=== PATIENT | female | born 1950 | race Caucasian/White ===

== ENCOUNTER 2023-09-17 12:21 | Outpatient (OUT) | payer MEDICARE, SELFPAY ==
[2023-09-17 12:55] LABS: Basophils Percent Auto 0.6 % (0.2-2.0); Eosinophils Absolute Auto 0.3 10^3/uL (0.0-0.7); Eosinophils Percent Auto 4.7 % (0.9-7.0); Hematocrit 44.8 % (36.0-48.0); Hemoglobin 15.1 g/dL (12.0-16.0); Immature Granulocytes Abs Auto 0.02 10^3/uL (0.00-0.03); Immature Granulocytes Pct Auto 0.3 % (0.0-0.5); Lymphocytes Absolute Auto 1.7 10^3/uL (1.2-3.8); Lymphocytes Percent Auto 25.9 % (20.5-60.0); Mean Corpuscular HGB Conc 33.7 g/dL (29.9-35.2); Mean Corpuscular Hemoglobin 31.1 pg (26.7-34.0); Mean Corpuscular Volume 92.2 fL (81.0-99.0); Mean Platelet Volume 9.6 fL (9.5-13.5); Monocytes Absolute Auto 0.6 10^3/uL (0.3-0.8); Monocytes Percent Auto 8.6 % (1.7-12.0); Neutrophils Percent Auto 59.9 % (43.0-75.0); Platelet Count 317 10^3/uL (150-450); Red Blood Count 4.86 10^6/uL (4.20-5.40); Red Cell Distribution Width 13.2 % (11.0-15.0); White Blood Count 6.6 10^3/uL (4.0-11.0)
[2023-09-17 13:42] LABS: Creatinine Urine Random 93.37 mg/dL (20.00-300.00); Microalbum Creatinine Ratio Ur 13.9 mg/g (0.0-29.9); Microalbumin Urine Random <1.3 mg/dL (<=30.0)
[2023-09-17 13:49] LABS: Estimated Average Glucose 111 mg/dL; Glycohemoglobin A1C 5.5 % (4.5-6.2)
== END 2023-09-17 12:22 | disposition home or self-care (01) ==
LOC: LAB 12:25
PROVIDERS: PCP Internal Medicine; Visit Provider Internal Medicine
DX: E11.9 Type 2 diabetes mellitus without complications (principal); E78.5 Hyperlipidemia, unspecified
CPT/HCPCS: 36415; 82043; 82570; 83036; 85025

== ENCOUNTER 2023-09-17 12:28 | Outpatient (OUT) | payer MEDICARE, SELFPAY ==
[2023-09-17 13:41] LABS: Alanine Aminotransferase 31 U/L (14-59); Albumin Globulin Ratio 0.9; Albumin Level 3.8 g/dL (3.4-5.0); Alkaline Phosphatase 65 U/L (46-116); Anion Gap 16.3; Aspartate Amino Transferase 22 U/L (15-37); BUN Creatinine Ratio 22.4; Bilirubin Total 0.5 mg/dL (0.2-1.0); Calcium 9.6 mg/dL (8.5-10.1); Carbon Dioxide 24.9 mmol/L (21.0-32.0); Chloride 103 mmol/L (98-107); Chol HDL Ratio 2.9; Cholesterol 164 mg/dL (<=200); Estimated GFR (African America >60 (>=60); Estimated GFR (Non-African Ame >60 (>=60); Glucose 111 mg/dL (74-106); HDL Cholesterol 56 mg/dL (40-60); LDL Cholesterol Calculated 87.2 mg/dL; Magnesium 2.1 mg/dL (1.8-2.4); Potassium 4.2 mmol/L (3.5-5.1); Sodium 140 mmol/L (136-145); Total Protein 7.8 g/dL (6.4-8.2); Triglycerides 104 mg/dL (<=150); VLDL CHOLESTEROL 20.8 mg/dL
== END 2023-09-17 12:29 | disposition home or self-care (01) ==
PROVIDERS: PCP Internal Medicine
DX: E78.5 Hyperlipidemia, unspecified (principal); E11.9 Type 2 diabetes mellitus without complications; I10 Essential (primary) hypertension; I49.3 Ventricular premature depolarization
CPT/HCPCS: 36415; 80053; 80061; 82043; 82570; 83036; 83735; 85025

== ENCOUNTER 2024-09-26 10:25 | Outpatient (OUT) | payer MEDICARE, SELFPAY ==
--- OUTSIDE RECORDS SUMMARY | 2024-09-26 10:40 | XMS_ITS | CCD ---
Author Organization [facility] Care Team Providers Care Balance Recesser Name Role Phone Yuri Washington Unavailable MISC, DR RODRIGUEZ Primary Care Unavailable MODESTO, DR JOSEF Nelson Consulting Unavailable FAWWAD, CARLIN H Admitting Unavailable FAWWAD, CARLIN H Attending Unavailable FAWWAD, CARLIN H Consulting Unavailable FAWWAD, CARLIN H Admitting Unavailable FAWWAD, CARLIN H Attending Unavailable EAST BERNARD, DR ARCADIO Garcia Consulting Unavailable FAWWAD, CARLIN H Primary Care Unavailable FAWWAD, CARLIN H Consulting Unavailable FAWWAD, CARLIN H Admitting Unavailable FAWWAD, CARLIN H Attending Unavailable FAWWAD, CARLIN H Consulting Unavailable FAWWAD, CARLIN H Primary Care Unavailable MISC, DR RODRIGUEZ Admitting Unavailable MISC, DR RODRIGUEZ Attending Unavailable MISC, DR RODRIGUEZ Consulting Unavailable FAWWAD, CARLIN H Primary Care Unavailable FAWWAD, CARLIN H Admitting Unavailable FAWWAD, CARLIN H Attending Unavailable FAWWAD, CARLIN H Consulting Unavailable FAWWAD, CARLIN H Primary Care Unavailable CHERRY SHEIKH Attending Unavailable MAICO STONEN R Referring Unavailable MAICO STONEN R Primary Care Unavailable Chase LAST SORTER-MANAGER ENVIRONMENTAL, Eris R Primary Care Provider [phone] Kimmie BARNETT, Unavailable Ronn BARNETT, Jerome Primary Care Provider [phone] Karen Conner NP Unavailable Shaikh Burks MD Primary Care Provider Karen Conner Primary Care Unavaila ble Ly, Negrita L Attending Unavailable Negrita Van Admitting Unavailable SHAIKH BURKS Attending Unavailable CONNER, KAREN Attending Unavailabl e LENKA, KAREN Attending Unavailzuleyka e LENKA, KAREN Attending Unavailzuleyka e Arcadio Marte Attending Unavailable Arcadio Marte Referring Unavailable Arcadio Marte Attending Unavailable Arcadio Marte Attending Unavailable Arcadio Marte Attending Unavailable Arcadio Marte Referring Unavailable Arcadio Marte Attending Unavailable Arcadio Marte Referring Unavailable Allergies Allergy Classification Reported Allergen(s) Allergy Type Date of Onset Reaction(s) Facility (4 sources) celecoxib; Translations: [CELECOXIB] Drug Allergy 7 Anaphylaxis [facility] Rep[facility] (4 sources) Morphine; Translations: [MORPHINE] Drug Allergy 7 Stops her digestion, shuts down bowel, Stops her digestion [facility] (2 sources) Sulfacetamide Drug Allergy 4 Anaphylaxis [facility] (1 source) celecoxib Drug Allergy 4 [facility] Repository (1 source) Codeine Drug Allergy 4 [facility] Repository (1 source) Morphine Drug Allergy 4 [facility] Rep[facility] (1 source) Sulfonamides (Antibiotic) Drug allergy (disorder) 4 [facility] Repository (19 sources) Lisinopril; Translations: [LISINOPRIL] Drug Allergy 7 Cough [facility] Repository (4 sources) Sulfonamides (Antibiotic); Translations: [SULFA (SULFONAMIDE ANTIBIOTICS)] Propensity to adverse reactions to drug (disorder) 7 Anaphylaxis [facility] Repository (17 sources) celecoxib Drug Allergy 3 Anaphylaxis [facility] (17 sources) Sulfonamides (Antibiotic) Propensity to adverse reactions 3 Anaphylaxis [facility] (1 source) celecoxib Drug Allergy 4 [facility] Repository Medications Current Medications Medication Drug Class(es) Dates Sig (Normalized) Sig (Original) acetaminophen 325 mg oral tablet (1 source) take 1 tablet by mouth every four hours Tylenol 325 MG 1 tablet as needed Orally every 4 hrs Active amoxicillin 875 mg / clavulanate 125 mg oral tablet (2 sources) Penicillin-class Antibacterial Start: 08-14-2024 End: 08-24-2024 take 1 tablet by mouth in the morning amoxicillin-clavula luigi (Augmentin) 875-125 MG tablet Indications: Upper respiratory tract infection, unspecified type , Non-recurrent acute serous otitis media of both ears Take 1 tablet (875 mg) by mouth in the morning and 1 tablet (875 mg) before bedtime. Do all this for 10 days. 20 tablet 08/14/2024 08/24/2024 Active aspirin 81 mg delayed release oral tablet (1 source) Platelet Aggregation Inhibitor, Nonsteroidal Anti-inflammatory Drug take 1 tablet by mouth every twenty-four hours Aspirin 81 MG 1 tablet Orally Once a day Active chlorthalidone 25 mg oral tablet (20 sources) Thiazide-like Diuretic Start: 06-16-2024 take 0.5 tablet by mouth once daily chlorthalidone (HYGROTON) 25 mg tablet Indications: Essential hypertension , Ventricular premature beats , Palpitations Take 0.5 tablets (12.5 mg total) by mouth daily. 45 tablet 06/16/2024 Active Start: 09-09-2023 End: 06-15-2024 take 0.5 tablet by mouth once daily chlorthalidone (HYGROTON) 25 mg tablet Indications: Essential hypertension , Ventricular premature beats , Palpitations Take 0.5 tablets (12.5 mg total) by mouth daily. 45 tablet 2 09/09/2023 06/15/2024 Discontinued (Reorder) chlorthalidone ( Hygroton) 25 MG tablet Take 12.5 mg by mouth in the morning. Active take 1 tablet by red th every twenty-four hours Chlorthalidone 25 MG 1 tablet in the morning with food Orally Once a day Active docusate sodium 100 mg oral capsule (1 source) take 1 capsule by mouth every twenty-four hours Stool Softener 100 MG 1 capsule as needed Orally Once a day for 30 day(s) Active fluticasone propionate 0.05 mg/actuat metered dose nasal spray (4 sources) Corticosteroid Start: 08-14-19 End: 08-14-19 26 take 1-2 spray(s) nasal route once daily fluticasone (Flonase) 50 MCG/ACT nasal spray Indications: Upper respiratory tract infection, unspecified type Administer 1-2 sprays into each nostril Daily Shake gently. Before first use, prime pump. After use, clean tip and replace cap. 16 g 2 08/14/2024 08/14/2025 Active gabapentin 300 mg oral capsule (20 sources) Anti-epileptic Agent Start: 01-11-20 24 End: 11-13-19 25 take 1 capsule by mouth in the morning, then take 1 capsule by mouth in the evening, then take 1 capsule by mouth at bedtime gabapentin (Neurontin) 300 MG capsule Indications: Chronic left-sided low back pain with left-sided sciatica Take 1 capsule (300 mg) by mouth in the morning and 1 capsule (300 mg) in the evening and 1 capsule (300 mg) before bedtime. 270 capsule 08/14/2024 11/12/2024 Active Start: 12-22-2016 End: 12-21-2018 take 1 capsule by mouth three times daily Gabapentin 300 mg Capsule Discontinued 300 MG PO Three times daily November 01, 2018 11:00pm December 21, 2018 10:00pm glimepiride 4 mg oral tablet (1 source) Sulfonylurea take 1 tablet by mouth every twenty-four hours Glimepiride 4 MG 1 tablet with breakfast or the first main meal of the day Orally Once a day Active 12 hr guaiFENesin 600 mg extended release oral tablet (2 sources) Start: 5 End: 5 take 2 tablets by mouth in the morning, then take 2 tablets by mouth every twelve hours at bedtime guaiFENesin (Mucinex) 600 MG 12 hr tablet Indications: Upper respiratory tract infection, unspecified type Take 2 tablets (1,200 mg) by mouth in the morning and 2 tablets (1,200 mg) before bedtime. Do all this for 14 days. Do not crush, chew, or split.. 56 tablet 08/14/2024 08/28/2024 Active Magnesium (1 source) magnesium 200 mg tablet Take by mouth. Active metFORMIN hydrochloride 500 mg oral tablet (20 sources) Biguanide Start: 5 End: 5 take 1 tablet by mouth in the morning metFORMIN (Glucophage) 500 MG tablet Indications: Type 2 diabetes mellitus with diabetic polyneuropathy, without long-term current use of insulin (CMS/HCC) Take 1 tablet (500 mg) by mouth in the morning and 1 tablet (500 mg) in the evening. Take with meals. 180 tablet 1 08/14/2024 02/10/2025 Active Start: 12-30-2021 End: 08-07-2024 take 1 tablet by mouth in the morning metFORMIN (Glucophage) 500 MG tablet Indications: Type 2 diabetes mellitus with diabetic polyneuropathy, without long-term current use of insulin (CMS/HCC) Take 1 tablet (500 mg) by mouth in the morning and 1 tablet (500 mg) in the evening. Take with meals. 180 tablet 1 01/11/2024 08/07/2024 Discontinued (Reorder) take 1 tablet by red th every twenty-four hours metFORMIN HCl 500 MG 1 tablet with a meal Orally Once a day Active multivitamin capsule (1 source) take 1 capsule by mouth every other day in the morning multivitamin capsule Take 1 capsule by mouth in the morning. EVERY OTHER DAY . Active naproxen 250 mg oral tablet (2 sources) Nonsteroidal Anti-inflammatory Drug take 1 tablet by mouth in the morning, then take 1 tablet by mouth at mealtime naproxen (NAPROSYN) 250 mg tablet Take 1 tablet (250 mg total) by mouth in the morning and 1 tablet (250 mg total) in the evening. Take with meals. Active take 1 tablet by red th every twelve hours at mealtime as needed Naproxen 375 MG 1 tablet with food or milk as needed Orally every 12 hrs Active omeprazole 40 mg delayed release oral capsule (20 sources) Proton Pump Inhibitor Start: 09-11-2024 take 1 capsule by mouth before breakfast omeprazole (PriLOSEC) [address] capsule Indications: Gastroesophageal reflux disease without esophagitis TAKE 1 CAPSULE BY MOUTH IN THE MORNING BEFORE BREAKFAST 30 capsule 2 09/11/2024 Active Start: 06-21-2024 End: 09-11-2024 take 1 capsule by mouth once daily before breakfast omeprazole (PriLOSEC) [address] capsule Indications: Gastroesophageal reflux disease without esophagitis TAKE 1 CAPSULE BY MOUTH ONCE DAILY IN THE MORNING before BREAKFAST 30 capsule 2 06/21/2024 09/11/2024 Discontinued Start: 04-19-2024 take 1 capsule by mo uth before mealtime omeprazole (PriLOSEC) [address] capsule Indications: Gastroesophageal reflux disease without esophagitis Take 1 capsule (40 mg) by mouth in the morning. Take before meals. 30 capsule 2 04/19/2024 Active Start: 11-02-2018 End: 06-21-2024 take 1 capsule by mouth once daily before breakfast omeprazole (PriLOSEC) [address] capsule Indications: Gastroesophageal reflux disease without esophagitis TAKE 1 CAPSULE BY MOUTH ONCE DAILY IN THE MORNING before BREAKFAST 30 capsule 2 06/21/2024 Active polyethylene glycol 3350 397405 mg / potassium chloride 2970 mg / sodium bicarbonate 6740 mg / sodium chloride 5860 mg / sodium sulfate 07018 mg powder for oral solution (1 source) Osmotic Laxative Start: 06-26-2024 Peg 3350-Electrolytes (Golytely) 236-22.74-6.74 -5.86 gram recon soln Active 480 ML PO Q10M 8000 2 June 26, 2024 12:00am follow instructions given at office please give two kits for a 2 day bowel clean out Psyllium (1 source) Metamucil 48.57 % as directed Orally Active SENNOSIDES (SENNA LAX ORAL) (1 source) SENNOSIDES (JUAN M A LAX ORAL) as needed. Active simvastatin 40 mg oral tablet (20 sources) HMG-CoA Reductase Inhibitor Start: 06-26-2024 take 2 tablets by mouth once daily at bedtime Simvastatin 10 mg tablet Active 20 MG PO Daily at bedtime June 26, 2024 2:03pm Start: 02-17-2024 End: 03-20-2025 take 1 tablet by mouth at bedtime simvastatin (Zocor) 40 MG tablet Indications: Mixed hyperlipidemia (CMS/HCC) Take 1 tablet (40 mg) by mouth at bedtime 90 tablet 09/21/2024 03/20/2025 Active Start: 11-02-2018 End: 06-26-2024 take 1 tablet by mouth once daily at bedtime Simvastatin 10 mg Tablet Discontinued 10 MG PO Daily at bedtime November 01, 2018 11:00pm June 26, 2024 2:05pm tiZANidine 4 mg oral tablet (19 sources) Central alpha-2 Adrenergic Agonist Start: 06-26-2024 take 1 tablet by mouth twice daily as needed Tizanidine 4 mg tablet Active 1 MG PO Twice daily June 26, 2024 12:00am FreeTextSi tablet as needed Orally Twice a day; Note: Source Status: Taking; Provider: Felix Welch ( ) Start: 11-22-2023 End: 05-20-2024 take 1 tablet by mouth every eight hours for muscle spasms tiZANidine (Zanaflex) 4 MG tablet Indications: Chronic low back pain with left-sided sciatica, unspecified back pain laterality Take 1 tablet (4 mg) by mouth every 8 (eight) hours if needed for muscle spasms 270 tablet 1 11/22/2023 Active Start: 11-02-2018 End: 11-18-2018 take 1 tablet by mouth three times daily as needed Tizanidine 4 mg Tablet Discontinued 4 MG PO Three times daily as needed for Muscle Spasticity November 01, 2018 11:00pm November 18, 2018 6:49am take 1 capsule by mo uth three times daily tiZANidine (ZANAFLEX) 4 mg capsule Take 1 capsule (4 mg total) by mouth 3 (three) times a day. Active take 1 tablet by red th every twelve hours tiZANidine HCl 4 MG 1 tablet as needed Orally Twice a day Active 24 hr verapamil hydrochloride 360 mg extended release oral capsule (20 sources) Calcium Channel [place] Start: 11-30-2023 End: 01-07-2025 take 1 capsule by mouth once daily verapamil ER (Verelan) 360 MG 24 hr capsule Indications: Essential hypertension (CMS/HCC) Take 1 capsule (360 mg) by mouth Daily 90 capsule 1 07/11/2024 01/07/2025 Active Start: 11-02-2018 take 1 tablet by red th once daily at bedtime Verapamil 240 mg Tablet Extended Release Active 240 MG PO Daily at bedtime November 01, 2018 11:00pm Vitamin D 1000 UNIT (1 source) take 1 tablet by red th once daily Vitamin D 1000 UNIT 1 tablet Orally Once a day for 30 day(s) *please review for potential _update for e-prescription and drug interaction check* Active Completed/Discontinued Medications Medication Drug Class(es) Dates Sig (Normalized) Sig (Original) Albuterol Sulfate 90 mcg/actuation Hfa Aerosol Inhaler (1 source) Start: 9 End: 4 take 1 puff(s) by inhalation every four to six hours as needed for wheezing Albuterol Sulfate 90 mcg/actuation Hfa Aerosol Inhaler Discontinued 2 PUFF INHALATION EVERY 4-6 HOURS as needed for Shortness Of Breath Or Wheezing November 01, 2018 11:00pm June 26, 2024 2:01pm cephalexin 500 mg oral capsule (1 source) Cephalosporin Antibacterial Start: 9 End: 9 take 1 capsule by mouth every eight hours Cephalexin (Keflex) 500 mg capsule Discontinued 500 MG PO Q8H November 17, 2018 11:00pm December 09, 2018 8:35am cyclobenzaprine hydrochloride 10 mg oral tablet (2 sources) Muscle Relaxant Start: 9 End: 4 take 1 tablet by mouth three times daily as needed for muscle spasms Cyclobenzaprine 10 mg tablet Discontinued 10 MG PO Three times daily as needed for back spasms 50 December 26, 2018 11:00pm June 26, 2024 2:02pm Fluticasone Propion-Salmeterol (1 source) Corticosteroid, beta2-Adrenergic Agonist Start: 9 End: 4 Fluticasone Propion-Salmeterol (Advair Diskus) 250-50 mcg/dose Blister With Device Discontinued 1 INH INHALATION Twice daily as needed for Shortness Of Breath Or Wheezing November 01, 2018 11:00pm June 26, 2024 2:02pm methylPREDNISolone (1 source) Corticosteroid Start: 8 Depo-Medrol 40 mg Apr, 1 mL oxyCODONE hydrochloride 5 mg oral capsule (2 sources) Opioid Agonist Start: 9 End: 4 take 5-10 mg by mouth every six hours as needed for pain Oxycodone 5 mg capsule Discontinued 5 - 10 MG PO Q6H as needed for pain 60 8 December 27, 2018 June 26, 2024 2:02pm polyethylene glycol 3350 22391 mg powder for oral solution (2 sources) Osmotic Laxative Start: 9 End: 4 Polyethylene Glycol 3350 (Miralax) 17 gram Powder In Packet Discontinued 17 GM PO Daily November 01, 2018 11:00pm June 26, 2024 2:02pm MiraLax - as dir ected Orally *please review for potential _update for e-prescription and drug interaction check* Active predniSONE 10 mg oral tablet (1 source) Start: 11-18-2018 End: 12-09-2018 Prednisone 10 mg tablets,dos e pack Discontinued 1 dose pk PO per package directions November 17, 2018 11:00pm December 09, 2018 8:36am take 4 tabs for 3 days then take 3 tabs for 3 days then take 2 tabs for 3 days then take 1 tab for 3 days Problems Active Problems Problem Classification Problem Date Documented Da te Episodic/Chronic Abdominal pain (1 source) Unspecified abdominal pain; Translations: [Unspecified abdominal pain] Onset: 4 Episodic Cardiac dysrhythmias (3 sources) Ventricular premature depolarization; Translations: [Multiple premature ventricular complexes] Onset: 6 06-15-2024 Chronic Cardiac dysrhythmias (3 sources) Palpitations; Translations: [Palpitations] Onset: 6 06-15-2024 Episodic Cataract (1 source) Presence of intraocular lens; Translations: [Pseudophakia] Onset: 4 Chronic Complications of surgical procedures or medical care (1 source) Postoperative wound infection; Translations: [Infection following a procedure, other surgical site, initial encounter] 12-22-2018 Episodic Congestive heart failure; nonhypertensive (20 sources) Chronic diastolic (congestive) heart failure; Translations: [Chronic diastolic heart failure] Onset: 1 03-11-2021 Chronic Diabetes mellitus with complications (20 sources) Polyneuropathy due to type 2 diabetes mellitus; Translations: [Type 2 diabetes mellitus with diabetic polyneuropathy] Onset: 3 07-28-2023 Chronic Diabetes mellitus without complication (5 sources) Type 2 diabetes mellitus without complications; Translations: [TYPE 2 DM WITHOUT COMPLICATIONS] Onset: 2 Chronic Disorders of lipid metabolism (20 sources) Hyperlipidemia, unspecified; Translations: [Mixed hyperlipidemia] Onset: 1 03-11-2021 Chronic Diverticulosis and diverticulitis (20 sources) Diverticulitis of gastrointestinal tract; Translations: [Diverticulitis] Onset: 4 06-26-2024 Chronic Esophageal disorders (3 sources) Gastroesophageal reflux disease without esophagitis; Translations: [Gastro-esophageal reflux disease without esophagitis] 06-20-2024 Chronic Essential hypertension (20 sources) Essential hypertension; Translations: [Essential (primary) hypertension] Onset: 7 06-15-2024 Chronic Fever of unknown origin (1 source) Fever; Translations: [Fever, unspecified] 12-09-2018 Episodic Genitourinary symptoms and ill-defined conditions (4 sources) Unspecified symptoms and signs involving the genitourinary system; Translations: [UNS SYMPTOMS SIGNS INVLV SYSTEM] Onset: 3 Episodic Hypertension with complications and secondary hypertension (4 sources) Hypertensive heart disease with heart failure; Translations: [HTN HEART DISEASE W/HEART FAIL] Onset: 2 Chronic Immunizations and screening for infectious disease (2 sources) Needs influenza immunization; Translations: [Encounter for immunization] 06-28-2024 Episodic Other acquired deformities (2 sources) Lumbar spondylolisthesis; Translations: [Spondylolisthesis, lumbar region] 11-17-2018 Episodic Other aftercare (1 source) Surgical follow-up; Translations: [Encounter for follow-up examination after completed treatment for conditions other than malignant neoplasm] 12-09-2018 Episodic Other connective tissue disease (1 source) Muscle pain; Translations: [Myalgia, unspecified site] 12-09-2018 Episodic Other eye disorders (1 source) 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), bilateral; Translations: [Bilateral macula scars of post poles] Onset: 4 Chronic Other gastrointestinal disorders (1 source) Altered bowel function; Translations: [Other specified symptoms and signs involving the digestive system and abdomen] 06-26-2024 Episodic Other gastrointestinal disorders (1 source) Other specified symptoms and signs involving the digestive system and abdomen; Translations: [Other symptoms involving digestive system] 06-26-2024 Episodic Other nervous system disorders (1 source) Chronic pain; Translations: [Other chronic pain] Chronic Other nutritional; endocrine; and metabolic disorders (1 source) Obese class I; Translations: [Obesity (BMI 30.0-34.9)] Onset: 2 03-11-2022 Chronic Other screening for suspected conditions (not mental disorders or infectious disease) (1 source) Encounter for screening mammogram for malignant neoplasm of breast; Translations: [ENC SCR MAMMO MALIG NEOPLASM BREAST] Onset: 3 Episodic Other upper respiratory infections (6 sources) Upper respiratory infection; Translations: [Acute upper respiratory infection, unspecified] Onset: 5 08-14-2024 Episodic Otitis media and related conditions (6 sources) Acute non-suppurative otitis media - serous; Translations: [Acute serous otitis media, bilateral] Onset: 5 08-14-2024 Episodic Residual codes; unclassified (1 source) Family history of malignant neoplasm of digestive organs; Translations: [FAM HX MALIG NEOPLASM DIGESTIV ORGN] Onset: 3 Episodic Residual codes; unclassified (1 source) Family history of malignant neoplasm of trachea, bronchus and lung; Translations: [FAM HX MALIG NEOPLSM TRACH BRON LNG] Onset: 3 Episodic Retinal detachments; defects; vascular occlusion; and retinopathy (3 sources) Puckering of macula, left eye; Translations: [Exudative age-related macular degeneration, right eye, with active choroidal neovascularization] Onset: 4 Chronic Spondylosis; intervertebral disc disorders; other back problems (18 sources) Lumbar spondylosis; Translations: [Other intervertebral disc degeneration, lumbar region] Onset: 4 11-30-2023 Chronic Unclassified (3 sources) LOW BACK PAIN, UNSPECIFIED; Translations: [LOW BACK PAIN, UNSPECIFIED] Onset: 2 Past or Other Problems Problem Classification Problem Date Documented Date Episodic/Chronic Complication of device; implant or graft (1 source) Breakdown (mechanical) of internal fixation device of vertebrae, initial encounter Onset: 10-28-2021 Resolved: 10-28-2021 Episodic Mood disorders (17 sources) Mood disorders Onset: 07-28-2023 07-28-2023 Other connective tissue disease (1 source) Trochanteric bursitis; Translations: [Trochanteric bursitis, right hip] Episodic Other non-traumatic joint disorders (1 source) Pain in right hip joint; Translations: [Pain in right hip] Episodic Other non-traumatic joint disorders (1 source) Pain in right hip Onset: 10-28-2021 Resolved: 10-28-2021 Episodic Residual codes; unclassified (18 sources) H/O Spinal surgery; Translations: [Other specified postprocedural states] Onset: 11-30-2023 12-21-2018 Episodic Spondylosis; intervertebral disc disorders; other back problems (20 sources) Lumbago with sciatica; Translations: [Lumbago with sciatica, left side] Onset: 01-08-2017 01-08-2017 Episodic Unclassified (1 source) LOW BACK PAIN, UNSPECIFIED; Translations: [LOW BACK PAIN, UNSPECIFIED] Onset: 10-24-2021 Results Test Name Value Interpretation Reference Range Facility Glucose Poct Glucometerson 1 09-26-2023 Glucose [Mass/Vol] 102 mg/dL Normal [facility] Comment on above: Result Comment: [facility] Glucose Reference Range is dependent on time and content of last meal. Glucose of more than 200 mg/dL in a nonstressed, ambulatory subject supports the diagnosis of Diabetes Mellitus. PERFORMED BY: [place] [address] PATHOLOGIST THEOLOGY TEACHER LATRICE WAKEFIELD M.D. Performed By: #### G LULS #### Point of Care testing , Pathology Request for Lab Co rpon 07-26-2024 Pathology Request for Lab Heather Normal [facility] Comment on above: Order Comment: PATHO LOGY GI SPECIMEN Result Comment: See report. Scanned copy available in EMR. PERFORMED BY: [place] [address] PATHOLOGIST THEOLOGY TEACHER LATRICE WAKEFIELD M.D. Performed By: #### P ATH TO [facility] #### [address] CULTURE URINEon 08-26-2022 CULTURE URINE Culture Observations: NO GROWTH. Normal [facility] Comment on above: Performed By: #### U RCX #### [facility] [address] [place] [address] Dr. Anna Roberts GLYCOHEMOGLOBIN A1Con 2022 ADA RECOMMENDATION SEE BELOW Normal [facility] Comment on above: Result Comment: ADA RECOMMENDED LIMIT 4.0 - 6.0 ADA THERAPEUTIC TARGET < 7.0 ACTION SUGGESTED > 7.0 Performed By: #### U AMIC #### [facility] [address] [address] [address] Anna Roberts Glucose [Mass/Vol] 126 mg/dL Normal [facility] Comment on above: Performed By: #### U AMIC #### [facility] [address] [address] [address] Anna Roberts HbA1c (Bld) [Mass fraction] 6.0 % Normal 4.5-6.2 [facility] Comment on above: Performed By: #### U AMIC #### [facility] [address] [address] [address] Anna Roberts LIPID PROFILEon 08-26-2022 CHOL-HDL RATIO NORM SEE BELOW Normal [facility] Comment on above: Result Comment: 3.3 - 4.4 LOW RISK 4.4 - 7.1 AVERAGE RISK 7.1 - 11.0 MODERATE RISK >11.0 HIGH RISK Performed By: #### L IPID #### [facility] [address] [address] [address] Anna Roberts Cholesterol [Mass/Vol] 116 mg/dL Normal <=200 [facility] Comment on above: Performed By: #### L IPID #### [facility] [address] [address] [address] Anna Roberts Cholesterol in HDL [Mass/Vol] 44 mg/dL Normal 40-60 [facility] Comment on above: Performed By: #### L IPID #### [facility] [address] [address] [address] Anna Roberts Cholesterol in LDL [Mass/Vol] 53.0 mg/dL Normal [facility] Comment on above: Performed By: #### L IPID #### [facility] [address] [address] [address] Anna Roberts Cholesterol.total/Cho lesterol in HDL [Mass ratio] 2.6 {ratio} Normal [facility] Comment on above: Performed By: #### L IPID #### [facility] [address] [address] [address] Anna Roberts HDL NORMAL > or = 60 mg/dl - LOW CARDIOVASCULAR RISK <40 mg/dl - HIGH CARDIOVASCULAR RISK Normal [facility] Comment on above: Performed By: #### L IPID #### [facility] [address] [place], [place] [address] Dr. Anna Roberts LDL CALC NORMAL SEE BELOW Normal [facility] Comment on above: Result Comment: <100 mg/dl OPTIMAL 100 - 129 mg/dl NEAR OR ABOVE OPTIMAL 130 - 159 mg/dl BORDERLINE HIGH 160 - 189 mg/dl HIGH >190 mg/dl VERY HIGH Performed By: #### L IPID #### [facility] [address] [address] [address] Anna Roberts Triglyceride [Mass/Vol] 96 mg/dL Normal <=150 [facility] Comment on above: Performed By: #### L IPID #### [facility] [address] [address] [address] Anna Roberts VLDL CALC 19.2 mg/dL Normal [facility] Comment on above: Performed By: #### L IPID #### [facility] [address] [address] [address] Anna Roberts MG MAMM SCREEN 3D SAMI CADon 08-26-2022 MG MAMM SCREEN 3D SAMI CAD Patient: SASKIA NEFF Exam Date: 08/26/2022 : 1950 Gender:F Ordering : SHAIKH Alma BURKS . Admission #: [id number] Family : Order #: [id number] CLICK HERE TO VIEW EXAM RADIOLOGY REPORT PROCEDURE: MAMMOGRAM SCREENING 3D BILATERAL CAD COMPARISON: MG MAMM SCREEN SAMI W CAD, 06/05/2019. MG MAMM SCREEN 3D SAMI CAD, 07/31/2021. INDICATIONS: Screening mammography Calculator Name NCI Breast Cancer Risk Assessment Tool 5 Year Breast Cancer Risk 2.40% Lifetime Breast Cancer Risk 6.90% Personal Breast Cancer No Personal Ovarian Cancer No Treatments None Family Cancers Mother with lung cancer at age 61; Father with colon cancer at age 70. LOCATION: [facility] BREAST COMPOSITION: Scattered areas fibroglandular density. FINDINGS: DIAGNOSTIC CATEGORY 2--BENIGN FINDING. NO CHANGE FROM COMPARISON. Scattered benign-appearing nodules are present. Scattered benign-appearing calcifications are present. Scattered benign-appearing lymph nodes are present. RIGHT BREAST: No significant suspicious finding. LEFT BREAST: No significant suspicious finding. RECOMMENDATIONS: ROUTINE MAMMOGRAM AND CLINICAL EVALUATION IN 12 MONTHS. PLEASE NOTE: A NORMAL MAMMOGRAM DOES NOT EXCLUDE THE POSSIBILITY OF BREAST CANCER. A CLINICALLY SUSPICIOUS PALPABLE LUMP SHOULD BE BIOPSIED. Dictated by: Arcadio Walsh MD on 08/26/2022 at 10:27 Approved by: Arcadio Walsh MD on 08/26/2022 at 10:29 Normal [facility] UA RANDOM W/MICROSCOPICon BACTERIA TRACE Abnormal NONE SEEN [facility] Comment on above: Performed By: #### U AMIC #### [facility] [address] [place] [address] Dr. Anna Roberts Bilirubin Ql (U) Negative Normal NEGATIVE [facility] Comment on above: Performed By: #### U AMIC #### [facility] [address] [place] [address] Dr. Anna Roberts CAST NONE SEEN Normal NONE SEEN [facility] Comment on above: Performed By: #### U AMIC #### [facility] [address] [place] [address] Dr. Anna Roberts Clarity (U) CLEAR Normal CLEAR [facility] Comment on above: Performed By: #### U AMIC #### [facility] [address] [place] [address] Dr. Anna Roberts Color (U) LT. YELLOW Normal YELLOW [facility] Comment on above: Performed By: #### U AMIC #### [facility] [address] [place] [address] Dr. Anna Roberts Crystals LM Nom (Urine sed) NONE SEEN Normal NONE SEEN [facility] Comment on above: Performed By: #### U AMIC #### [facility] [address] [place] [address] Dr. Anna Roberts Epithelial cells LM Ql (Urine sed) FEW Abnormal NONE SEEN /RARE [facility] Comment on above: Performed By: #### U AMIC #### [facility] [address] [place] [address] Dr. Anna Roberts Glucose Ql (U) Negative Normal NEGATIVE [facility] Comment on above: Performed By: #### U AMIC #### [facility] [address] [address] [address] Anna Roberts Hemoglobin Ql (U) Negative Normal NEGATIVE [facility] Comment on above: Performed By: #### U AMIC #### [facility] [address] [address] [address] Anna Roberts Ketones Ql (U) Negative Normal NEGATIVE [facility] Comment on above: Performed By: #### U AMIC #### [facility] [address] [address] [address] Anna Roberts LEUKOCYTES Negative Normal NEGATIVE [facility] Comment on above: Performed By: #### U AMIC #### [facility] [address] [address] [address] Anna Roberts MUCOUS NONE SEEN Normal NONE SEEN [facility] Comment on above: Performed By: #### U AMIC #### [facility] [address] [place] [address] Dr. Anna Roberts Nitrite Ql (U) Negative Normal NEGATIVE [facility] Comment on above: Performed By: #### U AMIC #### [facility] [address] [place] [address] Dr. Anna Roberts pH (U) 6.0 [pH] Normal 5-9 [facility] Comment on above: Performed By: #### U AMIC #### [facility] [address] [place] [address] Dr. Anna Roberts RBC NONE SEEN Abnormal 0-2 [facility] Comment on above: Performed By: #### U AMIC #### [facility] [address] [place] [address] Dr. Anna Roberts SPEC GRAVITY >=1.030 Abnormal 1.005-<=1.025 [facility] Comment on above: Performed By: #### U AMIC #### [facility] [address] [place] [address] Dr. Anna Roberts UA PROTEIN Negative Normal NEGATIVE/ TRACE [facility] Comment on above: Performed By: #### U AMIC #### [facility] [address] [place] [address] Dr. Anna Roberts Urobilinogen Qn (U) 0.2 {Mulu'U}/dL Normal 0.2 - 1. 0 [facility] Comment on above: Performed By: #### U AMIC #### [facility] [address] [place] [address] Dr. Anna Roberts WBC NONE SEEN Normal NONE SEEN [facility] Comment on above: Performed By: #### U AMIC #### [facility] [address] [place] [address] Dr. Anna Roberts CBC AUTO DIFFon 03-09-2022 BASO # 0.0 103/ul Normal 0.0-0.1 [facility] Comment on above: Performed By: #### C BC #### [facility] [address] [place] [address] Dr. Anna Roberts Basophils/100 WBC (Bld) 0.6 % Normal 0.2-2.0 [facility] Comment on above: Performed By: #### C BC #### [facility] [address] [place] [address] Dr. Anna Roberts EO # 0.3 103/ul Normal 0.0-0.7 [facility] Comment on above: Performed By: #### C BC #### [facility] [address] [place] [address] Dr. Anna Roberts Eosinophils/100 WBC (Bld) 4.1 % Normal 0.9-7.0 [facility] Comment on above: Performed By: #### C BC #### [facility] [address] [place] [address] Dr. Anna Roberts Erythrocyte distribution width (RBC) [Ratio] 13.1 % Normal 11.0-15.0 [facility] Comment on above: Performed By: #### C BC #### [facility] [address] [place] [address] Dr. Anna Roberts Hematocrit (Bld) [Volume fraction] 44.2 % Normal 36.0-48.0 [facility] Comment on above: Performed By: #### C BC #### [facility] [address] [place] [address] Dr. Anna Roberts Hemoglobin (Bld) [Mass/Vol] 15.6 g/dL Normal 12.0-16.0 [facility] Comment on above: Performed By: #### C BC #### [facility] [address] [place] [address] Dr. Anna Roberts IG # 0.02 10e3/ul Normal 0.00-0.03 [facility] Comment on above: Performed By: #### C BC #### [facility] [address] [place] [address] Dr. Anna Roberts IG % 0.3 % Normal 0.0-0.5 [facility] Comment on above: Performed By: #### C BC #### [facility] [address] [place] [address] Dr. Anna Roberts LYMPH # 1.6 103/ul Normal 1.2-3.8 [facility] Comment on above: Performed By: #### C BC #### [facility] [address] [place] [address] Dr. Anna Roberts Lymphocytes/100 WBC (Bld) 24.1 % Normal 20.5-60.0 [facility] Comment on above: Performed By: #### C BC #### [facility] [address] [place] [address] Dr. Anna Roberts MANUAL DIFF REQ NO Normal [facility] Comment on above: Performed By: #### C BC #### [facility] [address] [place] [address] Dr. Anna Roberts MCH (RBC) [Entitic mass] 31.6 pg Normal 26.7-34.0 [facility] Comment on above: Performed By: #### C BC #### [facility] [address] [place] [address] Dr. Anna Roberts MCHC (RBC) [Mass/Vol] 35.3 g/dL Critically high 29.9-35.2 [facility] Comment on above: Performed By: #### C BC #### [facility] [address] [place] [address] Dr. Anna Roberts MCV (RBC) [Entitic vol] 89.7 fL Normal 81.0-99.0 [facility] Comment on above: Performed By: #### C BC #### [facility] [address] [place] [address] Dr. Anna Roberts MONO # 0.8 103/ul Normal 0.3-0.8 [facility] Comment on above: Performed By: #### C BC #### [facility] [address] [place] [address] Dr. Anna Roberts Monocytes/100 WBC (Bld) 11.4 % Normal 1.7-12.0 [facility] Comment on above: Performed By: #### C BC #### [facility] [address] [place] [address] Dr. Anna Roberts NEUT # 3.9 103/ul Normal 1.4-6.5 [facility] Comment on above: Performed By: #### C BC #### [facility] [address] [place] [address] Dr. Anna Roberts Neutrophils/100 WBC (Bld) 59.5 % Normal 43.0-75.0 [facility] Comment on above: Performed By: #### C BC #### [facility] [address] [place] [address] Dr. Anna Roberts Platelet mean volume (Bld) [Entitic vol] 9.3 fL Critically low 9.5-13.5 [facility] Comment on above: Performed By: #### C BC #### [facility] [address] [place] [address] Dr. Anna Roberts PLT 301 103/ul Normal 150-450 [facility] Comment on above: Performed By: #### C BC #### [facility] [address] [place] [address] Dr. Anna Roberts RBC 4.93 106/ul Normal 4.20-5.40 [facility] Comment on above: Performed By: #### C BC #### [facility] [address] [place] [address] Dr. Anna Roberts WBC 6.6 103/ul Normal 4.0-11.0 [facility] Comment on above: Performed By: #### C BC #### [facility] [address] [address] [address] Anna Roberts LIPID PROFILEon 03-09-2022 CHOL-HDL RATIO NORM SEE BELOW Normal [facility] Comment on above: Result Comment: 3.3 - 4.4 LOW RISK 4.4 - 7.1 AVERAGE RISK 7.1 - 11.0 MODERATE RISK >11.0 HIGH RISK Performed By: #### C MP, LIPID #### [facility] [address] [address] [address] Anna Roberts Cholesterol [Mass/Vol] 185 mg/dL Normal <=200 [facility] Comment on above: Performed By: #### C MP, LIPID #### [facility] [address] [address] [address] Anna Roberts Cholesterol in HDL [Mass/Vol] 43 mg/dL Normal 40-60 [facility] Comment on above: Performed By: #### C MP, LIPID #### [facility] [address] [address] [address] Anna Roberts Cholesterol in LDL [Mass/Vol] 125.0 mg/dL Normal [facility] Comment on above: Performed By: #### C MP, LIPID #### [facility] [address] [address] [address] Anna Roberts Cholesterol.total/Cho lesterol in HDL [Mass ratio] 4.3 {ratio} Normal [facility] Comment on above: Performed By: #### C MP, LIPID #### [facility] [address] [address] [address] Anna Roberts HDL NORMAL > or = 60 mg/dl - LOW CARDIOVASCULAR RISK <40 mg/dl - HIGH CARDIOVASCULAR RISK Normal [facility] Comment on above: Performed By: #### C MP, LIPID #### [facility] [address] [address] [address] Anna Roberts LDL CALC NORMAL SEE BELOW Normal [facility] Comment on above: Result Comment: <100 mg/dl OPTIMAL 100 - 129 mg/dl NEAR OR ABOVE OPTIMAL 130 - 159 mg/dl BORDERLINE HIGH 160 - 189 mg/dl HIGH >190 mg/dl VERY HIGH Performed By: #### C MP, LIPID #### [facility] [address] [place] [address] Dr. Anna Roberts Triglyceride [Mass/Vol] 85 mg/dL Normal <=150 [facility] Comment on above: Performed By: #### C MP, LIPID #### [facility] [address] [place] [address] Dr. Anna Roberts VLDL CALC 17.0 mg/dL Normal [facility] Comment on above: Performed By: #### C MP, LIPID #### [facility] [address] [address] [address] Anna Roberts MAGNESIUMon 03-09-2022 Magnesium [Mass/Vol] 1.7 mg/dL Critically low 1.8-2.4 [facility] Comment on above: Performed By: #### M G #### [facility] [address] [place] [address] Dr. Anna Roberts PROF 14(COMP METB)on 022 Albumin [Mass/Vol] 3.9 g/dL Normal 3.4-5.0 [facility] Comment on above: Performed By: #### C MP, LIPID #### [facility] [address] [place] [address] Dr. Anna Roberts Albumin/Globulin [Mass ratio] 1.1 {ratio} Normal [facility] Comment on above: Performed By: #### C MP, LIPID #### [facility] [address] [place] [address] Dr. Anna Roberts ALP [Catalytic activity/Vol] 58 U/L Normal 46-116 [facility] Comment on above: Performed By: #### C MP, LIPID #### [facility] [address] [place] [address] Dr. Anna Roberts ALT [Catalytic activity/Vol] 27 U/L Normal 14-59 [facility] Comment on above: Performed By: #### C MP, LIPID #### [facility] [address] [place] [address] Dr. Anna Roberts Anion gap [Moles/Vol] 14.0 mmol/L Normal [facility] Comment on above: Performed By: #### C MP, LIPID #### [facility] [address] [address] [address] Anna Roberts AST [Catalytic activity/Vol] 18 U/L Normal 15-37 [facility] Comment on above: Performed By: #### C MP, LIPID #### [facility] [address] [address] [address] Anna Roberts Bilirubin [Mass/Vol] 0.6 mg/dL Normal 0.2-1.0 [facility] Comment on above: Performed By: #### C MP, LIPID #### [facility] [address] [address] [address] Anna Roberts Calcium [Mass/Vol] 10.0 mg/dL Normal 8.5-10.1 [facility] Comment on above: Performed By: #### C MP, LIPID #### [facility] [address] [place] [address] Dr. Anna Roberts Chloride [Moles/Vol] 101 mmol/L Normal 98-107 [facility] Comment on above: Performed By: #### C MP, LIPID #### [facility] [address] [address] [address] Anna Roberts CO2 [Moles/Vol] 29.6 mmol/L Normal 21.0-32.0 [facility] Comment on above: Performed By: #### C MP, LIPID #### [facility] [address] [address] [address] Anna Roberts Creatinine [Mass/Vol] 0.79 mg/dL Normal 0.55-1.02 [facility] Comment on above: Performed By: #### C MP, LIPID #### [facility] [address] [place] [address] Dr. Anna Roberts EGFR-AF CITIZEN OF [place] >60 Normal >=60 [facility] Comment on above: Performed By: #### C MP, LIPID #### [facility] [address] [place] [address] Dr. Anna Roberts EGFR-NON AF CITIZEN OF [place] >60 Normal >=60 [facility] Comment on above: Performed By: #### C MP, LIPID #### [facility] [address] [address] [address] Anna Roberts Globulin (S) [Mass/Vol] 3.7 g/dL Normal [facility] Comment on above: Performed By: #### C MP, LIPID #### [facility] [address] [address] [address] Anna Roberts Glucose [Mass/Vol] 118 mg/dL Critically high 74-106 [facility] Comment on above: Performed By: #### C MP, LIPID #### [facility] [address] [address] [address] Anna Roberts Potassium [Moles/Vol] 3.6 mmol/L Normal 3.5-5.1 [facility] Comment on above: Performed By: #### C MP, LIPID #### [facility] [address] [address] [address] Anna Roberts Protein [Mass/Vol] 7.6 g/dL Normal 6.4-8.2 [facility] Comment on above: Performed By: #### C MP, LIPID #### [facility] [address] [address] [address] Anna Roberts Sodium [Moles/Vol] 141 mmol/L Normal 136-145 [facility] Comment on above: Performed By: #### C MP, LIPID #### [facility] [address] [address] [address] Anna Roberts Urea nitrogen [Mass/Vol] 20.0 mg/dL Critically high 7.0-18.0 [facility] Comment on above: Performed By: #### C MP, LIPID #### [facility] [address] [address] [address] Anna Roberts Urea nitrogen/Creatinine [Mass ratio] 25.3 mg/mg Normal [facility] Comment on above: Performed By: #### C MP, LIPID #### [facility] [address] [address] [address] Anna Roberts GLYCOHEMOGLOBIN A1Con 2021 ADA RECOMMENDATION SEE BELOW Normal [facility] Comment on above: Result Comment: ADA RECOMMENDED LIMIT 4.0 - 6.0 ADA THERAPEUTIC TARGET < 7.0 ACTION SUGGESTED > 7.0 Performed By: #### U AMIC #### [facility] [address] [address] [address] Anna Roberts Glucose [Mass/Vol] 117 mg/dL Normal [facility] Comment on above: Performed By: #### U AMIC #### [facility] [address] [address] [address] Anna Roberts HbA1c (Bld) [Mass fraction] 5.7 % Normal 4.5-6.2 [facility] Comment on above: Performed By: #### U AMIC #### [facility] [address] [place] [address] Dr. Anna Roberts XR LSPINE MIN 4 VIEWSon 10-07 XR LSPINE MIN 4 VIEWS EXAMINATION: XR LSPINE MIN 4 VIEWS HISTORY: Low back pain and right hip pain since falling one month ago COMPARISON: XR lumbar spine 06/24/2018 FINDINGS: BONES: Posterior mechanical stabilization of L3-S1 via bilateral pedicle screws and rods. Fracture of the right L3 pedicle screw. Posterior decompression of L4. Moderate degenerative facet arthropathy L2-3 through L5-S1. No significant anterior or posterior listhesis. DISC SPACES: Mild-moderate narrowing with intervertebral spacers at L3-4, L4-5, L5-S1. PARASPINOUS: Negative. No paraspinous abnormality is seen. OTHER: Negative. IMPRESSION: 1. Prior posterior mechanical fusion of L3-S1; no postprocedural radiographs for comparison. 2. Fracture of the right L3 pedicle screw. 4. Multilevel moderate degenerative changes, along with postsurgical changes. No appreciable additional acute or suspicious findings. Electronically authenticated by: JOSEF GUARDADO Date: 2021-10-24 09:22 Normal [facility] Vital Signs Date Time Vital Sign Value Performing Clinician Facility 08-14-2024 08:31-0500 Body height 165.1 cm Karen Conner NP Work Phone: [facility] 08-14-2024 08:31-0500 Body mass index (BMI) [Ratio] 29.82 kg/m2 Karen Conner PLUMBER Work Phone: [facility] 08-14-2024 08:31-0500 Body temperature 97.2 [degF] Karen Conner PLUMBER Work Phone: [facility] 08-14-2024 08:31-0500 Body weight 81.28 kg Karen Conner PLUMBER Work Phone: [facility] 08-14-2024 08:31-0500 Diastolic blood pressure 72 mm[Hg] Karen Conner PLUMBER [facility] [facility] 08-14-2024 08:31-0500 Heart rate 84 /min Karen Conner PLUMBER Work Phone: [facility] 08-14-2024 08:31-0500 Respiratory rate 16 /min Karen Conner PLUMBER Work Phone: [facility] 08-14-2024 08:31-0500 SaO2% (BldA) [Mass fraction] 98 % Karen Conner PLUMBER Work Phone: [facility] 08-14-2024 08:31-0500 Systolic blood pressure 117 mm[Hg] Karen Conner PLUMBER Work Phone: [facility] 06-28-2024 08:54-0500 Body height 165.1 cm Karen Conner PLUMBER Work Phone: [facility] 06-28-2024 08:54-0500 Body mass index (BMI) [Ratio] 29.49 kg/m2 Karen Conner PLUMBER Work Phone: [facility] 06-28-2024 08:54-0500 Body temperature 97.7 [degF] Karen Conner PLUMBER Work Phone: [facility] 06-28-2024 08:54-0500 Body weight 80.38 kg Karen Conner PLUMBER Work Phone: [facility] 06-28-2024 08:54-0500 Diastolic blood pressure 68 mm[Hg] Karen Conner PLUMBER Work Phone: [facility] 06-28-2024 08:54-0500 Heart rate 71 /min Karen Conner PLUMBER Work Phone: [facility] 06-28-2024 08:54-0500 Respiratory rate 16 /min Karen Conner PLUMBER Work Phone: [facility] 06-28-2024 08:54-0500 SaO2% (BldA) [Mass fraction] 97 % Karen Conner PLUMBER Work Phone: [facility] 06-28-2024 08:54-0500 Systolic blood pressure 110 mm[Hg] Karen Conner PLUMBER Work Phone: [facility] 06-26-2024 14:01-0500 Body height 162.56 cm [facility] 06-26-2024 14:01-0500 Body mass index (BMI) [Ratio] 30.9 kg/m2 [facility] 06-26-2024 14:01-0500 Body weight 81.64 kg [facility] 03-28-2024 09:32-0400 Body height 165.1 cm Karen Conner PLUMBER Work Phone: [facility] 03-28-2024 09:32-0400 Body mass index (BMI) [Ratio] 28.79 kg/m2 Karen Conner PLUMBER Work Phone: [facility] 03-28-2024 09:32-0400 Body temperature 97.3 [degF] Karen Conner PLUMBER Work Phone: [facility] 03-28-2024 09:32-0400 Body weight 78.47 kg Karen Conner PLUMBER Work Phone: [facility] 03-28-2024 09:32-0400 Diastolic blood pressure 70 mm[Hg] Karen Conner PLUMBER Work Phone: [facility] 03-28-2024 09:32-0400 Heart rate 80 /min Karen Castanedapatrick PLUMBER Work Phone: [facility] Comment on above: 97% O2 03-28-2024 09:32-0400 Systolic blood pressure 120 mm[Hg] Karen Castanedapatrick PLUMBER Work Phone: [facility] 10-28-2021 10:40-0400 Body height Yuri Felix Other [employer] Other 10-28-2021 10:40-0400 Body mass index (BMI) [Ratio] 32.61 kg/m2 Yuri Washington Other [employer] Other 10-28-2021 10:40-0400 Body weight 88.91 kg Yuri Washington Other [employer] Other Encounters Encounter Date Encounter Type Care Provider Facility Start: 09-22-2024 ambulatory Arcadio Marte [facility] Start: 09-21-2024 End: 09-21-2024 Refill Karen Chantrick PLUMBER Work Phone: [facility] Comment on above: Mixed hyperlipidemia (CMS/HCC) Start: 09-09-2024 End: 09-11-2024 Refill Karen Nelsonzpatrick PLUMBER Work Phone: [facility] Comment on above: Gastroesophageal ref lux disease without esophagitis Start: 08-18-2024 ambulatory Arcadio Marte [facility] Start: 08-15-2024 ambulatory Arcadio Marte [facility] Start: 08-14-2024 End: 08-14-2024 Bamboo flowsheet Karen Nelsonzpatrick PLUMBER Work Phone: [facility] Start: 08-14-2024 End: 08-14-2024 Bamboo flowsheet Karen Chantrick PLUMBER Work Phone: [facility] Start: 08-14-2024 End: 08-14-2024 Office outpatient visit 10 minutes Karen Nelsonzpatrick PLUMBER Work Phone: [facility] Comment on above: Upper respiratory tr act infection, unspecified type (Primary Dx); Type 2 diabetes mellitus with diabetic polyneuropathy, without long-term current use of insulin ([facility]); Chronic left-sided low back pain with left-sided sciatica; Non-recurrent acute serous otitis media of both ears Start: 08-14-2024 End: 08-14-2024 ambulatory KAREN CONNER Not Available Start: 08-10-2024 End: 08-14-2024 Refill Chandrika Cruz MA [facility] Comment on above: Type 2 diabetes reymundo itus with diabetic polyneuropathy, without long-term current use of insulin ([facility]) Start: 08-07-2024 End: 08-09-2024 Refill Chandrika Cruz MA [facility] Comment on above: Type 2 diabetes reymundo itus with diabetic polyneuropathy, without long-term current use of insulin ([facility]) Start: 07-26-2024 End: 07-26-2024 ambulatory Karen Radha CastanedaConner Facility:[facility] Start: 07-14-2024 Office outpatient ne w 45 minutes Arcadio Marte [facility] Start: 07-14-2024 ambulatory Arcadio Marte [facility] Start: 07-11-2024 End: 07-11-2024 Refill Chandrika Cruz MA [facility] Comment on above: Essential hypertensi on ([facility]) Start: 06-28-2024 End: 06-28-2024 Bamboo flowsheet Karen Conner PLUMBER Work Phone: [facility] Start: 06-28-2024 End: 06-28-2024 Bamboo flowsheet Karen Conner PLUMBER Work Phone: [facility] Start: 06-28-2024 End: 06-28-2024 Office outpatient visit 15 minutes Karen Conner PLUMBER Work Phone: [facility] Comment on above: Type 2 diabetes reymundo itus with diabetic polyneuropathy, without long-term current use of insulin (CMS/HCC) (Primary Dx); Essential hypertension (CMS/HCC); Chronic diastolic heart failure (CMS/HCC); Mixed hyperlipidemia (CMS/HCC); Need for immunization against influenza Start: 06-28-2024 End: 06-28-2024 ambulatory KAREN NELSONZPATRICK Not Available Start: 06-26-2024 End: 06-26-2024 ambulatory [facility] Work Phone: Start: 06-26-2024 End: 06-26-2024 Patient encounter procedure [facility] Work Phone: Start: 06-20-2024 End: 06-21-2024 Refill Karen Sungk PLUMBER Work Phone: [facility] Comment on above: Gastroesophageal ref lux disease without esophagitis Start: 06-15-2024 End: 06-16-2024 Refill Dipak Jones RN [facility] Comment on above: Med Refill Start: 04-18-2024 End: 04-19-2024 Refill Pritesh Blanton MA [facility] Comment on above: 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 Gastroesophageal ref lux disease without esophagitis (Primary Dx) Start: 03-28-2024 End: 03-28-2024 Bamboo flowsheet Karen Castanedapatrick PLUMBER Work Phone: [facility] Start: 03-28-2024 End: 03-28-2024 Bamboo flowsheet Karen Conner PLUMBER Work Phone: [facility] Start: 03-28-2024 End: 03-28-2024 Office outpatient visit 25 minutes Karen Sungk PLUMBER Work Phone: [facility] Comment on above: Type 2 diabetes reymundo itus with diabetic polyneuropathy, without long-term current use of insulin (CMS/HCC) (Primary Dx); Mixed hyperlipidemia (CMS/HCC); Essential hypertension (CMS/HCC); Chronic left-sided low back pain with left-sided sciatica; Diverticulitis Start: 03-28-2024 End: 03-28-2024 ambulatory KAREN CONNER Not Available Start: 11-30-2023 End: 11-30-2023 ambulatory CARLIN FAPAULY Not Available Start: 09-24-2023 End: 09-24-2023 ambulatory [facility] Start: 07-28-2023 Patient encounter procedure Karen Conner PLUMBER Work Phone: [facility] Start: 08-26-2022 End: 08-27-2022 ambulatory CARLIN H FAWWAD Facility:[facility] Start: 03-09-2022 End: 03-10-2022 ambulatory CARLIN H FAWWAD Facility:[facility] Start: 12-01-2021 End: 12-02-2021 ambulatory CARLIN H FAWWAD Facility:[facility] Start: 10-28-2021 End: 10-28-2021 ambulatory Yuri Washington Other [facility] [place] Other Start: 10-28-2021 Office outpatient vi sit 15 minutes Yuri Washington [facility] Start: 10-24-2021 End: 10-25-[address] RODRIGUEZ [facility] Facility:[facility] Procedures Date Procedure Procedure Detail Performing Clinician Start: 09-22-2024 Bevacizumab injection D honorio Marte Start: 09-22-2024 Computerized ophthal talita imaging retina Arcadio Marte Start: 09-22-2024 Intravitreal njx pharmacologic agt spx Arcadio Marte Start: 08-18-2024 Bevacizumab injection D avid Estuardo Start: 08-18-2024 Computerized ophthal talita imaging retina Arcadio Marte Start: 08-18-2024 Intravitreal njx pharmacologic agt spx Arcadio Marte Start: 07-26-2024 Colonoscopy Chandrika vargas MA Start: 07-14-2024 Bevacizumab injection D avid Estuardo Start: 07-14-2024 Fluorescein angrph w/multiframe i&r uni/bi Arcadio Marte Start: 07-14-2024 Intravitreal njx pharmacologic agt spx Arcadio Marte Start: 09-24-2023 Follow-up visit Follow-up CHERRY Holcomb AGUILAR Start: 08-09-2022 Mammography Karen bobby NP Work Phone: Start: 08-09-2015 Colonoscopy Karen bobby PLUMBER Work Phone: Plan of Treatment Date Care Activity Detail Author Start: 07-26-2034 Screening for malign ant neoplasm of colon [facility] Start: 07-03-2026 Glaucoma screening Diabetes: R etinopathy Screening [facility] Start: 06-19-2026 Glaucoma screening Diabetes: R etinopathy Screening [facility] Start: 08-09-2025 Screening for malign ant neoplasm of colon [facility] Start: 09-28-2024 End: 09-28-2024 Patient encounter procedure 09/28/2024 10:30 AM EST Office Visit [facility] [address] [place] [address] Karen Conner, FAVIOLA [address] [place] [address] [facility] Start: 09-24-2024 Adult BMI Screening Adult BMI Screen ing [facility] Start: 09-24-2024 Tobacco Screening Tobacco Screening [facility] Start: 09-17-2024 Urine screening for protein Diabetes: Urine Protein Screening [facility] Start: 08-14-2024 End: 08-14-2024 Patient encounter procedure [facility] Comment on above: Arrived Start: 07-28-2024 Medicare Annual Well ness (AWV) Medicare Annual Wellness (AWV) [facility] Start: 06-28-2024 End: 06-28-2025 CBC W Auto Differential panel - Blood CBC and differential Lab Routine Type 2 diabetes mellitus with diabetic polyneuropathy, without long-term current use of insulin ([facility]) Essential hypertension (CMS/HCC) Expected: 06/28/2024 (Approximate), Expires: 06/28/2025 [facility] Comment on above: Expected: 06/28/2024 (Approximate), Expires: 06/28/2025 Start: 06-28-2024 End: 06-28-2025 Comprehensive metabolic 2000 panel - Serum or Plasma Comprehensive metabolic panel Lab Routine Type 2 diabetes mellitus with diabetic polyneuropathy, without long-term current use of insulin (CMS/HCC) Essential hypertension (CMS/HCC) Expected: 06/28/2024 (Approximate), Expires: 06/28/2025 [facility] Comment on above: Expected: 06/28/2024 (Approximate), Expires: 06/28/2025 Start: 06-28-2024 End: 06-28-2025 Hemoglobin A1c/Hemoglobin.total in Blood Hemoglobin A1c Lab Routine Type 2 diabetes mellitus with diabetic polyneuropathy, without long-term current use of insulin (CMS/HCC) Expected: 06/28/2024 (Approximate), Expires: 06/28/2025 [facility] Comment on above: Expected: 06/28/2024 (Approximate), Expires: 06/28/2025 Start: 06-28-2024 End: 06-28-2025 Magnesium [Mass/volume] in Serum or Plasma Magnesium Lab Routine Chronic diastolic heart failure (CMS/HCC) Expected: 06/28/2024 (Approximate), Expires: 06/28/2025 [facility] Comment on above: Expected: 06/28/2024 (Approximate), Expires: 06/28/2025 Start: 06-28-2024 End: 06-28-2024 Patient encounter procedure [facility] Comment on above: Arrived Start: 04-09-2024 COVID-19 Vaccine ( season) COVID-19 Vaccine () [facility] Start: 04-09-2024 [facility] Start: 03-28-2024 End: 03-28-2024 Patient encounter procedure 03/28/2024 9:30 AM EDT Office Visit [facility] [address] [place] [address] Karen Conner, FAVIOLA [address] [place] [address] Arrived [facility] Comment on above: Arrived Start: 03-16-2024 Hemoglobin A1c measurement Diabetes: Hemoglobin A1C [facility] Start: 08-09-2023 Screening for malign ant neoplasm of breast Mammogram [facility] Start: 11-14-2020 Administration of varicella zoster vaccine Zoster (Shingles) Vaccine (2 of 2) [facility] Start: 12-22-2016 Fall Risk Screening Fall Risk Screen ing [facility] Start: 12-22-1970 DTaP,Tdap and Td Vaccines (1 - Tdap) DTaP,Tdap and Td Vaccines (1 - Tdap) [facility] Start: 12-22-1969 Adult BMI Follow Up Plan Adult BMI Follow Up Plan [facility] Start: 1963 Depression Screening Depression Scre ening [facility] Start: 12-22-1961 Glaucoma screening Diabetes: R etinopathy Screening [facility] Start: 1950 Screening for malign ant neoplasm of colon [facility] Microalbumin/Creatin ine panel in random Urine Microalbumin / creatinine urine ratio Lab Routine Type 2 diabetes mellitus with diabetic polyneuropathy, without long-term current use of insulin (CMS/HCC) Essential hypertension (CMS/HCC) Ordered: 06/28/2024 [facility] Work Phone: Comment on above: Ordered: 06/28/2024 Immunizations Immunization Date Immunization Notes Care Provider Fa cility 06-28-2024 influenza, seasonal, injectable, preservative free Karen Conner PLUMBER Work Phone: [facility] 10-16-2021 Influenza, Seasonal, Quadrivalent, Adjuvanted Karen Conner PLUMBER Work Phone: [facility] 10-16-2021 influenza virus vaccine, unspecified formulation Karen Conner PLUMBER Work Phone: [facility] 09-19-2020 influenza, injectabl e, quadrivalent, contains preservative Karen Conner PLUMBER Work Phone: [facility] 09-19-2020 zoster vaccine recombinant Karen Conner PLUMBER Work Phone: [facility] 09-19-2020 zoster vaccine, unspecified formulation Dipak Jones RN [facility] 06-07-2019 influenza, injectabl e, quadrivalent, preservative free Karen Conner PLUMBER Work Phone: [facility] 06-07-2019 pneumococcal polysaccharide vaccine, 23 valent Yuri Washington Other [facility] 04-21-2019 pneumococcal polysaccharide vaccine, 23 valent Karen Conner PLUMBER Work Phone: [facility] 04-21-2019 Seasonal trivalent influenza vaccine, adjuvanted, preservative free Karen Conner PLUMBER Work Phone: [facility] 06-24-2018 Influenza, injectabl e, Madin Marce Canine Kidney, preservative free, quadrivalent Karen Conner PLUMBER Work Phone: [facility] 06-24-2018 pneumococcal conjuga te vaccine, 13 valent Karen Conner PLUMBER Work Phone: [facility] 07-06-2016 influenza, seasonal, injectable, preservative free Karen Conner PLUMBER Work Phone: [facility] 05-11-2013 influenza virus vaccine, whole virus Karen Conner PLUMBER Work Phone: [facility] Payers Date Payer Category Payer Self-pay 2024 Medicare [id number] 2024 Medicare [id number] 2022 Medicaid [employer] MEDICARE A DVANTAGE [id number] 2022 Medicare AETNA MEDICARE A DVANTAGE AETNA MEDICARE REPLACEMENT [id number] 2022-Present [address] [place] [address] [id number] 2021 Medicare HMO [employer] MEDICARE [id number] 1959 Medicare [id number] 1951 Unknown [id number] 1951 Unknown [id number] [id number] 1951 Unknown [id number] [id number] 1951 Unknown [id number] [id number] 1951 Unknown [id number] [id number] 1951 Unknown [id number] [id number] 1951 Unknown [id number] [id number] 1951 Unknown [id number] [id number] 1951 Unknown [id number] [id number] 1951 Unknown [id number] [id number] 1951 Unknown [id number] [id number] 1950 Unknown [id number] [id number] 1951 Unknown [id number] [id number] 1950 Unknown [id number] [id number] 1950 Unknown [id number] [id number] Medicare Medicare [id number] Unknown [id number] Social History Date Type Detail Facility Start: 09-24-2023 End: 03-28-2024 Sex Assigned At [employer] Other Start: 09-24-2023 End: 11-30-2023 Tobacco smoking status NHIS Never smoked tobacco [facility] Start: 09-24-2023 End: 11-30-2023 Tobacco use and exposure Smokeless tobacco non-user [facility] Start: 09-24-2023 End: 01-06-2025 Alcoholic beverage intake Current drinker of alcohol (finding) [facility] Start: 09-24-2023 End: 03-28-2024 History of Social function [facility] Unknown [facility] Start: 05-19-2018 Alcohol Comment socially [facility] Start: 1950 Sex assigned at Not on file [facility] Start: 03-14-2015 End: 06-26-2024 Sex Female (finding) [facility] Start: 1950 Sex Assigned At Female [facility] Start: 07-28-2023 Alcohol Comment OCCASSIONALLY [facility] NEGATED: Highlighted rowStart: NINF History of tobacco use Passive smoker [facility] Medical Equipment Procedure Code Equipment Code Equipment Origin al Text Equipment Identifier Dates ALLOGRAFT 11MM T LIF LORDOTIC FDA Start: 11-16-2018 SCREW 5.5 X 50MM CAPLOX II FDA Start: 11-16-2018 SCREW 6.5 X 50MM CAPLOX II FDA Start: 11-16-2018 SCREW 6.5 X 50MM CAPLOX II FDA Start: 11-16-2018 SCREW 6.5 X 50MM CAPLOX II FDA Start: 11-16-2018 SCREW 6.5 X 50MM CAPLOX II FDA Start: 11-16-2018 SCREW 6.5 X 50MM CAPLOX II FDA Start: 11-16-2018 SCREW 6.5 X 55MM CAPLOX II FDA Start: 11-16-2018 SCREW SET CAPLOX II FDA Start : 11-16-2018 SCREW SET CAPLOX II FDA Start : 11-16-2018 SCREW SET CAPLOX II FDA Start : 11-16-2018 ALLOGRAFT 12MM T LIF LORDOTIC FDA Start: 11-16-2018 SCREW SET CAPLOX II FDA Start : 11-16-2018 SCREW SET CAPLOX II FDA Start : 11-16-2018 SCREW SET CAPLOX II FDA Start : 11-16-2018 SCREW SET CAPLOX II FDA Start : 11-16-2018 SCREW SET CAPLOX II FDA Start : 11-16-2018 ALLOGRAFT 8MM TL IF LORDOTIC FDA Start: 11-16-2018 CROSSLINK CAPLOX II MED/LG FDA Start: 11-16-2018 DURAGEN 1X1 [id number] FDA Start: 11-16-2018 OSTEOAMP GRANULE S 10CC FDA Start: 11-16-2018 LISA 100MM CVD CA PLOX II FDA Start: 11-16-2018 LISA 100MM CVD CA PLOX II FDA Start: 11-16-2018 SCREW 5.5 X 50MM CAPLOX II FDA Start: 11-16-2018 1 each by Other route in the morning. Whatever brand is covered under her insurance.. [id number] Start: 07-28-2023 End: 07-27-2024 Clinical Notes 10-24-2021 to 08-14-2024 Karen Conner NP - 08/14/2024 8:53 AM RINABrangelica Conner NP - 08/14/2024 8:30 AM ESTPatient InstructionsTelephone Encounter - Chandrika Cruz MA - 08/10/2024 10:31 AM EST Note Date & Type Note Facility 08-14-2024 History of Presen t illness Narrative Associated Problem(s): Upper respiratory tract infection Pt presents with Bilateral earache X7 days/Productive cough/Chest tenderness when coughing/headache. Bilateral otitis media observed on assessment. Will treat for URI and otitis media. Images from the original note were not included. Subjective Patient ID: Saskia Neff is a 73 y.o. female who presents for Earache. Earache Associated symptoms include coughing, headaches and rhinorrhea. Pertinent negatives include no diarrhea or sore throat. Bilateral earache X7 days Productive cough Chest pain when coughing Headache Denies: Shortness of breath Sore throat N/V/D Review of Systems Constitutional: Negative for fatigue. HENT: Positive for ear pain and rhinorrhea. Negative for sinus pressure, sinus pain, sore throat, trouble swallowing and voice change. Eyes: Negative for discharge, redness, itching and visual disturbance. Respiratory: Positive for cough. Negative for chest tightness, shortness of breath and wheezing. Gastrointestinal: Negative for constipation and diarrhea. Neurological: Positive for headaches. Negative for dizziness and light-headedness. Objective Physical Exam Vitals reviewed. Constitutional: Appearance: Normal appearance. HENT: Right Ear: A middle ear effusion is present. Tympanic membrane is erythematous. Left Ear: A middle ear effusion is present. Tympanic membrane is erythematous. Nose: Rhinorrhea present. Mouth/Throat: Mouth: Mucous membranes are moist. Pharynx: Oropharynx is clear. Eyes: Pupils: Pupils are equal, round, and reactive to light. Cardiovascular: Rate and Rhythm: Normal rate and regular rhythm. Pulses: Normal pulses. Heart sounds: Normal heart sounds. Pulmonary: Effort: Pulmonary effort is normal. Breath sounds: Normal breath sounds. Abdominal: General: Abdomen is flat. Bowel sounds are normal. Palpations: Abdomen is soft. Skin: Capillary Refill: Capillary refill takes less than 2 seconds. Neurological: Mental Status: She is alert and oriented to person, place, and time. Assessment/Plan Problem List Items Addressed This Visit Chronic back pain Relevant Medications gabapentin (Neurontin) 300 MG capsule Type 2 diabetes mellitus with diabetic polyneuropathy, without long-term current use of insulin ([facility]) Relevant Medications metFORMIN (Glucophage) 500 MG tablet Upper respiratory tract infection - Primary Pt presents with Bilateral earache X7 days/Productive cough/Chest tenderness when coughing/headache. Bilateral otitis media observed on assessment. Will treat for URI and otitis media. Relevant Medications amoxicillin-clavulanate (Augmentin) 875-125 MG tablet fluticasone (Flonase) 50 MCG/ACT nasal spray guaiFENesin (Mucinex) 600 MG 12 hr tablet Non-recurrent acute serous otitis media of both ears Relevant Medications amoxicillin-clavulanate (Augmentin) 875-125 MG tablet documented in this encounter [facility] 08-14-2024 Instructions Karen Conner NP - 08/14/2024 8:30 AM EST Continue to rest, drink plenty of fluids, and eat a well-balance diet. Resume normal activity. AVOID anything strenuous until you are feeling better. Treatment: Augmentin twice daily X10 days Flonase nasal spray 1-2 squirts in each nostril at night. Tylenol for fever and body aches. Mucinex for cough/congestion 600-1,200mg twice daily. Vitamins: Vitamin C 1,000mg per day. Vitamin D3 2,000 international unit(s) per day.Zinc 25mg per day. WORSENING SYMPTOMS, CHEST PAIN, OR SHORTNESS OF BREATH, GO TO THE NEAREST EMERGENCY DEPARTMENT. documented in this encounter [facility] 08-10-2024 Telephone encounter Note Pt is out of medication completely. [place]:06/28/2024 NOV:09/28/2024 [facility] 08-10-2024 Miscellaneous Notes Pt is out of medication completely. [place]:06/28/2024 NOV:09/28/2024 documented in this encounter [facility] 08-07-2024 Telephone encounter Note [place]:06/28/2024 NOV:09/28/2024 [facility] 08-07-2024 Miscellaneous Notes [place]:06/28/2024 NOV:09/28/2024 documented in this encounter [facility] 07-11-2024 Telephone encounter Note [place]:06/28/2024 NOV:09/28/2023 [facility] 07-11-2024 Miscellaneous Notes [place]:06/28/2024 NOV:09/28/2023 documented in this encounter [facility] 06-28-2024 History of Presen t illness Narrative Associated Problem(s): Type 2 diabetes mellitus with diabetic polyneuropathy, without long-term current use of insulin (CMS/HCC) Most recent labs: hemoglobin A1C 5.5% Needs done. Check today. Average FSBS range from BGs range between 120 and 130 Checks BG levels using: Standard fingerstick glucometer. No episode of hypoglycemia No medication adverse effects reported by the patient. Patient educated on lifestyle modifications, dietary restrictions, signs and symptoms of hypoglycemia/hyperglycemia and importance of eating regular consistent meals. Stressed upon importance of checking blood glucose at home and bring blood glucose log to appointments. All questions, concerns answered and addressed. Encouraged to call office if persistent hypoglycemia/hyperglycemia on home glucose monitoring noted. DM Eye Exam- 06/19/2024 [facility] in [place] Is seeing Retina specialist in [place]. Associated Problem(s): Mixed hyperlipidemia (CMS/HCC) Currently taking Simvastatin 40mg Daily Denies any myalgias. Continue current regimen. Recheck Lipid Panel today. Associated Problem(s): Essential hypertension (CMS/HCC) Currently taking Chlorthalidone 25mg Daily; Verapamil 360mg ER Checks BP at home; Averages are 130's/70. Had 1 episode of 90/60. Reports she was not feeling well that day. Denies orthostatic changes, dizziness, cough, shortness of breath, swelling in extremities. Continue current regimen. Given BP log, advised pt to record BP and bring log back with them to next visit. Images from the original note were not included. Subjective Patient ID: Saskia Neff is a 73 y.o. female who presents for Follow-up. HPI Specialists: Cardiology- GI- Followed up with GI, is having EGD done 07/26/2024. HTN: Currently taking Chlorthalidone 25mg Daily; Verapamil 360mg ER Checks BP at home; Averages are 130's/70. Had 1 episode of 90/60. Reports she was not feeling well that day. Denies orthostatic changes, dizziness, cough, shortness of breath, swelling in extremities. Continue current regimen. Given BP log, advised pt to record BP and bring log back with them to next visit. HLD: Currently taking Simvastatin 40mg Daily Denies any myalgias. Continue current regimen. Check Lipid panel today. Component Ref Range & Units 9 mo ago (09/17/23) 9 mo ago (09/17/23) 9 mo ago (09/17/23) 9 mo ago (09/17/23) 9 mo ago (09/17/23) TRIGLYCERIDES <=150 mg/dL 104 2.1 R 140 R 25.9 R 93.37 R CHOLESTEROL <=200 mg/dL 164 4.2 R 0.3 R HDL CHOLESTEROL 40 - 60 mg/dL 56 16.3 R 4.0 R Comment: > or =60 mg/dl - LOW CARDIOVASCULAR RISK <40 mg/dl - HIGH CARDIOVASCULAR RISK LDL CHOLESTEROL CALCULATED mg/dL 87.2 111 High R 1.7 R Comment: <100 mg/dl OPTIMAL 100-129 mg/dl NEAR OR ABOVE OPTIMAL 130-159 mg/dl BORDERLINE HIGH 160-189 mg/dl HIGH >190 mg/dl VERY HIGH VLDL CHOLESTEROL mg/dL 20.8 0.5 R 0.6 R CHOL HDL RATIO 2.9 22 R 0.02 R Comment: 3.3 - 4.4 LOW RISK 4.4 - 7.1 AVERAGE RISK 7.1 - 11.0 MODERATE RISK >11.0 HIGH RISK ALANINE AMINOTRANSFERASE 31 R ALKALINE PHOSPHATASE 65 R TOTAL PROTEIN 7.8 R ALBUMIN LEVEL 3.8 R ALBUMIN GLOBULIN RATIO 0.9 Resulting Agency [facility] DMII: Most recent labs: hemoglobin A1C 5.5% Needs done. Check today. Average FSBS range from BGs range between 120 and 130 Checks BG levels using: Standard fingerstick glucometer. No episode of hypoglycemia No medication adverse effects reported by the patient. Patient educated on lifestyle modifications, dietary restrictions, signs and symptoms of hypoglycemia/hyperglycemia and importance of eating regular consistent meals. Stressed upon importance of checking blood glucose at home and bring blood glucose log to appointments. All questions, concerns answered and addressed. Encouraged to call office if persistent hypoglycemia/hyperglycemia on home glucose monitoring noted. DM Eye Exam- 06/19/2024 [facility] in [place] Is seeing Retina specialist in [place]. Education: Check blood sugars daily, notify if <70 or >200. Take medications (pills or insulin) as directed. Monitor for s/s of hypoglycemia (sweaty, dizziness, nausea, vomiting, or shakiness). Watch for increase in thirst, urination, or appetite. Inspect feet frequently monitoring for open wounds , and also recommend yearly eye exam. Pt should attempt to remain as physically active as chronic conditions allow, as well as trying to follow a diet low in carbohydrates, and simple sugars. Review of Systems Constitutional: Negative for activity change, appetite change, chills, diaphoresis, fatigue, fever and unexpected weight change. HENT: Negative for congestion, ear pain, rhinorrhea, sinus pressure, sinus pain, sneezing, sore throat, trouble swallowing and voice change. Eyes: Negative for visual disturbance. Respiratory: Negative for cough, chest tightness, shortness of breath and wheezing. Cardiovascular: Negative for chest pain, palpitations and leg swelling. Gastrointestinal: Negative for abdominal distention, abdominal pain, blood in stool, constipation, diarrhea and vomiting. Genitourinary: Negative for decreased urine volume, dysuria, flank pain, frequency, hematuria and urgency. Musculoskeletal: Negative for arthralgias, gait problem, joint swelling and myalgias. Skin: Negative for rash. Neurological: Negative for dizziness, tremors, syncope, weakness, light-headedness and headaches. Psychiatric/Behavioral: Negative for decreased concentration and suicidal ideas. The patient is not nervous/anxious. Hematological: Does not bruise/bleed easily. Endocrine: Negative for cold intolerance, heat intolerance, polydipsia, polyphagia and polyuria. Objective Physical Exam Vitals reviewed. Constitutional: Appearance: Normal appearance. HENT: Head: Normocephalic and atraumatic. Right Ear: Tympanic membrane normal. Left Ear: Tympanic membrane normal. Nose: Nose normal. Mouth/Throat: Mouth: Mucous membranes are moist. Pharynx: Oropharynx is clear. Eyes: Pupils: Pupils are equal, round, and reactive to light. Cardiovascular: Rate and Rhythm: Normal rate and regular rhythm. Pulses: Normal pulses. Heart sounds: Normal heart sounds. Pulmonary: Effort: Pulmonary effort is normal. Breath sounds: Normal breath sounds. Abdominal: General: Abdomen is flat. Bowel sounds are normal. Palpations: Abdomen is soft. Musculoskeletal: General: Normal range of motion. Cervical back: Normal range of motion. Skin: General: Skin is warm and dry. Capillary Refill: Capillary refill takes less than 2 seconds. Neurological: General: No focal deficit present. Mental Status: She is alert and oriented to person, place, and time. Psychiatric: Mood and Affect: Mood normal. Behavior: Behavior normal. Assessment/Plan Problem List Items Addressed This Visit Chronic diastolic heart failure (CMS/HCC) Relevant Orders Magnesium Essential hypertension (CMS/HCC) Currently taking Chlorthalidone 25mg Daily; Verapamil 360mg ER Checks BP at home; Averages are 130's/70. Had 1 episode of 90/60. Reports she was not feeling well that day. Denies orthostatic changes, dizziness, cough, shortness of breath, swelling in extremities. Continue current regimen. Given BP log, advised pt to record BP and bring log back with them to next visit. Relevant Orders Microalbumin / creatinine urine ratio Comprehensive metabolic panel CBC and differential Mixed hyperlipidemia (CMS/HCC) Currently taking Simvastatin 40mg Daily Denies any myalgias. Continue current regimen. Recheck Lipid Panel today. Type 2 diabetes mellitus with diabetic polyneuropathy, without long-term current use of insulin (CMS/HCC) - Primary Most recent labs: hemoglobin A1C 5.5% Needs done. Check today. Average FSBS range from BGs range between 120 and 130 Checks BG levels using: Standard fingerstick glucometer. No episode of hypoglycemia No medication adverse effects reported by the patient. Patient educated on lifestyle modifications, dietary restrictions, signs and symptoms of hypoglycemia/hyperglycemia and importance of eating regular consistent meals. Stressed upon importance of checking blood glucose at home and bring blood glucose log to appointments. All questions, concerns answered and addressed. Encouraged to call office if persistent hypoglycemia/hyperglycemia on home glucose monitoring noted. DM Eye Exam- 06/19/2024 [facility] in [place] Is seeing Retina specialist in [place]. Relevant Orders Microalbumin / creatinine urine ratio Hemoglobin A1c Comprehensive metabolic panel CBC and differential Other Visit Diagnoses Need for immunization against influenza Relevant Orders Flu vaccine greater than or equal to 3 years old, preservative free IM (Completed) documented in this encounter [facility] 06-28-2024 Instructions Karen Conner NP - 06/28/2024 9:00 AM EST FASTING labs ordered. Nothing to eat or drink for 12 hours prior to blood draw. Water and black coffee ok. documented in this encounter [facility] 06-15-2024 Miscellaneous Notes OV 09/24/23 2 CMP 03/09/22 Mag Pt is aware of updated mag needed and that the orders are in the epic [facility] [employer] [facility] system. documented in this encounter [facility] 06-15-2024 Telephone encounter Note OV 09/24/23 09/17/23 CMP 03/09/22 Mag Pt is aware of updated mag needed and that the orders are in the epic [facility] system. [facility] 03-28-2024 History of Presen t illness Narrative Associated Problem(s): Diverticulitis Had flare up this past week, was not seen in ER or in PCP office. Took 3 bottles of Pepto Bismuth for tx. Was advised against doing so in the future. Feels as though she is on tail end of symptoms currently. Denies severe abdominal pain, N/V, diarrhea; Does report mild abdominal tenderness still present. Has been eating bland/ low residual foods and tolerating without difficulty. Advised if symptoms worsen or increase again to call and ATB regimen will be called in. Associated Problem(s): Type 2 diabetes mellitus with diabetic polyneuropathy, without long-term current use of insulin ([facility]/HCC) aking Metformin 500mg Daily; Last A1C ion September, 5.5% Denies Hypoglycemia; Last Eye Exam- 2 years ago- needs DM eye exam; Will send Referral today DM EDUICATION PROVIDED: Check blood sugars daily, notify if <70 or >200. Take medications (pills or insulin) as directed. Monitor for s/s of hypoglycemia (sweaty, dizziness, nausea, vomiting, or shakiness). Watch for increase in thirst, urination, or appetite. Inspect feet frequently monitoring for open wounds , and also recommend yearly eye exam. Pt should attempt to remain as physically active as chronic conditions allow, as well as trying to follow a diet low in carbohydrates, and simple sugars. Associated Problem(s): Essential hypertension ([facility]) Taking Chlorthalidone 25mg Daily; Verapamil 360mg ER BP is well managed; Checks BP at home- States ranges are: 120/70- 140/86 Highest- states this is unusual. BP log given; Bring back to next OV. Denies: Chest pain Shortness of breath Edema in extremities Continue as Directed Associated Problem(s): Mixed hyperlipidemia ([facility]) Taking Simvastatin 40mg Daily Denies Myalgias. Last Lipid Panel WNL. Continue Simvastatin as directed. Associated Problem(s): Chronic back pain Takes Gabapentin and Zanaflex Daily PRN; States pain is tolerable. Continue as directed. Images from the original note were not included. Subjective Patient ID: Saskia Neff is a 73 y.o. female who presents for Follow-up (DIVERTICULITIS FLARE UP ON WEDNESDAY LAST WEEK/PT DIDN'T HAVE ANY ATB'S ON HAND SO SHE HAS USED THREE BOTTLES OF PEPTO BISMOLSO FAR, BETTER NOW BUT STILL PRETTY PAINFUL). HPI Diverticulitis: Had Diverticulitis flare up last week; did not have medications to take for it, did not go to ER; States she took 3 bottles of Pepto Bismol; Abdomen is poultry tender but feels she is on the tail end of flare up currently; Denies fever Severe Abdominal pain Reports has not eaten much in several days Mashed potatoes and low residue foods. Does not see GI; Will send referral today DMII: Taking Metformin 500mg Daily; Last A1C ion September, 5.5% Last Eye Exam- 2 years ago- needs DM eye exam; Will send Referral today Most recent labs: hemoglobin A1C No episode of hypoglycemia No medication adverse effects reported by the patient. Patient educated on lifestyle modifications, dietary restrictions, signs and symptoms of hypoglycemia/hyperglycemia and importance of eating regular consistent meals. Stressed upon importance of checking blood glucose at home and bring blood glucose log to appointments. All questions, concerns answered and addressed. Encouraged to call office if persistent hypoglycemia/hyperglycemia on home glucose monitoring noted. HTN: Taking Chlorthalidone 25mg Daily; Verapamil 360mg ER BP is well managed; Checks BP at home- States ranges are: Denies: Chest pain Shortness of breath Edema in extremities Hyperlipidemia: Taking Simvastatin 40mg Daily Denies Myalgias. Last Lipid Panel WNL. Continue Simvastatin as directed. Component Ref Range & Units 6 mo ago (09/17/23) 6 mo ago (09/17/23) 6 mo ago (09/17/23) 6 mo ago (09/17/23) 6 mo ago (09/17/23) TRIGLYCERIDES <=150 mg/dL 104 2.1 R 140 R 25.9 R 93.37 R CHOLESTEROL <=200 mg/dL 164 4.2 R 0.3 R HDL CHOLESTEROL 40 - 60 mg/dL 56 16.3 R 4.0 R Comment: > or =60 mg/dl - LOW CARDIOVASCULAR RISK <40 mg/dl - HIGH CARDIOVASCULAR RISK LDL CHOLESTEROL CALCULATED mg/dL 87.2 111 High R 1.7 R Comment: <100 mg/dl OPTIMAL 100-129 mg/dl NEAR OR ABOVE OPTIMAL 130-159 mg/dl BORDERLINE HIGH 160-189 mg/dl HIGH >190 mg/dl VERY HIGH VLDL CHOLESTEROL mg/dL 20.8 0.5 R 0.6 R CHOL HDL RATIO 2.9 22 R 0.02 R Comment: 3.3 - 4.4 LOW RISK 4.4 - 7.1 AVERAGE RISK 7.1 - 11.0 MODERATE RISK >11.0 HIGH RISK ALANINE AMINOTRANSFERASE 31 R ALKALINE PHOSPHATASE 65 R TOTAL PROTEIN 7.8 R ALBUMIN LEVEL 3.8 R ALBUMIN GLOBULIN RATIO 0.9 CHF: Follows Cardiology- [facility] Sees them again next year; Review of Systems Constitutional: Negative for activity change, appetite change, chills, diaphoresis, fatigue, fever and unexpected weight change. HENT: Negative for congestion, ear pain, rhinorrhea, sinus pressure, sinus pain, sneezing, sore throat, trouble swallowing and voice change. Eyes: Negative for visual disturbance. Respiratory: Negative for cough, chest tightness, shortness of breath and wheezing. Cardiovascular: Negative for chest pain, palpitations and leg swelling. Gastrointestinal: Positive for abdominal pain. Negative for abdominal distention, blood in stool, constipation, diarrhea and vomiting. Genitourinary: Negative for decreased urine volume, dysuria, flank pain, frequency, hematuria and urgency. Musculoskeletal: Negative for arthralgias, gait problem, joint swelling and myalgias. Skin: Negative for rash. Neurological: Negative for dizziness, tremors, syncope, weakness, light-headedness and headaches. Psychiatric/Behavioral: Negative for decreased concentration and suicidal ideas. The patient is not nervous/anxious. Hematological: Does not bruise/bleed easily. Endocrine: Negative for cold intolerance, heat intolerance, polydipsia, polyphagia and polyuria. Objective Physical Exam Assessment/Plan Problem List Items Addressed This Visit Essential hypertension (CMS/HCC) Taking Chlorthalidone 25mg Daily; Verapamil 360mg ER BP is well managed; Checks BP at home- States ranges are: 120/70- 140/86 Highest- states this is unusual. BP log given; Bring back to next OV. Denies: Chest pain Shortness of breath Edema in extremities Continue as Directed Mixed hyperlipidemia (CMS/HCC) Taking Simvastatin 40mg Daily Denies Myalgias. Last Lipid Panel WNL. Continue Simvastatin as directed. Chronic back pain Takes Gabapentin and Zanaflex Daily PRN; States pain is tolerable. Continue as directed. Type 2 diabetes mellitus with diabetic polyneuropathy, without long-term current use of insulin ([facility]) - Primary aking Metformin 500mg Daily; Last A1C ion September, 5.5% Denies Hypoglycemia; Last Eye Exam- 2 years ago- needs DM eye exam; Will send Referral today DM EDUICATION PROVIDED: Check blood sugars daily, notify if <70 or >200. Take medications (pills or insulin) as directed. Monitor for s/s of hypoglycemia (sweaty, dizziness, nausea, vomiting, or shakiness). Watch for increase in thirst, urination, or appetite. Inspect feet frequently monitoring for open wounds , and also recommend yearly eye exam. Pt should attempt to remain as physically active as chronic conditions allow, as well as trying to follow a diet low in carbohydrates, and simple sugars. Diverticulitis Had flare up this past week, was not seen in ER or in PCP office. Took 3 bottles of Pepto Bismuth for tx. Was advised against doing so in the future. Feels as though she is on tail end of symptoms currently. Denies severe abdominal pain, N/V, diarrhea; Does report mild abdominal tenderness still present. Has been eating bland/ low residual foods and tolerating without difficulty. Advised if symptoms worsen or increase again to call and ATB regimen will be called in. Relevant Orders Ambulatory referral to Gastroenterology documented in this encounter [facility] 03-28-2024 Instructions Karen Conner NP - 03/28/2024 9:30 AM EDT Continue low residue diet until symptoms subside Referral sent to GI; Follow up with them as soon as possible. If symptoms worsen, fever, severe abdominal pain, GO TO ER!!! Diet: Eat three meals per day. Breakfast, lunch, and dinner. Avoid snacking. Avoid eating after 5/6 pm. Daily protein GOAL 35% of your intake; 30g per meal. Daily calorie GOAL 1,800-2,000 per day. Consider tracking your food intake on [employer]Pal or [employer]It Water: Increase water intake; GOAL 64-80oz of water per day. Exercise: Increase activity. GOAL 30 minutes, 5 days per week. START SLOW. Start with 5 minutes, 5 days per week. Then increase to 10 days, 5 days per week. Continue to increase until you reach the goal. Increase steps; GOAL 10,000 steps per day. Be sure to get adequate sleep; GOAL 6-8 hours of sleep per night. Education: Check blood sugars daily, notify if <70 or >200. Take medications (pills or insulin) as directed. Monitor for s/s of hypoglycemia (sweaty, dizziness, nausea, vomiting, or shakiness). Watch for increase in thirst, urination, or appetite. Inspect feet frequently monitoring for open wounds , and also recommend yearly eye exam. Pt should attempt to remain as physically active as chronic conditions allow, as well as trying to follow a diet low in carbohydrates, and simple sugars. 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 Both screws were broken in the past and the patient remembers me discussing that with her. She has seemed to go on to a normal fusion. She has no instability at the level above the fusion and prior to her fall has had no claudicatory or neurogenic symptoms. I would like to let the patient simply recover from her symptoms I will see her in 6 weeks and make sure she is not having another problem. I would like to have a dynamic x-ray of her back with 6 views before her next visit. The patient understands and agrees [employer] Other 03-18-2022 NotePROCEDURE: XR HIPS SAMI 5V W PELVIS HISTORY: Low back pain COMPARISON: None. FINDINGS: BONES:Minimal narrowing of the hip joint spaces, left greater than right. Small periarticular degenerative osteophytes. No fracture, dislocation, bone lesion. SOFT TISSUES:No visible soft tissue swelling. EFFUSION:None visible. OTHER: Prior mechanical fusion of the lumbar spine with fracture of the L3 right pedicle screw. IMPRESSION: 1. Minimal degenerative change of the hip joints. No acute abnormality. 2. Fusion of the lumbar spine with fracture of the L3 right pedicle screw; best seen on today's lumbar spine radiographs. Electronically authenticated by: JOSEF GUARDADO Date: 2021-10-24 09:26[facility] Essential hypertension Unspecified essential hypertension Ventricular premature beats Other premature beats Palpitations [facility] Diagnosis Onset Date Resolution Status Admit Date Change in bowel function acute June 26, 2024 1:55pm Diverticulitis acute June 092023 1:55pm [facility] Work Phone: Evaluation note* Diagnosis Type 2 diabetes mellitus with diabetic polyneuropathy, without long-term current use of insulin (CMS/HCC)- Primary Chronic diastolic heart failure (CMS/HCC) Chronic diastolic heart failure Essential hypertension (CMS/HCC) Unspecified essential hypertension Chronic left-sided low back pain with left-sided sciatica Mixed hyperlipidemia (CMS/HCC) Mixed hyperlipidemia Screening mammogram, encounter for Encounter for Medicare annual wellness exam Type 2 diabetes mellitus with diabetic polyneuropathy, without long-term current use of insulin (CMS/HCC)- Primary Chronic diastolic (congestive) heart failure (I50.32) Essential hypertension (CMS/HCC) Unspecified essential hypertension Chronic diastolic heart failure (CMS/HCC) Chronic diastolic heart failure Type 2 diabetes mellitus with diabetic polyneuropathy, without long-term current use of insulin (CMS/HCC)- Primary Mixed hyperlipidemia (CMS/HCC) Mixed hyperlipidemia Essential hypertension (CMS/HCC) Unspecified essential hypertension Chronic left-sided low back pain with left-sided sciatica Diverticulitis Diverticulitis of colon (without mention of hemorrhage) Type 2 diabetes mellitus with diabetic polyneuropathy, without long-term current use of insulin (CMS/HCC)- Primary Essential hypertension (CMS/HCC) Unspecified essential hypertension Chronic diastolic heart failure (CMS/HCC) Chronic diastolic heart failure Mixed hyperlipidemia (CMS/HCC) Mixed hyperlipidemia Need for immunization against influenza Need for prophylactic vaccination and inoculation against influenza documented in this encounter [facility]* Diagnosis Type 2 diabetes mellitus with diabetic polyneuropathy, without long-term current use of insulin (CMS/HCC)- Primary Chronic diastolic heart failure (CMS/HCC) Chronic diastolic heart failure Essential hypertension (CMS/HCC) Unspecified essential hypertension Chronic left-sided low back pain with left-sided sciatica Mixed hyperlipidemia (CMS/HCC) Mixed hyperlipidemia Screening mammogram, encounter for Encounter for Medicare annual wellness exam Type 2 diabetes mellitus with diabetic polyneuropathy, without long-term current use of insulin (CMS/HCC)- Primary Chronic diastolic (congestive) heart failure (I50.32) Essential hypertension (CMS/HCC) Unspecified essential hypertension Chronic diastolic heart failure (CMS/HCC) Chronic diastolic heart failure Type 2 diabetes mellitus with diabetic polyneuropathy, without long-term current use of insulin (CMS/HCC)- Primary Mixed hyperlipidemia (CMS/HCC) Mixed hyperlipidemia Essential hypertension (CMS/HCC) Unspecified essential hypertension Chronic left-sided low back pain with left-sided sciatica Diverticulitis Diverticulitis of colon (without mention of hemorrhage) Gastroesophageal reflux disease without esophagitis Esophageal reflux Type 2 diabetes mellitus with diabetic polyneuropathy, without long-term current use of insulin (CMS/HCC)- Primary Essential hypertension (CMS/HCC) Unspecified essential hypertension Chronic diastolic heart failure (CMS/HCC) Chronic diastolic heart failure Mixed hyperlipidemia (CMS/HCC) Mixed hyperlipidemia Need for immunization against influenza Need for prophylactic vaccination and inoculation against influenza documented in this encounter [facility] HealthcareEvaluation note* Diagnosis Type 2 diabetes mellitus with diabetic polyneuropathy, without long-term current use of insulin (CMS/HCC)- Primary Chronic diastolic heart failure (CMS/HCC) Chronic diastolic heart failure Essential hypertension (CMS/HCC) Unspecified essential hypertension Chronic left-sided low back pain with left-sided sciatica Mixed hyperlipidemia (CMS/HCC) Mixed hyperlipidemia Screening mammogram, encounter for Encounter for Medicare annual wellness exam Type 2 diabetes mellitus with diabetic polyneuropathy, without long-term current use of insulin (CMS/HCC)- Primary Chronic diastolic (congestive) heart failure (I50.32) Essential hypertension (CMS/HCC) Unspecified essential hypertension Chronic diastolic heart failure (CMS/HCC) Chronic diastolic heart failure Type 2 diabetes mellitus with diabetic polyneuropathy, without long-term current use of insulin (CMS/HCC)- Primary Mixed hyperlipidemia (CMS/HCC) Mixed hyperlipidemia Essential hypertension (CMS/HCC) Unspecified essential hypertension Chronic left-sided low back pain with left-sided sciatica Diverticulitis Diverticulitis of colon (without mention of hemorrhage) Type 2 diabetes mellitus with diabetic polyneuropathy, without long-term current use of insulin (CMS/HCC)- Primary Essential hypertension (CMS/HCC) Unspecified essential hypertension Chronic diastolic heart failure (CMS/HCC) Chronic diastolic heart failure Mixed hyperlipidemia (CMS/HCC) Mixed hyperlipidemia Need for immunization against influenza Need for prophylactic vaccination and inoculation against influenza Essential hypertension (CMS/HCC) Unspecified essential hypertension documented [facility]* Diagnosis Type 2 diabetes mellitus with diabetic polyneuropathy, without long-term current use of insulin (CMS/HCC)- Primary Mixed hyperlipidemia (CMS/HCC) Mixed hyperlipidemia Essential hypertension (CMS/HCC) Unspecified essential hypertension Chronic left-sided low back pain with left-sided sciatica Diverticulitis Diverticulitis of colon (without mention of hemorrhage) documented in [facility]* Diagnosis Chronic left-sided low back pain with left-sided sciatica documented in this encounter [facility]* Diagnosis Gastroesophageal reflux disease without esophagitis- Primary Esophageal reflux documented in this encounter [facility]* Diagnosis Type 2 diabetes mellitus with diabetic polyneuropathy, without long-term current use of insulin (CMS/HCC)- Primary Chronic diastolic heart failure (CMS/HCC) Chronic diastolic heart failure Essential hypertension (CMS/HCC) Unspecified essential hypertension Chronic left-sided low back pain with left-sided sciatica Mixed hyperlipidemia (CMS/HCC) Mixed hyperlipidemia Screening mammogram, encounter for Encounter for Medicare annual wellness exam Type 2 diabetes mellitus with diabetic polyneuropathy, without long-term current use of insulin (CMS/HCC)- Primary Chronic diastolic (congestive) heart failure (I50.32) Essential hypertension (CMS/HCC) Unspecified essential hypertension Chronic diastolic heart failure (CMS/HCC) Chronic diastolic heart failure Type 2 diabetes mellitus with diabetic polyneuropathy, without long-term current use of insulin (CMS/HCC)- Primary Mixed hyperlipidemia (CMS/HCC) Mixed hyperlipidemia Essential hypertension (CMS/HCC) Unspecified essential hypertension Chronic left-sided low back pain with left-sided sciatica Diverticulitis Diverticulitis of colon (without mention of hemorrhage) Type 2 diabetes mellitus with diabetic polyneuropathy, without long-term current use of insulin (CMS/HCC)- Primary Essential hypertension (CMS/HCC) Unspecified essential hypertension Chronic diastolic heart failure (CMS/HCC) Chronic diastolic heart failure Mixed hyperlipidemia (CMS/HCC) Mixed hyperlipidemia Need for immunization against influenza Need for prophylactic vaccination and inoculation against influenza Type 2 diabetes mellitus with diabetic polyneuropathy, without long-term current use of insulin (CMS/HCC) documented in this encounter [facility]* Diagnosis Type 2 diabetes mellitus with diabetic polyneuropathy, without long-term current use of insulin (CMS/HCC)- Primary Chronic diastolic heart failure (CMS/HCC) Chronic diastolic heart failure Essential hypertension (CMS/HCC) Unspecified essential hypertension Chronic left-sided low back pain with left-sided sciatica Mixed hyperlipidemia (CMS/HCC) Mixed hyperlipidemia Screening mammogram, encounter for Encounter for Medicare annual wellness exam Type 2 diabetes mellitus with diabetic polyneuropathy, without long-term current use of insulin (CMS/HCC)- Primary Chronic diastolic (congestive) heart failure (I50.32) Essential hypertension (CMS/HCC) Unspecified essential hypertension Chronic diastolic heart failure (CMS/HCC) Chronic diastolic heart failure Type 2 diabetes mellitus with diabetic polyneuropathy, without long-term current use of insulin (CMS/HCC)- Primary Mixed hyperlipidemia (CMS/HCC) Mixed hyperlipidemia Essential hypertension (CMS/HCC) Unspecified essential hypertension Chronic left-sided low back pain with left-sided sciatica Diverticulitis Diverticulitis of colon (without mention of hemorrhage) Type 2 diabetes mellitus with diabetic polyneuropathy, without long-term current use of insulin (CMS/HCC)- Primary Essential hypertension (CMS/HCC) Unspecified essential hypertension Chronic diastolic heart failure (CMS/HCC) Chronic diastolic heart failure Mixed hyperlipidemia (CMS/HCC) Mixed hyperlipidemia Need for immunization against influenza Need for prophylactic vaccination and inoculation against influenza Type 2 diabetes mellitus with diabetic polyneuropathy, without long-term current use of insulin (CMS/HCC) documented in this encounter [facility] HealthcareEvaluation note* Diagnosis Type 2 diabetes mellitus with diabetic polyneuropathy, without long-term current use of insulin (CMS/HCC)- Primary Chronic diastolic heart failure (CMS/HCC) Chronic diastolic heart failure Essential hypertension (CMS/HCC) Unspecified essential hypertension Chronic left-sided low back pain with left-sided sciatica Mixed hyperlipidemia (CMS/HCC) Mixed hyperlipidemia Screening mammogram, encounter for Encounter for Medicare annual wellness exam Type 2 diabetes mellitus with diabetic polyneuropathy, without long-term current use of insulin (CMS/HCC)- Primary Chronic diastolic (congestive) heart failure (I50.32) Essential hypertension (CMS/HCC) Unspecified essential hypertension Chronic diastolic heart failure (CMS/HCC) Chronic diastolic heart failure Type 2 diabetes mellitus with diabetic polyneuropathy, without long-term current use of insulin (CMS/HCC)- Primary Mixed hyperlipidemia (CMS/HCC) Mixed hyperlipidemia Essential hypertension (CMS/HCC) Unspecified essential hypertension Chronic left-sided low back pain with left-sided sciatica Diverticulitis Diverticulitis of colon (without mention of hemorrhage) Type 2 diabetes mellitus with diabetic polyneuropathy, without long-term current use of insulin (CMS/HCC)- Primary Essential hypertension (CMS/HCC) Unspecified essential hypertension Chronic diastolic heart failure (CMS/HCC) Chronic diastolic heart failure Mixed hyperlipidemia (CMS/HCC) Mixed hyperlipidemia Need for immunization against influenza Need for prophylactic vaccination and inoculation against influenza Upper respiratory tract infection, unspecified type- Primary Type 2 diabetes mellitus with diabetic polyneuropathy, without long-term current use of insulin (CMS/HCC) Chronic left-sided low back pain with left-sided sciatica Non-recurrent acute serous otitis media of both ears documented in this encounter [facility] HealthcareEvaluation note* Diagnosis Type 2 diabetes mellitus with diabetic polyneuropathy, without long-term current use of insulin (CMS/HCC)- Primary Chronic diastolic heart failure (CMS/HCC) Chronic diastolic heart failure Essential hypertension (CMS/HCC) Unspecified essential hypertension Chronic left-sided low back pain with left-sided sciatica Mixed hyperlipidemia (CMS/HCC) Mixed hyperlipidemia Screening mammogram, encounter for Encounter for Medicare annual wellness exam Type 2 diabetes mellitus with diabetic polyneuropathy, without long-term current use of insulin (CMS/HCC)- Primary Chronic diastolic (congestive) heart failure (I50.32) Essential hypertension (CMS/HCC) Unspecified essential hypertension Chronic diastolic heart failure (CMS/HCC) Chronic diastolic heart failure Type 2 diabetes mellitus with diabetic polyneuropathy, without long-term current use of insulin (CMS/HCC)- Primary Mixed hyperlipidemia (CMS/HCC) Mixed hyperlipidemia Essential hypertension (CMS/HCC) Unspecified essential hypertension Chronic left-sided low back pain with left-sided sciatica Diverticulitis Diverticulitis of colon (without mention of hemorrhage) Type 2 diabetes mellitus with diabetic polyneuropathy, without long-term current use of insulin (CMS/HCC)- Primary Essential hypertension (CMS/HCC) Unspecified essential hypertension Chronic diastolic heart failure (CMS/HCC) Chronic diastolic heart failure Mixed hyperlipidemia (CMS/HCC) Mixed hyperlipidemia Need for immunization against influenza Need for prophylactic vaccination and inoculation against influenza Upper respiratory tract infection, unspecified type- Primary Type 2 diabetes mellitus with diabetic polyneuropathy, without long-term current use of insulin (CMS/HCC) Chronic left-sided low back pain with left-sided sciatica Non-recurrent acute serous otitis media of both ears Gastroesophageal reflux disease without esophagitis Esophageal reflux documented in this encounter [facility] HealthcareEvaluation note* Diagnosis Type 2 diabetes mellitus with diabetic polyneuropathy, without long-term current use of insulin (CMS/HCC)- Primary Chronic diastolic heart failure (CMS/HCC) Chronic diastolic heart failure Essential hypertension (CMS/HCC) Unspecified essential hypertension Chronic left-sided low back pain with left-sided sciatica Mixed hyperlipidemia (CMS/HCC) Mixed hyperlipidemia Screening mammogram, encounter for Encounter for Medicare annual wellness exam Type 2 diabetes mellitus with diabetic polyneuropathy, without long-term current use of insulin (CMS/HCC)- Primary Chronic diastolic (congestive) heart failure (I50.32) Essential hypertension (CMS/HCC) Unspecified essential hypertension Chronic diastolic heart failure (CMS/HCC) Chronic diastolic heart failure Type 2 diabetes mellitus with diabetic polyneuropathy, without long-term current use of insulin (CMS/HCC)- Primary Mixed hyperlipidemia (CMS/HCC) Mixed hyperlipidemia Essential hypertension (CMS/HCC) Unspecified essential hypertension Chronic left-sided low back pain with left-sided sciatica Diverticulitis Diverticulitis of colon (without mention of hemorrhage) Type 2 diabetes mellitus with diabetic polyneuropathy, without long-term current use of insulin (CMS/HCC)- Primary Essential hypertension (CMS/HCC) Unspecified essential hypertension Chronic diastolic heart failure (CMS/HCC) Chronic diastolic heart failure Mixed hyperlipidemia (CMS/HCC) Mixed hyperlipidemia Need for immunization against influenza Need for prophylactic vaccination and inoculation against influenza Upper respiratory tract infection, unspecified type- Primary Type 2 diabetes mellitus with diabetic polyneuropathy, without long-term current use of insulin (CMS/HCC) Chronic left-sided low back pain with left-sided sciatica Non-recurrent acute serous otitis media of both ears Mixed hyperlipidemia (CMS/HCC) Mixed hyperlipidemia documented in this encounter [facility] HealthcareHistory general Narrative - Reported* Type Description Date Medical History HYPERTENSION Medical History IRREGULAR HEARTBEAT Medical History DIVERTICULITIS Medical History SARCOIDOSIS Medical History ARTHRITIS Medical History High cholesterol Medical History Kidney stones Surgical History (L) CTR x2 ; (R) CTR - DR STUART FOSTER Surgical History TONSILLECTOMY Surgical History (L) THYROID REMOVED Surgical History CHOLECYSECTOMY Surgical History BOWEL RESECTION 2011 ? Surgical History HERNIA REPAIR x2 Surgical History HYSTERECTOMY Surgical History APPENDECTOMY Surgical History (L) KNEE ACL RECON ; TUMOR EXCI CAITIE - DR UNDERWOOD Surgical History Surgical History B/L CATARACTS Surgical History LUNG BIOPSY Surgical History PLIF- Dr. [place] 11/2018 Hospitalization History See Sx Hx [employer] Other InstructionsNot on filedocumented in this encounter [facility] (n[facility]ative[facility] Consultation (Routine) - Authorized Specialty Diagnoses / Procedures Referred By Contac t Referred To Contact Gastroenterology Diagnoses Diverticulitis Procedures [place] OFFICE/OUTPATIENT [facility] 60 MINUTES Karen Conner NP [address] [place] [address] Michael Pierce MD [address] [place] [id number] Referral ID Status Reason Start Date Expiration Date Visits Requested Visits Authorized [id number] Authorized Specialty Services Required 03/28/2024 09/24/2024 1 1 Scheduling Instructions Please include OV note [facility] Summary Purpose Family History No Family History Records Found Relationship Condition Age at Onset Recorded Date/T ronald father Irregular heart rhythm Unknown father Unknown mother Unknown Advance Directives No Advanced Directives Records Found Advance Directive Response Recorded Date/ Time Advance Directives No September 14, 2018 1:23pm Chief Complaint and Reason for Visit Chief Complaint Admit Date Refer: diverticulitis June 26 1:55pm Reason for Visit Admit Date Change in bowel function June 26, 2024 1:55pm Diverticulitis June 26, 2024 1:55pm Additional Source Comments REASON FOR VISIT (unrecogniz ed section and content) Reason Onset Date Comments Med Refill 06/15/2024 Reason Comments Follow-up Reason Comments Med Refill Reason Onset Date Comments Med Refill 07/11/2024 Reason Comments Follow-up DIVERTICULITIS FLARE UP ON WEDNESDAY LAST WEEKPT DIDN'T HAVE ANY ATB'S ON HAND SO SHE HAS USED THREE BOTTLES OF PEPTO BISMOLSO FAR, BETTER NOW BUT STILL PRETTY PAINFUL Reason Onset Date Comments Med Refill 04/18/2024 Reason Onset Date Comments Med Refill 08/10/2024 Reason Comments Earache Reason Onset Date Comments Med Refill 09/21/2024 INFORMATION SOURCE (unrecogn ized section and content) DATE CREATED AUTHOR 09/02/2022 [facility] DATE CREATED AUTHOR AUTHOR'S ORGANIZ ATION 09/26/2023 [facility] DATE CREATED AUTHOR AUTHOR'S ORGANIZ ATION 08/11/2024 [facility] DATE CREATED AUTHOR AUTHOR'S ORGANIZ ATION 08/20/2024 [facility] EPIC DATE CREATED AUTHOR AUTHOR'S ORGANIZ ATION 09/24/2024 [facility] Care Teams (unrecognized sec tion and content) Balance Recesser Relationship Specialty Start Date End Date Eris Stone APRN-MANAGER ENVIRONMENTAL PCP - General Nurse Practitioner 12/09/20 Team Status: Active Member Role Status Dates Eris Stone APRN PLUMBER-C Primary Care Provider Active Team Status: Inactive Member Role Status Dates Eris Stone APRN PLUMBER-C Primary Care Provider Active Start: June 26, 2024 End: June 26, 2024 Negrita Van DO Attending Provider Active St art: June 26, 2024 End: June 26, 2024 Balance Recesser Relationship Specialty Start Date End Date Shaikh Burks MD [address] [place] [address] PCP - [employer] 10/08/23 Jerome Brody MD [address] [place] [address] PCP - General Family Medicine 03/28/24 Karen Conner NP [address] [place] [address] Nurse Practitioner Family Medicine 03/28/24 Balance Recesser Relationship Specialty Start Date End Date Shaikh Burks MD [address] [place] [phone] PCP - [employer] 10/08/23 Jerome Brody MD [address] [place] [address] PCP - General Family Medicine 03/28/24 Karen Conner NP [address] [place] [address] Nurse Practitioner Family Medicine 03/28/24 Balance Recesser Relationship Specialty Start Date End Date Shaikh Burks MD [address] [place] [phone] PCP - [employer] 10/08/23 Jerome Brody MD [address] [place] [phone] PCP - General Family Medicine 03/28/24 Karen Conner NP [address] [place] [address] Nurse Practitioner Family Medicine 03/28/24 Balance Recesser Relationship Specialty Start Date End Date Shaikh Burks MD [address] [place] [phone] PCP - [employer] 10/08/23 Jerome Brody MD [address] [place] [address] PCP - General Family Medicine 03/28/24 Karen Conner NP [address] [place] [address] Nurse Practitioner Family Medicine 03/28/24 Balance Recesser Relationship Specialty Start Date End Date Shaikh Burks MD [address] [place] [phone] PCP - General Internal Medicine 11/30/23 Shaikh Burks MD [address] [place] [phone] PCP - [employer] 10/08/23 Balance Recesser Relationship Specialty Start Date End Date Shaikh Burks MD [address] [place] [address] PCP - [employer] 10/08/23 Jerome Brody MD [address] [place] [address] PCP - General Family Medicine 03/28/24 Karen Conner NP [address] [place] [address] Nurse Practitioner Family Medicine 03/28/24 Balance Recesser Relationship Specialty Start Date End Date Shaikh Burks MD [address] [place] [phone] PCP - [employer] 10/08/23 Jerome Brody MD [address] [place] [phone] PCP - General Family Medicine 03/28/24 Karen Conner PLUMBER [address] [place] [address] Nurse Practitioner Family Medicine 03/28/24 Balance Recesser Relationship Specialty Start Date End Date Shaikh Burks MD [address] [place] [phone] PCP - [employer] 10/08/23 Jerome Brody MD [address] [place] [phone] PCP - General Family Medicine 03/28/24 Karen Conner, PLUMBER [address] [place] [address] Nurse Practitioner Family Medicine 03/28/24 Balance Recesser Relationship Specialty Start Date End Date Shaikh Burks MD [address] [place] [phone] PCP - [employer] 10/08/23 Jerome Brody MD [address] [place] [address] PCP - General Family Medicine 03/28/24 Karen Conner NP [address] [place] [address] Nurse Practitioner Family Medicine 03/28/24 Balance Recesser Relationship Specialty Start Date End Date Shaikh Burks MD [address] [place] [address] PCP - [employer] 10/08/23 Jerome Brody MD [address] [place] [address] PCP - General Family Medicine 03/28/24 Karen Conner NP [address] [place] [address] Nurse Practitioner Family Medicine 03/28/24 Balance Recesser Relationship Specialty Start Date End Date Shaikh Burks MD [address] [place] [phone] PCP - [employer] 10/08/23 Jerome Brody MD [address] [place] [address] PCP - General Family Medicine 03/28/24 Karen Conner NP [address] [place] [address] Nurse Practitioner Family Medicine 03/28/24 Balance Recesser Relationship Specialty Start Date End Date Fawwad, Carlin, MD [address] [place] [address] PCP - Aet 10/08/23 Jerome Brody MD [address] [place] [address] PCP - General Family Medicine 03/28/24 Karen Conner NP [address] [place] [address] Nurse Practitioner Family Medicine 03/28/24 Goals (unrecognized section and content) Goals may be documented in a n alternate section FOR RECORDS PERTAINING TO PATIENTS WHO ARE OR HAVE BEEN ENROLLED IN A CHEMICAL DEPENDENCY/SUBSTANCEABUSE PROGRAM, SOME INFORMATION MAY BE OMITTED. This clinical summary was aggregated from multiple sources. Caution should be exercised in using it in the provision of clinical care. This summary normalizes information from multiple sources, and as a consequence, information in this document may materially change the coding, format and clinical context of patient data. In addition, data may be omitted in some cases. CLINICAL DECISIONS SHOULD BE BASED ON THE PRIMARY CLINICAL RECORDS. [facility]. provides no warranty or guarantee of the accuracy or completeness of information in this document.
[2024-09-26 11:27] LABS: Basophils Percent Auto 0.5 % (0.2-2.0); Eosinophils Absolute Auto 0.3 10^3/uL (0.0-0.7); Eosinophils Percent Auto 5.7 % (0.9-7.0); Hematocrit 41.1 % (36.0-48.0); Hemoglobin 14.5 g/dL (12.0-16.0); Immature Granulocytes Abs Auto 0.01 10^3/uL (0.00-0.03); Immature Granulocytes Pct Auto 0.2 % (0.0-0.5); Lymphocytes Absolute Auto 1.3 10^3/uL (1.2-3.8); Lymphocytes Percent Auto 22.3 % (20.5-60.0); Mean Corpuscular HGB Conc 35.3 g/dL (29.9-35.2); Mean Corpuscular Hemoglobin 31.6 pg (26.7-34.0); Mean Corpuscular Volume 89.5 fL (81.0-99.0); Mean Platelet Volume 9.8 fL (9.5-13.5); Monocytes Absolute Auto 0.7 10^3/uL (0.3-0.8); Monocytes Percent Auto 12.2 % (1.7-12.0); Neutrophils Absolute Auto 3.3 10^3/uL (1.4-6.5); Neutrophils Percent Auto 59.1 % (43.0-75.0); Platelet Count 271 10^3/uL (150-450); Red Blood Count 4.59 10^6/uL (4.20-5.40); Red Cell Distribution Width 13.1 % (11.0-15.0); White Blood Count 5.7 10^3/uL (4.0-11.0)
[2024-09-26 11:52] LABS: Alanine Aminotransferase 34 U/L (14-59); Albumin Level 3.6 g/dL (3.4-5.0); Alkaline Phosphatase 75 U/L (46-116); Anion Gap 11.3; Aspartate Amino Transferase 22 U/L (15-37); BUN Creatinine Ratio 30.3; Bilirubin Total 0.4 mg/dL (0.2-1.0); Calcium 9.4 mg/dL (8.5-10.1); Carbon Dioxide 25.8 mmol/L (21.0-32.0); Chloride 106 mmol/L (98-107); Estimated GFR (African America >60 (>=60 mL/min/1.73m^2); Estimated GFR (Non-African Ame >60 (>=60 mL/min/1.73m^2); Globulin 3.5 g/dL; Glucose 114 mg/dL (74-106); Magnesium 1.9 mg/dL (1.8-2.4); Potassium 4.1 mmol/L (3.5-5.1); Sodium 139 mmol/L (136-145); Total Protein 7.1 g/dL (6.4-8.2)
[2024-09-26 12:28] LABS: Estimated Average Glucose 120 mg/dL; Glycohemoglobin A1C 5.8 % (4.5-6.2)
[2024-09-26 13:55] LABS: Creatinine Urine Random 82.35 mg/dL (20.00-300.00); Microalbum Creatinine Ratio Ur 15.7 mg/g (0.0-29.9); Microalbumin Urine Random <1.3 mg/dL (<=30.0)
== END 2024-09-26 10:26 | disposition home or self-care (01) ==
LOC: LAB 10:27
DX: E11.42 Type 2 diabetes mellitus with diabetic polyneuropathy (principal); I50.32 Chronic diastolic (congestive) heart failure; I11.0 Hypertensive heart disease with heart failure
CPT/HCPCS: 36415; 80053; 82043; 82570; 83036; 83735; 85025

== ENCOUNTER 2024-11-15 08:48 | Outpatient (OUT) | payer MEDICARE, SELFPAY ==
--- NOTE | 2024-11-15 09:00 | MM_ITS ---
Patient Name: KYARA NEFF MR#: [id number] : 1950 Exam Date: 11/15/2024 Ordering Doctor: RICHIE Mccartney CNP RADIOLOGY REPORT PROCEDURE: MM SCREENING MAMMO BI COMPARISON: MG MAMM SCREEN 3D SAMI CAD, 08/26/2022. MG MAMM SCREEN 3D SAMI CAD, 07/31/2021. MG MAMM SCREEN SAMI W CAD, 06/05/2019. MG MAMM SCREEN SAMI W CAD, 09/10/2011. INDICATIONS: Screening for malignant neoplasm Calculator Name NCI Breast Cancer Risk Assessment Tool 5 Year Breast Cancer Risk 2.40% Lifetime Breast Cancer Risk 6.30% Personal Breast Cancer No Personal Ovarian Cancer No Treatments None Family Cancers Mother with lung cancer at age 61; Father with colon cancer at age ~70. LOCATION: [facility] BREAST COMPOSITION: There are scattered areas of fibroglandular density. FINDINGS: DIAGNOSTIC CATEGORY 1--NEGATIVE. RIGHT BREAST: No significant suspicious finding. LEFT BREAST: No significant suspicious finding. RECOMMENDATIONS: ROUTINE MAMMOGRAM AND CLINICAL EVALUATION IN 12 MONTHS. PLEASE NOTE: A NORMAL MAMMOGRAM DOES NOT EXCLUDE THE POSSIBILITY OF BREAST CANCER. A CLINICALLY SUSPICIOUS PALPABLE LUMP SHOULD BE BIOPSIED. Dictated by: Seferino Gibbons DO on 11/15/2024 at 12:59 Approved by: Seferino Gibbons DO on 11/15/2024 at 13:21
== END 2024-11-15 08:49 | disposition home or self-care (01) ==
LOC: RAD 08:48
PROVIDERS: PCP Nurse Practitioner; Visit Provider Nurse Practitioner
DX: Z12.31 Encounter for screening mammogram for malignant neoplasm of breast (principal); I10 Essential (primary) hypertension; E78.2 Mixed hyperlipidemia; E11.69 Type 2 diabetes mellitus with other specified complication; R09.89 Other specified symptoms and signs involving the circulatory and respiratory systems; Z78.0 Asymptomatic menopausal state; Z80.0 Family history of malignant neoplasm of digestive organs; Z80.1 Family history of malignant neoplasm of trachea, bronchus and lung
CPT/HCPCS: 77067; 77080; 93880

== ENCOUNTER 2024-11-28 09:44 | Outpatient (OUT) | payer MEDICARE, SELFPAY ==
--- NOTE | 2024-11-28 09:46 | US_ITS ---
The [address] [address] Patient Name: KYARA NEFF MRN: [id number] date: 1950 Sex: F Assigned Patient Location: [place] Current Patient Location: US Accession/Order Number: [id number] Exam Date: 11/28/2024 13:20 Report Date: 11/28/2024 13:27 At the request of: MARY LOU LIU NP Procedure: US thyroid Thyroid Ultrasound HISTORY: History of thyroid nodules. Left thyroidectomy COMPARISON: None The RIGHT lobe measures 5.1 x 2.3 x 1.9 cmcm. No residual thyroid parenchyma is 1.4 x 0.9 x 1.9 cm Isthmus has an AP dimension of 0.6cm. Heterogeneous thyroid parenchyma. Multiple right thyroid nodules identified. Largest measures up to 1.4 cm. No dominant thyroid nodule identified. Right superior cystic nodule measures up to 11 mm. Right mid solid nodule measures up to 14 mm. Additional right mid solid nodule measures up to 11 mm. Right inferior solid nodule measures up to 13 mm. Nodule in the region of the isthmus is solid measuring up to 14 mm. No microcalcifications identified. Symmetric blood flow of the thyroid gland identified. US/US thyroid IMPRESSION: Multiple right thyroid nodules measuring up to 14 mm. Impression dictated by: Seun Kitchen M.D.11/28/2024 1:27 PM Dictation Location: [place] [address] Electronically authenticated by: [id number] Y Date: 11/28/2024 13:27
== END 2024-11-28 09:45 | disposition home or self-care (01) ==
LOC: US 09:44
PROVIDERS: PCP Nurse Practitioner; Visit Provider Nurse Practitioner
DX: E04.2 Nontoxic multinodular goiter (principal)
CPT/HCPCS: 76536

== ENCOUNTER 2025-03-22 18:19 | Emergency (ER) | payer OTHER, MEDICARE, SELFPAY ==
[2025-03-22] VITALS (8 sets, daily range): BP systolic 140–149; BP diastolic 72–75; PULSE 87–99; TEMP 36.8; O2SAT 98–99
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
--- OUTSIDE RECORDS SUMMARY | 2025-03-22 18:37 | XMS_ITS | CCD ---
Author Organization [facility] Care Team Providers Care Research Technologist Name Role Phone Yuri Washington Unavailable MISC, DR RODRIGUEZ Primary Care Unavailable MODESTO, DR JOSEF Nelson Consulting Unavailable FAWWAD, HANNAH H Admitting Unavailable FAWWAD, HANNAH H Attending Unavailable FAWWAD, HANNAH H Consulting Unavailable FAWWAD, HANNAH H Admitting Unavailable FAWWAD, HANNAH H Attending Unavailable ROARING GAP, DR ARCADIO Garcia Consulting Unavailable FAWWAD, HANNAH H Primary Care Unavailable FAWWAD, HANNAH H Consulting Unavailable FAWWAD, HANNAH H Admitting Unavailable FAWWAD, HANNAH H Attending Unavailable FAWWAD, HANNAH H Consulting Unavailable FAWWAD, HANNAH H Primary Care Unavailable MISC, DR RODRIGUEZ Admitting Unavailable MISC, DR RODRIGUEZ Attending Unavailable MISC, DR RODRIGUEZ Consulting Unavailable FAWWAD, HANNAH H Primary Care Unavailable FAWWAD, HANNAH H Admitting Unavailable FAWWAD, HANNAH H Attending Unavailable FAWWAD, HANNAH H Consulting Unavailable FAWWAD, HANNAH H Primary Care Unavailable CHERRY DUQUE Attending Unavailable CHELO ORO R Referring Unavailable CHELO ORO Primary Care Unavailable Shaikh Burks MD Unavailable Jerome Coles MD Primary Care Provider Jayshree Conner NP Unavailable [phone] Shaikh Burks MD Primary Care Provider Jayshree Conner Primary Care Unavaila ble Negrita Van Attending Unavailable Negrita Van L Admitting Unavailable Chase VOCATIONAL SCHOOL TEACHER-ACCOUNTS RECEIVABLE CLERK, Chelo R Primary Care Provider Chase VOCATIONAL SCHOOL TEACHER-ACCOUNTS RECEIVABLE CLERK, Chelo R Primary Care Provider Estuardo BARNETT, Arcadio Unavailable Unavailable Ubaldo STUDENT FINANCIAL AID MANAGER, Jayshree Unavailable [phone] Estuardo BARNETT, Arcadio Unavailable Unavailable Yuliyahholcarmen STUDENT FINANCIAL AID MANAGER, Destiny Unavailable Mignon DO, Maurisio S Unavailable JEROME COLES Primary Care Physician Mignon, Maurisio S Attending Unavailable Biedenyovanny, Maurisio S Admitting Unavailable CONNER, JAYSHREE Attending Unavailabl e AICHHOLZ, DESTINY Attending Unavailable BIEDENBACH, MAURISIO S Attending Unavailable AICHHOLZ, DESTINY Referring Unavailable BIEDENBACH, MAURISIO S Attending Unavailable AICHHOLZ, DESTINY Referring Unavailable BIEDENBACH, MAURISIO S Attending Unavailable AICHHOLZ, DESTINY Attending Unavailable CONNER, JAYSHREE Attending Unavailabl e CONNER, JAYSHREE Attending Unavailabl e CONNER, JAYSHREE Attending UnavailArcadio Santizo MD Unavailable Unavailable Arcadio Marte Attending Unavailable Jing Juarez Referring Unavailable Arcadio Marte Attending Unavailable Arcadio Marte Attending Unavailable Arcadio Marte Referring Unavailable Arcadio Marte Attending Unavailable No Referring Doc, No Ref Doc Referring Libra vailable Arcadio Marte Attending Unavailable Arcadio Marte Attending Unavailable Arcadio Marte Attending Unavailable No Referring Doc, No Ref Doc Referring Libra vailable Arcadio Marte Attending Unavailable No Referring Doc, No Ref Doc Referring Libra vailable Arcadio Marte Attending Unavailable No Referring Doc, No Ref Doc Referring Libra vailable Allergies Allergy Classification Reported Allergen(s) Allergy Type Date of Onset Reaction(s) Facility (9 sources) celecoxib; Translations: [CELECOXIB] Drug Allergy 7 Anaphylaxis [facility] (9 sources) Morphine; Translations: [MORPHINE] Drug Allergy Stops her digestion, shuts down bowel, Stops her digestion [facility] (2 sources) Sulfacetamide Drug Allergy 4 Anaphylaxis [facility] (1 source) celecoxib Drug Allergy 4 [facility] (1 source) Codeine Drug Allergy 4 [facility] (1 source) Morphine Drug Allergy 4 [facility] (1 source) Sulfonamides (Antibiotic) Drug allergy (disorder) 4 [facility] (20 sources) Lisinopril; Translations: [LISINOPRIL] Drug Allergy 7 Cough [facility] (9 sources) Sulfonamides (Antibiotic); Translations: [SULFA (SULFONAMIDE ANTIBIOTICS)] Propensity to adverse reactions to drug (disorder) 7 Anaphylaxis [facility] (20 sources) celecoxib Drug Allergy 3 Anaphylaxis [facility] (20 sources) Sulfonamides (Antibiotic) Propensity to adverse reactions 3 Anaphylaxis [facility] (1 source) celecoxib Drug Allergy 4 [facility] Repository Medications Current Medications Medication Drug Class(es) [...] aspirin 81 mg delayed release oral tablet (20 sources) Platelet Aggregation Inhibitor, Nonsteroidal Anti-inflammatory Drug take 1 tablet by mouth once daily aspirin 81 MG EC tablet Take 81 mg by mouth Daily Active 4 ml bevacizumab 25 mg/ml injection (1 source) Vascular Endothelial Growth Factor Inhibitor Start: 02-22-2025 Avastin 25 mg/mL intravenous solution Direct patient administration only - Active OU Comment on above: OU chlorthalidone 25 mg oral tablet (20 sources) Thiazide-like Diuretic Start: 02-07-2025 End: 05-08-2025 take 0.5 tablet by mouth once daily chlorthalidone (Hygroton) 25 MG tablet Indications: Essential hypertension Take 0.5 tablets (12.5 mg) by mouth Daily 45 tablet 1 02/07/2025 05/08/2025 Active Start: 10-02-2024 take 0.5 tablet by m outh once daily chlorthalidone (HYGROTON) 25 mg tablet Indications: Essential hypertension , Ventricular premature beats , Palpitations TAKE 1/2 (ONE-HALF) OF A TABLET BY MOUTH DAILY 45 tablet 10/02/2024 Active Start: 12-28-2022 End: 02-07-2025 take 0.5 tablet by mouth once daily chlorthalidone (Hygroton) 25 MG tablet Indications: Essential hypertension Take 0.5 tablets (12.5 mg) by mouth Daily 15 tablet 09/28/2024 02/07/2025 Discontinued (Reorder) take 1 tablet by red th once daily chlorthalidone 25 mg tablet take 1 tablet by oral route every day 25 MG - Active End: 09-28-2024 chlorthalidone (Hygroton) 25 MG tablet Take 12.5 mg by mouth in the morning. 09/28/2024 Discontinued (Reorder) docusate sodium 100 mg oral capsule (1 source) take 1 capsule by mouth every twenty-four hours Stool Softener 100 MG 1 capsule as needed Orally Once a day for 30 day(s) Active doxycycline hyclate 100 mg oral tablet (2 sources) Tetracycline-c lass Drug Start: 02-07-2025 doxycycline (Vibra-Tabs) 100 MG tablet Indications: Tick bite of left ear, initial encounter 200mg one time dose. Take with a full glass of water and do not lie down for at least 30 minutes after. 2 tablet 02/07/2025 Active Start: 02-07-2025 doxycycline (V ibra-Tabs) 100 MG tablet Indications: Tick bite of left ear, initial encounter 200mg one time dose. Take with a full glass of water and do not lie down for at least 30 minutes after. 2 tablet 02/07/2025 Active fluticasone propionate 0.05 mg/actuat metered dose nasal spray (20 sources) Corticosteroid Start: 08-14-2024 End: 08-14-2025 take 1-2 spray(s) nasal route once daily fluticasone (Flonase) 50 MCG/ACT nasal spray Indications: Upper respiratory tract infection, unspecified type Administer 1-2 sprays into each nostril Daily Shake gently. Before first use, prime pump. After use, clean tip and replace cap. 16 g 2 08/14/2024 08/14/2025 Active gabapentin 300 mg oral capsule (20 sources) Anti-epileptic Agent Start: 12-22-2016 End: 02-07-2025 take 1 capsule by mouth in the [...] capsule (300 mg) before bedtime. 270 capsule 1 11/09/2024 Active take 1 capsule by mo ut every twelve hours gabapentin 300 mg capsule take 1 capsule by oral route 2 times every day 300 MG - Active glimepiride 4 mg oral tablet (1 source) Sulfonylurea take 1 tablet by mouth every twenty-four hours Glimepiride 4 MG 1 tablet with breakfast or the first main meal of the day Orally Once a day Active 12 hr guaiFENesin 600 mg extended release oral tablet (2 sources) Start: 08-14-2024 End: 08-28-2024 take 2 tablets by mouth in the [...] split.. 56 tablet 08/14/2024 08/28/2024 Active Magnesium (4 sources) magnesium 200 mg tablet Take by mouth. Active magnesium 200 mg tablet Take by mouth. 0 Active metFORMIN hydrochloride 500 mg oral tablet (20 sources) Biguanide Start: 12-30-2021 End: 02-10-2025 take 1 tablet by mouth in the morning metFORMIN (Glucophage) 500 MG tablet Indications: Type 2 diabetes mellitus with diabetic polyneuropathy, without long-term current use of insulin (HCC) Take 1 tablet (500 mg) by mouth in the morning and 1 tablet (500 mg) in the evening. Take with meals. 180 tablet 1 08/14/2024 02/10/2025 Active Start: 12-30-2021 take 1 tablet by red th every twelve hours metFORMIN (GLUCOPHAGE) 500 mg tablet Take 500 mg by mouth every 12 (twelve) hours. 0 12/30/2021 Active take 1 tablet by red th every twelve hours metformin 500 mg tablet take 1 tablet by oral route 2 times every day with morning and evening meals 500 MG - Active take 1 tablet by red th every twenty-four hours metFORMIN HCl 500 MG 1 tablet with a meal Orally Once a day Active multivitamin capsule (6 sources) take 1 capsule by mo [facility] every other day in the morning multivitamin capsule Take 1 capsule by mouth in the morning. EVERY OTHER DAY . Active take 1 capsule by mo [facility] every other day in the morning multivitamin capsule Take 1 capsule by [facility] in the morning. EVERY OTHER DAY . 0 Active take 1 capsule by mouth every ot her day multivitamin capsule Take 1 capsule by mouth. EVERY OTHER DAY 0 Active naproxen 250 mg oral tablet (7 sources) Nonsteroidal Anti-inflammatory Drug take 1 tablet by mouth in the morning, then take 1 tablet by mouth at mealtime naproxen (NAPROSYN) 250 mg tablet Take 1 tablet (250 mg total) by mouth in the morning and 1 tablet (250 mg total) in the evening. Take with meals. Active take 1 tablet by red every twelve hours at mealtime as needed Naproxen 375 MG 1 tablet with food or milk as needed Orally every 12 hrs Active omeprazole 40 mg delayed release oral capsule (20 sources) Proton Pump Inhibitor Start: 06-21-2024 End: 03-14-2025 take 1 capsule by mouth before mealtime omeprazole (PriLOSEC) [address] capsule Indications: Gastroesophageal reflux disease without esophagitis Take 1 capsule (40 mg) by mouth in the morning. Take before meals. 90 capsule 1 12/14/2024 03/14/2025 Active Start: 04-19-2024 take 1 capsule by mo [facility] before mealtime omeprazole (PriLOSEC) [address] [...] capsule 2 06/21/2024 Active polyethylene glycol 3350 360314 mg / potassium chloride 2970 mg / sodium bicarbonate 6740 mg / sodium chloride 5860 mg / sodium sulfate 52296 mg powder for oral solution (1 source) Osmotic Laxative Start: 06-26-2024 Peg 3350-Electrolytes (Golytely) 236-22.74-6.74 -5.86 gram recon soln Active 480 ML PO Q10M 8000 2 June 26, 2024 12:00am follow instructions given at office please give two kits for a 2 day bowel clean out Psyllium (1 source) Metamucil 48.57 % as directed Orally Active rosuvastatin calcium 10 mg oral tablet (20 sources) HMG-CoA Reductase Inhibitor Start: 11-09-2024 End: 05-08-2025 take 1 tablet by mouth at bedtime rosuvastatin (Crestor) 10 MG tablet Indications: Mixed hyperlipidemia Take 1 tablet (10 mg) by mouth at bedtime 90 tablet 1 02/07/2025 05/08/2025 Active SENNOSIDES (SENNA LAX ORAL) (6 sources) SENNOSIDES (JUAN M A LAX ORAL) as needed. Active SENNOSIDES (JUAN M A LAX ORAL) as needed. 0 Active simvastatin 40 mg oral tablet (20 sources) HMG-CoA Reductase Inhibitor Start: 06-26-2024 take 2 tablets by mouth once daily at bedtime Simvastatin 10 mg tablet Active 20 MG PO Daily at bedtime June 26, 2024 2:03pm Start: 02-17-2024 End: 03-27-2025 take 1 tablet by mouth at bedtime simvastatin (Zocor) 40 MG tablet Indications: Mixed hyperlipidemia (CMS/HCC) Take 1 tablet (40 mg) by mouth at bedtime 90 tablet 09/28/2024 11/09/2024 Discontinued (Therapy completed) Start: 11-02-2018 End: 06-26-2024 take 1 tablet by mouth once daily simvastatin (ZOCOR) 10 mg tablet Indications: Essential hypertension , Palpitations , Ventricular premature beats Take 1 tablet (10 mg total) by mouth nightly. 90 tablet 3 05/19/2019 09/24/2023 Discontinued (Dose adjustment) tiZANidine 4 mg oral tablet (20 sources) Central alpha-2 Adrenergic Agonist Start: 06-26-2024 take 1 tablet by mouth twice daily as needed Tizanidine 4 mg tablet Active 1 MG PO Twice daily June 26, 2024 12:00am FreeTextSi tablet as needed Orally Twice a day; Note: Source Status: Taking; Provider: Felix Welch ( ) Start: 11-22-2023 End: 03-27-2025 take 1 tablet by mouth every eight hours for muscle spasms tiZANidine (Zanaflex) 4 MG tablet Indications: Chronic low back pain with left-sided sciatica, unspecified back pain laterality Take 1 tablet (4 mg) by mouth every 8 (eight) hours if needed for muscle spasms 270 tablet 1 09/28/2024 03/27/2025 Active Start: 11-02-2018 End: 11-18-2018 take 1 tablet by mouth three times daily as needed Tizanidine 4 mg Tablet Discontinued 4 MG PO Three times daily as needed for Muscle Spasticity November 01, 2018 11:00pm November 18, 2018 6:49am take 1 capsule by mo [facility] three times daily tiZANidine (ZANAFLEX) 4 mg capsule Take 1 capsule (4 mg total) by mouth 3 (three) times a day. Active take 1 capsule by mo ut once as needed tiZANidine (ZANAFLEX) 4 mg capsule Take 4 mg by mouth once as needed. 0 Active take 1 tablet by red every twelve hours tiZANidine HCl 4 MG 1 tablet as needed Orally Twice a day Active triamcinolone acetonide 1 mg/ml topical cream (2 sources) Corticosteroid Start: 02-07-2025 End: 02-22-2025 triamcinolone (Kenalog) 0.1 % cream Indications: Bug bite, initial encounter Apply topically in the morning and in the evening and before bedtime. Do all this for 15 days. 30 g 02/07/2025 02/22/2025 Active 24 hr verapamil hydrochloride 360 mg extended release oral capsule (20 sources) Calcium Channel Mimi Start: 11-30-2023 End: 03-14-2025 take 1 capsule by mouth once daily verapamil ER (Verelan) 360 MG 24 hr capsule Indications: Essential hypertension Take 1 capsule (360 mg) by mouth Daily 90 capsule 1 12/14/2024 03/14/2025 Active Start: 07-09-2023 End: 09-24-2023 take 1 capsule by mouth once daily verapamiL (VERELAN) 300 mg capsule, [address] 24 hr capsule Take 1 capsule (300 mg total) by mouth nightly. 30 capsule 0 07/09/2023 09/24/2023 Discontinued (Dose adjustment) Start: 11-02-2018 take 1 tablet by red [...] 17, 2018 11:00pm December 09, 2018 8:35am cholecalciferol 0.025 mg oral capsule (3 sources) Vitamin D End: 4 cholecalciferol, vitamin D3, 1,000 unit capsule Take 1 capsule (1,000 Units total) by mouth as needed. 0 09/24/2023 Discontinued (Therapy completed) ciprofloxacin 500 mg oral tablet (3 sources) Quinolone Antimicrobial Start: 7 End: 4 ciprofloxacin HCl (CIPRO) 500 mg tablet Take 1 tablet (500 mg total) by mouth as needed. 0 11/21/2016 09/24/2023 Discontinued (Therapy completed) cyclobenzaprine hydrochloride 10 mg oral tablet (2 [...] 8 Depo-Medrol 40 mg Apr, 1 mL 12 hr orphenadrine citrate 100 mg extended release oral tablet (3 sources) Muscle Relaxant End: 4 take 1 tablet by mouth in the morning, then take 1 tablet by mouth every twelve hours at bedtime orphenadrine (NORFLEX) 100 mg 12 hr tablet Take 1 tablet (100 mg total) by mouth in the morning and 1 tablet (100 mg total) before bedtime. 0 09/24/2023 Discontinued (Therapy completed) oxyCODONE hydrochloride 5 mg oral capsule (2 sources) Opioid Agonist Start: 9 End: 4 take 5-10 mg by mouth every six hours as needed for pain Oxycodone 5 mg capsule Discontinued 5 - 10 MG PO Q6H as needed for pain 60 8 December 27, 2018 June 26, 2024 2:02pm polyethylene glycol 3350 15097 mg powder for oral solution (2 sources) [...] abdominal pain] Onset: 4 Episodic Cardiac dysrhythmias (11 sources) Ventricular premature depolarization; Translations: [Multiple premature ventricular complexes] Onset: 6 11-05-2017 Chronic Cardiac dysrhythmias (11 sources) Palpitations; Translations: [Palpitations] Onset: 6 11-05-2017 Episodic Cataract (6 sources) Presence of intraocular lens; Translations: [Pseudophakia] Onset: 5 Chronic Complications of surgical procedures or medical care (1 source) Postoperative wound infection; Translations: [Infection following a procedure, other surgical site, initial encounter] 12-22-2018 Episodic Congestive heart failure; nonhypertensive (20 sources) Chronic diastolic (congestive) heart failure; Translations: [Chronic diastolic heart failure] Onset: 1 07-28-2023 Chronic Diabetes mellitus with complications (20 sources) Polyneuropathy due to type 2 diabetes mellitus; Translations: [Type 2 diabetes mellitus with diabetic polyneuropathy] Onset: 3 Resolved: 5 07-28-2023 Chronic Diabetes mellitus without complication (20 sources) Type 2 diabetes mellitus without complications; Translations: [Type 2 diabetes mellitus] Onset: 2 Chronic Disorders of lipid metabolism (20 sources) Hyperlipidemia, unspecified; Translations: [Mixed hyperlipidemia] Onset: 1 03-28-2024 Chronic Diverticulosis and diverticulitis (20 sources) Diverticulitis of gastrointestinal tract; Translations: [Diverticulitis] Onset: 4 06-26-2024 Chronic E Codes: Natural/environment (4 sources) Insect bite - wound; Translations: [Bitten or stung by nonvenomous insect and other nonvenomous arthropods, initial encounter] Onset: 5 02-07-2025 Episodic Esophageal disorders (4 sources) Gastroesophageal reflux disease without esophagitis; Translations: [Gastro-esophageal reflux disease without esophagitis] 06-20-2024 Chronic Essential hypertension (20 sources) Essential hypertension; Translations: [Essential (primary) hypertension] Onset: 7 07-28-2023 Chronic Fever of unknown origin (1 source) [...] immunization; Translations: [Encounter for immunization] 06-28-2024 Episodic Malaise and fatigue (2 sources) Fatigue; Translations: [Other fatigue] 01-04-2025 Episodic Other acquired deformities (2 sources) Lumbar spondylolisthesis; Translations: [Spondylolisthesis, lumbar region] 11-17-2018 Episodic Other aftercare (1 source) Surgical follow-up; Translations: [Encounter for follow-up examination after completed treatment for conditions other than malignant neoplasm] 12-09-2018 Episodic Other bone disease and musculoskeletal deformities (16 sources) Osteopenia; Translations: [Other specified disorders of bone density and structure, unspecified site] Onset: 5 12-01-2024 Episodic Other circulatory disease (20 sources) Carotid bruit; Translations: [Other specified symptoms and signs involving the circulatory and respiratory systems] Onset: 5 11-09-2024 Episodic Other connective tissue disease (1 source) Muscle pain; Translations: [Myalgia, unspecified site] 12-09-2018 Episodic Other eye disorders (6 sources) 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), bilateral; Translations: [Bilateral macula scars of post poles] Onset: 5 Chronic Other gastrointestinal disorders (1 source) Altered bowel function; Translations: [Other specified symptoms and signs involving the digestive system and abdomen] 06-26-2024 Episodic Other gastrointestinal disorders (1 source) Other specified symptoms and signs involving the digestive system and abdomen; Translations: [Other symptoms involving digestive system] 06-26-2024 Episodic Other nervous system disorders (1 source) Chronic pain; Translations: [Other chronic pain] Chronic Other nervous system disorders (2 sources) Polyneuropathy associated with another disorder; Translations: [Polyneuropathy in diseases classified elsewhere] 11-09-2024 Chronic Other nervous system disorders (20 sources) Peripheral nerve disease ; Translations: [Polyneuropathy, unspecified] Onset: 5 11-09-2024 Chronic Other nutritional; endocrine; and metabolic disorders (6 sources) Obese class I; Translations: [Obesity (BMI 30.0-34.9)] Onset: 2 03-11-2022 Chronic Other nutritional; endocrine; and metabolic disorders (6 sources) H/O: thyroid disorder; Translations: [Personal history of other endocrine, nutritional and metabolic disease] 01-04-2025 Episodic Other screening for suspected conditions (not mental disorders or infectious disease) (20 sources) Encounter for screening mammogram for malignant neoplasm of breast; Translations: [Patient encounter status] Onset: 3 11-09-2024 Episodic Residual codes; unclassified (1 source) Family history of malignant neoplasm of digestive organs; Translations: [FAM HX MALIG NEOPLASM DIGESTIV ORGN] Onset: 3 Episodic Residual codes; unclassified (1 source) Family history of malignant neoplasm of trachea, bronchus and lung; Translations: [FAM HX MALIG NEOPLSM TRACH BRON LNG] Onset: 3 Episodic Residual codes; unclassified (20 sources) Menopause present; Translations: [Asymptomatic menopausal state] Onset: 5 11-09-2024 Episodic Retinal detachments; defects; vascular occlusion; and retinopathy (20 sources) Age related macular degeneration; Translations: [Unspecified macular degeneration] Onset: 5 Resolved: 5 09-28-2024 Chronic Spondylosis; intervertebral disc disorders; other back problems (20 sources) Lumbar spondylosis; Translations: [Other intervertebral disc degeneration, lumbar region] Onset: 4 11-30-2023 Chronic Superficial injury; contusion (4 sources) Tick bite; Translations: [Insect bite (nonvenomous) of left ear, initial encounter] Onset: 5 02-07-2025 Episodic Thyroid disorders (20 sources) Multinodular goiter; Translations: [Nontoxic multinodular goiter] Onset: 5 11-15-2024 Chronic Unclassified (3 sources) LOW BACK PAIN, UNSPECIFIED; Translations: [LOW BACK PAIN, UNSPECIFIED] Onset: 2 Past or Other Problems Problem Classification Problem Date Documented Date Episodic/Chronic Complication of device; implant or graft (1 source) Breakdown (mechanical) of internal fixation device of vertebrae, initial encounter Onset: 10-28-2021 Resolved: 10-28-2021 Episodic Mood disorders (20 sources) Mood disorders Onset: 07-28-2023 Resolved: 09-28-2024 07-28-2023 Other connective tissue disease (1 source) Trochanteric bursitis; Translations: [Trochanteric bursitis, right hip] Episodic Other non-traumatic joint disorders (1 source) Pain in right hip joint; Translations: [Pain in right hip] Episodic Other non-traumatic joint disorders (1 source) Pain in right hip Onset: 10-28-2021 Resolved: 10-28-2021 Episodic Other upper respiratory infections (20 sources) Upper respiratory infection; Translations: [Acute upper respiratory infection, unspecified] Onset: 08-14-2024 Resolved: 11-09-2024 08-14-2024 Episodic Otitis media and related conditions (20 sources) Acute non-suppurative otitis media - serous; Translations: [Acute serous otitis media, bilateral] Onset: 08-14-2024 Resolved: 11-09-2024 08-14-2024 Episodic Residual codes; unclassified (20 sources) H/O Spinal surgery; Translations: [Other specified postprocedural states] Onset: 11-30-2023 12-21-2018 Episodic Spondylosis; intervertebral disc disorders; other back problems (20 sources) Lumbago with sciatica; Translations: [Lumbago with sciatica, left side] Onset: 01-08-2017 12-21-2018 Episodic Unclassified (1 source) LOW BACK PAIN, UNSPECIFIED; Translations: [LOW BACK PAIN, UNSPECIFIED] Onset: 10-24-2021 Unclassified (3 sources) injection (chief complaint) Onset: 08-18-2024 Unclassified (3 sources) macular lesions (chief complaint) Onset: 07-14-2024 Results Test Name Value Interpretation Reference Range Facility HbA1c (Bld) [Mass fraction]o n 02-07-2025 Interpretation and review of laboratory results Abnormal [facility] - Hematology and Cell countson 02-07-2025 HbA1c (Bld) [Mass fraction] 5.9 % [facility] Non-Warehouse Coordinator Cytology Reporton Non-Warehouse Coordinator Cytology Report [address] [id number] Non-Warehouse Coordinator Cytology Report Collected Date/Time: 01/18/2025 13:15 EDT Pathologist: Armando BARNETT PhD, Anan Yang Received Date/Time: 01/18/2025 18:00 EDT Maurisio Padilla DO, DO, Paul S 07 Non-Warehouse Coordinator Cytology Report - 01/25/2025 11:27 EDT - Auth (Verified) Final Diagnosis THYROID NODULE, LEFT MIDPOLE, FNA AND CELL BLOCK: - BENIGN (SEE COMMENT). (Electronic Signature) Anna Roberts MD PhD 01/25/2025 11:27 Diagnosis Comment A few bland looking follicular cells and colloid materials are present. Clinical Information 1.5 cm mid right thyroid lobe nodule Procedure: Fine needle Aspiration Specimen Received Right Thyroid Nodule Gross Description Received 10 slides from medical office scheduler. 5 unstained slides sent for Papanicolaou stain, 5 slides Diff-Quik stained in-house. Also received needle wash in 30 mL of ThinPrep CytoLyt solution. Sent for processing and cell block preparation. MMF:MMF Microscopic Description Microscopic examination performed. This report was transcribed using voice recognition technology and might contain unintended computerized cobbler apprentice errors. Normal [facility] Comment on above: Performed By: #### [id number] #### [facility] [address] [place] [address] No Panel Informationon 01-16 FASTING:YES FASTING: YES [facility] Performing Organizat ion Information Site ID: QPT Name: [facility] Address: [address] [place] [address] Director: Salo Rachel MD [facility] [employer] [facility] PTH, INTACT AND CALCIUMon Calcium [Mass/Vol] 9.9 mg/dL Normal 8.6-10.4 [facility] Comment on above: Order Comment: FASTI NG:YES FASTING: YES Performed By: #### 8 738, 984, 867 #### [facility] [place] [address] Stave Machine Tender: Salo Rachel MD PARATHYROID HORMONE, INTACT 30 pg/mL Normal 16-77 [facility] Comment on above: Order Comment: FASTI NG:YES FASTING: YES Result Comment: Interpretive Guide Intact PTH Calcium ------- Normal Parathyroid Normal Normal Hypoparathyroidism Low or Low Normal Low Hyperparathyroidism Primary Normal or High High Secondary High Normal or Low Tertiary High High Non-Parathyroid Hypercalcemia Low or Low Normal High Performed By: #### 8 081, 602, 867 #### [facility] [place] [address] Stave Machine Tender: Salo Rachel MD Parathyrin.intact and Calciu m panelon 01-16-2025 Calcium [Mass/Vol] 9.9 mg/dL 8.6 - 10. 4 mg/dL [facility] [employer] Parathyrin.intact [Mass/Vol] 30 pg/mL 16 - 77 pg/mL [facility] [employer] Comment on above: Interpretive Guide Intact PTH Calcium ------- Normal Parathyroid Normal Normal Hypoparathyroidism Low or Low Normal Low Hyperparathyroidism Primary Normal or High High Secondary High Normal or Low Tertiary High High Non-Parathyroid Hypercalcemia Low or Low Normal High T3on 01-16-2025 T3 [Mass/Vol] 103 ng/dL 76 - 181 ng/dL [facility] T3, TOTALon 01-16-2025 T3, TOTAL 103 ng/dL Normal 76-181 [facility] Comment on above: Performed By: #### 8 837, 859, 867 #### [facility] [address], [address] [place] [address] Stave Machine Tender: Salo Rachel MD T4 (THYROXINE), TOTALon 01-07 T4 [Mass/Vol] 8.4 ug/dL Normal 5.1-11.9 [facility] Comment on above: Performed By: #### 8 837, 859, 867 #### [facility] [address], [address] [place] [address] Stave Machine Tender: Salo Rachel MD TSHon 01-16-2025 TSH Qn 0.73 m[IU]/L Normal 0.40-4.50 [facility] Comment on above: Performed By: #### 8 837, 859, 867 #### [facility] [place] [address] Stave Machine Tender: Salo Rachel MD TSH Qn 0.73 m[IU]/L [facility] TSH Qnon 01-16-2025 T4 [Mass/Vol] 8.4 ug/dL [facility] US Thyroid glandon [address] [address] Ultrasound Report Signed Patient: SASKIA NEFF MR#: [id number] : 1950 Acct:[id number] Age/Sex: 73 / F ADM Date: 11/28/24 Loc: US Attending Dr: Destiny Mccartney NP Ordering Physician: Destiny Mccartney NP Date of Service: 11/28/24 Procedure(s): US thyroid Accession Number(s): [id number] cc: Destiny Mccartney NP [address] [address] Patient Name: SASKIA NEFF MRN: [facility]:[id number] date: 1950 Sex: F Assigned Patient Location: US Current Patient Location: US Accession/Order Number: [id number] Exam Date: 11/28/2024 13:20 Report Date: 11/28/2024 13:27 At the request of: DESTINY MCCARTNEY NP Procedure: US thyroid Thyroid Ultrasound HISTORY: History of thyroid nodules. Left thyroidectomy COMPARISON: None The RIGHT lobe measures 5.1 x 2.3 x 1.9 cmcm. No residual thyroid parenchyma is 1.4 x 0.9 x 1.9 cm Isthmus has an AP dimension of 0.6cm. Heterogeneous thyroid parenchyma. Multiple right thyroid nodules identified. Largest measures up to 1.4 cm. No dominant thyroid nodule identified. Right superior cystic nodule measures up to 11 mm. Right mid solid nodule measures up to 14 mm. Additional right mid solid nodule measures up to 11 mm. Right inferior solid nodule measures up to 13 mm. Nodule in the region of the isthmus is solid measuring up to 14 mm. No microcalcifications identified. Symmetric blood flow of the thyroid gland identified. US/US thyroid IMPRESSION: Multiple right thyroid nodules measuring up to 14 mm. Impression dictated by: Seun Kitchen M.D.11/28/2024 1:27 PM Dictation Location: [place] [address] Electronically authenticated by: [id number] Y Date: 11/28/2024 13:27 Dictated By: Seun Kitchen D.O. Signed By: 11/28/24 1333 DD/ 1327 TD/TT: New Car Sales Manager: [facility] Radiology, Radiologbuddy duvall MD - 11/28/2024 [place] [address] Ultrasound Report Signed Patient: SASKIA NEFF MR#: [id number] : 1950 Acct:[id number] Age/Sex: 73 / F ADM Date: 11/28/24 Loc: US Attending Dr: Destiny Mccartney NP Ordering Physician: Destiny Mccartney NP Date of Service: 11/28/24 Procedure(s): US thyroid Accession Number(s): [id number] cc: Destiny Mccartney NP [place] [id number] Patient Name: SAKSIA NEFF MRN: [facility]:[id number] date: 1950 Sex: F Assigned Patient Location: US Current Patient Location: US Accession/Order Number: [id number] Exam Date: 11/28/2024 13:20 Report Date: 11/28/2024 13:27 At the request of: DESTINY MCCARTNEY NP Procedure: US thyroid Thyroid Ultrasound HISTORY: History of thyroid nodules. Left thyroidectomy COMPARISON: None The RIGHT lobe measures 5.1 x 2.3 x 1.9 cmcm. No residual thyroid parenchyma is 1.4 x 0.9 x 1.9 cm Isthmus has an AP dimension of 0.6cm. Heterogeneous thyroid parenchyma. Multiple right thyroid nodules identified. Largest measures up to 1.4 cm. No dominant thyroid nodule identified. Right superior cystic nodule measures up to 11 mm. Right mid solid nodule measures up to 14 mm. Additional right mid solid nodule measures up to 11 mm. Right inferior solid nodule measures up to 13 mm. Nodule in the region of the isthmus is solid measuring up to 14 mm. No microcalcifications identified. Symmetric blood flow of the thyroid gland identified. US/US thyroid IMPRESSION: Multiple right thyroid nodules measuring up to 14 mm. Impression dictated by: Seun Kitchen M.D.11/28/2024 1:27 PM Dictation Location: [place] [address] Electronically authenticated by: [id number] Y Date: 11/28/2024 13:27 Dictated By: Seun Kitchen D.O. Signed By: 11/28/24 1330 DD/ 1327 TD/TT: New Car Sales Manager: [facility] Radiology Study observation (narrative) [facility] US Thyroid glandOrdered By: Radiologist Radiology on 11-28-2024 [facility] Work Phone: MG Breast - bilateral Screen ingon 11-15-2024 [place] [address] Mammography Report Signed Patient: SASKIA NEFF MR#: [id number] : 1950 Acct:[id number] Age/Sex: 73 / F ADM Date: 11/15/24 Loc: RAD Attending Dr: Destiny Mccartney NP Ordering Physician: Destiny Mccartney NP Results: Date of Service: 11/15/24 Follow Up: Procedure(s): MM screening mammo BI Accession Number(s): [id number] cc: Destiny Mccartney NP Patient Name: SASKIA NEFF MR#: [id number] : 1950 Exam Date: 11/15/2024 Ordering Doctor: RICHIE Mccartney CNP RADIOLOGY REPORT PROCEDURE: MM SCREENING MAMMO BI COMPARISON: MG MAMM SCREEN 3D SAMI CAD, 08/26/2022. MG MAMM SCREEN 3D SAMI CAD, 07/31/2021. MG MAMM SCREEN SAMI W CAD, 06/05/2019. MG MAMM SCREEN SAMI W CAD, 09/10/2011. INDICATIONS: Screening for malignant neoplasm Calculator Name NCI Breast Cancer Risk Assessment Tool 5 Year Breast Cancer Risk 2.40% Lifetime Breast Cancer Risk 6.30% Personal Breast Cancer No Personal Ovarian Cancer No Treatments None Family Cancers Mother with lung cancer at age 61; Father with colon cancer at age 70. LOCATION: [facility] BREAST COMPOSITION: There are scattered areas of fibroglandular density. FINDINGS: DIAGNOSTIC CATEGORY 1--NEGATIVE. RIGHT BREAST: No significant suspicious finding. LEFT BREAST: No significant suspicious finding. RECOMMENDATIONS: ROUTINE MAMMOGRAM AND CLINICAL EVALUATION IN 12 MONTHS. PLEASE NOTE: A NORMAL MAMMOGRAM DOES NOT EXCLUDE THE POSSIBILITY OF BREAST CANCER. A CLINICALLY SUSPICIOUS PALPABLE LUMP SHOULD BE BIOPSIED. Dictated by: Seferino Gibbons DO on 11/15/2024 at 12:59 Approved by: Seferino Gibbons DO on 11/15/2024 at 13:21 Dictated By: Seferino Gibbons M.D. Signed By: 11/15/24 1323 DD/ 1322 TD/TT: New Car Sales Manager: [facility] Radiology, Radiologi MD jadiel - 11/15/2024 [place] [address] Mammography Report Signed Patient: SASKIA NEFF MR#: [id number] : 1950 Acct:[id number] Age/Sex: 73 / F ADM Date: 11/15/24 Loc: RAD Attending Dr: Destiny Mccartney NP Ordering Physician: Destiny Mccartney NP Results: Date of Service: 11/15/24 Follow Up: Procedure(s): MM screening mammo BI Accession Number(s): [id number] cc: Destiny Mccartney NP Patient Name: SASKIA NEFF MR#: [id number] : 1950 Exam Date: 11/15/2024 Ordering Doctor: RICHIE Mccartney CNP RADIOLOGY REPORT PROCEDURE: MM SCREENING MAMMO BI COMPARISON: MG MAMM SCREEN 3D SAMI CAD, 08/26/2022. MG MAMM SCREEN 3D SAMI CAD, 07/31/2021. MG MAMM SCREEN SAMI W CAD, 06/05/2019. MG MAMM SCREEN SAMI W CAD, 09/10/2011. INDICATIONS: Screening for malignant neoplasm Calculator Name NCI Breast Cancer Risk Assessment Tool 5 Year Breast Cancer Risk 2.40% Lifetime Breast Cancer Risk 6.30% Personal Breast Cancer No Personal Ovarian Cancer No Treatments None Family Cancers Mother with lung cancer at age 61; Father with colon cancer at age 70. LOCATION: [facility] BREAST COMPOSITION: There are scattered areas of fibroglandular density. FINDINGS: DIAGNOSTIC CATEGORY 1--NEGATIVE. RIGHT BREAST: No significant suspicious finding. LEFT BREAST: No significant suspicious finding. RECOMMENDATIONS: ROUTINE MAMMOGRAM AND CLINICAL EVALUATION IN 12 MONTHS. PLEASE NOTE: A NORMAL MAMMOGRAM DOES NOT EXCLUDE THE POSSIBILITY OF BREAST CANCER. A CLINICALLY SUSPICIOUS PALPABLE LUMP SHOULD BE BIOPSIED. Dictated by: Seferino Gibbons DO on 11/15/2024 at 12:59 Approved by: Seferino Gibbons DO on 11/15/2024 at 13:21 Dictated By: Seferino Gibbons M.D. Signed By: 11/15/24 1323 DD/ 1322 TD/TT: New Car Sales Manager: [facility] Radiology Study observation (narrative) [facility] MG Breast - bilateral Screen ingOrdered By: Radiologist Radiology on 11-15-2024 [facility] Work Phone: ALL CBC WITH AUTO DIFFon BASOPHILS ABSOLUTE AUTO 0 [facility] Basophils/100 WBC (Bld) 0.5 % 0.2 - 2.0 % [facility] Eosinophils/100 WBC (Bld) 5.7 % 0.9 - 7.0 % [facility] Erythrocyte distribution width (RBC) [Ratio] 13.1 % 11.0 - 15.0 % [facility] Hematocrit (Bld) [Volume fraction] 41.1 % 36.0 - 48.0 % [facility] Hemoglobin (Bld) [Mass/Vol] 14.5 g/dL 12.0 - 16.0 g/dL [facility] IMMATURE GRANULOCYTES ABS AUTO 0.01 [facility] Immature granulocytes/100 WBC (Bld) 0.2 % 0.0 - 0.5 % [facility] Interpretation and review of laboratory results Abnormal [facility] LYMPHOCYTES ABSOLUTE AUTO 1.3 [facility] Lymphocytes/100 WBC (Bld) 22.3 % 20.5 - 60.0 % [facility] MCH (RBC) [Entitic mass] 31.6 pg 26.7 - 34.0 pg [facility] MCHC (RBC) [Mass/Vol] 35.3 g/dL High 29.9 - 35.2 g/dL [facility] MCV (RBC) [Entitic vol] 89.5 fL 81.0 - 99.0 fL [facility] MONOCYTES ABSOLUTE AUTO 0.7 [facility] Monocytes/100 WBC (Bld) 12.2 % High 1.7 - 12.0 % [facility] NEUTROPHILS ABSOLUTE AUTO 3.3 [facility] Neutrophils/100 WBC (Bld) 59.1 % 43.0 - 75.0 % [facility] Platelet mean volume (Bld) [Entitic vol] 9.8 fL 9.5 - 13.5 fL [facility] EO # 0.3 [facility] PLT 271 [facility] TB RBC 4.59 [facility]H WBC 5.7 [facility] Glucose Poct Glucometerson 09-26-2023 Glucose [Mass/Vol] 102 mg/dL Normal [facility] Comment on above: Result Comment: [facility] Glucose Reference Range is dependent on time and content of last meal. Glucose of more than 200 mg/dL in a nonstressed, ambulatory subject supports the diagnosis of Diabetes Mellitus. PERFORMED BY: [place] [address] PATHOLOGIST [employer] DESIGNER LATRICE WAKEFIELD M.D. Performed By: #### G LULS #### Point of Care testing , Pathology Request for Lab Co rpon 07-26-2024 Pathology Request for Lab Heather Normal The Count Includes [facility] Comment on above: Order Comment: PATHO LOGY GI SPECIMEN Result Comment: See report. Scanned copy available in EMR. PERFORMED BY: [place] [address] PATHOLOGIST [employer] DESIGNER LATRICE WAKEFIELD M.D. Performed By: #### P ATH TO [facility] #### [address] POCT EKGon 09-24-2023 [facility] CULTURE URINEon 08-26-2022 CULTURE URINE Culture Observations : NO GROWTH. Normal [facility] Comment on above: Performed By: #### U RCX #### [facility] [address] [place] [address] [address] Anna Roberts GLYCOHEMOGLOBIN A1Con 2022 ADA RECOMMENDATION SEE BELOW Normal [facility] Comment on above: Result Comment: ADA RECOMMENDED LIMIT 4.0 - 6.0 ADA THERAPEUTIC TARGET < 7.0 ACTION SUGGESTED > 7.0 Performed By: #### U AMIC #### [facility] [address] [place] [address] [address] Anna Roberts Glucose [Mass/Vol] 126 mg/dL Normal [facility] Comment on above: Performed By: #### U AMIC #### [facility] [address] [place] [address] [address] Anna Roberts HbA1c (Bld) [Mass fraction] 6.0 % Normal 4.5-6.2 [facility] Comment on above: Performed By: #### U AMIC #### [facility] [address] [place] [address] [address] Anna Roberts LIPID PROFILEon 08-26-2022 CHOL-HDL RATIO NORM SEE BELOW Normal [facility] Comment on above: Result Comment: 3.3 - 4.4 LOW RISK 4.4 - 7.1 AVERAGE RISK 7.1 - 11.0 MODERATE RISK >11.0 HIGH RISK Performed By: #### L IPID #### [facility] [address] [place] [address] [address] Anna Roberts Cholesterol [Mass/Vol] 116 mg/dL Normal <=200 [facility] Comment on above: Performed By: #### L IPID #### [facility] [address] [place] [address] [address] Anna Roberts Cholesterol in HDL [Mass/Vol] 44 mg/dL Normal 40-60 [facility] Comment on above: Performed By: #### L IPID #### [facility] [address] [place] [address] [address] Anna Roberts Cholesterol in LDL [Mass/Vol] 53.0 mg/dL Normal [facility] Comment on above: Performed By: #### L IPID #### [facility] [address] [place] [address] [address] Anna Roberts Cholesterol.total/Ch olesterol in HDL [Mass ratio] 2.6 {ratio} Normal [facility] Comment on above: Performed By: #### L IPID #### [facility] [address] [place] [address] [address] Anna Roberts HDL NORMAL > or = 60 mg/dl - LO W CARDIOVASCULAR RISK <40 mg/dl - HIGH CARDIOVASCULAR RISK Normal [facility] Comment on above: Performed By: #### L IPID #### [facility] [address] [place] [address] [address] Anna Roberts LDL CALC NORMAL SEE BELOW Normal [facility] Comment on above: Result Comment: <100 mg/dl OPTIMAL 100 - 129 mg/dl NEAR OR ABOVE OPTIMAL 130 - 159 mg/dl BORDERLINE HIGH 160 - 189 mg/dl HIGH >190 mg/dl VERY HIGH Performed By: #### L IPID #### [facility] [address] [place] [address] [address] Anna Roberts Triglyceride [Mass/Vol] 96 mg/dL Normal <=150 [facility] Comment on above: Performed By: #### L IPID #### [facility] [address] [place] [address] [address] Anna Roberts VLDL CALC 19.2 mg/dL Normal [facility] Comment on above: Performed By: #### L IPID #### [facility] [address] [place] [address] [address] Anna Roberts MG MAMM SCREEN 3D SAMI CADon 08-26-2022 MG MAMM SCREEN 3D SAMI CAD Patient: SASKIA NEFF Exam Date: 08/26/2022 : 1950 Gender:F Ordering : SHAIKH Alma BURKS . Admission #: [id number] Family : Order #: [id number] CLICK HERE TO VIEW EXAM RADIOLOGY REPORT [...] colon cancer at age 71. LOCATION: [facility] BREAST COMPOSITION: Scattered areas fibroglandular density. FINDINGS: [...] LUMP SHOULD BE BIOPSIED. Dictated by: Arcadio Wlash MD on 08/26/2022 at 10:27 Approved by: Arcadio Walsh MD on 08/26/2022 at 10:29 Normal [facility] UA RANDOM W/MICROSCOPICon BACTERIA TRACE Abnormal NONE SEEN [facility] Comment on above: Performed By: #### U AMIC #### [facility] [address] [place] [address] [address] Anna Roberts Bilirubin Ql (U) Negative Normal NEGATIVE [facility] Comment on above: Performed By: #### U AMIC #### [facility] [address] [place] [address] [address] Anna Roberts CAST NONE SEEN Normal NONE SEEN [facility] Comment on above: Performed By: #### U AMIC #### [facility] [address] [place] [address] [address] Anna Roberts Clarity (U) CLEAR Normal CLEAR [facility] Comment on above: Performed By: #### U AMIC #### [facility] [address] [place] [address] [address] Anna Roberts Color (U) LT. YELLOW Normal YELLOW [facility] Comment on above: Performed By: #### U AMIC #### [facility] [address] [place] [address] [address] Anna Roberts Crystals LM Nom (Urine sed) NONE SEEN Normal NONE SEEN [facility] Comment on above: Performed By: #### U AMIC #### [facility] [address] [place] [address] [address] Anna Roberts Epithelial cells LM Ql (Urine sed) FEW Abnormal NONE SEEN /RARE [facility] Comment on above: Performed By: #### U AMIC #### [facility] [address] [place] [address] Dr. Anna Roberts Glucose Ql (U) Negative Normal NEGATIVE [facility] Comment on above: Performed By: #### U AMIC #### [facility] [address] [place] [address] [address] Anna Roberts Hemoglobin Ql (U) Negative Normal NEGATIVE [facility] Comment on above: Performed By: #### U AMIC #### [facility] [address] [place] [address] [address] Anna Roberts Ketones Ql (U) Negative Normal NEGATIVE [facility] Comment on above: Performed By: #### U AMIC #### [facility] [address] [place] [address] Dr. Anna Roberts LEUKOCYTES Negative Normal NEGATIVE [facility] Comment on above: Performed By: #### U AMIC #### [facility] [address] [place] [address] [address] Anna Roberts MUCOUS NONE SEEN Normal NONE SEEN [facility] Comment on above: Performed By: #### U AMIC #### [facility] [address] [place] [address] Dr. Anna Roberts Nitrite Ql (U) Negative Normal NEGATIVE [facility] Comment on above: Performed By: #### U AMIC #### [facility] [address] [place] [address] Dr. Anna Roberts pH (U) 6.0 [pH] Normal 5-9 [facility] Comment on above: Performed By: #### U AMIC #### [facility] [address] [place] [address] Dr. Anna Roberts RBC NONE SEEN Abnormal 0-2 [facility] Comment on above: Performed By: #### U AMIC #### [facility] [address] [place] [address] Dr. Anna Roberts SPEC GRAVITY >=1.030 Abnormal 1.005-<=1.02 5 [facility] Comment on above: Performed By: #### U AMIC #### [facility] [address] [place] [address] Dr. Anna Roberts UA PROTEIN Negative Normal NEGATIVE/ TRACE [facility] Comment on above: Performed By: #### U AMIC #### [facility] [address] [place] [address] [address] Anna Roberts Urobilinogen Qn (U) 0.2 {Mulu'U}/dL Normal 0.2 - 1. 0 [facility] Comment on above: Performed By: #### U AMIC #### [facility] [address] [place] [address] Dr. Anna Roberts WBC NONE SEEN Normal NONE SEEN [facility] Comment on above: Performed By: #### U AMIC #### [facility] [address] [place] [address] Dr. Anna Roberts CBC AUTO DIFFon 03-09-2022 BASO # 0.0 103/ul Normal 0.0-0.1 [facility] Comment on above: Performed By: #### C BC #### [facility] [address] [place] [address] Dr. Anna Roberts Basophils/100 WBC (Bld) 0.6 % Normal 0.2-2.0 [facility] Comment on above: Performed By: #### C BC #### [facility] [address] [place] [address] Dr. Anna Roberts EO # 0.3 103/ul Normal 0.0-0.7 [facility] Comment on above: Performed By: #### C BC #### [facility] [address] [place] [address] Dr. Anna Roberts Eosinophils/100 WBC (Bld) 4.1 % Normal 0.9-7.0 [facility] Comment on above: Performed By: #### C BC #### [facility] [address] [place] [address] Dr. Anna Roberts Erythrocyte distribution width (RBC) [Ratio] 13.1 % Normal 11.0-15.0 [facility] Comment on above: Performed By: #### C BC #### [facility] [address] [place] [address] Dr. Anna Roberts Hematocrit (Bld) [Volume fraction] 44.2 % Normal 36.0-48.0 [facility] Comment on above: Performed By: #### C BC #### [facility] [address] [place] [address] Dr. Anna Roberts Hemoglobin (Bld) [Mass/Vol] 15.6 g/dL Normal 12.0-16.0 [facility] Comment on above: Performed By: #### C BC #### [facility] [address] [place] [address] Dr. Anna Roberts IG # 0.02 10e3/ul Normal 0.00-0.03 [facility] Comment on above: Performed By: #### C BC #### [facility] [address] [place] [address] Dr. Anna Roberts IG % 0.3 % Normal 0.0-0.5 [facility] Comment on above: Performed By: #### C BC #### [facility] [address] [place] [address] Dr. Anna Roberts LYMPH # 1.6 103/ul Normal 1.2-3.8 [facility] Comment on above: Performed By: #### C BC #### [facility] [address] [place] [address] Dr. Anna Roberts Lymphocytes/100 WBC (Bld) 24.1 % Normal 20.5-60.0 [facility] Comment on above: Performed By: #### C BC #### [facility] [address] [place] [address] Dr. Anna Roberts MANUAL DIFF REQ NO Normal [facility] Comment on above: Performed By: #### C BC #### [facility] [address] [place] [address] Dr. Anna Roberts MCH (RBC) [Entitic mass] 31.6 pg Normal 26.7-34.0 [facility] Comment on above: Performed By: #### C BC #### [facility] [address] [place] [address] Dr. Anna Roberts MCHC (RBC) [Mass/Vol] 35.3 g/dL Critically high 29.9-35.2 [facility] Comment on above: Performed By: #### C BC #### [facility] [address] [place] [address] Dr. Anna Roberts MCV (RBC) [Entitic vol] 89.7 fL Normal 81.0-99.0 [facility] Comment on above: Performed By: #### C BC #### [facility] [address] [place] [address] Dr. Anna Roberts MONO # 0.8 103/ul Normal 0.3-0.8 [facility] Comment on above: Performed By: #### C BC #### [facility] [address] [place] [address] Dr. Anna Roberts Monocytes/100 WBC (Bld) 11.4 % Normal 1.7-12.0 [facility] Comment on above: Performed By: #### C BC #### [facility] [address] [place] [address] Dr. Anna Roberts NEUT # 3.9 103/ul Normal 1.4-6.5 [facility] Comment on above: Performed By: #### C BC #### [facility] [address] [place] [address] Dr. Anna Roberts Neutrophils/100 WBC (Bld) 59.5 % Normal 43.0-75.0 [facility] Comment on above: Performed By: #### C BC #### [facility] [facility] [address] [place] [address] Dr. Anna Roberts Platelet mean volume (Bld) [Entitic vol] 9.3 fL Critically low 9.5-13.5 [facility] Comment on above: Performed By: #### C BC #### [facility] [address] [place] [address] Dr. Anna Roberts PLT 301 103/ul Normal 150-450 [facility] Comment on above: Performed By: #### C BC #### [facility] [address] [place] [address] Dr. Anna Roberts RBC 4.93 106/ul Normal 4.20-5.40 [facility] Comment on above: Performed By: #### C BC #### [facility] [address] [place] [address] Dr. Anna Roberts WBC 6.6 103/ul Normal 4.0-11.0 [facility] Comment on above: Performed By: #### C BC #### [facility] [address] [place] [address] Dr. Anna Roberts LIPID PROFILEon 03-09-2022 CHOL-HDL RATIO NORM SEE BELOW Normal [facility] Comment on above: Result Comment: 3.3 - 4.4 LOW RISK 4.4 - 7.1 AVERAGE RISK 7.1 - 11.0 MODERATE RISK >11.0 HIGH RISK Performed By: #### C MP, LIPID #### [facility] [address] [place] [address] Dr. Anna Roberts Cholesterol [Mass/Vol] 185 mg/dL Normal <=200 [facility] Comment on above: Performed By: #### C MP, LIPID #### [facility] [address] [address] [address] Anna Roberts Cholesterol in HDL [Mass/Vol] 43 mg/dL Normal 40-60 [facility] Comment on above: Performed By: #### C MP, LIPID #### [facility] [address] [address] [address] Anna Roberts Cholesterol in LDL [Mass/Vol] 125.0 mg/dL Normal [facility] Comment on above: Performed By: #### C MP, LIPID #### [facility] [address] [address] [address] Anna Roberts Cholesterol.total/Ch olesterol in HDL [Mass ratio] 4.3 {ratio} Normal [facility] Comment on above: Performed By: #### C MP, LIPID #### [facility] [address] [place] [address] Dr. Anna Roberts HDL NORMAL > or = 60 mg/dl - LO W CARDIOVASCULAR RISK <40 mg/dl - HIGH CARDIOVASCULAR RISK Normal [facility] Comment on above: Performed By: #### C MP, LIPID #### [facility] [address] [place] [address] Dr. Anna Roberts LDL CALC NORMAL SEE BELOW Normal [facility] Comment on above: Result Comment: <100 mg/dl OPTIMAL 100 - 129 mg/dl NEAR OR ABOVE OPTIMAL 130 - 159 mg/dl BORDERLINE HIGH 160 - 189 mg/dl HIGH >190 mg/dl VERY HIGH Performed By: #### C MP, LIPID #### [facility] [address] [address] [address] Anna Roberts Triglyceride [Mass/Vol] 85 mg/dL Normal <=150 [facility] Comment on above: Performed By: #### C MP, LIPID #### [facility] [address] [address] [address] Anna Roberts VLDL CALC 17.0 mg/dL Normal [facility] Comment on above: Performed By: #### C MP, LIPID #### [facility] [address] [place] [address] Dr. Anna Roberts MAGNESIUMon 03-09-2022 Magnesium [Mass/Vol] 1.7 mg/dL Critically low 1.8-2.4 [facility] Comment on above: Performed By: #### M G #### [facility] [address] [place] [address] Dr. Anna Roberts PROF 14(COMP METB)on 022 Albumin [Mass/Vol] 3.9 g/dL Normal 3.4-5.0 [facility] Comment on above: Performed By: #### C MP, LIPID #### [facility] [address] [place] [address] Dr. Anna Roberts Albumin/Globulin [Mass ratio] 1.1 {ratio} Normal [facility] Comment on above: Performed By: #### C MP, LIPID #### [facility] [address] [place] [address] Dr. Anna Roberts ALP [Catalytic activity/Vol] 58 U/L Normal 46-116 [facility] Comment on above: Performed By: #### C MP, LIPID #### [facility] [address] [place] [address] Dr. Anna Roberts ALT [Catalytic activity/Vol] 27 U/L Normal 14-59 [facility] Comment on above: Performed By: #### C MP, LIPID #### [facility] [address] [place] [address] Dr. Anna Roberts Anion gap [Moles/Vol] 14.0 mmol/L Normal [facility] Comment on above: Performed By: #### C MP, LIPID #### [facility] [address] [place] [address] Dr. Anna Roberts AST [Catalytic activity/Vol] 18 U/L Normal 15-37 [facility] Comment on above: Performed By: #### C MP, LIPID #### [facility] [address] [place] [address] Dr. Anna Roberts Bilirubin [Mass/Vol] 0.6 mg/dL Normal 0.2-1.0 [facility] Comment on above: Performed By: #### C MP, LIPID #### [facility] [address] [address] [address] Anna Roberts Calcium [Mass/Vol] 10.0 mg/dL Normal 8.5-10.1 [facility] Comment on above: Performed By: #### C MP, LIPID #### [facility] [address] [address] [address] Anna Roberts Chloride [Moles/Vol] 101 mmol/L Normal 98-107 [facility] Comment on above: Performed By: #### C MP, LIPID #### [facility] [address] [place] [address] Dr. Anna Roberts CO2 [Moles/Vol] 29.6 mmol/L Normal 21.0-32.0 [facility] Comment on above: Performed By: #### C MP, LIPID #### [facility] [address] [place] [address] Dr. Anna Roberts Creatinine [Mass/Vol] 0.79 mg/dL Normal 0.55-1.02 [facility] Comment on above: Performed By: #### C MP, LIPID #### [facility] [address] [place] [address] Dr. Anna Roberts EGFR-AF AUSTRALIAN >60 Normal >=60 [facility] Comment on above: Performed By: #### C MP, LIPID #### [facility] [address] [place] [address] Dr. Anna Roberts EGFR-NON AF AUSTRALIAN >60 Normal >=60 [facility] Comment on above: Performed By: #### C MP, LIPID #### [facility] [address] [place] [address] Dr. Anna Roberts Globulin (S) [Mass/Vol] 3.7 g/dL Normal [facility] Comment on above: Performed By: #### C MP, LIPID #### [facility] [address] [place] [address] Dr. Anna Roberts Glucose [Mass/Vol] 118 mg/dL Critically high 74-106 [facility] Comment on above: Performed By: #### C MP, LIPID #### [facility] [address] [address] [address] Anna Roberts Potassium [Moles/Vol] 3.6 mmol/L Normal 3.5-5.1 [facility] Comment on above: Performed By: #### C MP, LIPID #### [facility] [address] [place] [address] Dr. Anna Roberts Protein [Mass/Vol] 7.6 g/dL Normal 6.4-8.2 [facility] Comment on above: Performed By: #### C MP, LIPID #### [facility] [address] [address] [address] Anna Roberts Sodium [Moles/Vol] 141 mmol/L Normal 136-145 [facility] Comment on above: Performed By: #### C MP, LIPID #### [facility] [address] [place] [address] Dr. Anna Roberts Urea nitrogen [Mass/Vol] 20.0 mg/dL Critically high 7.0-18.0 [facility] Comment on above: Performed By: #### C MP, LIPID #### [facility] [address] [place] [address] Dr. Anna Roberts Urea nitrogen/Creatinine [Mass ratio] 25.3 mg/mg Normal [facility] Comment on above: Performed By: #### C MP, LIPID #### [facility] [address] [place] [address] Dr. Anna Roberts GLYCOHEMOGLOBIN A1Con 2021 ADA RECOMMENDATION SEE BELOW Normal [facility] Comment on above: Result Comment: ADA RECOMMENDED LIMIT 4.0 - 6.0 ADA THERAPEUTIC TARGET < 7.0 ACTION SUGGESTED > 7.0 Performed By: #### U AMIC #### [facility] [address] [place] [address] Dr. Anna Roberts Glucose [Mass/Vol] 117 mg/dL Normal [facility] Comment on above: Performed By: #### U AMIC #### [facility] [address] [place] [address] Dr. Anna Roberts HbA1c (Bld) [Mass fraction] 5.7 % Normal 4.5-6.2 [facility] Comment on above: Performed By: #### U [facility] #### [facility] [address] [place] [address] Dr. Anna Roberts XR LSPINE MIN 4 [...] by: JOSEF GUARDADO Date: 2021-10-24 09:22 Normal [facility] Vital Signs Date Time Vital Sign Value Performing Clinician Facility 02-07-2025 11:09-0400 Body mass index (BMI) [Ratio] 29.75 kg/m2 Destiny Mccartney STUDENT FINANCIAL AID MANAGER Work Phone: [facility] 02-07-2025 11:09-0400 Body temperature 97.81 [degF] Destiny Mccartney STUDENT FINANCIAL AID MANAGER Work Phone: [facility] 02-07-2025 [id number] Body weight 81.1 kg Destiny Mccratney STUDENT FINANCIAL AID MANAGER Work Phone: [facility] 02-07-2025 11:09-0400 Diastolic blood pressure 70 mm[Hg] Destiny Mccartney STUDENT FINANCIAL AID MANAGER Work Phone: [facility] 02-07-2025 11:09-0400 Heart rate 61 /min Destiny Mccartney STUDENT FINANCIAL AID MANAGER Work Phone: [facility] 02-07-2025 11:09-0400 Respiratory rate 20 /min Destiny Mccartney STUDENT FINANCIAL AID MANAGER Work Phone: [facility] 02-07-2025 11:09-0400 SaO2% (BldA) [Mass fraction] 94 % Destiny Mccartney STUDENT FINANCIAL AID MANAGER Work Phone: [facility] 02-07-2025 11:09-0400 Systolic blood pressure 100 mm[Hg] Destiny Mccartney STUDENT FINANCIAL AID MANAGER Work Phone: [facility] 02-01-2025 14:11-0400 Body height 165.1 cm Maurisio Biedenbach DO Work Phone: [facility] 02-01-2025 14:11-0400 Body mass index (BMI) [Ratio] 29.95 kg/m2 Maurisio Biedenbach DO Work Phone: [facility] 02-01-2025 14:11-0400 Body weight 81.65 kg Maurisio Biedenbach DO Work Phone: [facility] 01-18-2025 12:51-0400 Body height 165.1 cm Maurisio Biedenbach DO Work Phone: [facility] 01-18-2025 12:51-0400 Body mass index (BMI) [Ratio] 29.95 kg/m2 Maurisio Biedenbach DO Work Phone: [facility] 01-18-2025 12:51-0400 Body weight 81.65 kg Maurisio Biedenbach DO Work Phone: [facility] 01-04-2025 15:29-0400 Body height 165.1 cm Maurisio Biedenbach DO Work Phone: [facility] 01-04-2025 15:29-0400 Body mass index (BMI) [Ratio] 29.95 kg/m2 Maurisio Biedenbach DO Work Phone: [facility] 01-04-2025 15:29-0400 Body weight 81.65 kg Maurisio Biedenbach DO Work Phone: [facility] 11-09-2024 09:25-0400 Body mass index (BMI) [Ratio] 30.19 kg/m2 Destiny Dwyeralexy STUDENT FINANCIAL AID MANAGER Work Phone: [facility] 11-09-2024 09:25-0400 Body temperature 98.49 [degF] Destiny Sherrill STUDENT FINANCIAL AID MANAGER Work Phone: [facility] 11-09-2024 09:25-0400 Body weight 82.28 kg Destiny Scotthelena STUDENT FINANCIAL AID MANAGER Work Phone: [facility] 11-09-2024 09:25-0400 Diastolic blood pressure 76 mm[Hg] Destiny Sherrill STUDENT FINANCIAL AID MANAGER Work Phone: [facility] 11-09-2024 09:25-0400 Heart rate 68 /min Destiny Sherrill STUDENT FINANCIAL AID MANAGER Work Phone: [facility] 11-09-2024 09:25-0400 Respiratory rate 18 /min Destinymara Scottflakitoz STUDENT FINANCIAL AID MANAGER Work Phone: [facility] 11-09-2024 09:25-0400 SaO2% (BldA) [Mass fraction] 96 % Destiny Scotthelena STUDENT FINANCIAL AID MANAGER Work Phone: [facility] 11-09-2024 09:25-0400 Systolic blood pressure 132 mm[Hg] Destiny Sherrill STUDENT FINANCIAL AID MANAGER Work Phone: [facility] 11-01-2024 12:32-0400 Diastolic blood pressure 62 mm[Hg] Arcadio Marte MD [facility] 11-01-2024 12:32-0400 Systolic blood pressure 115 mm[Hg] Arcadio Marte MD [facility] 09-28-2024 10:34-0500 Body height 165.1 cm Jayshree Conner STUDENT FINANCIAL AID MANAGER Work Phone: [facility] 09-28-2024 10:34-0500 Body mass index (BMI) [Ratio] 30.45 kg/m2 Jayshree Conner STUDENT FINANCIAL AID MANAGER Work Phone: [facility] 09-28-2024 10:34-0500 Body temperature 96.8 [degF] Jayshree Conner STUDENT FINANCIAL AID MANAGER Work Phone: [facility] 09-28-2024 10:34-0500 Body weight 83.01 kg Jayshree Conner STUDENT FINANCIAL AID MANAGER Work Phone: [facility] 09-28-2024 10:34-0500 Diastolic blood pressure 66 mm[Hg] Jayshree Conner STUDENT FINANCIAL AID MANAGER Work Phone: [facility] 09-28-2024 10:34-0500 Heart rate 73 /min Jayshree Conner STUDENT FINANCIAL AID MANAGER Work Phone: [facility] 09-28-2024 10:34-0500 Respiratory rate 16 /min Jayshree Conner STUDENT FINANCIAL AID MANAGER Work Phone: [facility] 09-28-2024 10:34-0500 SaO2% (BldA) [Mass fraction] 98 % Jayshree Conner STUDENT FINANCIAL AID MANAGER Work Phone: [facility] 09-28-2024 10:34-0500 Systolic blood pressure 110 mm[Hg] Jayshree Conner STUDENT FINANCIAL AID MANAGER Work Phone: [facility] 09-22-2024 13:27-0500 Diastolic blood pressure 74 mm[Hg] Arcadio Marte MD [facility] 09-22-2024 13:27-0500 Systolic blood pressure 147 mm[Hg] Arcadio Marte MD [facility] 08-14-2024 08:31-0500 Body height 165.1 cm Jayshree Conner STUDENT FINANCIAL AID MANAGER Work Phone: [facility] 08-14-2024 08:31-0500 Body mass index (BMI) [Ratio] 29.82 kg/m2 Jayshree Conner STUDENT FINANCIAL AID MANAGER Work Phone: [facility] 08-14-2024 08:31-0500 Body temperature 97.2 [degF] Jayshree Conner STUDENT FINANCIAL AID MANAGER Work Phone: [facility] 08-14-2024 08:31-0500 Body weight 81.28 kg Jayshree Conner STUDENT FINANCIAL AID MANAGER Work Phone: [facility] 08-14-2024 08:31-0500 Diastolic blood pressure 72 mm[Hg] Jayshree Conner STUDENT FINANCIAL AID MANAGER Work Phone: [facility] 08-14-2024 08:31-0500 Heart rate 84 /min Jayshree Conner STUDENT FINANCIAL AID MANAGER Work Phone: [facility] 08-14-2024 08:31-0500 Respiratory rate 16 /min Jayshree Conner STUDENT FINANCIAL AID MANAGER Work Phone: [facility] 08-14-2024 08:31-0500 SaO2% (BldA) [Mass fraction] 98 % Jayshree Conner STUDENT FINANCIAL AID MANAGER Work Phone: [facility] 08-14-2024 08:31-0500 Systolic blood pressure 117 mm[Hg] Jayshree Conner STUDENT FINANCIAL AID MANAGER Work Phone: [facility] 06-28-2024 08:54-0500 Body height 165.1 cm Jayshree Conner STUDENT FINANCIAL AID MANAGER Work Phone: [facility] 06-28-2024 08:54-0500 Body mass index (BMI) [Ratio] 29.49 kg/m2 Jayshree Conner STUDENT FINANCIAL AID MANAGER Work Phone: [facility] 06-28-2024 08:54-0500 Body temperature 97.7 [degF] Jayshree Conner STUDENT FINANCIAL AID MANAGER Work Phone: [facility] 06-28-2024 08:54-0500 Body weight 80.38 kg Jayshree Conner STUDENT FINANCIAL AID MANAGER Work Phone: [facility] 06-28-2024 08:54-0500 Diastolic blood pressure 68 mm[Hg] Jayshree Conner STUDENT FINANCIAL AID MANAGER Work Phone: [facility] 06-28-2024 08:54-0500 Heart rate 71 /min Jayshree Conner STUDENT FINANCIAL AID MANAGER Work Phone: [facility] 06-28-2024 08:54-0500 Respiratory rate 16 /min Jayshree Conner STUDENT FINANCIAL AID MANAGER Work Phone: [facility] 06-28-2024 08:54-0500 SaO2% (BldA) [Mass fraction] 97 % Jayshree Conner STUDENT FINANCIAL AID MANAGER Work Phone: [facility] 06-28-2024 08:54-0500 Systolic blood pressure 110 mm[Hg] Jayshree Conner STUDENT FINANCIAL AID MANAGER Work Phone: [facility] 06-26-2024 14:01-0500 Body height 162.56 cm [facility] 06-26-2024 14:01-0500 Body mass index (BMI) [Ratio] 30.9 kg/m2 [facility] 06-26-2024 14:01-0500 Body weight 81.64 kg [facility] 03-28-2024 09:32-0400 Body height 165.1 cm Jayshree Conner STUDENT FINANCIAL AID MANAGER Work Phone: [facility] 03-28-2024 09:32-0400 Body mass index (BMI) [Ratio] 28.79 kg/m2 Jayshree Conner STUDENT FINANCIAL AID MANAGER Work Phone: [facility] 03-28-2024 09:32-0400 Body temperature 97.3 [degF] Jayshree Conner STUDENT FINANCIAL AID MANAGER Work Phone: [facility] 03-28-2024 09:32-0400 Body weight 78.47 kg Jayshree Conner STUDENT FINANCIAL AID MANAGER Work Phone: [facility] 03-28-2024 09:32-0400 Diastolic blood pressure 70 mm[Hg] Jayshree Conner STUDENT FINANCIAL AID MANAGER Work Phone: [facility] 03-28-2024 09:32-0400 Heart rate 80 /min Jayshree Conner STUDENT FINANCIAL AID MANAGER Work Phone: [facility] Comment on above: 97% O2 03-28-2024 09:32-0400 Systolic blood pressure 120 mm[Hg] Jayshree Naranjozpatrick STUDENT FINANCIAL AID MANAGER Work Phone: [facility] 09-24-2023 11:36-0500 Body height 162.6 cm Cherry Duque MD Work Phone: [facility] 09-24-2023 11:36-0500 Body mass index (BMI) [Ratio] 29.87 kg/m2 Cherry Duque MD Work Phone: [facility] 09-24-2023 11:36-0500 Body weight 78.93 kg Cherry Duque MD Work Phone: [facility] 09-24-2023 11:36-0500 Diastolic blood pressure 80 mm[Hg] Cherry Duque MD Work Phone: [facility] 09-24-2023 11:36-0500 Heart rate 80 /min Cherry Duque MD Work Phone: [facility] 09-24-2023 11:36-0500 SaO2% (BldA) [Mass fraction] 96 % Cherry Duque MD Work Phone: [facility] 09-24-2023 11:36-0500 Systolic blood pressure 136 mm[Hg] Cherry Duque MD Work Phone: [facility] 10-28-2021 10:40-0400 Body height Yuri Washington Other [employer] Other 10-28-2021 10:40-0400 Body mass index (BMI) [Ratio] 32.61 kg/m2 Yuri Washington Other [employer] Other 10-28-2021 10:40-0400 Body weight 88.91 kg Yuri Washington Other [employer] Other Encounters Encounter Date Encounter Type Care Provider Facility Start: 03-09-2025 Office outpatient vi sit 25 minutes Arcadio Marte [facility] Start: 03-09-2025 ambulatory Arcadio Edilma Marte [facility] Start: 02-22-2025 End: 02-22-2025 Encounter identifier Arcadio France Estuardo Work Phone: [facility] Start: 02-22-2025 ambulatory Arcadio Marte [facility] Start: 02-07-2025 End: 02-07-2025 Bamboo flowsheet Destiny Aichholz STUDENT FINANCIAL AID MANAGER Work Phone: [facility] Start: 02-07-2025 End: 02-07-2025 Bamboo flowsheet Destiny Aichholz STUDENT FINANCIAL AID MANAGER Work Phone: [facility] Start: 02-07-2025 End: 02-07-2025 Office outpatient visit 25 minutes Destiny Aichholz STUDENT FINANCIAL AID MANAGER Work Phone: [facility] Comment on above: Type 2 diabetes reymundo itus with other specified complication, without long-term current use of insulin (HCC) (Primary Dx); Essential hypertension ; Mixed hyperlipidemia ; Tick bite of left ear, initial encounter; Bug bite, initial encounter Start: 02-07-2025 End: 02-07-2025 ambulatory DESTINY AICHHOLZ Not Available Start: 02-01-2025 End: 02-01-2025 ambulatory MAURISIO S BIVENTURAENBACH Not Available Start: 02-01-2025 End: 02-01-2025 Bamboo flowsheet Maurisio S Biedenyovanny DO Work Phone: [facility] Start: 02-01-2025 End: 02-01-2025 Bamboo flowsheet Maurisio S Binettiebach DO Work Phone: [facility] Start: 02-01-2025 End: 02-01-2025 Office outpatient visit 15 minutes Maurisio S Biedyajaira DO Work Phone: [facility] Comment on above: Thyroid nodule (Prim caop Dx); History of goiter Start: 01-18-2025 End: 01-18-2025 Lab Drop off Maurisio Padilla [facility] Start: 01-18-2025 End: 01-18-2025 Bamboo flowsheet Maurisio Padilla DO Work Phone: [facility] Start: 01-18-2025 End: 01-18-2025 Bamboo flowsheet Maurisio Av Mignon DO Work Phone: [facility] Start: 01-18-2025 End: 01-18-2025 Office outpatient visit 25 minutes Maurisio Padilla DO Work Phone: [facility] Comment on above: History of goiter (P rimary Dx); Thyroid nodule Start: 01-18-2025 End: 01-18-2025 ambulatory Maurisio Padilla Facility:[facility] Start: 01-15-2025 End: 01-16-2025 External Result Encounter Maurisio Padilla DO Work Phone: [facility] Unsolicited Start: 01-15-2025 End: 01-16-2025 External Result Encounter Maurisio Padilla DO Work Phone: [facility] Unsolic[facility] Start: 01-05-2025 End: 01-05-2025 Encounter identifier Arcadio Marte Work Phone: [facility] Start: 01-05-2025 ambulatory Arcadio Marte [facility] [place] Start: 01-04-2025 End: 01-04-2025 Office outpatient new 45 minutes Maurisio Padilla DO Work Phone: [facility] Comment on above: Fatigue, unspecified type (Primary Dx); Multiple thyroid nodules (CMS/HCC); History of goiter Start: 01-04-2025 End: 01-04-2025 ambulatory MAURISIO PADILLA Not Available Start: 01-04-2025 End: 01-04-2025 Bamboo flowsheet Maurisio Padilla DO Work Phone: [facility] Start: 01-04-2025 End: 01-04-2025 Bamboo flowsheet Maurisio Padilla DO Work Phone: [facility] Start: 12-26-2024 End: 12-26-2024 Orders Only Destiny Aichholz STUDENT FINANCIAL AID MANAGER Work Phone: [facility] Comment on above: Mixed hyperlipidemia (CMS/HCC) (Primary Dx) Start: 12-14-2024 End: 12-14-2024 Refill Jerome Coles MD Work Phone: [facility] Comment on above: Gastroesophageal ref lux disease without esophagitis; Essential hypertension (CMS/HCC) Start: 12-04-2024 End: 12-04-2024 Orders Only Destiny Erisz STUDENT FINANCIAL AID MANAGER Work Phone: [facility] Comment on above: Multiple thyroid nod ules (CMS/HCC) (Primary Dx) Start: 11-28-2024 End: 11-28-2024 Clinisync Result Encounter Destiny Aichholz STUDENT FINANCIAL AID MANAGER Work Phone: [facility] Unsolicited Start: 11-28-2024 End: 11-28-2024 Clinisync Result Encounter Destiny Aichholz STUDENT FINANCIAL AID MANAGER Work Phone: [facility] Unsolicited Start: 11-15-2024 End: 11-15-2024 Clinisync Result Encounter Destiny Aichholz STUDENT FINANCIAL AID MANAGER Work Phone: [facility] Unsolicited Start: 11-15-2024 End: 11-15-2024 Clinisync Result Encounter Destiny Aichholz STUDENT FINANCIAL AID MANAGER Work Phone: [facility] Unsolicited Start: 11-15-2024 End: 11-15-2024 Orders Only Destiny Aichholz STUDENT FINANCIAL AID MANAGER Work Phone: [facility] Comment on above: Multiple thyroid nod ules (CMS/HCC) (Primary Dx) Start: 11-09-2024 End: 11-09-2024 Office outpatient visit 25 minutes Destiny Mccartney STUDENT FINANCIAL AID MANAGER Work Phone: [facility] Comment on above: Type 2 diabetes reymundo itus with other specified complication, without long-term current use of insulin (Primary Dx); Chronic diastolic (congestive) heart failure; Essential hypertension (CMS/HCC); Mixed hyperlipidemia (CMS/HCC); Encounter for screening mammogram for malignant neoplasm of breast; Menopause; Polyneuropathy associated with underlying disease (CMS/HCC); Chronic left-sided low back pain with left-sided sciatica; Bruit of right carotid artery Start: 11-09-2024 End: 11-09-2024 ambulatory DESTINY MCCARTNEY Not Available Start: 11-02-2024 End: 11-02-2024 Refill Jerome Coles MD Work Phone: [facility] Comment on above: 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 Start: 11-01-2024 End: 11-01-2024 Office outpatient visit 25 minutes Arcadio Marte Work Phone: [facility] [place] Start: 11-01-2024 ambulatory Arcadio Marte [facility] [place] Start: 09-28-2024 End: 09-28-2024 Bamboo flowsheet Jayshree Conner STUDENT FINANCIAL AID MANAGER Work Phone: [facility] Start: 09-28-2024 End: 09-28-2024 Bamboo flowsheet Jayshree Conner STUDENT FINANCIAL AID MANAGER Work Phone: [facility] Start: 09-28-2024 End: 09-28-2024 ambulatory JAYSHREE CONNER Not Available Start: 09-28-2024 End: 09-28-2024 Patient encounter procedure Jayshree Conner STUDENT FINANCIAL AID MANAGER Work Phone: [facility] Comment on above: Encounter for Medica re annual wellness exam (Primary Dx); Chronic left-sided low back pain with left-sided sciatica; Type 2 diabetes mellitus with diabetic polyneuropathy, without long-term current use of insulin (CMS/HCC); Mixed hyperlipidemia (CMS/HCC); Chronic low back pain with left-sided sciatica, unspecified back pain laterality; Essential hypertension (CMS/HCC) Start: 09-26-2024 End: 09-26-2024 Clinisync Result Encounter Jayshree Naranjozpatrick STUDENT FINANCIAL AID MANAGER Work Phone: [facility] Unsolicited Start: 09-26-2024 End: 09-26-2024 Clinisync Result Encounter Jayshree Naranjozpatrick STUDENT FINANCIAL AID MANAGER Work Phone: [facility] External Department Unsolicited Start: 09-22-2024 End: 09-22-2024 Encounter identifier Arcadio Marte Work Phone: [facility] Start: 09-22-2024 End: 09-22-2024 Arcadio Marte Work Phone: [facility] Start: 09-22-2024 ambulatory Arcadio Marte [facility] Start: 09-21-2024 End: 09-21-2024 Refill Jayshree Naranjozpatrick STUDENT FINANCIAL AID MANAGER Work Phone: [facility] Comment on above: Mixed hyperlipidemia (CMS/HCC) Start: 09-18-2024 End: 10-02-2024 Refill Yunior Benavides PA-C Work Phone: [facility] Comment on above: Med Refill Start: 09-09-2024 End: 09-11-2024 Refill Jayshree Naranjozpatrick STUDENT FINANCIAL AID MANAGER Work Phone: [facility] Comment on above: Gastroesophageal ref lux disease without esophagitis Start: 08-24-2024 End: 08-24-2024 Telephone encounter Alba Skinner [facility] Start: 08-18-2024 End: 08-18-2024 Encounter identifier Arcadio Marte Work Phone: [facility] Start: 08-18-2024 End: 08-18-2024 Arcadio Marte Work Phone: [facility] Start: 08-18-2024 ambulatory Arcadio Marte [facility] [place] Start: 08-15-2024 ambulatory Arcadio Marte [facility] [place] Start: 08-14-2024 End: 08-14-2024 Bamboo flowsheet Jayshree Conner STUDENT FINANCIAL AID MANAGER Work Phone: [facility] Start: 08-14-2024 End: 08-14-2024 Bamboo flowsheet Jayshree Conner STUDENT FINANCIAL AID MANAGER Work Phone: [facility] Start: 08-14-2024 End: 08-14-2024 Office outpatient visit 10 minutes Jayshree Conner STUDENT FINANCIAL AID MANAGER Work Phone: [facility] Comment on above: Upper respiratory tr act infection, unspecified type (Primary Dx); Type 2 diabetes mellitus with diabetic polyneuropathy, without long-term current use of insulin ([facility]); Chronic left-sided low back pain with left-sided sciatica; Non-recurrent acute serous otitis media of both ears Start: 08-14-2024 End: 08-14-2024 ambulatory JAYSHREE CONNER Not Available Start: 08-10-2024 End: 08-14-2024 Refill Chandrika Cruz MA [facility] Comment on above: Type 2 diabetes reymundo itus with diabetic polyneuropathy, without long-term current use of insulin ([facility]) Start: 08-07-2024 End: 08-09-2024 Refill Chandrika rCuz MA [facility] Comment on above: Type 2 diabetes reymundo itus with diabetic polyneuropathy, without long-term current use of insulin ([facility]) Start: 07-26-2024 End: 07-26-2024 ambulatory Jayshree N Conner Facility:[facility] Start: 07-14-2024 End: 07-14-2024 Office outpatient new 45 minutes Arcadio Marte Work Phone: SHAUN Campos Start: 07-14-2024 ambulatory Arcadio Marte [facility] [place] Start: 07-11-2024 End: 07-11-2024 Refill Chandrika Cruz MA [facility] Comment on above: Essential hypertensi on (CMS/HCC) Start: 06-28-2024 End: 06-28-2024 Bamboo flowsheet Jayshree Conner STUDENT FINANCIAL AID MANAGER Work Phone: [facility] Start: 06-28-2024 End: 06-28-2024 Bamboo flowsheet Jayshree Conner STUDENT FINANCIAL AID MANAGER Work Phone: [facility] Start: 06-28-2024 End: 06-28-2024 Office outpatient visit 15 minutes Jayshree Sungk STUDENT FINANCIAL AID MANAGER Work Phone: [facility] Comment on above: Type 2 diabetes reymundo itus with diabetic polyneuropathy, without long-term current use of insulin (CMS/HCC) (Primary Dx); Essential hypertension (CMS/HCC); Chronic diastolic heart failure (CMS/HCC); Mixed hyperlipidemia (CMS/HCC); Need for immunization against influenza Start: 06-28-2024 End: 06-28-2024 ambulatory JAYSHREEKrystina SUNGK Not Available Start: 06-26-2024 End: 06-26-2024 ambulatory [facility] Work Phone: Start: 06-26-2024 End: 06-26-2024 Patient encounter procedure Count Includes [facility] Work Phone: Start: 06-20-2024 End: 06-21-2024 Refill Jayshree Sungk STUDENT FINANCIAL AID MANAGER Work Phone: [facility] Comment on [...] Dx) Start: 03-28-2024 End: 03-28-2024 Bamboo flowsheet Jayshree Ubaldo STUDENT FINANCIAL AID MANAGER Work Phone: [facility] Start: 03-28-2024 End: 03-28-2024 Bamboo flowsheet Jayshree Castanedapatrick STUDENT FINANCIAL AID MANAGER Work Phone: [facility] Start: 03-28-2024 End: 03-28-2024 Office outpatient visit 25 minutes Jayshree Ubaldo STUDENT FINANCIAL AID MANAGER Work Phone: [facility] Comment on above: Type 2 diabetes reymundo itus with diabetic polyneuropathy, without long-term current use of insulin (CMS/HCC) (Primary Dx); Mixed hyperlipidemia (CMS/HCC); Essential hypertension (CMS/HCC); Chronic left-sided low back pain with left-sided sciatica; Diverticulitis Start: 03-28-2024 End: 03-28-2024 ambulatory JAYSHREE CONNER Not Available Start: 09-24-2023 End: 09-24-[address] [facility] Start: 09-24-2023 End: 09-24-2023 Office outpatient visit 15 minutes Cherry Duque MD Work Phone: [facility] Comment on above: Palpitations (Primar y Dx); Ventricular premature beats Start: 09-23-2023 Telephone encounter [facility] Start: 09-09-2023 Refill Ramona Souza RN [facility] Comment on above: Med Refill Start: 07-28-2023 Patient encounter procedure Jayshree Ubaldo STUDENT FINANCIAL AID MANAGER Work Phone: [facility] Start: 08-26-2022 End: 08-27-2022 ambulatory HANNAH H FAWWAD Facility:[facility] Start: 03-09-2022 End: 03-10-2022 ambulatory HANNAH H FAWWAD Facility:[facility] Start: 12-01-2021 End: 12-02-2021 ambulatory HANNAH H FAWWAD Facility:[facility] Start: 10-28-2021 End: 10-28-2021 ambulatory Yuri Washington Other [facility] Other Start: 10-28-2021 Office outpatient vi sit 15 minutes Yuri Washington [facility] Start: 10-24-2021 End: 10-25-[address] DOCTOR CORTEZ Facility:[facility] Procedures Date Procedure Procedure Detail Performing Clinician Start: 03-09-2025 Bevacizumab injection Montse Marte Start: 03-09-2025 Computerized ophthal talita imaging retina Arcadio Marte Start: 03-09-2025 Intravitreal njx pharmacologic agt spx Arcadio Marte Start: 02-07-2025 Hemoglobin glycosyla mely a1c Destiny Mccartney STUDENT FINANCIAL AID MANAGER Work Phone: Start: 01-15-2025 Assay of thyroxine total Maurisio Ley Kylahyovanny DO Work Phone: Start: 01-05-2025 End: 01-05-2025 Bevacizumab injection Arcadio Marte MD Start: 01-05-2025 End: 01-05-2025 Computerized ophthalmic imaging retina Arcadio Marte MD Start: 01-05-2025 End: 01-05-2025 Intravitreal njx pharmacologic agt spx Arcadio Marte MD Start: 11-28-2024 Us soft tissue head & neck real time imge docm Destiny Mccartney STUDENT FINANCIAL AID MANAGER Work Phone: Start: 11-15-2024 End: 11-15-2024 Screening mammography bi 2-view breast inc cad Destiny Mccartney STUDENT FINANCIAL AID MANAGER Work Phone: Start: 11-01-2024 End: 11-01-2024 Bevacizumab injection Arcadio Marte MD Start: 11-01-2024 End: 11-01-2024 Computerized ophthalmic imaging retina Arcadio Marte MD Start: 11-01-2024 End: 11-01-2024 Intravitreal njx pharmacologic agt spx Arcadio Marte MD Start: 09-26-2024 ALL CBC WITH AUTO DIFF Jayshree Conner STUDENT FINANCIAL AID MANAGER Work Phone: Start: 09-22-2024 End: 09-22-2024 Bevacizumab injection Arcadio Marte MD Start: 09-22-2024 End: 09-22-2024 Computerized ophthalmic imaging retina Arcadio Marte MD Start: 09-22-2024 End: 09-22-2024 Intravitreal njx pharmacologic agt spx Arcadio Marte MD Start: 08-18-2024 End: 08-18-2024 Bevacizumab injection Arcadio Marte MD Start: 08-18-2024 End: 08-18-2024 Computerized ophthalmic imaging retina Arcadio Marte MD Start: 08-18-2024 End: 08-18-2024 Intravitreal njx pharmacologic agt spx Arcadio Marte MD Start: 07-26-2024 Colonoscopy Chandrika Taiwo vargas MA Start: 07-14-2024 End: 07-14-2024 Bevacizumab injection Arcadio Marte MD Start: 07-14-2024 End: 07-14-2024 Fluorescein angrph w/multiframe i&r uni/bi Arcadio Marte MD Start: 07-14-2024 End: 07-14-2024 Intravitreal njx pharmacologic agt spx Arcadio Marte MD Start: 09-24-2023 Ecg routine ecg w/le ast 12 lds w/i&r Cherry Duque MD Work Phone: Start: 09-24-2023 Follow-up visit Follow-up CHERRY DUQUE Start: 08-09-2022 Mammography Jayshree bobby STUDENT FINANCIAL AID MANAGER Work Phone: Start: 08-09-2015 Colonoscopy Jayshree bobby STUDENT FINANCIAL AID MANAGER Work Phone: Plan of Treatment Date Care Activity Detail Author Start: 07-26-2034 Screening for malign ant neoplasm of colon [facility] Start: 07-03-2026 Glaucoma screening Diabetes: R etinopathy Screening [facility] Start: 06-19-2026 Glaucoma screening Diabetes: R etinopathy Screening [facility] Start: 11-15-2025 Screening for malign ant neoplasm of breast Mammogram [facility] Start: 09-28-2025 Medicare Annual Well ness (AWV) Medicare Annual Wellness (AWV) [facility] Start: 09-26-2025 Urine screening for protein Diabetes: Urine Protein Screening [facility] Start: 08-10-2025 Hemoglobin A1c measurement Merna betes: Hemoglobin A1C [facility] Start: 08-09-2025 Screening for malign ant neoplasm of colon [facility] Start: 08-07-2025 End: 08-07-2025 Patient encounter procedure 08/07/2025 1:45 PM EST Office Visit [facility] [address] [place] [address] Maurisio Padilla, DO [address] [place] [address] [facility] Start: 07-03-2025 Glaucoma screening Diabetes: R etinopathy Screening [facility] Start: 05-10-2025 End: 05-10-2025 Patient encounter procedure 05/10/2025 8:40 AM EDT Office Visit [facility] [address] [place] [address] Destiny Mccartney, FAVIOLA [address] [place] [id number] [facility] Start: 04-09-2025 Influenza vaccination Influenza Vacc ine (#1) [facility] Start: 03-26-2025 Hemoglobin A1c measurement Merna betes: Hemoglobin A1C [facility] Start: 03-09-2025 Saskia Neff Jo - 9-10 Wks (9) May Avn OD [facility] Work Phone: Start: 02-08-2025 End: 02-08-2025 Patient encounter procedure 02/08/2025 8:40 AM EDT Office Visit [facility] [address] [place] [address] Destiny Mccartney, STUDENT FINANCIAL AID MANAGER [address] [place] [phone] [facility] Start: 02-07-2025 End: 02-07-2025 Patient encounter procedure [facility] Comment on above: Essential hypertensi on (Primary Dx); Type 2 diabetes mellitus with other specified complication, without long-term current use of insulin (HCC); Mixed hyperlipidemia Start: 02-01-2025 End: 02-01-2025 Patient encounter procedure 02/01/2025 2:00 PM EDT [facility] [address] [facility] [place] [address] Maurisio Padilla S, DO [address] [place] [address] [facility] Start: 01-18-2025 End: 01-18-2025 [facility] Comment on above: Arrived Start: 01-09-2025 End: 11-09-2025 Lipid 1996 panel - Serum or Plasma Lipid panel Lab Routine Mixed hyperlipidemia (CMS/HCC) Expected: 01/09/2025 (Approximate), Expires: 11/09/2025 [facility] Comment on above: Expected: 01/09/2025 (Approximate), Expires: 11/09/2025 Start: 01-05-2025 Saskia Neff 7-8 Weeks (8) OCT/ IO AVN OD [facility] Work Phone: Start: 01-04-2025 End: 01-04-2025 Patient encounter procedure [facility] Comment on above: Multiple thyroid nod ules (CMS/HCC) Start: 01-04-2025 End: 01-04-2026 Calcium [Mass/volume] in Serum or Plasma Calcium Lab Routine Multiple thyroid nodules (CMS/HCC) Expected: 01/04/2025 (Approximate), Expires: 01/04/2026 [facility] Comment on above: Expected: 01/04/2025 (Approximate), Expires: 01/04/2026 Start: 01-04-2025 End: 01-04-2026 Parathyrin.intact [Mass/volume] in Serum or Plasma PTH, intact Lab Routine Multiple thyroid nodules (CMS/HCC) Expected: 01/04/2025 (Approximate), Expires: 01/04/2026 [facility] Comment on above: Expected: 01/04/2025 (Approximate), Expires: 01/04/2026 Start: 01-04-2025 End: 01-04-2026 Thyrotropin [Units/volume] in Serum or Plasma [facility] Work Phone: Comment on above: Expected: 01/04/2025 (Approximate), Expires: 01/04/2026 Start: 01-04-2025 End: 01-04-2026 Triiodothyronine (T3) [Mass/volume] in Serum or Plasma T3 Lab Routine Multiple thyroid nodules (CMS/HCC) Expected: 01/04/2025 (Approximate), Expires: 01/04/2026 [facility] Comment on above: Expected: 01/04/2025 (Approximate), Expires: 01/04/2026 Start: 12-26-2024 End: 12-26-2025 Alanine aminotransferase [Enzymatic activity/volume] in Serum or Plasma ALT Lab Routine Mixed hyperlipidemia (CMS/HCC) Expected: 12/26/2024 (Approximate), Expires: 12/26/2025 [facility] Work Phone: Comment on above: Expected: 12/26/2024 (Approximate), Expires: 12/26/2025 Start: 12-26-2024 End: 12-26-2025 Aspartate aminotransferase [Enzymatic activity/volume] in Serum or Plasma AST Lab Routine Mixed hyperlipidemia (CMS/HCC) Expected: 12/26/2024 (Approximate), Expires: 12/26/2025 [facility] Comment on above: Expected: 12/26/2024 (Approximate), Expires: 12/26/2025 Start: 12-26-2024 End: 12-26-2025 Lipid 1996 panel - Serum or Plasma Lipid panel Lab Routine Mixed hyperlipidemia (CMS/HCC) Expected: 12/26/2024 (Approximate), Expires: 12/26/2025 [facility] Comment on above: Expected: 12/26/2024 (Approximate), Expires: 12/26/2025 Start: 11-15-2024 End: 11-15-2025 US Thyroid gland US thyroid Imaging Routine Multiple thyroid nodules (CMS/HCC) Expected: 11/15/2024 (Approximate), Expires: 11/15/2025 [facility] Work Phone: Comment on above: Expected: 11/15/2024 (Approximate), Expires: 11/15/2025 Start: 11-09-2024 End: 11-09-2025 Alanine aminotransferase [Enzymatic activity/volume] in Serum or Plasma ALT Lab Routine Mixed hyperlipidemia (CMS/HCC) Expected: 11/09/2024 (Approximate), Expires: 11/09/2025 [facility] Comment on above: Expected: 11/09/2024 (Approximate), Expires: 11/09/2025 Start: 11-09-2024 End: 11-09-2025 DXA Skeletal system Views for bone density DEXA bone density Imaging Routine Menopause Expected: 11/09/2024 (Approximate), Expires: 11/09/2025 [facility] Comment on above: Expected: 11/09/2024 (Approximate), Expires: 11/09/2025 Start: 11-09-2024 End: 01-09-2026 MG Breast - bilateral Screening Bilateral screening mammogram Imaging Routine Encounter for screening mammogram for malignant neoplasm of breast Expected: 11/09/2024 (Approximate), Expires: 01/09/2026 [facility] [employer] Work Phone: Comment on above: Expected: 11/09/2024 (Approximate), Expires: 01/09/2026 Start: 11-09-2024 End: 11-09-2025 US.doppler Carotid arteries - bilateral Vascular US carotid artery duplex bilateral Imaging Routine Essential hypertension (CMS/HCC) Mixed hyperlipidemia (CMS/HCC) Type 2 diabetes mellitus with other specified complication, without long-term current use of insulin Bruit of right carotid artery Expected: 11/09/2024, Expires: 11/09/2025 [facility] Comment on above: Expected: 11/09/2024 , Expires: 11/09/2025 Start: 11-09-2024 End: 11-09-2024 Patient encounter procedure 11/09/2024 9:20 AM EDT Office Visit [facility] [address] [place] [address] Destiny Mccartney NP [address] [place] [address] [facility] Start: 11-01-2024 Saskia Neff Jo/Carrollwinna Poss AVN OD FU OCT [facility] Work Phone: Start: 09-28-2024 End: 09-28-2024 Patient encounter procedure 09/28/2024 10:30 AM EST Office Visit [facility] [address] [place] [phone] Jayshree Conner, FAVIOLA [address] [place] [address] [facility] Start: 09-24-2024 Adult BMI Screening Adult BMI Screen ing [facility] Start: 09-24-2024 Tobacco Screening Tobacco Screening [facility] Start: 09-17-2024 Urine screening for protein Diabetes: Urine Protein Screening [facility] Start: 08-14-2024 End: 08-14-2024 Patient encounter procedure [facility] Comment on above: Arrived Start: 07-28-2024 Medicare Annual Well ness (AWV) Medicare Annual Wellness (AWV) [facility] Start: 06-28-2024 End: 06-28-2025 CBC W Auto Differential panel - Blood CBC and differential Lab Routine Type 2 diabetes mellitus with diabetic polyneuropathy, without long-term current use of insulin (CMS/HCC) Essential hypertension (CMS/HCC) Expected: 06/28/2024 (Approximate), Expires: 06/28/2025 [facility] Comment on above: Expected: 06/28/2024 (Approximate), Expires: 06/28/2025 Start: 06-28-2024 End: 06-28-2025 Comprehensive metabolic 2000 panel - Serum or Plasma Comprehensive metabolic panel Lab Routine Type 2 diabetes mellitus with diabetic polyneuropathy, without long-term current use of insulin (CMS/HCC) Essential hypertension (CMS/HCC) Expected: 06/28/2024 (Approximate), Expires: 06/28/2025 [facility] Comment on above: Expected: 06/28/2024 (Approximate), Expires: 06/28/2025 Start: 06-28-2024 End: 06-28-2025 Hemoglobin A1c/Hemoglobin.total in Blood Hemoglobin A1c Lab Routine Type 2 diabetes mellitus with diabetic polyneuropathy, without long-term current use of insulin ([facility]) Expected: 06/28/2024 (Approximate), Expires: 06/28/2025 [facility] Comment on above: Expected: 06/28/2024 (Approximate), Expires: 06/28/2025 Start: 06-28-2024 End: 06-28-2025 Magnesium [Mass/volume] in Serum or Plasma Magnesium Lab Routine Chronic diastolic heart failure ([facility]) Expected: 06/28/2024 (Approximate), Expires: 06/28/2025 [facility] Comment on above: Expected: 06/28/2024 (Approximate), Expires: 06/28/2025 Start: 06-28-2024 End: 06-28-2024 Patient encounter procedure [facility] Comment on above: Arrived Start: 04-09-2024 COVID-19 Vaccine ( season) COVID-19 Vaccine () [facility] Start: 04-09-2024 Influenza vaccination N [facility] Start: 03-28-2024 End: 03-28-2024 Patient encounter procedure 03/28/2024 9:30 AM EDT Office Visit [facility] [address] [place] [address] Jayshree Conner NP [address] [place] [address] Arrived [facility] Comment on above: Arrived Start: 03-16-2024 Hemoglobin A1c measurement Merna betes: Hemoglobin A1C [facility] Start: 09-24-2023 End: 09-24-2023 Patient encounter procedure 09/24/2023 12:00 PM EST Office Visit [facility] [address] [facility] [address] [place] [address] Cherry Duque MD [address] [facility] [place] [address] [facility] Start: 08-09-2023 Screening for malign ant neoplasm of breast Mammogram [facility] Start: 04-09-2023 COVID-19 Vaccine () COVID-19 Vaccine () [facility] Start: 04-09-2023 Influenza vaccination Influenza Vacc ine [facility] Start: 03-12-2023 Adult BMI Screening Adult BMI Screen ing [facility] [facility] Start: 03-12-2023 Tobacco Screening Tobacco Screening [facility] Start: 11-14-2020 Administration of varicella zoster vaccine Zoster (Shingles) Vaccine (2 of 2) [facility] Start: 12-22-2016 Fall Risk Screening Fall Risk Screen ing [facility] Start: 12-22-1970 DTaP,Tdap and Td Vac cines (1 - Tdap) DTaP,Tdap and Td Vaccines (1 - Tdap) [facility] [employer] [facility] Start: 12-22-1969 Adult BMI Follow Up Plan Adult BMI Follow Up Plan [facility] [employer] Start: 1963 Depression Screening Depression Scre ening [facility] Start: 12-22-1961 Glaucoma screening Diabetes: R etinopathy Screening [facility] Start: 1950 Medicare Annual Well ness Visit Medicare Annual Wellness Visit [facility] [employer] [facility] Start: 1950 Screening for malign ant neoplasm of colon [facility] End: 10-02-2025 Basic metabolic 2000 panel - Serum or Plasma Basic Metabolic Panel Lab Routine Essential hypertension 1 Occurrences starting 10/02/2024 until 10/02/2025 [facility] Work Phone: Comment on above: 1 Occurrences starti ng 10/02/2024 until 10/02/2025 End: 09-08-2024 Comprehensive metabolic 2000 panel - Serum or Plasma Comprehensive metabolic panel Lab Routine Essential hypertension Ventricular premature beats 1 Occurrences starting 09/09/2023 until 09/08/2024 [id number] Comment on above: 1 Occurrences starti ng 09/09/2023 until 09/08/2024 End: 09-08-2024 Lipid 1996 panel - Serum or Plasma Lipid profile Lab Routine Essential hypertension Ventricular premature beats 1 Occurrences starting 09/09/2023 until 09/08/2024 [facility] Comment on above: 1 Occurrences starti ng 09/09/2023 until 09/08/2024 End: 10-02-2025 Lipid panel Lipid panel Lab Routine Essential hypertension Mixed hyperlipidemia 1 Occurrences starting 10/02/2024 until 10/02/2025 [facility] Comment on above: 1 Occurrences starti ng 10/02/2024 until 10/02/2025 End: 09-08-2024 Magnesium [Mass/volume] in Serum or Plasma Magnesium Lab Routine Essential hypertension Ventricular premature beats 1 Occurrences starting 09/09/2023 until 09/08/2024 [facility] Work [facility]: Comment on above: 1 Occurrences starti ng 09/09/2023 until 09/08/2024 End: 10-02-2025 Magnesium [Mass/volume] in Serum or Plasma Magnesium Lab Routine Essential hypertension 1 Occurrences starting 10/02/2024 until 10/02/2025 [facility] Comment on above: 1 Occurrences starti ng 10/02/2024 until 10/02/2025 Microalbumin/Creatin ine panel in random Urine Microalbumin / creatinine urine ratio Lab Routine Type 2 diabetes mellitus with diabetic polyneuropathy, without long-term current use of insulin (CMS/HCC) Essential hypertension ([facility]) Ordered: 06/28/2024 [facility] Work Phone: Comment on above: Ordered: 06/28/2024 Immunizations Immunization Date Immunization Notes Care Provider Yann [facility] 06-28-2024 influenza, seasonal, injectable, preservative free Jayshree Conner STUDENT FINANCIAL AID MANAGER Work Phone: [facility] 06-28-2024 influenza virus vaccine, unspecified formulation Destiny Mccartney STUDENT FINANCIAL AID MANAGER Work Phone: [facility] 10-16-2021 Influenza, Seasonal, Quadrivalent, Adjuvanted Jayshree Conner STUDENT FINANCIAL AID MANAGER Work Phone: [facility] 10-16-2021 influenza virus vaccine, unspecified formulation Ramona Libby RN [facility] 09-19-2020 influenza, injectabl e, quadrivalent, contains preservative Jayshree Conner STUDENT FINANCIAL AID MANAGER Work Phone: [facility] 09-19-2020 zoster vaccine recombinant Jayshree Conner STUDENT FINANCIAL AID MANAGER Work Phone: [facility] 09-19-2020 zoster vaccine, unspecified formulation Ramona Souza RN [facility] 06-07-2019 influenza, injectabl e, quadrivalent, preservative free Jayshree Conner STUDENT FINANCIAL AID MANAGER Work Phone: [facility] 06-07-2019 pneumococcal polysaccharide vaccine, 23 valent Yuri Washington Other [facility] 04-21-2019 pneumococcal polysaccharide vaccine, 23 valent Jayshree Conner STUDENT FINANCIAL AID MANAGER Work Phone: [facility] 04-21-2019 Seasonal trivalent influenza vaccine, adjuvanted, preservative free Jayshree Conner STUDENT FINANCIAL AID MANAGER Work Phone: [facility] 06-24-2018 Influenza, injectabl e, Madin Marce Canine Kidney, preservative free, quadrivalent Jayshree Conner STUDENT FINANCIAL AID MANAGER Work Phone: [facility] 06-24-2018 pneumococcal conjuga te vaccine, 13 valent Jayshree Conner STUDENT FINANCIAL AID MANAGER Work Phone: [facility] 07-06-2016 influenza, seasonal, injectable, preservative free Jayshree Conner STUDENT FINANCIAL AID MANAGER Work Phone: [facility] 05-11-2013 influenza virus vaccine, whole virus Jayshree Conner STUDENT FINANCIAL AID MANAGER Work Phone: [facility] Payers Date Payer Category Payer Self-pay 2024 Medicare [id number] 2022 Medicaid [employer]ETNA MEDICARE A DVANTAGE [id number] 2021 Medicare [id number]. [id number] 2021 Medicare HMO AETNA MEDICARE [facility] [id number] 1959 Medicare [id number] 2.840.1.126521.19 1951 Unknown [id number] 2.840.1.781198.3.579.2.593 1950 Unknown [id number] 2.16840.1.332433.3.579.2.59 1951 Unknown [id number] 2.16840.1.505302.3.579.2.59 1951 Unknown [id number] 2.16840.1.923755.3.579.2.59 1951 Unknown [id number] 2.16840.1.978283.3.579.2.593 1951 Unknown [id number] 2.16.840.1.900973.3.579.2.1286 1951 Unknown [id number] 2.16.840.1.403998.3.579.2.727 1951 Unknown [id number] 2.16.840.1.654579.3.579.2.1258 1951 Unknown [id number] 2.16.840.1.923197.3.579.2.1258 1951 Unknown [id number] 2.16.840.1.837151.3.579.2.1258 1951 Unknown [id number] 2.16.840.1.787158.3.579.2.1258 1951 Unknown [id number] 2.16.840.1.592962.3.579.2.1258 1951 Unknown [id number] 2..840.1.398262.3.579.2.1258 1951 Unknown [id number] 2.16.840.1.529678.3.579.2.1258 1951 Unknown [id number] 2.16.840.1.820540.3.579.2.1258 1951 Unknown [id number] 2.16.840.1.072182.3.579.2.1258 1951 Unknown [id number] 2.16.840.1.368964.3.579.2.1346 1951 Unknown [id number] 2.16.840.1.851654.3.579.2.1346 1951 Unknown [id number] 2.16.840.1.892316.3.579.2.1346 1951 Unknown [id number] 2.16.840.1.932390.3.579.2.1346 1951 Unknown [id number] 2.16.840.1.119082.3.579.2.1346 1951 Unknown [id number] 2.840.1.380552.3.579.2.1346 1951 Unknown [id number] 2.0.1.554493.3.579.2.1346 1951 Unknown [id number] 2.840.1.251362.3.579.2.1346 1950 Unknown [id number] 2.0.1.236740.3.579.2.1346 Medicare Medicare [id number] Unknown [id number] 2.840.1.236335.3.579.2.531 Social History Date Type Detail Facility Start: 03-28-2024 End: 09-28-2024 Sex Assigned At [employer] Other Start: 12-22-2018 End: 11-30-2023 Tobacco smoking status NHIS Never smoked tobacco (finding) [facility] Start: 07-23-2011 End: 06-26-2024 Sex Female (finding) [facility] Start: 1950 Sex Assigned At Female [facility] Start: 09-24-2023 End: 11-30-2023 Tobacco use and exposure Smokeless tobacco non-user [facility] Start: 03-28-2024 End: 02-07-2025 Alcoholic beverage intake Current drinker of alcohol (finding) [facility] Start: 03-28-2024 End: 09-28-2024 History of Social function [facility] Start: 07-28-2023 Alcohol Comment [facility] Start: 1950 Sex assigned at Not on file [facility] Childcare Unknown [facility] Start: 05-19-2018 Alcohol Comment socially [facility] Start: 09-22-2024 Alcohol intake Alcohol Use Details [facility] [employer] Start: 09-22-2024 Tobacco use and exposure Non-Smoking Tobacco Use Details [facility] Tobacco smoking status [facility] Tobacco smoking status NHIS Unknown if ever smoked [facility] Work Phone: Sexual Orientation Straight or heterosexual [facility] Work Phone: NEGATED: Highlighted rowStart: NINF History of tobacco use Passive smoker [facility] NEGATED: Highlighted rowStart: 09-22-2024 End: 11-01-2024 Tobacco smoking status NHIS Unknown if ever smoked [facility] NEGATED: Highlighted rowStart: 09-22-2024 History of tobacco use Current non-smoker [facility] Medical Equipment Procedure Code Equipment Code Equipment [...] II MED/LG FDA Start: 11-16-2018 DURAGEN 1X1 [id number] FDA Start: 11-16-2018 OSTEOAMP GRANULE S 10CC FDA Start: 11-16-2018 LISA 100MM CVD CA PLOX II FDA Start: 11-16-2018 LISA 100MM CVD CA PLOX II FDA Start: 11-16-2018 SCREW 5.5 X 50MM CAPLOX II FDA Start: 11-16-2018 1 each by Other route in the morning. Whatever brand is covered under her insurance.. [id number] Start: 07-28-2023 End: 07-27-2024 Clinical Notes 10-24-2021 to 02-07-2025 ALYSSA AVENDANO - 02/07/2025 11:00 AM Nola Mccartney, FAVIOLA - 02/07/2025 11:00 AM Nola Mccartney, FAVIOLA - 02/07/2025 6:19 AM Nola Mccartney, FAVIOLA - 02/07/2025 6:18 AM EDTPatient Instructions Note Date & Type Note Facility 02-07-2025 History of Presen t illness Narrative Pt is having issues with bug bites- using Deoderant to help the itch Images from the original note were not included. Saskia Neff is a 74 y.o. female presents with chief complaint of Diabetes HPI: Bug bites: bilat legs and abd area, X1.5 weeks, noted after fishing, +itchy, OTC cortisone cream not helping, some help with anti histamine Also had a tic on left ear No pain, fever, chills or bulls eye rash noted Diabetes She presents for her follow-up diabetic visit. She has type 2 diabetes mellitus. Her disease course has been stable. There are no hypoglycemic associated symptoms. Pertinent negatives for hypoglycemia include no dizziness, headaches, nervousness/anxiousness, seizures or tremors. Pertinent negatives for diabetes include no chest pain, no foot paresthesias, no polydipsia, no polyphagia, no polyuria and no visual change. There are no hypoglycemic complications. Symptoms are stable. Risk factors for coronary artery disease include hypertension and diabetes mellitus. Current diabetic treatment includes oral agent (monotherapy). She is compliant with treatment most of the time. An BIRDIE inhibitor/angiotensin II receptor mimi is not being taken. She does not see a staff nurse icu resource team.Eye exam is not current. Hypertension This is a chronic problem. The current episode started more than 1 year ago. The problem is unchanged. The problem is controlled. Associated symptoms include neck pain and peripheral edema (occ). Pertinent negatives include no chest pain, headaches, palpitations or shortness of breath. There are no associated agents to hypertension. Risk factors for coronary artery disease include dyslipidemia and diabetes mellitus. Past treatments include diuretics. The current treatment provides significant improvement. There are no compliance problems. SUBJECTIVE: MEDICATIONS: Current Outpatient Medications Medication Instructions aspirin 81 mg, Daily chlorthalidone (HYGROTON) 12.5 mg, Oral, Daily doxycycline (Vibra-Tabs) 100 MG tablet 200mg one time dose. Take with a full glass of water and do not lie down for at least 30 minutes after. fluticasone (Flonase) 50 MCG/ACT nasal spray 1-2 sprays, Each Nostril, Daily, Shake gently. Before first use, prime pump. After use, clean tip and replace cap. gabapentin (NEURONTIN) 300 mg, Oral, 3 times daily metFORMIN (GLUCOPHAGE) 500 mg, Oral, 2 times daily with meals omeprazole (PRILOSEC) 40 mg, Oral, Daily before breakfast rosuvastatin (CRESTOR) 10 mg, Oral, Nightly tiZANidine (ZANAFLEX) 4 mg, Oral, Every 8 hours PRN triamcinolone (Kenalog) 0.1 % cream Topical, 3 times daily verapamil ER (VERELAN) 360 mg, Oral, Daily ALLERGIES: Allergies Allergen Reactions Celebrex [Celecoxib] Anaphylaxis Sulfa Antibiotics Anaphylaxis Lisinopril Cough REVIEW OF SYMPTOMS: Review of Systems Constitutional: Negative for appetite change, chills and fever. HENT: Negative for congestion, ear pain and sore throat. Eyes: Negative for pain, discharge, redness and visual disturbance. Respiratory: Negative for cough, shortness of breath and wheezing. Cardiovascular: Negative for chest pain, palpitations and leg swelling. Gastrointestinal: Negative for abdominal pain, blood in stool, constipation, diarrhea, nausea and vomiting. Genitourinary: Negative for difficulty urinating, dysuria and frequency. Musculoskeletal: Positive for arthralgias, back pain and neck pain. Negative for joint swelling and myalgias. Skin: Positive for rash. Negative for wound. Neurological: Negative for dizziness, tremors, seizures, syncope and headaches. Psychiatric/Behavioral: Negative for behavioral problems, self-injury and suicidal ideas. The patient is not nervous/anxious. Hematological: Does not bruise/bleed easily. Endocrine: Negative for polydipsia, polyphagia and polyuria. Allergic/Immunologic: Negative for environmental allergies and food allergies. PAST MEDICAL HISTORY Past Medical History: Diagnosis Date Arthritis Chronic back pain Contact dermatitis due to oil, unspecified contact dermatitis type Diverticulitis Fibromyalgia Flank pain with history of urolithiasis Hiatal hernia with GERD High cholesterol Hypertension Irregular heartbeat Kidney stones Low back pain Psoriasis Right hip pain Rosacea Sarcoidosis Type 2 diabetes mellitus (HCC) Past Surgical History: Procedure Laterality Date BACK SURGERY 11/2018 PLIF- Dr. Washington BOWEL RESECTION 2011? CARPAL TUNNEL RELEASE Bilateral (L) x2 ; (R) - Dr. Hou CATARACT EXTRACTION, BILATERAL SECTION, LOW TRANSVERSE CHOLECYSTECTOMY HERNIA REPAIR x2 HYSTERECTOMY KNEE ARTHROSCOPY W/ ACL RECONSTRUCTION Left DR UNDERWOOD LUNG BIOPSY THYROIDECTOMY Left TONSILLECTOMY TUMOR EXCISION DR UNDERWOOD family history includes Cancer in her father and mother; Colon cancer in her father; Lung cancer in her mother. OBJECTIVE: Visit Vitals BP 100/70 (BP Location: Left arm, Patient Position: Sitting, BP Cuff Size: Adult long) Pulse 61 Temp 97.8 F (Temporal) Resp 20 Wt 178 lb 12.8 oz LMP (LMP Unknown) SpO2 94% BMI 29.75 kg/m OB Status Hysterectomy Smoking Status Never BSA 1.93 m Physical Exam Vitals and nursing note reviewed. Constitutional: General: She is not in acute distress. Appearance: Normal appearance. HENT: Head: Normocephalic and atraumatic. Right Ear: External ear normal. Left Ear: External ear normal. Nose: Nose normal. Mouth/Throat: Mouth: Mucous membranes are moist. Eyes: Extraocular Movements: Extraocular movements intact. Conjunctiva/sclera: Conjunctivae normal. Neck: Vascular: No carotid bruit. Cardiovascular: Rate and Rhythm: Normal rate and regular rhythm. Pulses: Normal pulses. Heart sounds: Normal heart sounds. Pulmonary: Effort: Pulmonary effort is normal. Breath sounds: Normal breath sounds. No wheezing or rhonchi. Abdominal: General: Bowel sounds are normal. There is no distension. Palpations: Abdomen is soft. There is no mass. Tenderness: There is no abdominal tenderness. Musculoskeletal: Cervical back: Normal range of motion and neck supple. Right lower leg: No edema. Left lower leg: No edema. Comments: Decreased ROM neck, +tightness trapezius Left shoulder: sl decreased ROM from shoulder injury but has improved alot Lymphadenopathy: Cervical: No cervical adenopathy. Skin: General: Skin is warm and dry. Capillary Refill: Capillary refill takes 2 to 3 seconds. Findings: No rash (red papular skin lesions c/w bites, measures approx 7mm bilat thighs as well as abd area). Neurological: General: No focal deficit present. Mental Status: She is alert and oriented to person, place, and time. Psychiatric: Mood and Affect: Mood normal. Behavior: Behavior normal. Thought Content: Thought content normal. Judgment: Judgment normal. ASSESSMENT AND PLAN: No follow-ups on file. Problem List Items Addressed This Visit Essential hypertension - Primary Please check blood pressure daily and record DASH diet Limit caffeine Take medication as directed Contact office if chest pain, pressure, dizziness, shortness of breath, swelling legs Recommend slow position changes Current meds: verapamil,chlorthalidone Relevant Medications chlorthalidone (Hygroton) 25 MG tablet Mixed hyperlipidemia On statin therapy: rosuvastatin Check labs yearly and prn dose change Type 2 diabetes mellitus, without long-term current use of insulin (HCC) Check blood sugars daily, notify if <70 [...] diet low in carbohydrates, and simple sugars. Current meds: metformin, statin A1c: 5.9% 02/07/2025 , 5.8% 09/26/24 Relevant Orders POCT glycosylated hemoglobin (Hb A1C) docked device (Completed) Tick bite Relevant Medications doxycycline (Vibra-Tabs) 100 MG tablet Bug bites Relevant Medications triamcinolone (Kenalog) 0.1 % cream Associated Problem(s): Mixed hyperlipidemia On statin therapy: rosuvastatin Check labs yearly and prn dose change Associated Problem(s): Type 2 diabetes mellitus, without long-term current use of insulin (HCC) Check blood sugars daily, notify if <70 [...] diet low in carbohydrates, and simple sugars. Current meds: metformin, statin A1c: 5.9% 02/07/2025 , 5.8% 09/26/24 Associated Problem(s): Essential hypertension Please check blood pressure daily and record DASH diet Limit caffeine Take medication as directed Contact office if chest pain, pressure, dizziness, shortness of breath, swelling legs Recommend slow position changes Current meds: verapamil,chlorthalidone documented in this encounter [facility] 02-07-2025 Instructions Destiny Mccartney NP - 02/07/2025 11:00 AM EDT Tic bite: monitor for bullys eye rash, one time dose of doxycycline 200mg Bug bites: triamcinolone cream three times daily for 2 weeks documented in this encounter [facility] 02-01-2025 History of Presen t illness Narrative Subjective Patient ID: Saskia Neff is a 74 y.o. female who presents for Thyroid Nodule (FNA results) HPI This patient presents in follow-up of needle aspiration biopsy of thyroid nodule. States to be doing well. Review of Systems Patient denies any difficulties with neck pain or change of voice. Does have a previous history of thyroid surgery. The rest of her review of systems is unchanged. Objective ENT Physical Exam General Examination: General overview: Normal, age-appropriate, no evidence of distress Head: Normocephalic, atraumatic Eyes: Pupils are equally round and reactive to light and accommodation, extraocular muscles are intact Ears: External ear architecture within normal limits, ear canals are patent, tympanic membranes are intact. Nose: External nose unremarkable, nares patent, septum intact, no evidence of congestion. Oral cavity: Mucosa moist, no evidence of ulcer, mass, or lesion Throat: Clear Neck/thyroid: Neck supple, full range of motion, no cervical lymphadenopathy, no evidence of thyromegaly . Results of the needle aspiration are consistent with benign pathology. Lymph nodes: No cervical lymphadenopathy Skin: Warm and dry, no evidence of suspicious lesions, no rash Heart: No jugular venous distention, point of maximal impulse normal Lungs: Good air movement, no audible wheezing, no shortness of breath Chest: Normal shape and expansion Abdomen: Normal, soft, nontender, nondistended Musculoskeletal: Cervical spine normal, full range of motion Extremities: No clubbing, cyanosis, or edema Peripheral pulses: 2+ radial, 2+ carotid Neurologic: Alert and oriented, cranial nerves 2-12 are grossly intact Psych: Alert and oriented, normal affect, no evidence of distress Assessment/Plan Diagnoses and all orders for this visit: Thyroid nodule Comments: Biopsy results are consistent with benign pathology. Recommend repeat ultrasound in 6 months History of goiter documented in this encounter [facility] 01-18-2025 History of Presen t illness Narrative Subjective Patient ID: Saskia Neff is a 74 y.o. female who presents for Thyroid Nodule (FNA) HPI This patient presents for needle aspiration biopsy of right thyroid nodule. Review of Systems Of left thyroid lobectomy. Found to have dominant nodule on the right side which is greater than 1 cm in hypoechoic. The rest of her review of systems is negative Objective ENT Physical Exam General Examination: General overview: Normal, age-appropriate, no evidence of distress Head: Normocephalic, atraumatic Eyes: Pupils are equally round and reactive to light and accommodation, extraocular muscles are intact Ears: External ear architecture within normal limits, ear canals are patent, tympanic membranes are intact. Nose: External nose unremarkable, nares patent, septum intact, no evidence of congestion. Oral cavity: Mucosa moist, no evidence of ulcer, mass, or lesion Throat: Clear Neck/thyroid: Neck supple, full range of motion, no cervical lymphadenopathy, no evidence of thyromegaly Ultrasound-guided thyroid needle aspiration biopsy Indication: Nodular goiter Consent: Proper consent was obtained Prep: Overlying skin is treated with alcohol Guidance: Ultrasound utilize for proper guidance Aspiration: Thyroid gland/mass is palpated. Nodule(s) to be biopsied have been identified utilizing ultrasound. The patient is asked not to talk or swallow during the procedure. A fine-needle biopsy needle is inserted into the mass under ultrasound guidance. Aspiration of the nodule is performed and material is placed on slides and cell block. Multiple aspirations are completed without difficulty. Disposition: The biopsy material was sent for pathology. Genetic testing also submitted Pressure is applied to the area biopsy. The patient tolerated the procedure extremely well. Lymph nodes: No cervical lymphadenopathy Skin: Warm and dry, no evidence of suspicious lesions, no rash Heart: No jugular venous distention, point of maximal impulse normal Lungs: Good air movement, no audible wheezing, no shortness of breath Chest: Normal shape and expansion Abdomen: Normal, soft, nontender, nondistended Musculoskeletal: Cervical spine normal, full range of motion Extremities: No clubbing, cyanosis, or edema Peripheral pulses: 2+ radial, 2+ carotid Neurologic: Alert and oriented, cranial nerves 2-12 are grossly intact Psych: Alert and oriented, normal affect, no evidence of distress Assessment/Plan Diagnoses and all orders for this visit: History of goiter Comments: recommend continued surveillance of her goiter Thyroid nodule Comments: we will see her back in 2 weeks to review the results of her biopsy documented in this encounter [facility] 01-05-2025 History of Presen t illness Narrative Encounter Date macular degeneration macular degeneration The 73 year old patient presents for evaluation of macular degeneration in the right eye. age related macular degeneration The 73 year old patient presents for evaluation of age related macular degeneration in the right eye. injection The 73 year old patient presents for treatment of injection. Patient states stable vision OU since last visit. No new flashes/floaters OU. Denies pain/discomfort OU. macular lesions The 73 year old patient presents for evaluation of macular lesions in both eyes. Patient referred by Dr. Hutchins. Patient noticed spots in eyes after cataract surgery by Dr. Bello 10 years ago. but has been told nothing is wrong/ Dr. Hutchins at first eye exam noted the lesions . [facility] Work Phone: [phone] History of Present illness Narrative* Maurisio Ley Kylahyovanny, DO - 01/04/2025 3:30 PM EDT Subjective Patient ID: Saskia Neff is a 74 y.o. female who presents for Thyroid Nodule (New Patient : right thyroid nodule) HPI 74-year-old white female presents today for evaluation of multiple thyroid nodules on the right. Patient has previous history of left thyroid lobectomy for removal of a benign goiter. Has recently undergone neck ultrasound revealing multiple nodules of the right thyroid lobe 2 of which are greater than 1 cm. Presents today for further evaluation and treatment. Review of Systems Patient denies any fever. Does describe significant difficulties with fatigue. Some occasional hoarseness of her voice. Has not noticed any difficulty swallowing. She does describe a lump sensation in her throat on the right side. Does have a previous history of sarcoidosis. The rest of her review of systems is negative Allergies as of 01/04/2025 - Reviewed 01/04/2025 Allergen Reaction Noted Celebrex [celecoxib] Anaphylaxis 07/28/2023 Sulfa antibiotics Anaphylaxis 07/28/2023 Lisinopril Cough 01/28/2017 Past Medical History: Diagnosis Date Arthritis Chronic back pain Contact dermatitis due to oil, unspecified contact dermatitis type Diverticulitis Fibromyalgia Flank pain with history of urolithiasis Hiatal hernia with GERD High cholesterol (CMS/HCC) Hypertension (CMS/HCC) Irregular heartbeat Kidney stones Low back pain Psoriasis Right hip pain Rosacea Sarcoidosis Type 2 diabetes mellitus Current Outpatient Medications: aspirin 81 MG EC tablet, Take 81 mg by mouth Daily, Disp: , Rfl: fluticasone (Flonase) 50 MCG/ACT nasal spray, Administer 1-2 sprays into each nostril Daily Shake gently. Before first use, prime pump. After use, clean tip and replace cap., Disp: 16 g, Rfl: 2 gabapentin (Neurontin) 300 MG capsule, Take 1 capsule (300 mg) by mouth in the morning and 1 capsule (300 mg) in the evening and 1 capsule (300 mg) before bedtime., Disp: 270 capsule, Rfl: 1 metFORMIN (Glucophage) 500 MG tablet, Take 1 tablet (500 mg) by mouth in the morning and 1 tablet (500 mg) in the evening. Take with meals., Disp: 180 tablet, Rfl: 1 omeprazole (PriLOSEC) [address] capsule, Take 1 capsule (40 mg) by mouth in the morning. Take beforemeals., Disp: 90 capsule, Rfl: 1 rosuvastatin (Crestor) 10 MG tablet, Take 1 tablet (10 mg) by mouth at bedtime, Disp: 90 tablet, Rfl: 0 tiZANidine (Zanaflex) 4 MG tablet, Take 1 tablet (4 mg) by mouth every 8 (eight) hours if needed for muscle spasms, Disp: 270 tablet, Rfl: 1 verapamil ER (Verelan) 360 MG 24 hr capsule, Take 1 capsule (360 mg) by mouth Daily, Disp: 90 capsule, Rfl: 1 chlorthalidone (Hygroton) 25 MG tablet, Take 0.5 tablets (12.5 mg) by mouth Daily, Disp: 15 tablet,Rfl: 0 Past Surgical History: Procedure Laterality Date BACK SURGERY 11/2018 PLIF- Dr. Washington BOWEL RESECTION 2011? CARPAL TUNNEL RELEASE Bilateral (L) x2 ; (R) - Dr. Hou CATARACT EXTRACTION, BILATERAL SECTION, LOW TRANSVERSE CHOLECYSTECTOMY HERNIA REPAIR x2 HYSTERECTOMY KNEE ARTHROSCOPY W/ ACL RECONSTRUCTION Left DR UNDERWOOD LUNG BIOPSY THYROIDECTOMY Left TONSILLECTOMY TUMOR EXCISION DR UNDERWOOD Social History Socioeconomic History Marital status: Spouse name: Not on file Number of children: Not on file Years of education: Not on file Highest education level: Not on file Occupational History Not on file Tobacco Use Smoking status: Never Passive exposure: Never Smokeless tobacco: Never Vaping Use Vaping status: Never Used Substance and Sexual Activity Alcohol use: Yes Comment: OCCASSIONALLY Drug use: Never Sexual activity: Defer Other Topics Concern Not on file Social History Narrative Not on file Social Drivers of Health Financial Resource Strain: Not on file Food Insecurity: No Food Insecurity (09/24/2023) Received from [facility] Hunger Screening Within the past 12 months we worried whether our food would run out before we got money to buy more.: Never True Within the past 12 months the food we bought just didn't last and we didn't have money to get more.: Never True Transportation Needs: Not on file Physical Activity: Not on file Stress: Not on file Social Connections: Not on file Intimate Partner Violence: Not on file Housing Stability: Not on file Objective ENT Physical Exam General Examination: General overview: Normal, age-appropriate, no evidence of distress, overweight, mild hoarseness Head: Normocephalic, atraumatic Eyes: Pupils are equally round and reactive to light and accommodation, extraocular muscles are intact Ears: External ear architecture within normal limits, ear canals are patent, tympanic membranes areintact. Nose: External nose unremarkable, nares patent, septum intact, no evidence of congestion. Oral cavity: Mucosa moist, no evidence of ulcer, mass, or lesion Throat: Clear Neck/thyroid: Neck supple, full range of motion, no cervical lymphadenopathy, no evidence of thyromegaly Thyroid ultrasound: Indication: Thyroid goiter /thyroid nodule(s) Consent: Proper consent is obtained. The procedure risks are explained in detail. Questions were encouraged and answered Anesthesia: No anesthesia given Preparation: The patient was placed in proper position. Patient is prepped in standard fashion. Findings: Ultrasound is completed of the thyroid gland. Large portion of the left thyroid lobe has been removed. A small remnant is noted. On the right, hypoechoic dominant nodules are noted, greaterthan 1 cm at the superior aspect. 15 mm in greatest dimension at the mid aspect of the lobe. Minor small calcifications of the superior nodule. Disposition: The patient tolerated the procedure extremely well. Patient is fully instructed on postprocedure care and follow-up in this office. Lymph nodes: No cervical lymphadenopathy Skin: Warm and dry, no evidence of suspicious lesions, no rash Heart: No jugular venous distention, point of maximal impulse normal Lungs: Good air movement, no audible wheezing, no shortness of breath Chest: Normal shape and expansion Abdomen: Normal, soft, nontender, nondistended Musculoskeletal: Cervical spine normal, full range of motion Extremities: No clubbing, cyanosis, or edema Peripheral pulses: 2+ radial, 2+ carotid Neurologic: Alert and oriented, cranial nerves 2-12 are grossly intact Psych: Alert and oriented, normal affect, no evidence of distress Assessment/Plan Diagnoses and all orders for this visit: Fatigue, unspecified type Comments: we will check comprehensive thyroid functions along with PTH and calcium Multiple thyroid nodules (CMS/HCC) Comments: patient will return for needle aspiration biopsy of the dominant nodules of the right thyroid lobe Orders: - Ambulatory referral to ENT - T4; Future - T3; Future - TSH; Future - Calcium; Future - PTH, intact; Future History of goiter documented in this encounterFreeman Neosho [id number] History of Present illness Narrative* Destiny Mccartney NP - 11/09/2024 9:44 AM EDTAssociated Problem(s): Peripheral neuropathy Lumbar related Takes gabapentin OARRS reviewed * ALYSSA AVENDANO - 11/09/2024 9:20 AM EDT Pt refuses to do a mammogram she states she has been told she does not get it for 3-5 years do to not having a HX Pt states that she can not get into her mychart if shew as left a msg however she had gotten labs done 09/26/24 and still was not given her results. Pt would like to discuss her glucose, she is unsure if she needs to add another metformin. Pt states she typically range from 92-130 and her sugars have gone up since she hurt her right shoulder last week possibly pulled muscle from moving furniture. She states when her sugar is up she cantell by getting tenonitis Pt is needing a refill on her gabapentin she is taking those 3x daily for her right shoulder. She would like to talk about what she can take instead of taking advil she has been taking that for over 10 years possibly now 20 years and she is up to 4x daily and it upsets her stomach. Neuropathy in her legs And BP is not quite right she states if she takes the lower dose it is not enough and if she takes the regular then its too much Pt states that her handicap sticker needs redone jayshree did a 1 year and it is not honored by 1 year only 3 or 5 years. * Destiny Mccartney, FAVIOLA - 11/09/2024 9:20 AM EDT Images from the original note were not included. Saskia Neff is a 73 y.o. female presents with chief complaint of Diabetes HPI: Pt refuses to do a mammogram she states she has been told she does not get it for 3-5 years do to not having a HX Pt states that she can not get into her mychart if shew as left a msg however she had gotten labs done 09/26/24 and still was not given her results. Pt would like to discuss her glucose, she is unsure if she needs to add another metformin. Pt states she typically range from 92-130 and her sugars have gone up since she hurt her right shoulder last week possibly pulled muscle from moving furniture. She states when her sugar is up she cantell by getting tenonitis Pt is needing a refill on her gabapentin she is taking those 3x daily for her right shoulder. She would like to talk about what she can take instead of taking advil she has been taking that for over 10 years possibly now 20 years and she is up to 4x daily and it upsets her stomach. Neuropathy in her legs And BP is not quite right she states if she takes the lower dose it is not enou Diabetes She presents for her follow-up diabetic visit. She has type 2 diabetes mellitus. There are no hypoglycemic associated symptoms. Pertinent negatives for hypoglycemia include no dizziness, headaches, nervousness/anxiousness, seizures or tremors. Associated symptoms include foot paresthesias (r/t lumbar). Pertinent negatives for diabetes include no chest pain, no polydipsia, no polyphagia, no polyuria and no visual change. There are no hypoglycemic complications. Symptoms are stable. Pertinent negatives for diabetic complications include no PVD. Risk factors for coronary artery disease include diabetes mellitus, dyslipidemia, hypertension, post-menopausal and sedentary lifestyle. She is compliant with treatment all of the time. She rarely participates in exercise. Her overall blood glucose range is 140-180 mg/dl. An BIRDIE inhibitor/angiotensin II receptor mimi is not being taken. Eye examis current. Hypertension This is a chronic problem. The current episode started more than 1 year ago. The problem is unchanged. The problem is controlled. Pertinent negatives include no chest pain, headaches, palpitations, peripheral edema or shortness of breath. There are no associated agents to hypertension. Risk factorsfor coronary artery disease include diabetes mellitus, dyslipidemia and sedentary lifestyle. Past tr eatments include diuretics and calcium channel blockers. The current treatment provides significantimprovement. There are no compliance problems. Hypertensive end-organ damage includes heart failure. There is no history of CAD/OK or PVD. SUBJECTIVE: MEDICATIONS: Current Outpatient Medications Medication Instructions aspirin 81 mg, Daily chlorthalidone (HYGROTON) 12.5 mg, Oral, Daily fluticasone (Flonase) 50 MCG/ACT nasal spray 1-2 sprays, Each Nostril, Daily, Shake gently. Before first use, prime pump. After use, clean tip and replace cap. gabapentin (NEURONTIN) 300 mg, Oral, 3 times daily metFORMIN (GLUCOPHAGE) 500 mg, Oral, 2 times daily with meals omeprazole (PriLOSEC) [address] capsule TAKE 1 CAPSULE BY MOUTH IN THE MORNING BEFORE BREAKFAST rosuvastatin (CRESTOR) 10 mg, Oral, Nightly tiZANidine (ZANAFLEX) 4 mg, Oral, Every 8 hours PRN verapamil ER (VERELAN) 360 mg, Oral, Daily ALLERGIES: Allergies Allergen Reactions Celebrex [Celecoxib] Anaphylaxis Sulfa Antibiotics Anaphylaxis Lisinopril Cough REVIEW OF SYMPTOMS: Review of Systems Constitutional: Negative for appetite change, chills and fever. HENT: Negative for congestion, ear pain and sore throat. Eyes: Negative for pain, discharge, redness and visual disturbance. Respiratory: Negative for cough, shortness of breath and wheezing. Cardiovascular: Negative for chest pain, palpitations and leg swelling. Gastrointestinal: Negative for abdominal pain, blood in stool, constipation, diarrhea, nausea and vomiting. Genitourinary: Negative for difficulty urinating, dysuria and frequency. Musculoskeletal: Positive for arthralgias. Negative for back pain, joint swelling and myalgias. Skin: Negative for rash and wound. Neurological: Positive for numbness. Negative for dizziness, tremors, seizures, syncope and headaches. Psychiatric/Behavioral: Negative for behavioral problems, self-injury and suicidal ideas. The patient is not nervous/anxious. Hematological: Does not bruise/bleed easily. Endocrine: Negative for polydipsia, polyphagia and polyuria. Allergic/Immunologic: Negative for environmental allergies and food allergies. PAST MEDICAL HISTORY Past Medical History: Diagnosis Date Arthritis Chronic back pain Contact dermatitis due to oil, unspecified contact dermatitis type Diverticulitis Fibromyalgia Flank pain with history of urolithiasis Hiatal hernia with GERD High cholesterol (CMS/HCC) Hypertension (CMS/HCC) Irregular heartbeat Kidney stones Low back pain Psoriasis Right hip pain Rosacea Sarcoidosis Type 2 diabetes mellitus Past Surgical History: Procedure Laterality Date BACK SURGERY 11/2018 PLIF- Dr. Washington BOWEL RESECTION 2011? CARPAL TUNNEL RELEASE Bilateral (L) x2 ; (R) - Dr. Hou CATARACT EXTRACTION, BILATERAL SECTION, LOW TRANSVERSE CHOLECYSTECTOMY HERNIA REPAIR x2 HYSTERECTOMY KNEE ARTHROSCOPY W/ ACL RECONSTRUCTION Left DR UNDERWOOD LUNG BIOPSY THYROIDECTOMY Left TONSILLECTOMY TUMOR EXCISION DR UNDERWOOD family history includes Cancer in her father and mother; Colon cancer in her father; Lung cancer inher mother. OBJECTIVE: Visit Vitals BP 132/76 (BP Location: Left arm, Patient Position: Sitting, BP Cuff Size: Large adult) Pulse 68 Temp 98.5 F (Temporal) Resp 18 Wt 181 lb 6.4 oz LMP (LMP Unknown) SpO2 96% BMI 30.19 kg/m OB Status Hysterectomy Smoking Status Never BSA 1.94 m Physical Exam Vitals and nursing note reviewed. Constitutional: General: She is not in acute distress. Appearance: Normal appearance. She is obese. HENT: Head: Normocephalic and atraumatic. Right Ear: Tympanic membrane, ear canal and external ear normal. Left Ear: Ear canal and external ear normal. Nose: Nose normal. No congestion or rhinorrhea. Mouth/Throat: Mouth: Mucous membranes are moist. Pharynx: No oropharyngeal exudate or posterior oropharyngeal erythema. Eyes: Extraocular Movements: Extraocular movements intact. Conjunctiva/sclera: Conjunctivae normal. Neck: Vascular: Carotid bruit (right bruit) present. Cardiovascular: Rate and Rhythm: Normal rate and regular rhythm. Pulses: Normal pulses. Heart sounds: Normal heart sounds. No murmur heard. Pulmonary: Effort: Pulmonary effort is normal. Breath sounds: Normal breath sounds. No wheezing or rhonchi. Abdominal: General: Bowel sounds are normal. There is no distension. Palpations: Abdomen is soft. There is no mass. Tenderness: There is no abdominal tenderness. Musculoskeletal: General: Normal range of motion. Cervical back: Normal range of motion and neck supple. Right lower leg: No edema. Left lower leg: No edema. Lymphadenopathy: Cervical: No cervical adenopathy. Skin: General: Skin is warm and dry. Capillary Refill: Capillary refill takes 2 to 3 seconds. Findings: No rash. Neurological: General: No focal deficit present. Mental Status: She is alert and oriented to person, place, and time. Psychiatric: Mood and Affect: Mood normal. Behavior: Behavior normal. Thought Content: Thought content normal. Judgment: Judgment normal. ASSESSMENT AND PLAN: Follow up in about 3 months (around 02/08/2025) for Recheck. Problem List Items Addressed This Visit Chronic diastolic (congestive) heart failure Meds: chlorthalidone Essential hypertension (CMS/HCC) Please check blood pressure daily and record DASH diet Limit caffeine Take medication as directed Contact office if chest pain, pressure, dizziness, shortness of breath, swelling legs Recommend slow position changes Current meds: verapamil,chlorthalidone Relevant Orders Vascular US carotid artery duplex bilateral Mixed hyperlipidemia (CMS/HCC) On statin therapy: insurance concern about statin dose and interaction with verapamil, will consider change in med Check labs yearly and prn dose change Change to rosuvastatin Check labs in 8 weeks Relevant Medications rosuvastatin (Crestor) 10 MG tablet Other Relevant Orders Lipid panel ALT ALT Vascular US carotid artery duplex bilateral Chronic back pain Relevant Medications gabapentin (Neurontin) 300 MG capsule Type 2 diabetes mellitus, without long-term current use of insulin (CMS/HCC) - Primary Check blood sugars daily, notify if <70 or >200. Take medications (pills or insulin) as directed. Monitor for s/s of hypoglycemia (sweaty, dizziness, nausea, vomiting, or shakiness). Watch for increase in thirst, urination, or appetite. Inspect feet frequently monitoring for open wounds , andalso recommend yearly eye exam. Pt should attempt to remain as physically active as chronic conditions allow, as well as trying to follow a diet low in carbohydrates, and simple sugars. Current meds: metformin, statin A1c: 5.8% 09/26/24 Relevant Orders Vascular US carotid artery duplex bilateral Encounter for screening mammogram for malignant neoplasm of breast Relevant Orders Bilateral screening mammogram Menopause Recommend bone density scan Relevant Orders DEXA bone density Peripheral neuropathy Lumbar related Takes gabapentin OARRS reviewed Bruit of right carotid artery Relevant Orders Vascular US carotid artery duplex bilateral * Destiny Mccartney NP - 11/09/2024 6:25 AM EDTAssociated Problem(s): Menopause Recommend bone density scan * Destiny Mccartney NP - 11/09/2024 6:24 AM EDTAssociated Problem(s): Type 2 diabetes mellitus, without long-term current use of insulin ([facility]) Check blood sugars daily, notify if <70 or >200. Take medications (pills or insulin) as directed. Monitor for s/s of hypoglycemia (sweaty, dizziness, nausea, vomiting, or shakiness). Watch for increase in thirst, urination, or appetite. Inspect feet frequently monitoring for open wounds , andalso recommend yearly eye exam. Pt should attempt to remain as physically active as chronic conditions allow, as well as trying to follow a diet low in carbohydrates, and simple sugars. Current meds: metformin, statin A1c: 5.8% 09/26/24 * Destiny Mccartney NP - 11/09/2024 6:21 AM EDTAssociated Problem(s): Mixed hyperlipidemia ([facility]) On statin therapy: insurance concern about statin dose and interaction with verapamil, will consider change in med Check labs yearly and prn dose change Change to rosuvastatin Check labs in 8 weeks * Destiny Mccartney NP - 11/09/2024 6:20 AM EDTAssociated Problem(s): Essential hypertension ([facility]) Please check blood pressure daily and record DASH diet Limit caffeine Take medication as directed Contact office if chest pain, pressure, dizziness, shortness of breath, swelling legs Recommend slow position changes Current meds: verapamil,chlorthalidone * Destiny Mccartney NP - 11/09/2024 6:20 AM EDTAssociated Problem(s): Chronic diastolic (congestive) heart failure Meds: chlorthalidone * Destiny Mccartney NP - 11/09/2024 6:19 AM EDTAssociated Problem(s): Type 2 diabetes mellitus with diabetic polyneuropathy, without long-term current use of insulin (CMS/HCC) (Resolved 11/09/2024) Recommend glucose control Proper fitting shoes, freq foot inspections Meds: gabapentin OARRS reviewed documented in this [facility]04-03-2025 Instructions* Patient Instructions* Destiny Mccartney NP - 11/09/2024 9:20 AM EDT Start baby aspirin Stop simvastatin, start rosuvastatin, we will check labs in 8 weeks, sooner if severe muscle aches Order US of carotid arteries, mammogram and bone density at [facility] [phone] documented in this encounterNOPR [id number] Evaluation note* Type Assessment Date assessment Exdtve age-rel mclr degn, right eye, with actv chrdl neovas impression Exdtve age-rel mclr degn, right eye, with actv chrdl neovas: H35.3211. new, serious, symptoms x 10 yrs worse recently assessment Exudative age-rel mclr degn, lef t eye, with inactive scar impression Exudative age-rel mc lr degn, left eye, with inactive scar: H35.3223. new. serious assessment Puckering of macula, left eye Ma impression Puckering of macula, left eye: H35.372. 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 new, serious assessment Pseudophakia impression Pseudophakia: Z96.1. bilateral. established [facility] Work Phone: [phone] 860-938903-26-2025 History of Present illness Narrative* Encounter Date Complaint History Of Prese nt Illness macular degeneration The 73 year old patient presents for evaluation of macular degeneration in the right eye. age related macular degeneration The 73 year old patient presents for evaluation of age related macular degeneration in the right eye. injection The 73 year old patient presents for treatment of injection. Patient states stable vision OU since last visit. No new flashes/floaters OU. Denies pain/discomfort OU. macular lesions The 73 year old patient presents for evaluation of macular lesions in both eyes. Patient referred by Dr. Hutchins. Patient noticed spots in eyes after cataract surgery by Dr. Bello 10 years ago. but has been told nothing is wrong/ Dr. Hutchins at first eye exam noted the lesions . [facility] Work Phone: [phone]) 959-642203-26-2025 Instructions* Date Instruction Additional Infor mation Impression/Plan Related to Exdtv e age-rel mclr degn, right eye, with actv chrdl neovas Impression/Plan Related to Exuda tive age-rel mclr degn, left eye, with inactive scar Impression/Plan Related to Pucke ring of macula, left eye Impression/Plan Related to 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 Impression/Plan Related to 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, bi Impression/Plan Related to Pseud ophakia Impression/Plan Related to Pseud ophakia Impression/Plan Related to 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, bi Impression/Plan Related to Exdtv e age-rel mclr degn, right eye, with actv chrdl neovas Impression/Plan Related to Exuda tive age-rel mclr degn, left eye, with inactive scar Impression/Plan Related to Pucke ring of macula, left eye Impression/Plan Related to 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 Will write RX for one year. Takes Gabapentin and Zanaflex Daily PRN; States pain is tolerable. Continue as directed. * Jayshree Conner NP - 09/28/2024 10:30 AM EST Images from the original note were not included. Subjective : Chief Complaint: Saskia Neff is an 73 y.o. female here for an annual wellness visit. I have reviewed and reconciled the history and medication list with the patient today. Current Outpatient Medications Medication Sig Dispense Refill fluticasone (Flonase) 50 MCG/ACT nasal spray Administer 1-2 sprays into each nostril Daily Shake gently. Before first use, prime pump. After use, clean tip and replace cap. 16 g 2 gabapentin (Neurontin) 300 MG capsule Take 1 capsule (300 mg) by mouth in the morning and 1 capsule(300 mg) in the evening and 1 capsule (300 mg) before bedtime. 270 capsule 0 metFORMIN (Glucophage) 500 MG tablet Take 1 tablet (500 mg) by mouth in the morning and 1 tablet (500 mg) in the evening. Take with meals. 180 tablet 1 omeprazole (PriLOSEC) [address] capsule TAKE 1 CAPSULE BY MOUTH IN THE MORNING BEFORE BREAKFAST 30 capsule 2 verapamil ER (Verelan) 360 MG 24 hr capsule Take 1 capsule (360 mg) by mouth Daily 90 capsule 1 chlorthalidone (Hygroton) 25 MG tablet Take 0.5 tablets (12.5 mg) by mouth Daily 15 tablet 0 simvastatin (Zocor) 40 MG tablet Take 1 tablet (40 mg) by mouth at bedtime 90 tablet 0 tiZANidine (Zanaflex) 4 MG tablet Take 1 tablet (4 mg) by mouth every 8 (eight) hours if needed formuscle spasms 270 tablet 1 No current facility-administered medications for this visit. Review of Systems Constitutional: Negative for activity [...] Neurological: Negative for dizziness, tremors, syncope, weakness, light- headedness and headaches. Psychiatric/Behavioral: Negative for decreased concentration and suicidal ideas. The patient is notnervous/anxious. Hematological: Does not bruise/bleed easily. Endocrine: Negative for cold intolerance, heat intolerance, polydipsia, polyphagia and polyuria. List of current healthcare providers: Patient Care Team: Jerome Coles MD as PCP - General (Family Medicine) Shaikh Kimmie MD as PCP - Giuliana Conner NP as Nurse Practitioner (Family Medicine) Medicare Annual Visit Over the past 2 weeks, how often have you been bothered by any of the following problems? Little interest or pleasure in doing things: Not at all Feeling down, depressed, or hopeless: Not at all Patient Health Questionnaire-2 Score: 0 Over the past 2 weeks, how often have you been bothered by any of the following problems? Trouble falling or staying asleep, or sleeping too much: Not at all Feeling tired or having little energy: Not at all Poor appetite or overeating: Not at all Feeling bad about yourself - or that you are a failure or have let yourself or your family down: Not at all Trouble concentrating on things, such as reading the newspaper or watching television: Not at all Moving or speaking so slowly that other people could have noticed? Or the opposite - being so fidgety or restless that you have been moving around a lot more than usual.: Not at all Thoughts that you would be better off or hurting yourself in some way: Not at all Patient Health Questionnaire-9 Score: 0 Horton Fall Risk History of Falling, Immediate or Within 3 Months: No Health Risk Assessment Form Do you need help eating, bathing, using the toilet, dressing, or getting around your home?: No Can you prepare your own meals?: Yes Can you do your own housework without help?: Yes Can you shop for groceries or clothes without help?: Yes Do you exercise for about 20 minutes 3 or more days a week?: Yes How confident are you that you can control and manage most of your health problems?: Very confident Can you mange your money, credit cards and accounts, pay bills and taxes?: Yes Cognitive Screening Three Word Registration: Village, Kitchen, Baby Clock Drawing: Normal Clock - 2 Three Word Recall: 2/3 words correct - 2 Total Score (0-5 Points): 4 Advance Care Planning Do you have a living will?: Yes Do you have a medical power of corporate attorney?: Yes Who is your medical power of corporate attorney?: shadia neff Objective : BP 110/66 Pulse 73 Temp 96.8 F Resp 16 Ht 5' 5 Wt 183 lb LMP (LMP Unknown) SpO2 98% BMI 30.45 kg/m No results found. Physical Exam Vitals reviewed. Constitutional: Appearance: Normal appearance. HENT: Right Ear: Tympanic membrane normal. Left Ear: [...] soft. Musculoskeletal: General: Normal range of motion. Skin: General: Skin is warm and dry. Capillary Refill: Capillary refill takes less than 2 seconds. Neurological: Mental Status: She is alert and oriented to person, place, and time. Assessment/Plan : The following health maintenance schedule was reviewed with the patient and provided in printed form in the after visit summary: Health Maintenance Topic Date Due Mammogram 08/09/2023 Diabetes: Hemoglobin A1C 03/16/2024 Medicare Annual Wellness (AWV) 07/28/2024 Diabetes: Urine Protein Screening 09/26/2025 Diabetes: Retinopathy Screening 07/03/2026 Colorectal Cancer Screening 07/26/2034 Influenza Vaccine Completed Pneumococcal Vaccine: 65+ Years Completed Advance Care Planning Patient has DPOA and Living Will. Agrees to bring copies in to be scanned into chart. No orders of the defined types were placed in this encounter. Electronically signed by Jayshree Conner NP on September 28, 2024 documented in this encounterFreeman Neosho [id number] History of Present illness Narrative* Encounter Date Complaint History Of Prese nt Illness age related macular degeneration The 73 year old patient presents for evaluation of age related macular degeneration in the right eye. injection The 73 year old patient presents for treatment of injection. Patient states stable vision OU since last visit. No new flashes/floaters OU. Denies pain/discomfort OU. macular lesions The 73 year old patient presents for evaluation of macular lesions in both eyes. Patient referred by Dr. Hutchins. Patient noticed spots in eyes after cataract surgery by Dr. Bello 10 years ago. but has been told nothing is wrong/ Dr. Hutchins at first eye exam noted the lesions . [facility] Physicians Work Phone: [phone] Miscellaneous Notes* Telephone Encounter - Jayshree Davenport RN - 09/18/2024 10:26 AM EST Images from the original note were not included. OV 09/24/23 - needs OV CMP, Mag 09/20/23 - ordered labs Refill letter sent to pt in the mail. [facility] Telephone encounter Note* Telephone Encounter - Jayshree Davenport RN - 09/18/2024 10:26 AM EST Images from the original note were not included. OV 09/24/23 - needs OV CMP, Mag 09/20/23 - ordered labs Refill letter sent to pt in the mail. [facility] Miscellaneous Notes* Telephone Encounter - Alba Skinner CMA - 08/24/2024 9:58 AM EST PATIENT PHONED STATING THAT SHE RECEIVED A TEXT MESSAGE TO SCHEDULE A FOLLOW UP AND PER PT STATES SHE WAS TOLD BY TMP TO RETURN WHEN NEEDED. PATIENT ALSO STATED THAT PCP IS GOING TO TAKE OVER MANAGEMENT OF HER MEDICATION AND IF SHE FEEL SHE NEEDS ANYTHING SHE WILL CALL. documented in this encounterAC[facility]01-16-2025 Telephone encounter Note* Telephone Encounter - Alba Skinner CMA - 08/24/2024 9:58 AM EST PATIENT PHONED STATING THAT SHE RECEIVED A TEXT MESSAGE TO SCHEDULE A FOLLOW UP AND PER PT STATES SHE WAS TOLD BY TMP TO RETURN WHEN NEEDED. PATIENT ALSO STATED THAT PCP IS GOING TO TAKE OVER MANAGEMENT OF HER MEDICATION AND IF SHE FEEL SHE NEEDS ANYTHING SHE WILL CALL. [facility] History of Present illness Narrative* Jayshree Conner NP - 08/14/2024 8:53 AM ESTAssociated Problem(s): Upper respiratory tract infection Pt presents with Bilateral earache X7 days/Productive cough/Chest tenderness when coughing/headache. Bilateral otitis media observed on assessment. Will treat for URI and otitis media. * Jayshree Conner NP - 08/14/2024 8:30 AM EST Images from the original note were not [...] polyneuropathy, without long-term current use of insulin ([facility]) Relevant Medications metFORMIN (Glucophage) 500 MG tablet [...] (Augmentin) 875-125 MG tablet documented in this encounterFreeman Neosho [id number] Instructions* Patient Instructions* Jayshree Conner NP - 08/14/2024 8:30 AM EST [...] THE [facility]ARE[facility] EMERGENCY DEPARTMENT. documented in this [facility]01-02-2025 Telephone encounter Note* Telephone Encounter - Chandrika Cruz MA - 08/10/2024 10:31 AM EST Pt is out of medication completely. [place]:06/28/2024 NOV:09/28/2024 [facility] [id number] Miscellaneous Notes* Telephone Encounter - Chandrika Cruz MA - 08/10/2024 10:31 AM EST Pt is out of medication completely. [place]:06/28/2024 NOV:09/28/2024 documented in this [facility]12-30-2024 Telephone encounter Note* Telephone Encounter - Chandrika Cruz MA - 08/07/2024 8:36 AM EST [place]:06/28/2024 NOV:09/28/2024 [facility] [id number] Miscellaneous Notes* Telephone Encounter - Chandrika Cruz MA - 08/07/2024 8:36 AM EST [place]:06/28/2024 [place]:09/28/2024 documented in this encounterFreeman Neosho [id number] Instructions* Date Instruction Additional Infor mation Impression/Plan Related to Pseud ophakia Impression/Plan Related to 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, bi Impression/Plan Related to Exdtv e age-rel mclr degn, right eye, with actv chrdl neovas Impression/Plan Related to Exuda tive age-rel mclr degn, left eye, with inactive scar Impression/Plan Related to Pucke ring of macula, left eye Impression/Plan Related to 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 [facility] Work Phone: [phone] Telephone encounter Note* Telephone Encounter - Chandrika Cruz MA - 07/11/2024 2:57 PM EST [place]:06/28/2024 NOV:09/28/2023 [facility] [id number] Miscellaneous Notes* Telephone Encounter - Chandrika Cruz MA - 07/11/2024 2:57 PM EST [place]:06/28/2024 [place]OV:09/28/2023 documented in this encounterFreeman Neosho [id number] History of Present illness Narrative* Jayshree Conner NP - 06/28/2024 9:15 AM ESTAssociated Problem(s): Type 2 diabetes mellitus with diabetic polyneuropathy, without long-term current use of insulin ([facility]) Most recent labs: hemoglobin A1C 5.5% Needs [...] Eye Exam- 06/19/2024 [facility] [place] Is seeing Retina specialist in [place]. * Jayshree Conner NP - 06/28/2024 9:15 AM ESTAssociated Problem(s): Mixed hyperlipidemia (CMS/HCC) Currently taking Simvastatin 40mg Daily Denies any myalgias. Continue current regimen. Recheck Lipid Panel today. * Jayshree Conner NP - 06/28/2024 9:15 AM ESTAssociated Problem(s): Essential hypertension (CMS/HCC) Currently taking Chlorthalidone 25mg Daily; Verapamil 360mg ER Checks BP at home; Averages are 130's/70. Had 1 episode of 90/60. Reports she was not feeling well that day. Denies orthostatic changes, dizziness, cough, shortness of breath, swelling in extremities. Continue current regimen. Given BP log, advised pt to record BP and bring log back with them to next visit. * Jayshree Conner NP - 06/28/2024 9:00 AM EST Images from the original note were not [...] R ALBUMIN GLOBULIN RATIO 0.9 Resulting Agency [facility] DMII: Most recent labs: hemoglobin A1C 5.5% [...] Eye Exam- 06/19/2024 [facility] in [place] Is seeing Retina specialist in [place]. Education: Check blood sugars daily, notify if <70 or >200. Take medications (pills or insulin) as directed. Monitor for s/s of hypoglycemia (sweaty, dizziness, nausea, vomiting, or shakiness). Watch for increase in thirst, urination, or appetite. Inspect feet frequently monitoring for open wounds , andalso recommend yearly eye exam. Pt should attempt [...] Neurological: Negative for dizziness, tremors, syncope, weakness, light- headedness and headaches. Psychiatric/Behavioral: Negative for decreased concentration and suicidal ideas. The patient is notnervous/anxious. Hematological: Does not bruise/bleed easily. Endocrine: Negative [...] polyneuropathy, without long-term current use of insulin ([facility]) - Primary Most recent labs: hemoglobin A1C [...] Eye Exam- 06/19/2024 [facility] in [place] Is seeing Retina specialist in [place]. Relevant Orders Microalbumin / creatinine urine ratio Hemoglobin A1c Comprehensive metabolic panel CBC and differential Other Visit Diagnoses Need for immunization against influenza Relevant Orders Flu vaccine greater than or equal to 3 years old, preservative free IM (Completed) documented in this encounterFreeman Neosho [id number] Instructions* Patient Instructions* Jayshree Conner NP - 06/28/2024 9:00 AM EST FASTING labs ordered. Nothing to eat or drink for 12 hours prior to blood draw. Water and black coffee ok. documented in this encounterFreeman Neosho [id number] Miscellaneous Notes* Telephone Encounter - Dipak Jones RN - 06/15/2024 2:03 PM EST OV 09/24/23 09/17/23 CMP 03/09/22 Mag Pt is aware of updated mag needed and that the orders are in the [facility] system. documented in this encounterAC[facility]11-07-[facility]24 Telephone encounter Note* Telephone Encounter - Dipak Jones RN - 06/15/2024 2:03 PM EST OV 09/24/23 09/17/23 CMP 03/09/22 Mag Pt is aware of updated mag needed and that the orders are in the [facility] system. [facility] History of Present illness Narrative* Jayshree Conner NP - 03/28/2024 1:18 PM EDTAssociated Problem(s): Diverticulitis Had flare up this past [...] and ATB regimen will be called in. * Jayshree Conner NP - 03/28/2024 10:30 AM EDTAssociated Problem(s): Type 2 diabetes mellitus with diabetic polyneuropathy, without long-term current use of insulin (CMS/HCC) aking Metformin 500mg Daily; Last A1C ion [...] feet frequently monitoring for open wounds , andalso recommend yearly eye exam. Pt should attempt to remain as physically active as chronic conditions allow, as well as trying to follow a diet low in carbohydrates, and simple sugars. * Jayshree Conner NP - 03/28/2024 10:28 AM EDTAssociated Problem(s): Essential hypertension (CMS/HCC) Taking Chlorthalidone 25mg Daily; Verapamil 360mg ER BP is well managed; Checks BP at home- States ranges are: 120/70- 140/86 Highest- states this is unusual. BP log given; Bring back to next OV. Denies: Chest pain Shortness of breath Edema in extremities Continue as Directed * Jayshree Conner NP - 03/28/2024 10:27 AM EDTAssociated Problem(s): Mixed hyperlipidemia (CMS/HCC) Taking Simvastatin 40mg Daily Denies Myalgias. Last Lipid Panel WNL. Continue Simvastatin as directed. * Jayshree Conner NP - 03/28/2024 10:26 AM EDTAssociated Problem(s): Chronic back pain Takes Gabapentin and Zanaflex Daily PRN; States pain is tolerable. Continue as directed. * Jayshree Conner NP - 03/28/2024 9:30 AM EDT Images from the original note were not included. Subjective Patient ID: Saskia Neff is a 73 y.o. female who presents for Follow-up (DIVERTICULITIS FLARE UPON WEDNESDAY LAST WEEK/PT DIDN'T HAVE ANY ATB'S ON HAND SO SHE HAS USED THREE BOTTLES OF PEPTO BISMOLSO FAR, BETTER NOW BUT STILL PRETTY PAINFUL). 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 Psychiatric/Behavioral: Negative for decreased concentration and suicidal ideas. The patient is notnervous/anxious. Hematological: Does not bruise/bleed easily. Endocrine: Negative [...] current use of insulin (CMS/HCC) - Primary aking Metformin 500mg Daily; Last [...] feet frequently monitoring for open wounds , andalso recommend yearly eye exam. Pt should attempt [...] Ambulatory referral to Gastroenterology documented in this encounterFreeman Neosho [id number] Instructions* Patient Instructions* Jayshree Conner NP - 03/28/2024 9:30 AM EDT Continue low residue diet until symptoms subside Referral sent to GI; Follow up with them as soon as possible. If symptoms worsen, fever, severe abdominal pain, GO TO ER!!! Diet: Eat three meals per day. Breakfast, lunch, and dinner. Avoid snacking. Avoid eating after 5/6pm. Daily protein GOAL 35% of your intake; 30g per meal. Daily calorie GOAL 1,800-2,000 per day. Consider tracking your food intake on [employer] or [employer] Water: Increase water intake; GOAL [...] feet frequently monitoring for open wounds , andalso recommend yearly eye exam. Pt should attempt to remain as physically active as chronic conditions allow, as well as trying to follow a diet low in carbohydrates, and simple sugars. documented in this [facility]02-16-2024 History of Present illness Narrative* Cherry Duque MD - 09/24/2023 12:00 PM EST Saskia Neff Date of visit: 09/24/2023 Date of : 1950 Age: 72 y.o. Patient Active Problem List Diagnosis Essential hypertension Chronic back pain Ventricular premature beats Palpitations Chronic diastolic heart failure ([facility]) Mixed hyperlipidemia Obesity (BMI 30.0-34.9) Allergies Allergen Reactions Celebrex [Celecoxib] Anaphylaxis Lisinopril Cough Morphine Other reaction(s): Intolerance-unknown Sulfa (Sulfonamide Antibiotics) Other reaction(s): Intolerance-unknown Current Outpatient Medications Medication Sig Dispense Refill chlorthalidone (HYGROTON) 25 mg tablet Take 0.5 tablets (12.5 mg total) by mouth daily. 45 tablet 2 gabapentin (NEURONTIN) 300 mg capsule Take 1 capsule (300 mg total) by mouth 3 (three) times a day.0 magnesium 200 mg tablet Take by mouth. metFORMIN (GLUCOPHAGE) 500 mg tablet Take 1 tablet (500 mg total) by mouth every 12 (twelve) hours. multivitamin capsule Take 1 capsule by mouth in the morning. EVERY OTHER DAY . naproxen (NAPROSYN) 250 mg tablet Take 1 tablet (250 mg total) by mouth in the morning and 1 tablet(250 mg total) in the evening. Take with meals. omeprazole (PriLOSEC) 40 mg capsule Take 1 capsule (40 mg total) by mouth every morning before breakfast. SENNOSIDES (SENNA LAX ORAL) as needed. simvastatin (ZOCOR) 40 mg tablet Take 1 tablet (40 mg total) by mouth nightly. tiZANidine (ZANAFLEX) 4 mg capsule Take 1 capsule (4 mg total) by mouth 3 (three) times a day. verapamiL (VERELAN) 360 MG 24 hr capsule Take 1 capsule (360 mg total) by mouth nightly. cholecalciferol, vitamin D3, 1,000 unit capsule Take 1 capsule (1,000 Units total) by mouth as needed. ciprofloxacin HCl (CIPRO) 500 mg tablet Take 1 tablet (500 mg total) by mouth as needed. 0 orphenadrine (NORFLEX) 100 mg 12 hr tablet Take 1 tablet (100 mg total) by mouth in the morning and1 tablet (100 mg total) before bedtime. simvastatin (ZOCOR) 10 mg tablet Take 1 tablet (10 mg total) by mouth nightly. (Patient taking differently: Take 2 tablets (20 mg total) by mouth nightly.) 90 tablet 3 verapamiL (VERELAN) 300 mg capsule, [address] 24 hr capsule Take 1 capsule (300 mg total) by mouth nightly. 30 capsule 0 No current facility-administered medications for this visit. Chief Complaint Patient presents with Follow-up EST PT L/S MS 03/12/2022 NO TESTS SCHED W/PT History of Present Illness Generally doing well with no major issues she does feel her PVCs from time to time but it does not really bother she has had these for over 40 years she has had no lightheadedness no syncope near syncope she pretty much do what she puts her mind to without any decline in function Past Medical History: Diagnosis Date Arthritis Asthma COPD (chronic obstructive pulmonary disease) ([facility]) Deep vein thrombosis ([facility]) 2004 right leg Diverticulitis of colon High cholesterol Hypertension Palpitations PVC's (premature ventricular contractions) Sarcoidosis No data recorded No data recorded No data recorded Past Surgical History: Procedure Laterality Date ANTERIOR CRUCIATE LIGAMENT REPAIR APPENDECTOMY BACK SURGERY N/A 2018 had back surgery in November BOWEL RESECTION CARPAL TUNNEL RELEASE X3 CHOLECYSTECTOMY COLONOSCOPY COLONOSCOPY AND POLYPECTOMY 01/28/2017 Performed by Morgan Foster DO at [facility] ESOPHAGOGASTRODUODENOSCOPY HYSTERECTOMY RESECTION BONE TUMOR KNEE STAPEDECTOMY X2 THYROIDECTOMY Left TONSILLECTOMY Family History Problem Relation Age of Onset Cancer Mother Arthritis Mother Colon cancer Father Arthritis Father Social History Socioeconomic History Marital status: Spouse name: Not on file Number of children: Not on file Years of education: Not on file Highest education level: Not on file Occupational History Not on file Tobacco Use Smoking status: Never Smokeless tobacco: Never Vaping Use Vaping Use: Never used Substance and Sexual Activity Alcohol use: Yes Comment: socially Drug use: No Sexual activity: Not on file Other Topics Concern Caffeine Use Yes Comment: 1 -2 cups of coffee Social History Narrative Not on file Social Determinants of Health Financial Resource Strain: Not on file Food Insecurity: No Food Insecurity (09/24/2023) Hunger Screening Food Insecurity - Worry: Never True Food Insecurity - Inability: Never True Transportation Needs: Not on file Physical Activity: Not on file Stress: Not on file Social Connections: Not on file Interpersonal Safety: Not on file Housing Instability: Not on file Review of Systems Review of Systems Musculoskeletal: Positive for arthritis, back pain and joint pain. Neurological: Positive for numbness. CARDIOVASCULAR: Please review HPI. Physical Examination General appearance: Alert, oriented and cooperative. In no acute distress. Skin: Warm and dry to touch. Head: Normocephalic, without obvious abnormality, atraumatic. Ears, Nose, Mouth, Throat: Throat clear without erythema or exudate. Dentition intact. Eyes: Conjunctivae unremarkable, EOM intact. Neck: No JVD, No carotid bruit. Neck supple, trachea midline. Respiratory: Clear to auscultation bilaterally, no use of accessory muscles. Cardiovascular: RRR with normal S1 and S2 with no murmurs. Gastrointestinal: Soft, non-tender. Bowel sounds normal. Musculoskeletal: No peripheral edema. Neurologic: Oriented to time, person and place, affect appropriate. No focal/major motor defects noted. Psychiatric: Appropriate mood, memory and judgement. VITAL SIGNS: BP 136/80 (BP Site: Right Arm, BP Postition: Sitting) Pulse 80 Ht 162.6 cm (5' 4 ) Wt 78.9 kg(174 lb) SpO2 96% BMI 29.87 kg/m Orders Placed or Reconciled This Encounter Medications verapamiL (VERELAN) 360 MG 24 hr capsule Sig: Take 1 capsule (360 mg total) by mouth nightly. simvastatin (ZOCOR) 40 mg tablet Sig: Take 1 tablet (40 mg total) by mouth nightly. magnesium 200 mg tablet Sig: Take by mouth. There are no discontinued medications. IMPRESSIONS/PLAN 1. Ventricular premature beats - POCT EKG 2. Palpitations - POCT EKG 1. Hx of chrnic HFpEF - Normal EF TTE 2015 2. Essential hypertension 3. Hyperlipidemia - 07/2021: Total cholesterol 159, HDL 40, LDL 94, triglycerides 125 4. PVCs 5. Obesity Continue follow blood pressures continues do to monitor but I do not think I do anything about her PVCs at this time she does say she does have diabetic medicine is working on controlling her sugars TODAYS ORDERS Orders Placed This Encounter Procedures POCT EKG FOLLOW UP No follow-ups on file. PCP: RU Farmer Referring Physician: RU Farmer [address] [place] [address] documented in this [facility]02-15-2024 Miscellaneous Notes* Telephone Encounter - Alba Skinner CMA - 09/23/2023 3:06 PM EST Called patient to remind them to bring their most current copy of their medication list with them to their appt. Patient verbalizes understanding. documented in this [facility]02-15-2024 Telephone encounter Note* Telephone Encounter - Alba Skinner CMA - 09/23/2023 3:06 PM EST Called patient to remind them to bring their most current copy of their medication list with them to their appt. Patient verbalizes understanding. Healthcare03-22-2022 Evaluation note* Encounter Date Diagnosis Assessment Notes Treatment Notes Treatment Clinical Notes Oct, Right hip pain (ICD-10 - [...] next visit. The patient understands and agrees [employer] Other 03-18-2022 NotePROCEDURE: XR HIPS SAMI 5V [...] Electronically authenticated by: JOSEF GUARDADO Date: 2021-10-24 09:26[facility] note* Clinical Note Date No Information [facility] Physicians Work Phone: Discharge summary* Clinical Note Date No Information [facility] Work Phone: Evaluation + Plan note No data available for this section [facility] Evaluation note* Diagnosis Onset Date Resolution Status Admit Date Change in bowel function acute June 26, 2024 1:55pm Diverticulitis acute June 092023 1:55pm [facility] Work Phone: Evaluation note* Diagnosis Type [...] inoculation against influenza documented [facility] encounter [facility] [...] inoculation against influenza documented in this encounter [facility]* Diagnosis Type 2 diabetes mellitus [...] Unspecified essential hypertension documented in this encounter [facility] note* Diagnosis Type 2 diabetes mellitus [...] of insulin (CMS/HCC) documented in this encounter [facility] HealthcareEvaluation note* Diagnosis Type 2 diabetes mellitus [...] of both ears documented in this encounter [facility] HealthcareEvaluation note* Diagnosis Type 2 diabetes mellitus [...] esophagitis Esophageal reflux documented in this encounter [facility] note* Diagnosis Type 2 diabetes mellitus [...] (CMS/HCC) Mixed hyperlipidemia documented in this encounter [facility] note* Diagnosis Essential hypertension- Primary Unspecified essential hypertension Ventricular premature beats Other premature beats Palpitations [facility] Palpitations- Primary Ventricular premature beats Other premature beats [facility] Diagnosis Essential hypertension Unspecified essential hypertension Ventricular premature beats Other premature beats Palpitations [facility] Diagnosis Type 2 diabetes mellitus with [...] acute serous otitis media of both ears Encounter for Medicare annual wellness exam- Primary Chronic low back pain with left-sided sciatica, unspecified back pain laterality Type 2 diabetes mellitus with diabetic polyneuropathy, without long-term current use of insulin (CMS/HCC) Mixed hyperlipidemia (CMS/HCC) Mixed hyperlipidemia Essential hypertension (CMS/HCC) Unspecified essential hypertension documented in this encounter [facility] HealthcareEvaluation note* Diagnosis Mixed hyperlipidemia- Primary Essential hypertension Unspecified essential hypertension Ventricular premature beats Other premature beats Palpitations [facility]* Type Assessment Date No Information [facility] Work Phone: Evaluation note* Diagnosis Type 2 [...] acute serous otitis media of both ears Encounter for Medicare annual wellness exam- Primary Chronic low back pain with left-sided sciatica, unspecified back pain laterality Type 2 diabetes mellitus with diabetic polyneuropathy, without long-term current use of insulin (CMS/HCC) Mixed hyperlipidemia (CMS/HCC) Mixed hyperlipidemia Essential hypertension (CMS/HCC) Unspecified essential hypertension Chronic left-sided low back pain with left-sided sciatica documented in this encounter [facility] HealthcareEvaluation note* Diagnosis Type 2 diabetes mellitus [...] for prophylactic vaccination and inoculation against influenza Encounter for Medicare annual wellness exam- Primary Chronic low back pain with left-sided sciatica, unspecified back pain laterality Type 2 diabetes mellitus with diabetic polyneuropathy, without long-term current use of insulin (CMS/HCC) Mixed hyperlipidemia (CMS/HCC) Mixed hyperlipidemia Essential hypertension (CMS/HCC) Unspecified essential hypertension Type 2 diabetes mellitus with other specified complication, without long-term current use of insulin- Primary Chronic diastolic (congestive) heart failure Essential hypertension (CMS/HCC) Unspecified essential hypertension Mixed hyperlipidemia (CMS/HCC) Mixed hyperlipidemia Encounter for screening mammogram for malignant neoplasm of breast Menopause Symptomatic menopausal or female climacteric states Polyneuropathy associated with underlying disease (CMS/HCC) Chronic left-sided low back pain with left-sided sciatica Bruit of right carotid artery documented in this encounter [facility] Healthcare[facility]* Diagnosis Type 2 diabetes [...] for prophylactic vaccination and inoculation against influenza Encounter for Medicare annual wellness exam- Primary Chronic low back pain with left-sided sciatica, unspecified back pain laterality Type 2 diabetes mellitus with diabetic polyneuropathy, without long-term current use of insulin (CMS/HCC) Mixed hyperlipidemia (CMS/HCC) Mixed hyperlipidemia Essential hypertension (CMS/HCC) Unspecified essential hypertension Type 2 diabetes mellitus with other specified complication, without long-term current use of insulin- Primary Chronic diastolic (congestive) heart failure Essential hypertension (CMS/HCC) Unspecified essential hypertension Mixed hyperlipidemia (CMS/HCC) Mixed hyperlipidemia Encounter for screening mammogram for malignant neoplasm of breast Menopause Symptomatic menopausal or female climacteric states Polyneuropathy associated with underlying disease (CMS/HCC) Chronic left-sided low back pain with left-sided sciatica Bruit of right carotid artery Multiple thyroid nodules (CMS/HCC)- Primary Nontoxic multinodular goiter documented in this encounter [facility] HealthcareEvaluation note* Diagnosis Type 2 diabetes mellitus [...] for prophylactic vaccination and inoculation against influenza Encounter for Medicare annual wellness exam- Primary Chronic low back pain with left-sided sciatica, unspecified back pain laterality Type 2 diabetes mellitus with diabetic polyneuropathy, without long-term current use of insulin (CMS/HCC) Mixed hyperlipidemia (CMS/HCC) Mixed hyperlipidemia Essential hypertension (CMS/HCC) Unspecified essential hypertension Type 2 diabetes mellitus with other specified complication, without long-term current use of insulin- Primary Chronic diastolic (congestive) heart failure Essential hypertension (CMS/HCC) Unspecified essential hypertension Mixed hyperlipidemia (CMS/HCC) Mixed hyperlipidemia Encounter for screening mammogram for malignant neoplasm of breast Menopause Symptomatic menopausal or female climacteric states Polyneuropathy associated with underlying disease (CMS/HCC) Chronic left-sided low back pain with left-sided sciatica Bruit of right carotid artery Multiple thyroid nodules (CMS/HCC)- Primary Nontoxic multinodular goiter documented in this encounter [facility] HealthcareEvaluation note* Diagnosis Type 2 diabetes mellitus [...] for prophylactic vaccination and inoculation against influenza Encounter for Medicare annual wellness exam- Primary Chronic low back pain with left-sided sciatica, unspecified back pain laterality Type 2 diabetes mellitus with diabetic polyneuropathy, without long-term current use of insulin (CMS/HCC) Mixed hyperlipidemia (CMS/HCC) Mixed hyperlipidemia Essential hypertension (CMS/HCC) Unspecified essential hypertension Type 2 diabetes mellitus with other specified complication, without long-term current use of insulin- Primary Chronic diastolic (congestive) heart failure Essential hypertension (CMS/HCC) Unspecified essential hypertension Mixed hyperlipidemia (CMS/HCC) Mixed hyperlipidemia Encounter for screening mammogram for malignant neoplasm of breast Menopause Symptomatic menopausal or female climacteric states Polyneuropathy associated with underlying disease (CMS/HCC) Chronic left-sided low back pain with left-sided sciatica Bruit of right carotid artery Gastroesophageal reflux disease without esophagitis Esophageal reflux Essential hypertension (CMS/HCC) Unspecified essential hypertension documented in this encounter [facility] HealthcareEvaluation note* Diagnosis Type 2 diabetes mellitus [...] for prophylactic vaccination and inoculation against influenza Encounter for Medicare annual wellness exam- Primary Chronic low back pain with left-sided sciatica, unspecified back pain laterality Type 2 diabetes mellitus with diabetic polyneuropathy, without long-term current use of insulin (CMS/HCC) Mixed hyperlipidemia (CMS/HCC) Mixed hyperlipidemia Essential hypertension (CMS/HCC) Unspecified essential hypertension Type 2 diabetes mellitus with other specified complication, without long-term current use of insulin- Primary Chronic diastolic (congestive) heart failure Essential hypertension (CMS/HCC) Unspecified essential hypertension Mixed hyperlipidemia (CMS/HCC) Mixed hyperlipidemia Encounter for screening mammogram for malignant neoplasm of breast Menopause Symptomatic menopausal or female climacteric states Polyneuropathy associated with underlying disease (CMS/HCC) Chronic left-sided low back pain with left-sided sciatica Bruit of right carotid artery Mixed hyperlipidemia (CMS/HCC)- Primary Mixed hyperlipidemia documented in this encounter [facility]* [...] for prophylactic vaccination and inoculation against influenza Encounter for Medicare annual wellness exam- Primary Chronic low back pain with left-sided sciatica, unspecified back pain laterality Type 2 diabetes mellitus with diabetic polyneuropathy, without long-term current use of insulin (CMS/HCC) Mixed hyperlipidemia (CMS/HCC) Mixed hyperlipidemia Essential hypertension (CMS/HCC) Unspecified essential hypertension Type 2 diabetes mellitus with other specified complication, without long-term current use of insulin- Primary Chronic diastolic (congestive) heart failure Essential hypertension (CMS/HCC) Unspecified essential hypertension Mixed hyperlipidemia (CMS/HCC) Mixed hyperlipidemia Encounter for screening mammogram for malignant neoplasm of breast Menopause Symptomatic menopausal or female climacteric states Polyneuropathy associated with underlying disease (CMS/HCC) Chronic left-sided low back pain with left-sided sciatica Bruit of right carotid artery Fatigue, unspecified type- Primary Multiple thyroid nodules (CMS/HCC) Nontoxic multinodular goiter History of goiter documented in this encounter [facility] HealthcareEvaluation note* Diagnosis Type 2 diabetes mellitus with diabetic polyneuropathy, without long-term current use of insulin (HCC)- Primary Chronic diastolic heart failure (HCC) Chronic diastolic heart failure Essential hypertension Unspecified essential hypertension Chronic left-sided low back pain with left-sided sciatica Mixed hyperlipidemia Mixed hyperlipidemia Screening mammogram, encounter for Encounter for Medicare annual wellness exam Type 2 diabetes mellitus with diabetic polyneuropathy, without long-term current use of insulin (HCC)- Primary Chronic diastolic (congestive) heart failure (I50.32) Essential hypertension Unspecified essential hypertension Chronic diastolic heart failure (HCC) Chronic diastolic heart failure Type 2 diabetes mellitus with diabetic polyneuropathy, without long-term current use of insulin (HCC)- Primary Mixed hyperlipidemia Mixed hyperlipidemia Essential hypertension Unspecified essential hypertension Chronic left-sided low back pain with left-sided sciatica Diverticulitis Diverticulitis of colon (without mention of hemorrhage) Type 2 diabetes mellitus with diabetic polyneuropathy, without long-term current use of insulin (HCC)- Primary Essential hypertension Unspecified essential hypertension Chronic diastolic heart failure (HCC) Chronic diastolic heart failure Mixed hyperlipidemia Mixed hyperlipidemia Need for immunization against influenza Need for prophylactic vaccination and inoculation against influenza Encounter for Medicare annual wellness exam- Primary Chronic low back pain with left-sided sciatica, unspecified back pain laterality Type 2 diabetes mellitus with diabetic polyneuropathy, without long-term current use of insulin (HCC) Mixed hyperlipidemia Mixed hyperlipidemia Essential hypertension Unspecified essential hypertension Type 2 diabetes mellitus with other specified complication, without long-term current use of insulin (HCC)- Primary Chronic diastolic (congestive) heart failure (HCC) Essential hypertension Unspecified essential hypertension Mixed hyperlipidemia Mixed hyperlipidemia Encounter for screening mammogram for malignant neoplasm of breast Menopause Symptomatic menopausal or female climacteric states Polyneuropathy associated with underlying disease (HCC) Chronic left-sided low back pain with left-sided sciatica Bruit of right carotid artery History of goiter- Primary Thyroid nodule Nontoxic uninodular goiter documented in this encounter [facility] HealthcareEvaluation note* Diagnosis Type 2 diabetes mellitus with diabetic polyneuropathy, without long-term current use of insulin (HCC)- Primary Chronic diastolic heart failure (HCC) Chronic diastolic heart failure Essential hypertension Unspecified essential hypertension Chronic left-sided low back pain with left-sided sciatica Mixed hyperlipidemia Mixed hyperlipidemia Screening mammogram, encounter for Encounter for Medicare annual wellness exam Type 2 diabetes mellitus with diabetic polyneuropathy, without long-term current use of insulin (HCC)- Primary Chronic diastolic (congestive) heart failure (I50.32) Essential hypertension Unspecified essential hypertension Chronic diastolic heart failure (HCC) Chronic diastolic heart failure Type 2 diabetes mellitus with diabetic polyneuropathy, without long-term current use of insulin (HCC)- Primary Mixed hyperlipidemia Mixed hyperlipidemia Essential hypertension Unspecified essential hypertension Chronic left-sided low back pain with left-sided sciatica Diverticulitis Diverticulitis of colon (without mention of hemorrhage) Type 2 diabetes mellitus with diabetic polyneuropathy, without long-term current use of insulin (HCC)- Primary Essential hypertension Unspecified essential hypertension Chronic diastolic heart failure (HCC) Chronic diastolic heart failure Mixed hyperlipidemia Mixed hyperlipidemia Need for immunization against influenza Need for prophylactic vaccination and inoculation against influenza Encounter for Medicare annual wellness exam- Primary Chronic low back pain with left-sided sciatica, unspecified back pain laterality Type 2 diabetes mellitus with diabetic polyneuropathy, without long-term current use of insulin (HCC) Mixed hyperlipidemia Mixed hyperlipidemia Essential hypertension Unspecified essential hypertension Type 2 diabetes mellitus with other specified complication, without long-term current use of insulin (HCC)- Primary Chronic diastolic (congestive) heart failure (HCC) Essential hypertension Unspecified essential hypertension Mixed hyperlipidemia Mixed hyperlipidemia Encounter for screening mammogram for malignant neoplasm of breast Menopause Symptomatic menopausal or female climacteric states Polyneuropathy associated with underlying disease (HCC) Chronic left-sided low back pain with left-sided sciatica Bruit of right carotid artery Thyroid nodule- Primary Nontoxic uninodular goiter History of goiter documented in this encounter [facility]* Diagnosis Type 2 diabetes mellitus with diabetic polyneuropathy, without long-term current use of insulin (HCC)- Primary Chronic diastolic heart failure (HCC) Chronic diastolic heart failure Essential hypertension Unspecified essential hypertension Chronic left-sided low back pain with left-sided sciatica Mixed hyperlipidemia Mixed hyperlipidemia Screening mammogram, encounter for Encounter for Medicare annual wellness exam Type 2 diabetes mellitus with diabetic polyneuropathy, without long-term current use of insulin (HCC)- Primary Chronic diastolic (congestive) heart failure (I50.32) Essential hypertension Unspecified essential hypertension Chronic diastolic heart failure (HCC) Chronic diastolic heart failure Type 2 diabetes mellitus with diabetic polyneuropathy, without long-term current use of insulin (HCC)- Primary Mixed hyperlipidemia Mixed hyperlipidemia Essential hypertension Unspecified essential hypertension Chronic left-sided low back pain with left-sided sciatica Diverticulitis Diverticulitis of colon (without mention of hemorrhage) Type 2 diabetes mellitus with diabetic polyneuropathy, without long-term current use of insulin (HCC)- Primary Essential hypertension Unspecified essential hypertension Chronic diastolic heart failure (HCC) Chronic diastolic heart failure Mixed hyperlipidemia Mixed hyperlipidemia Need for immunization against influenza Need for prophylactic vaccination and inoculation against influenza Encounter for Medicare annual wellness exam- Primary Chronic low back pain with left-sided sciatica, unspecified back pain laterality Type 2 diabetes mellitus with diabetic polyneuropathy, without long-term current use of insulin (HCC) Mixed hyperlipidemia Mixed hyperlipidemia Essential hypertension Unspecified essential hypertension Type 2 diabetes mellitus with other specified complication, without long-term current use of insulin (HCC)- Primary Chronic diastolic (congestive) heart failure (HCC) Essential hypertension Unspecified essential hypertension Mixed hyperlipidemia Mixed hyperlipidemia Encounter for screening mammogram for malignant neoplasm of breast Menopause Symptomatic menopausal or female climacteric states Polyneuropathy associated with underlying disease (HCC) Chronic left-sided low back pain with left-sided sciatica Bruit of right carotid artery Type 2 diabetes mellitus with other specified complication, without long-term current use of insulin (HCC)- Primary Essential hypertension Unspecified essential hypertension Mixed hyperlipidemia Mixed hyperlipidemia Tick bite of left ear, initial encounter Bug bite, initial encounter documented in this encounter [facility] HealthcareHistory and physical note* Clinical Note Date No Information [facility] Work Phone: History general Narrative - Reported* Type Description Date [...] [place] 11/2018 Hospitalization History See Sx Hx [employer] Other Hospital Discharge instructions No data available for this section [facility] InstructionsNot on filedocumented [facility] this [facility] Clinical Note Date No Information [facility] Work Phone: Progress note No data available for this section [facility] Reason for referral (narrative)* Consultation (Routine) - Authorized Specialty Diagnoses / Procedures Referred By Don rodney Referred To Contact Gastroenterology Diagnoses Diverticulitis Procedures [place] OFFICE/OUTPATIENT [facility] 60 MINUTES Jayshree Conner NP [address] [place] [address] Michael Pierce MD [address] [address] Referral ID Status Reason Start Date Expiration Date Visits Requested Visits Authorized [id number] Authorized Specialty Services Required 03/28/2024 09/24/2024 1 1 Scheduling Instructions Please include OV note [facility] for [facility] (narrative)* Reason For Referral No Information [facility] Work Phone: Summary Purpose Family History No Family History Records Found Relationship Condition Age at Onset Recorded Date/T ronald father Irregular heart rhythm Unknown father Unknown mother Unknown Family Member Type Diagnosis Age At Onset Mother Problem Cancer, lung Sister Problem Diabetes mellitus Sister Problem AFIB Father Problem Cancer, colon Advance Directives No Advanced Directives Records Found Advance Directive Response Recorded Date/ Time Advance Directives No September 14, 2018 1:23pm Directive Yes / No Effective Date File Name No Information Chief Complaint and Reason for Visit Chief Complaint Admit Date Refer: diverticulitis June 26 1:55pm Reason for Visit Admit Date Change in bowel function June 26, 2024 1:55pm Diverticulitis June 26, 2024 1:55pm Additional Source Comments REASON FOR VISIT (unrecogniz ed section and content) Reason Comments Follow-up Reason Comments Med Refill [...] Reason Onset Date Comments Med Refill 09/21/2024 Reason Onset Date Comments Med Refill 09/09/2023 Reason Comments Follow-up EST PT L/S MS 03/12/20 22 NO TESTS SCHED W/PT Reason Onset Date Comments Med Refill 06/15/2024 Reason Comments Medicare Annual Wellness Visit Subsequen t Reason Onset Date Comments Med Refill 11/02/2024 Reason Comments Diabetes Reason Onset Date Comments Med Refill 12/14/2024 Reason Comments Thyroid Nodule New Patient : right thyroid nodule Specialty Diagnoses / Procedures Referred By Don rodney Referred To Contact Otolaryngology Diagnoses Multiple thyroid nodules (CMS/HCC) Procedures [place] OFFICE/OUTPATIENT NEW [facility] 60 MINUTES Destiny Mccartney NP [address] [place] [address] Phone: tel: fax: Maurisio Padilla DO [address] [place] [address] Phone: tel: fax: Referral ID Status Reason Start Date Expiration Date V isits Requested Visits Authorized [id number] Closed Specialty Services Required 12/04/2024 06/02/2025 1 1 Reason Comments Thyroid Nodule FNA Reason Comments Thyroid Nodule FNA results Reason Comments Diabetes INFORMATION SOURCE (unrecogn ized section and content) DATE CREATED AUTHOR 09/02/2022 [facility] DATE CREATED AUTHOR AUTHOR'S ORGANIZ ATION 09/26/2023 [facility] DATE CREATED AUTHOR AUTHOR'S ORGANIZ ATION 08/11/2024 [facility] DATE CREATED AUTHOR AUTHOR'S ORGANIZ ATION 01/18/2025 [facility] DATE CREATED AUTHOR AUTHOR'S ORGANIZ ATION 01/21/2025 [facility] DATE CREATED AUTHOR AUTHOR'S ORGANIZ ATION 01/28/2025 [facility] DATE CREATED AUTHOR AUTHOR'S ORGANIZ ATION 02/09/2025 [facility] DATE CREATED AUTHOR AUTHOR'S ORGANIZ ATION 03/16/2025 [facility] Care Teams (unrecognized sec tion and content) Team Status: Active Member Role Status Dates Chelo Oro APRN STUDENT FINANCIAL AID MANAGER-C Primary Care Provider Active Team Status: Inactive Member Role Status Dates Chelo Oro APRN STUDENT FINANCIAL AID MANAGER-C Primary Care Provider Active Start: June 26, 2024 End: June 26, 2024 Negrita Van DO Attending Provider Active St art: June 26, 2024 End: June 26, 2024 Research Technologist Relationship Specialty Start Date End Date Shaikh Burks MD [address] [place] [address] PCP - [employer] 10/08/23 Jerome Coles MD [address] [place] [address] PCP - General Family Medicine 03/28/24 Jayshree Conner NP [address] [place] [address] Nurse Practitioner Family Medicine 03/28/24 Research Technologist Relationship Specialty Start Date End Date Shaikh Burks MD [address] [place] [address] PCP - [employer] 10/08/23 Jerome Coles MD [address] [place] [address] PCP - General Family Medicine 03/28/24 Jayshree Conner NP [address] [place] [address] Nurse Practitioner Family Medicine 03/28/24 Research Technologist Relationship Specialty Start Date End Date Shaikh Burks MD [address] [place] [address] PCP - [employer] 10/08/23 Jerome Coles MD [address] [place] [address] PCP - General Family Medicine 03/28/24 Jayshree Conner NP [address] [place] [address] Nurse Practitioner Family Medicine 03/28/24 Research Technologist Relationship Specialty Start Date End Date Shaikh Burks MD [address] [place] [address] PCP - [employer] 10/08/23 Jerome Coles MD [address] [place] [address] PCP - General Family Medicine 03/28/24 Jayshree Conner NP [address] [place] [address] Nurse Practitioner Family Medicine 03/28/24 Research Technologist Relationship Specialty Start Date End Date Shaikh Burks MD [address] [place] [address] PCP - General Internal Medicine 11/30/23 Shaikh Burks MD [address] [place] [address] PCP - [employer] 10/08/23 Research Technologist Relationship Specialty Start Date End Date Shaikh Burks MD [address] [place] [address] PCP - [employer] 10/08/23 Jerome Coles MD [address] [place] [address] PCP - General Family Medicine 03/28/24 Jayshree Conner NP [address] [place] [address] Nurse Practitioner Family Medicine 03/28/24 Research Technologist Relationship Specialty Start Date End Date Shaikh Burks MD [address] [place] [address] PCP - [employer] 10/08/23 Jerome Coles MD [address] [place] [address] PCP - General Family Medicine 03/28/24 Jayshree Conner NP [address] [place] [address] Nurse Practitioner Family Medicine 03/28/24 Research Technologist Relationship Specialty Start Date End Date Shaikh Burks MD [address] [place] [address] PCP - [employer] 10/08/23 Jerome Coles MD [address] [place] [address] PCP - General Family Medicine 03/28/24 Jayshree Conner NP [address] [place] [address] Nurse Practitioner Family Medicine 03/28/24 Research Technologist Relationship Specialty Start Date End Date Shaikh Burks MD [address] [place] [address] PCP - [employer] 10/08/23 Jerome Coles MD [address] [place] [address] PCP - General Family Medicine 03/28/24 Jayshree Conner NP [address] [place] [address] Nurse Practitioner Family Medicine 03/28/24 Research Technologist Relationship Specialty Start Date End Date Shaikh Burks MD [address] [place] [address] PCP - [employer] 10/08/23 Jerome Coles MD [address] [place] [address] PCP - General Family Medicine 03/28/24 Jayshree Conner NP [address] [place] [address] Nurse Practitioner Family Medicine 03/28/24 Research Technologist Relationship Specialty Start Date End Date Shaikh Burks MD [address] [place] [address] PCP - [employer] 10/08/23 Jerome Coles MD [address] [place] [address] PCP - General Family Medicine 03/28/24 Jayshree Conner NP [address] [place] [address] Nurse Practitioner Family Medicine 03/28/24 Research Technologist Relationship Specialty Start Date End Date Chelo Oro VOCATIONAL SCHOOL TEACHER-ACCOUNTS RECEIVABLE CLERK PCP - General Nurse Practitioner 12/09/20 Research Technologist Relationship Specialty Start Date End Date Shaikh Burks MD [address] [place] [address] PCP - [employer] 10/08/23 Jerome Coles MD [address] [place] [address] PCP - General Family Medicine 03/28/24 Jayshree Conner, FAVIOLA [address] [place] [address] Nurse Practitioner Family Medicine 03/28/24 Research Technologist Relationship Specialty Start Date End Date Chelo Oro APRN-ACCOUNTS RECEIVABLE CLERK [address] [place] [address] PCP - General Nurse Practitioner 12/09/20 Research Technologist Relationship Specialty Start Date End Date Chelo Oro VOCATIONAL SCHOOL TEACHER-ACCOUNTS RECEIVABLE CLERK [address] [place] [address] PCP - General Nurse Practitioner 12/09/20 Research Technologist Relationship Specialty Start Date End Date Chelo Oro, VOCATIONAL SCHOOL TEACHER-ACCOUNTS RECEIVABLE CLERK [address] [place] [address] PCP - General Nurse Practitioner 12/09/20 Research Technologist Relationship Specialty Start Date End Date ChaseChelo, VOCATIONAL SCHOOL TEACHER-ACCOUNTS RECEIVABLE CLERK PCP - General Nurse Practitioner 12/09/20 Research Technologist Relationship Specialty Start Date End Date Shaikh Burks MD [address] [place] [address] PCP - [employer] 10/08/23 Jerome Coles MD [address] [place] [address] PCP - General Family Medicine 03/28/24 Jayshree Conner NP [address] [place] [address] Nurse Practitioner Family Medicine 03/28/24 Research Technologist Relationship Specialty Start Date End Date Shaikh Burks MD [address] [place] [address] PCP - [employer] 10/08/23 Jerome Coles MD [address] [place] [address] PCP - General Family Medicine 03/28/24 Jayshree Conner NP [address] [place] [address] Nurse Practitioner Family Medicine 03/28/24 Research Technologist Relationship Specialty Start Date End Date Shaikh Burks MD [address] [place] [address] PCP - [employer] 10/08/23 Jerome Coles MD [address] [place] [address] PCP - General Family Medicine 03/28/24 Jayshree Conner NP [address] [place] [address] Nurse Practitioner Family Medicine 03/28/24 Research Technologist Relationship Specialty Start Date End Date Chelo Oro, VOCATIONAL SCHOOL TEACHER-ACCOUNTS RECEIVABLE CLERK PCP - General Nurse Practitioner 12/09/20 Name Effective Dates (start - stop) Status Members No Information Research Technologist Relationship Specialty Start Date End Date Shaikh Burks MD [address] [place] [address] PCP - [employer] 10/08/23 Jerome Coles MD [address] [place] [address] PCP - General Family Medicine 03/28/24 Jayshree Conner STUDENT FINANCIAL AID MANAGER [address] [place] [address] Nurse Practitioner Family Medicine 03/28/24 Research Technologist Relationship Specialty Start Date End Date Shaikh Burks MD [address] [place] [address] PCP - [employer] 10/08/23 Jerome Coles MD [address] [place] [address] PCP - General Family Medicine 03/28/24 Jayshree Conner NP [address] [place] [address] Nurse Practitioner Family Medicine 03/28/24 Research Technologist Relationship Specialty Start Date End Date Shaikh Burks MD [address] [place] [address] PCP - [employer] 10/08/23 Jerome Coles MD [address] [place] [address] PCP - General Family Medicine 03/28/24 Jayshree Conner NP [address] [place] [address] Nurse Practitioner Family Medicine 03/28/24 Research Technologist Relationship Specialty Start Date End Date Shaikh Burks MD [address] [place] [address] PCP - [employer] 10/08/23 Jerome Coles MD [address] [place] [address] PCP - General Family Medicine 03/28/24 Jayshree Conner NP [address] [place] [address] Nurse Practitioner Family Medicine 03/28/24 Research Technologist Relationship Specialty Start Date End Date Fawwad, Hannah, MD [address] [place] [address] PCP - [employer] 10/08/23 Jerome Coles MD [address] [place] [address] PCP - General Family Medicine 03/28/24 Jayshree Conner NP [address] [place] [address] Nurse Practitioner Family Medicine 03/28/24 Research Technologist Relationship Specialty Start Date End Date Shaikh Burks MD [address] [place] [address] PCP - [employer] 10/08/23 Jerome Coles MD [address] [place] [address] PCP - General Family Medicine 03/28/24 Jayshree Conner NP [address] [place] [address] Nurse Practitioner Family Medicine 03/28/24 Research Technologist Relationship Specialty Start Date End Date Shaikh Burks MD [address] [place] [address] PCP - [employer] 10/08/23 Jerome Coles MD [address] [place] [address] PCP - General Family Medicine 03/28/24 Jayshree Conner NP [address] [place] [address] Nurse Practitioner Family Medicine 03/28/24 Research Technologist Relationship Specialty Start Date End Date Shaikh Burks MD [address] [place] [address] PCP - [employer] 10/08/23 Jerome Coles MD [address] [place] [address] PCP - General Family Medicine 03/28/24 Jayshree Conner NP [address] [place] [address] Nurse Practitioner Family Medicine 03/28/24 Research Technologist Relationship Specialty Start Date End Date Shaikh Burks MD [address] [place] [address] PCP - [employer] 10/08/23 Jerome Coles MD [address] [place] [address] PCP - General Family Medicine 03/28/24 Jayshree Conner NP [address] [place] [address] Nurse Practitioner Family Medicine 03/28/24 Research Technologist Relationship Specialty Start Date End Date Shaikh Burks MD [address] [place] [address] PCP - [employer] 10/08/23 Jerome Coles MD [address] [place] [address] PCP - General Family Medicine 03/28/24 Jayshree Conner NP [address] [place] [address] Nurse Practitioner Family Medicine 03/28/24 Research Technologist Relationship Specialty Start Date End Date Shaikh Burks MD [address] [place] [address] PCP - [employer] 10/08/23 Jerome Coles MD [address] [place] [address] PCP - General Family Medicine 03/28/24 Jayshree Conner NP [address] [place] [address] Nurse Practitioner Family Medicine 03/28/24 Research Technologist Relationship Specialty Start Date End Date Shaikh Burks MD [address] [place] [address] PCP - [employer] 10/08/23 Jerome Coles MD [address] [place] [address] PCP - General Family Medicine 03/28/24 Jayshree Conner NP [address] [place] [address] Nurse Practitioner Family Medicine 03/28/24 Destiny Mccartney NP [address] [place] [address] Nurse Practitioner Family Medicine 01/18/25 Maurisio Padilla DO [address] [place] [place] [address] Otolaryngology 01/18/25 Research Technologist Relationship Specialty Start Date End Date Shaikh Burks MD [address] [place] [address] PCP - [employer] 10/08/23 Jerome Coles MD [address] [place] [address] PCP - General Family Medicine 03/28/24 Jayshree Conner NP [address] [place] [address] Nurse Practitioner Family Medicine 03/28/24 Destiny Mccartney, FAVIOLA [address] [place] [address] Nurse Practitioner Family Medicine 01/18/25 Maurisio Padilla DO [address] [place] [address] Otolaryngology 01/18/25 Research Technologist Relationship Specialty Start Date End Date Shaikh Burks MD [address] [place] [address] PCP - [employer] 10/08/23 Jerome Coles MD [address] [place] [address] PCP - General Family Medicine 03/28/24 Jayshree Conner NP [address] [place] [address] Nurse Practitioner Family Medicine 03/28/24 Destiny Mccartney NP [address] [place] [address] Nurse Practitioner Family Medicine 01/18/25 Maurisio Padilla DO [address] [place] [address] Otolaryngology 01/18/25 Research Technologist Relationship Specialty Start Date End Date Shaikh Burks MD [address] [place] [address] PCP - [employer] 10/08/23 Jerome Coles MD [address] [place] [address] PCP - General Family Medicine 03/28/24 Jayshree Conner NP [address] [place] [address] Nurse Practitioner Family Medicine 03/28/24 Destiny Mccartney NP [address] [place] [address] Nurse Practitioner Family Medicine 01/18/25 Maurisio Padilla DO [address] [place] [address] Otolaryngology 01/18/25 Research Technologist Relationship Specialty Start Date End Date Shaikh Burks MD [address] [place] [address] PCP - [employer] 10/08/23 Jerome Coles MD [address] [place] [address] PCP - General Family Medicine 03/28/24 Jayshree Conner NP [address] [place] [address] Nurse Practitioner Family Medicine 03/28/24 Destiny Mccartney NP [address] [place] [address] Nurse Practitioner Family Medicine 01/18/25 Maurisio Padilla DO [address] [place] [address] Otolaryngology 01/18/25 Goals (unrecognized section and content) Goals may [...] BE BASED ON THE PRIMARY CLINICAL RECORDS. [facility] [employer] [facility]. provides no warranty or guarantee of the accuracy or completeness of information in this document.
[2025-03-22] MEDS: ONDANSETRON 4 MG RAPDIS TABLET SL (19:19)
[2025-03-22] MEDS: MORPHINE SULFATE 2 MG/ML SYRINGE IM (19:20)
--- NOTE | 2025-03-22 19:26 | PC.NURSE ---
assumed care of this pt, she is alert x 3, has c collar in place, pt family at bedside, she is medicated for pain
[2025-03-22] MEDS: OXYCODONE HCL/ACETAMINOPHEN 5MG/325MG 1 TAB PO (20:38)
[2025-03-22] MEDS: ORPHENADRINE 60 MG/2 ML VIAL IM (20:39)
--- NOTE | 2025-03-22 21:32 | ECG_ITS ---
[facility] Test Date: 2025-03-22 Pat Name: KYARA NEFF Department: Room: - Gender: Female Kettle Firer: : 1950 Requested By: [id number] Order Number: [id number] Reading MD: CHRISTIANO TELLO M.D. Measurements Intervals [place] Rate: 89 P: 53 [place]: 172 QRS: -27 QRSD: 100 T: 53 QT: 374 QTc: 421 Interpretive Statements 1100 Sinus rhythm 1570 with occasional ventricular premature complexes 7202 Moderate left axis deviation 9140 abnormal rhythm ECG No previous ECG available for comparison Electronically Signed On 03-23-2025 20:49:18 EDT by CHRISTIANO TELLO M.D.
== END 2025-03-22 21:36 | disposition home or self-care (01) ==
PROVIDERS: Emergency Provider Emergency Medicine; PCP Nurse Practitioner
DX: S20.219A Contusion of unspecified front wall of thorax, initial encounter (principal); M54.6 Pain in thoracic spine; V49.40XA Driver injured in collision with unspecified motor vehicles in traffic accident, initial encounter; V49.49XA Driver injured in collision with other motor vehicles in traffic accident, initial encounter; R07.89 Other chest pain; M54.2 Cervicalgia
CPT/HCPCS: 70450; 71250; 72125; 72128; 72131; 93005; 96372; 99285; J2270; J2360; Q0162

== ENCOUNTER 2025-03-30 21:12 | Emergency (ER) | payer OTHER, MEDICARE, SELFPAY ==
--- OUTSIDE RECORDS SUMMARY | 2025-03-30 21:17 | XMS_ITS | Encounter Summary ---
Author Organization [facility] Address [id number] [address] [place] [address] Care Team Providers Care Box Gluer Name Role Phone Chelo Stone CUTTING MACHINE FIXER-SHERIFF'S DETECTIVE Primary Care Provider [phone] Encounter Details Date Type Department Care Team (Late st Contact Info) Description 09/20/2023 Orders Only [facility] [address] [place] [address] Alba Skinner CMA Essential hypertension; Ventricular premature beats Social History Tobacco Use Types Packs/Day Years Used Date Smoking Tobacco: Never Smokeless Tobacco: Never Alcohol Use Standard Drinks/Week Comments Yes 0 (1 standard drink = 0.6 oz pur e alcohol) socially Childcare Answer Date Recorded Childcare Unknown 01/18/2019 Employment Answer Date Recorded Employment Unknown 01/18/2019 Hunger Screening Answer Date Recorded Within the past 12 months we worried whether our food would run out before we got money to buy more. Never True 09/24/2023 Within the past 12 months th e food we bought just didn't last and we didn't have money to get more. Never True 09/24/2023 Purpose - Life Answer Date Recorded Purpose and direction in life Unknown Comments No Sex and Gender Information Value Date Recorded Sex Assigned at Not on file Legal Sex Female 11:28 AM EDT Gender Identity Not on file Sexual Orientation Not on file documented as of this encounter Plan of Treatment Not on file documented as of this encounter Procedures Procedure Name Priority Date/Time Associated Diagnosis Comments LIPID PROFILE Routine 09/20/2023 8:45 AM EST MULTIPLE LABS Routine 09/20/2023 8:45 AM EST LIPID PROFILE Routine 09/17/2023 Essential hypertension Ventricular premature beats COMPREHENSIVE METABOLIC PANEL Routine 09/17/2023 Essential hypertension Ventricular premature beats documented in this encounter Results * Lipid profile (09/20/2023 8:45 AM EST) us Scanning Provider External LAB BLOOD ORDERABLES Final Result Performing Organization Address [facility] de Phone Number MANUALLY TRANSCRIBED RESULTS * Multiple labs (09/20/2023 8:45 AM EST) us Scanning Provider External NM IMAGING Final Result Performing Organization Address [facility] de Phone Number MANUALLY TRANSCRIBED RESULTS * Comprehensive metabolic panel (09/17/2023) 09/17/2023 us Doris Blair MD LAB BLOOD ORDERABLES Final Re sult Performing Organization Address [facility] Co de Phone Number SUNQUEST * Lipid profile (09/17/2023) External Cholesterol 164 [facility]QUEST External Cholesterol:Hdl 2.9 [facility] External Hdl Cholesterol 56 [facility] External Ldl (Calc) 87.2 [facility] External Triglycerides 104 [facility]QUEST External Very Low Lipoprotein 20.8 [facility]QUEST 09/17/2023 us Doris Blair MD LAB BLOOD ORDERABLES Final Re sult Performing Organization Address [facility] de Phone Number SUNQUEST documented in this encounter Visit Diagnoses Diagnosis Essential hypertension Unspecified essential hypertension Ventricular premature beats Other premature beats documented in this encounter Care Teams Box Gluer Relationship Specialty Start Date End Date Chelo Stone, CUTTING MACHINE FIXER-SHERIFF'S DETECTIVE PCP - General Nurse Practitioner 12/09/20 documented as of this encounter
--- OUTSIDE RECORDS SUMMARY | 2025-03-30 21:17 | XMS_ITS | Encounter Summary ---
Author Organization [facility] Address [address] [place] [address] Care Team Providers Care Electronics Technology Instructor Name Role Phone Shaikh ANIBAL Burks Unavailable [phone] Jerome Brody MD Primary Care Provider [phone] Karen Conner FLEXOGRAPHIC PRESS OPERATOR Unavailable [phone] Destiny Mccartney FLEXOGRAPHIC PRESS OPERATOR Unavailable [phone] Maurisio Crow DO Unavailable [phone] Encounter Details Date Type Department Care Team (Late Contact Info) Description 11/29/2024 Results Follow-Up [facility] [address] [place] [address] [place] thyroid Social History Tobacco Use Types Packs/Day Years Used Date Smoking Tobacco: Never Passive Smoke Exposure: Never Smokeless Tobacco: Never Alcohol Use Standard Drinks/Week Comments Yes 0 (1 standard drink = 0.6 oz pur e alcohol) OCCASSIONALLY PHQ-2 Answer Date Recorded Patient Health Questionnaire-2 Score 0 09/28/2024 Comments No Sex and Gender Information Value Date Recorded Sex Assigned at Not on file Legal Sex Female 8:13 PM EDT Gender Identity Not on file Sexual Orientation Not on file documented as of this encounter Plan of Treatment Upcoming Encounters Date Type Department Care Team ([facility] Contact Info) Description 04/10/2025 1:00 PM EDT Office Visit [facility] [address] [place] [address] Destiny Mccartney, FAVIOLA [address] [place] [address] 05/10/2025 8:40 AM EDT Office Visit [facility] [address] [place] [address] Destiny Mccartney, FAVIOLA [address] [place] [address] 08/07/2025 1:45 PM EST Office Visit [facility] [address] [place] [address] Maurisio Crow, DO [address] [place] [address] 10/01/2025 10:00 AM EST Office Visit [facility] [address] [place] [address] Destiny Mccartney, FAVIOLA [address] [place] [address] documented as of this encounter Visit Diagnoses Not on filedocumented in this encounter Additional Health Concerns Assessment Noted Time PHQ-9 Depression Total Score: 0 09/28/19 25 10:00 AM EST documented as of this encounter Care Teams Electronics Technology Instructor Relationship Specialty Start Date End Date Shaikh Burks MD [address] [place] [address] PCP - [employer] 10/08/23 Jerome Brody MD [address] [place] [address] PCP - General Family Medicine 03/28/24 Karen Conner NP [address] [place] [address] Nurse Practitioner Family Medicine 03/28/24 Destiny Mccartney NP [address] [place] [address] Nurse Practitioner Family Medicine 01/18/25 Maurisio Crow DO [address] [place] [address] Otolaryngology 01/18/25 documented as of this encounter
--- OUTSIDE RECORDS SUMMARY | 2025-03-30 21:17 | XMS_ITS | Encounter Summary ---
Author Organization [facility] Address [id number] [address] [place] [address] Care Team Providers Care Scarf And Anneal Operator Name Role Phone Chelo Stone SURG NURSE-MEDICAL LAB ASSISTANT Primary Care Provider [phone] Encounter Details Date Type Department Care Team (Late st Contact Info) Description 03/10/2022 Orders Only [facility] [address] [place] [address] External, Scanning Provider Social History Tobacco Use Types Packs/Day Years Used Date Smoking Tobacco: Never Smokeless Tobacco: Never Alcohol Use Standard Drinks/Week Comments Yes 0 (1 standard drink = 0.6 oz pur e alcohol) socially Childcare Answer Date Recorded Childcare Unknown 01/18/2019 Employment Answer Date Recorded Employment Unknown 01/18/2019 Purpose - Life Answer Date Recorded Purpose and direction in life Unknown Comments No Sex and Gender Information Value Date Recorded Sex Assigned at Not on file Legal Sex Female 11:28 AM EDT Gender Identity Not on file Sexual Orientation Not on file COVID-19 Exposure Response Date Recorded In the last month, have you been in contact with someone who was confirmed or suspected to have Coronavirus / COVID-19? No / Unsure 03/12/2022 7:55 AM EDT documented as of this encounter Plan of Treatment Not on file documented as of this encounter Procedures Procedure Name Priority Date/Time Associated Diagnosis Comments MAGNESIUM Routine 03/09/2022 documented in this encounter Results * Magnesium (03/09/2022) us Scanning Provider External LAB BLOOD ORDERABLES Final Result MANUALLY TRANSCRIBED RESULTS documented in this encounter Visit Diagnoses Not on filedocumented in this encounter Care Teams Scarf And Anneal Operator Relationship Specialty Start Date End Date Chelo Stone, JIM-MEDICAL LAB ASSISTANT PCP - General Nurse Practitioner 12/09/20 documented as of this encounter
--- OUTSIDE RECORDS SUMMARY | 2025-03-30 21:17 | XMS_ITS | Encounter Summary ---
Author Organization [facility] Address [address] [place] [address] Care Team Providers Care Video Arcade Manager Name Role Phone Shaikh ANIBAL Burks Unavailable [phone] Jerome Brody MD Primary Care Provider Karen Conner INVESTOR RELATIONS ANALYST Unavailable Destiny Mccartney INVESTOR RELATIONS ANALYST Unavailable [phone] Maurisio Crow DO Unavailable Reason for Visit * Reason Comments Med Refill Encounter Details Date Type Department Care Team (Late st Contact Info) Description 12/17/2024 Refill [facility] [address] [place] [address] Destiny Mccartney, INVESTOR RELATIONS ANALYST [address] [place] [address] Mixed hyperlipidemia Social History Tobacco Use Types Packs/Day Years [...] on file documented as of this encounter Miscellaneous Notes * Telephone Encounter - Destiny Mccartney NP - 12/17/2024 10:03 AM EDT Contact pt and remind her we need her to get her cholesterol levels checked [place] documented in this encounter Plan of Treatment Upcoming Encounters Date Type Department Care Team (Late st Contact Info) Description 04/10/2025 1:00 PM EDT Office Visit [facility] [address] [place] [address] Destiny Mccartney NP [address] [place] [address] 05/10/2025 8:40 AM EDT Office Visit [facility] [address] [place] [address] Destiny Mccartney NP [address] [place] [address] 08/07/2025 1:45 PM EST Office Visit [facility] [address] [place] [address] Maurisio Crow S, DO [address] [facility] [place] [address] 10/01/2025 10:00 AM EST Office Visit [facility] [address] [place] [address] Destiny Mccartney NP [address] [place] [address] documented as of this encounter Visit Diagnoses Diagnosis Mixed hyperlipidemia Mixed hyperlipidemia documented in this encounter Additional Health Concerns Assessment Noted Time PHQ-9 Depression Total Score: 0 09/28/19 25 10:00 AM EST documented as of this encounter Care Teams Video Arcade Manager Relationship Specialty Start Date End Date Shaikh Burks MD [address] [place] [address] PCP - [employer] 10/08/23 Jerome Brody MD [address] [place] [address] PCP - General Family Medicine 03/28/24 Karen Conner NP [address] [place] [address] Nurse Practitioner Family Medicine 03/28/24 Destiny Mccartney NP [address] [place] [address] Nurse Practitioner Family Medicine 01/18/25 Maurisio Crow DO [address] [place] [address] Otolaryngology 01/18/25 documented as of this encounter
--- OUTSIDE RECORDS SUMMARY | 2025-03-30 21:17 | XMS_ITS | Encounter Summary ---
Author Organization [facility] Address [address] [place] [address] Care Team Providers Care Nursing Agency Manager Name Role Phone Shaikh ANIBAL Burks Unavailable [phone] Jermoe Brody MD Primary Care Provider Karen Conner BUSINESS MACHINE MECHANIC Unavailable Destiny Mccartney BUSINESS MACHINE MECHANIC Unavailable [phone] Maurisio Crow DO Unavailable [phone] Encounter Details Date Type Department Care Team (Late st Contact Info) Description 07/03/2024 Orders Only [facility] [address] [place] [address] Jing Juarez, OD [address] [place] [address] Social History Tobacco Use Types Packs/Day Years Used Date Smoking Tobacco: Never Passive Smoke Exposure: Never Smokeless Tobacco: Never Alcohol Use Standard Drinks/Week Comments Yes 0 (1 standard drink = 0.6 oz pur e alcohol) OCCASSIONALLY PHQ-2 Answer Date Recorded Patient Health Questionnaire-2 Score 0 03/28/2024 Comments No Sex and Gender Information Value Date Recorded Sex Assigned at Not on file Legal Sex Female 8:13 PM EDT Gender Identity Not on file Sexual Orientation Not on file documented as of this encounter Plan of Treatment Upcoming Encounters Date Type Department Care Team (Late Contact Info) Description 04/10/2025 1:00 PM EDT Office Visit [facility] [address] [place] [address] Destiny Mccartney, FAVIOLA [address] [place] [address] 05/10/2025 8:40 AM EDT Office Visit [facility] [address] [place] [address] Destiny Mccartney, FAVIOLA [address] [place] [address] 08/07/2025 1:45 PM EST Office Visit [facility] [address] [place] [address] Maurisio Crow, DO [address] [place] [address] 10/01/2025 10:00 AM EST Office Visit [facility] [address] [place] [address] Destiny Mccartney, FAVIOLA [address] [place] [address] documented as of this encounter Procedures Procedure Name Priority Date/Time Associated Diagnosis Comments DIABETIC RETINOPATHY SCREENING - OU - BOTH EYES Routine 07/03/2024 2:19 PM EST DIABETIC RETINOPATHY SCREENING - OU - BOTH EYES Routine 06/08/2024 2:21 PM EDT documented in this encounter Results * Diabetic Retinopathy Screening - OU - Both Eyes (07/03/2024 2:19 PM EST) Anatomical Region Laterality Modality Head Other [facility] OPHTH PHOTOGRAPHY Final Result * Diabetic Retinopathy Screening - OU - Both Eyes (06/08/2024 2:21 PM EDT) Anatomical Region Laterality Modality Head Other [facility] OPHTH PHOTOGRAPHY Edited Result - Final documented in this encounter Visit Diagnoses Not on filedocumented in this encounter Additional Health Concerns Assessment Noted Time PHQ-9 Depression Total Score: 0 07/28/20 23 11:00 AM EST documented as of this encounter Care Teams Nursing Agency Manager Relationship Specialty Start Date End Date Shaikh Burks MD [address] [place] [address] PCP - [employer] 10/08/23 Jerome Brody MD [address] [place] [address] PCP - General Family Medicine 03/28/24 Karen Conner NP [address] [place] [address] Nurse Practitioner Family Medicine 03/28/24 Destiny Mccartney NP [address] [place] [address] Nurse Practitioner Family Medicine 01/18/25 Maurisio Crow DO [address] [place] [address] Otolaryngology 01/18/25 documented as of this encounter
--- OUTSIDE RECORDS SUMMARY | 2025-03-30 21:17 | XMS_ITS | Encounter Summary ---
Author Organization [facility] Address [address] [facility] [place] [address] Care Team Providers Care Register In Chancery Name Role Phone Shaikh ANIBAL Burks Unavailable [phone] Jerome Brody MD Primary Care Provider Karen Conner DATA TYPIST Unavailable [phone] Destiny Mccartney DATA TYPIST Unavailable [phone] Maurisio Crow DO Unavailable [phone] Encounter Details Date Type Department Care Team (Late st Contact Info) Description 11/15/2024 Orders Only [facility] [address] [place] [address] Destiny Mccartney, DATA TYPIST [address] [place] [address] Social History Tobacco Use Types Packs/Day Years [...] 04/10/2025 1:00 PM EDT Office Visit [facility] [address] [place] [address] Destiny Mccartney, FAVIOLA [address] [place] [address] 05/10/2025 8:40 AM EDT Office Visit [facility] [address] [place] [address] Destiny Mccartney, FAVIOLA [address] [place] [address] 08/07/2025 1:45 PM EST Office Visit [facility] [address] [place] [address] Maurisio Crow, DO [address] [facility] [place] [address] 10/01/2025 10:00 AM EST Office Visit [facility] [address] [place] [address] Destiny Mccartney, FAVIOLA [address] [place] [address] documented as of this encounter Procedures Procedure Name Priority Date/Time Associated Diagnosis Comments VASC US CAROTID ARTERY DUPLEX BILATERAL Routine 11/15/2024 1:43 PM EDT documented in this encounter Results * Vascular US carotid artery duplex bilateral (11/15/2024 1:43 PM EDT) Anatomical Region Laterality Modality Neck Ultrasound us Destiny Mccartney NP IMG US PROCEDURES Final Result documented in this encounter Visit Diagnoses Not on filedocumented in this encounter Additional Health Concerns Assessment Noted Time PHQ-9 Depression Total Score: 0 09/28/19 10:00 AM EST documented as of this encounter Care Teams Register In Chancery Relationship Specialty Start Date End Date Shaikh Burks MD [address] [place] [address] PCP - [employer] 10/08/23 Jerome Brody MD [address] [place] [address] PCP - General Family Medicine 03/28/24 Karen Conner NP [address] [place] [address] Nurse Practitioner Family Medicine 03/28/24 Destiny Mccartney NP [address] [place] [address] Nurse Practitioner Family Medicine 01/18/25 Maurisio Crow DO [address] [place] [address] Otolaryngology 01/18/25 documented as of this encounter
--- OUTSIDE RECORDS SUMMARY | 2025-03-30 21:17 | XMS_ITS | Encounter Summary ---
Author Organization [facility] Address [address] [place] [address] Care Team Providers Care Group Leader Wafer Polishing Name Role Phone Shaikh ANIBAL Burks Unavailable [phone] Jerome Brody MD Primary Care Provider [phone] Karen Conner NEW CAR MAKE READY MECHANIC Unavailable Destiny Mccartney NEW CAR MAKE READY MECHANIC Unavailable [phone] Maurisio Crow DO Unavailable Encounter Details Date Type Department Care Team (Late st Contact Info) Description 07/26/2024 Orders Only [facility] [address] [place] [address] Negrita Van DO [address] [place] [address] Social History Tobacco Use Types Packs/Day Years [...] Visit [facility] [address] [place] [address] Destiny Mccartney, FAVIOLA [address] [place] [address] 05/10/2025 8:40 AM EDT Office Visit [facility] [address] [place] [address] Destiny Mccartney, FAVIOLA [address] [place] [address] 08/07/2025 1:45 PM EST Office Visit [facility] [address] [place] [address] Maurisio Crow, DO [address] [place] [address] 10/01/2025 10:00 AM EST Office [facility] [address] [place] [address] Destiny Mccartney, FAVIOLA [address] [place] [address] documented as of this encounter Procedures Procedure Name Priority Date/Time Associated Diagnosis Comments COLONOSCOPY DIAGNOSTIC Routine 07/26/2024 2:22 PM EST documented in this encounter Results * COLONOSCOPY DIAGNOSTIC (07/26/2024 2:22 PM EST) Anatomical Region Laterality Modality Radiographic Liz ging us Negrita Van DO IMG XR PROCEDURES Final Result documented in this encounter Visit Diagnoses Not on filedocumented in this encounter Additional Health Concerns Assessment Noted Time PHQ-9 Depression Total Score: 0 07/28/20 11:00 AM EST documented as of this encounter Care Teams Group Leader Wafer Polishing Relationship Specialty Start Date End Date Shaikh Burks MD [address] [place] [address] PCP - [employer] 10/08/23 Jerome Brody MD [address] [place] [address] PCP - General Family Medicine 03/28/24 Karen Conner NP [address] [place] [address] Nurse Practitioner Family Medicine 03/28/24 Destiny Mccartney NP [address] [place] [address] Nurse Practitioner Family Medicine 01/18/25 Maurisio Crow DO [address] [place] [address] Otolaryngology 01/18/25 documented as of this encounter
--- OUTSIDE RECORDS SUMMARY | 2025-03-30 21:17 | XMS_ITS | Encounter Summary ---
Author Organization [facility] Address [address] [place] [address] Care Team Providers Care Steward/Stewardess Lounge Name Role Phone Shaikh ANIBAL Burks Unavailable [phone] Jerome Brody MD Primary Care Provider Karen Conner ROLLING CHAIR PUSHER Unavailable [phone] Destiny Mccartney ROLLING CHAIR PUSHER Unavailable [phone] Maurisio Crow DO Unavailable [phone] Encounter Details Date Type Department Care Team (Late st Contact Info) Description 03/28/2025 Refill [facility] [address] [place] [address] Destiny Mccartney ROLLING CHAIR PUSHER [address] [place] [address] Chronic left-sided low back pain with left-sided sciatica; Chronic low back pain with left-sided sciatica, unspecified back pain laterality Social History Tobacco Use Types Packs/Day Years [...] 04/10/2025 1:00 PM EDT Office Visit [facility] [address] [place] [address] Destiny Mccartney, FAVIOLA [address] [place] [address] 05/10/2025 8:40 AM EDT Office Visit [facility] [address] [place] [address] Destiny Mccartney NP [address] [place] [address] 08/07/2025 1:45 PM EST Office Visit [facility] [address] [place] [address] Maurisio Crow S, DO [address] [facility] [address] 10/01/2025 10:00 AM EST Office Visit [facility] [address] [place] [address] Destiny Mccartney, FAVIOLA [address] [place] [address] documented as of this encounter Visit Diagnoses Diagnosis Chronic low back pain with left-sided sciatica, unspecified back pain laterality documented in this encounter Additional Health Concerns Assessment Noted Time PHQ-9 Depression Total Score: 0 09/28/19 25 10:00 AM EST documented as of this encounter Care Teams Steward/Stewardess Lounge Relationship Specialty Start Date End Date Shaikh Burks MD [address] [place] [address] PCP - [employer] 10/08/23 Jerome Brody MD [address] [place] [address] PCP - General Family Medicine 03/28/24 Karen Conner NP [address] [place] [address] Nurse Practitioner Family Medicine 03/28/24 Destiny Mccartney NP [address] [place] [address] Nurse Practitioner Family Medicine 01/18/25 Maurisio Crow DO [address] [place] [address] Otolaryngology 01/18/25 documented as of this encounter
--- OUTSIDE RECORDS SUMMARY | 2025-03-30 21:17 | XMS_ITS | Encounter Summary ---
Author Organization [facility] Address [id number] [address] [place] [address] Care Team Providers Care Financial Services Auditor Name Role Phone Chelo Stone DECORATING INSPECTOR-VENTILATING EXPERT Primary Care Provider [phone] Reason for Visit * Reason Comments Med Refill Encounter Details Date Type Department Care Team (Late st Contact Info) Description 02/19/2022 Refill [facility] [address] [place] [address] Booker Lopez, PA-C [address] [place], [place] [id number] Med Refill Social History Tobacco Use Types Packs/Day Years [...] encounter Miscellaneous Notes * Telephone Encounter - Coby Montano RN - 02/19/2022 9:43 AM EDT Refilled to Donny Rowan 02/13/22. documented in this encounter Plan of Treatment Not on file documented as of this encounter Visit Diagnoses Diagnosis Essential hypertension Unspecified essential hypertension Ventricular premature beats Other premature beats Palpitations documented in this encounter Care Teams Financial Services Auditor Relationship Specialty Start Date End Date Chelo Stone, JIM-VENTILATING EXPERT PCP - General Nurse Practitioner 12/09/20 documented as of this encounter
--- OUTSIDE RECORDS SUMMARY | 2025-03-30 21:17 | XMS_ITS | Encounter Summary ---
Author Organization [facility] Address [id number] [address] [place] [address] Care Team Providers Care Lawn Service Manager Name Role Phone Chelo Stone IT SECURITY ANALYST-PSYCHOLOGY ASSOCIATE Primary Care Provider [phone] Reason for Visit * Reason Comments Med Refill Encounter Details Date Type Department Care Team (Late st Contact Info) Description 12/14/2024 Refill [facility] [address] [facility] [address] [place] [address] Carol Ortiz APRN-PSYCHOLOGY ASSOCIATE [address] [id number] Med Refill Social History Tobacco Use Types [...] encounter Miscellaneous Notes * Telephone Encounter - Taylor Brooks RN - 12/14/2024 9:54 AM EDT Needs offc appt and labs drawn for further refills. documented in this encounter Plan of Treatment Not on file documented as of this encounter Visit Diagnoses Diagnosis Essential hypertension Unspecified essential hypertension Ventricular premature beats Other premature beats Palpitations documented in this encounter Care Teams Lawn Service Manager Relationship Specialty Start Date End Date Chelo Stone, IT SECURITY ANALYST-PSYCHOLOGY ASSOCIATE PCP - General Nurse Practitioner 12/09/20 documented as of this encounter
--- OUTSIDE RECORDS SUMMARY | 2025-03-30 21:17 | XMS_ITS | Clinical Summary ---
Author Organization [facility] Address [id number] [address] [place] [address] Care Team Providers Care Director Mobile Name Role Phone Chelo Stone ASSISTANT GROCERY STORE MANAGER-SENIOR ADMINISTRATIVE SUPPORT Primary Care Provider Allergies Active Allergy Reactions Criticality Noted Date Comments Celecoxib Anaphylaxis High 01/08/2017 Lisinopril Cough 01/28/2017 Morphine 01/08/2017 Other reaction(s): Intolerance-unknown Sulfa (Sulfonamide Antibiotics) 01/08/2017 Other reaction(s): Intolerance-unknown Medications gabapentin (NEURONTIN) 300 mg capsule Take 1 capsule (300 mg total) by mouth 3 (three) times a day. 0 12/22/2016 Active naproxen (NAPROSYN) 250 mg tablet Take 1 tablet (250 mg total) by mouth in the morning and 1 tablet (250 mg total) in the evening. Take with meals. Active omeprazole (PriLOSEC) 40 mg capsule Take 1 capsule (40 mg total) by mouth every morning before breakfast. Active SENNOSIDES (SENNA LAX ORAL) as needed. Active tiZANidine (ZANAFLEX) 4 mg capsule Take 1 capsule (4 mg total) by mouth 3 (three) times a day. Active multivitamin capsule Take 1 capsule by mouth in the morning. EVERY OTHER DAY . Active metFORMIN (GLUCOPHAGE) 500 mg tablet Take 1 tablet (500 mg total) by mouth every 12 (twelve) hours. 12/30/2021 Active verapamiL (VERELAN) 360 MG 24 hr capsule Take 1 capsule (360 mg total) by mouth nightly. Active simvastatin (ZOCOR) 40 mg tablet Take 1 tablet (40 mg total) by mouth nightly. Active magnesium 200 mg tablet Take by mouth. Active chlorthalidone (HYGROTON) 25 mg tabletIndicatio ns:Essential hypertension,Ve ntricular premature beats,Palpitati ons TAKE 1/2 (ONE-HALF) OF A TABLET BY MOUTH DAILY 45 tablet 10/02/2024 Active Active Problems Problem Noted Date Diagnosed Date Obesity (BMI 30.0-34.9) 03/11/2022 Chronic diastolic heart failure 03/11/2021 Mixed hyperlipidemia 03/11/2021 Essential hypertension 01/08/2017 Chronic back pain 01/08/2017 Ventricular premature beats 04/10/2016 Palpitations 04/10/2016 Encounters Date Type Department Care Team Description 02/04/2025 Refill [facility] [address] [place] [address] Carol Ortiz APRN-RICHIE Med Refill from Last 3 Months Family History Medical History Relation Name Comments Arthritis Father Colon cancer Father Arthritis Mother Cancer Mother Relation Name Status Comments Father Mother Social History Tobacco Use Types Packs/Day Years Used Date Smoking Tobacco: Never Smokeless Tobacco: Never Tobacco Cessation:Counseling Given: Not Answered Alcohol Use Standard Drinks/Week Comments Yes 0 [...] on file Sexual Orientation Not on file Last Filed Vital Signs Vital Sign Reading Time Taken Comments Blood Pressure 136/80 09/24/2023 11:36 AM EST Pulse 80 09/24/2023 11:36 AM EST Temperature 36.7 C (98 F) 08/05/2018 8:51 AM EST Respiratory Rate 18 08/05/2018 10:40 AM EST Oxygen Saturation 96% 09/24/2023 11:36 AM EST Inhaled Oxygen Concentration - - Weight 78.9 kg (174 lb) 09/24/2023 11:36 AM EST Height 162.6 cm (5' 4 ) 09/24/2023 11:36 AM EST Body Mass Index 29.87 09/24/2023 11:36 AM EST Plan of Treatment Health Maintenance Due Date Last Done Comments Depression Screening 1962 DTaP,Tdap and Td Vaccines (1 - Tdap) 12/22/1970 Fall Risk Screening 12/22/2016 Zoster (Shingles) Vaccine (2 of 2) 11/14/2020 09/19/2020 COVID-19 Vaccine (4 - 2023-2 5 season) 2024 10/16/2021, 11/05/2020, 10/15/2020 Adult BMI Screening 09/24/2024 09/24/2023 Tobacco Screening 09/24/2024 09/24/2023 Influenza Vaccine 04/09/2025 06/28/2024, , 09/19/2020, Additional history exists Medical Devices Not on file Insurance [employer] MEDICARE Care Teams Director Mobile Relationship Specialty Start Date End Date Chelo Stone, ASSISTANT GROCERY STORE MANAGER-SENIOR ADMINISTRATIVE SUPPORT PCP - General Nurse Practitioner 5/3/21
--- OUTSIDE RECORDS SUMMARY | 2025-03-30 21:17 | XMS_ITS | Encounter Summary ---
Author Organization [facility] Address [address] [facility] [place] [address] Care Team Providers Care Manager Integration Name Role Phone Shaikh ANIBAL Burks Unavailable [phone] Jerome Brody MD Primary Care Provider Karen Conner HEAD TELLER Unavailable Destiny Mccartney HEAD TELLER Unavailable [phone] Maurisio Crow DO Unavailable Encounter Details Date Type Department Care Team (Late st Contact Info) Description 11/30/2024 Orders Only [facility] [address] [place] [address] Destiny Mccartney, HEAD TELLER [address] [place] [address] Social History Tobacco Use Types Packs/Day Years [...] [facility] [address] [place] [address] Destiny Mccartney, FAVIOLA [address] [place] [address] 05/10/2025 8:40 AM EDT Office Visit [facility] [address] [place] [address] Destiny Mccartney, FAVIOLA [address] [place] [address] 08/07/2025 1:45 PM EST Office Visit [facility] [address] [place] [address] Maurisio Crow, DO [address] [facility] [place] [address] 10/01/2025 10:00 AM EST Office Visit [facility] [address] [place] [address] Destiny Mccartney, FAVIOLA [address] [place] [address] documented as of this encounter Procedures Procedure Name Priority Date/Time Associated Diagnosis Comments DEXA BONE DENSITY Routine 11/30/2024 11:51 AM EDT documented in this encounter Results * DEXA bone density (11/30/2024 11:51 AM EDT) Anatomical Region Laterality Modality Body Radiographic Liz ging Destiny Mccartney NP IMG DXA PROCEDURES Final Result documented in this encounter Visit Diagnoses Not on filedocumented in this encounter Additional Health Concerns Assessment Noted Time PHQ-9 Depression Total Score: 0 09/28/19 10:00 AM EST documented as of this encounter Care Teams Manager Integration Relationship Specialty Start Date End Date Shaikh Burks MD [address] [place] [address] PCP - Aet[employer] 10/08/23 Jerome Brody MD [address] [place] [address] PCP - General Family Medicine 03/28/24 Karen Conner NP [address] [place] [address] Nurse Practitioner Family Medicine 03/28/24 Destiny Mccartney NP [address] [place] [address] Nurse Practitioner Family Medicine 01/18/25 Maurisio Crow DO [address] [place] [address] Otolaryngology 01/18/25 documented as of this encounter
--- OUTSIDE RECORDS SUMMARY | 2025-03-30 21:17 | XMS_ITS | Encounter Summary ---
Author Organization [facility] Address [id number] [address] [place] [address] Care Team Providers Care Supervisor Pipelines Name Role Phone Chelo Stone ELECTRONIC INSTRUMENT TRADES WORKER-WIND UP OPERATOR Primary Care Provider Encounter Details Date Type Department Care Team (Late st Contact Info) Description 11/21/2021 Orders Only [facility] [address] [place] [address] External, Scanning Provider Social History Tobacco Use [...] Procedure Name Priority Date/Time Associated Diagnosis Comments MULTIPLE LABS Routine 07/31/2021 LIPID PROFILE Routine 07/31/2021 documented in this encounter Results * Lipid profile (07/31/2021) External Cholesterol 159 MANUALLY TRANSCRIBED RESULTS External Cholesterol:Hdl 4.0 MANUALLY TRANSCRIBED RESULTS External Hdl Cholesterol 40 MANUALLY TRANSCRIBED RESULTS External Ldl (Calc) 94 MANUALLY TRANSCRIBED RESULTS External Triglycerides 125 MANUALLY TRANSCRIBED RESULTS External Very Low Lipoprotein 25 MANUALLY TRANSCRIBED RESULTS us Scanning Provider External LAB BLOOD ORDERABLES Edited Result - Final Performing Organization Address City/[facility] [address]/ZIP Co de Phone Number MANUALLY TRANSCRIBED RESULTS * Multiple labs (07/31/2021) us Scanning Provider External IA IMAGING Final Result Performing Organization Address City/[facility] [address]/[facility] Co de Phone Number MANUALLY TRANSCRIBED RESULTS documented in this encounter Visit Diagnoses Not on filedocumented in this encounter Care Teams Supervisor Pipelines Relationship Specialty Start Date End Date Chelo Stone, ELECTRONIC INSTRUMENT TRADES WORKER-WIND UP OPERATOR PCP - General Nurse Practitioner 12/09/20 documented as of this encounter
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
--- OUTSIDE RECORDS SUMMARY | 2025-03-30 21:17 | XMS_ITS | Encounter Summary ---
Author Organization [facility] Address [address] [facility] [place] [address] Care Team Providers Care Extension Work Instructor Name Role Phone Shaikh ANIBAL Burks Unavailable [phone] Jerome Brody MD Primary Care Provider [phone] Karen Conner PEOPLESOFT BUSINESS ANALYST Unavailable [phone] Destiny Mccartney PEOPLESOFT BUSINESS ANALYST Unavailable [phone] Maurisio Crow DO Unavailable Encounter Details Date Type Department Care Team (Late st Contact Info) Description 03/28/2025 Abstract [facility] [address] [place] [address] Destiny Mccartney PEOPLESOFT BUSINESS ANALYST [address] [place] [address] Social History Tobacco Use Types Packs/Day Years [...] Office Visit [facility] [address] [place] [address] Destiny Mccartney, FAVIOLA [address] [place] [address] 05/10/2025 8:40 AM EDT Office Visit [facility] [address] [place] [address] Destiny Mccartney, FAVIOLA [address] [place] [address] 08/07/2025 1:45 PM EST Office Visit [facility] [address] [place] [address] Maurisio Crow, DO [address] [place] [address] 10/01/2025 10:00 AM EST Office Visit [facility] [address] [place] [address] Destiny Mccartney, FAVIOLA [address] [place] [address] documented as of this encounter Visit Diagnoses Not on filedocumented in this encounter Additional Health Concerns Assessment Noted Time PHQ-9 Depression Total Score: 0 09/28/19 25 10:00 AM EST documented as of this encounter Care Teams Extension Work Instructor Relationship Specialty Start Date End Date Shaikh Burks MD [address] [place] [address] PCP - [employer]et[employer] 10/08/23 Jerome Brody MD [address] [place] [address] PCP - General Family Medicine 03/28/24 Karen Conner NP [address] [place] [address] Nurse Practitioner Family Medicine 03/28/24 Destiny Mccartney NP [address] [place] [address] Nurse Practitioner Family Medicine 01/18/25 Maurisio Crow DO [address] [place] [address] Otolaryngology 01/18/25 documented as of this encounter
--- OUTSIDE RECORDS SUMMARY | 2025-03-30 21:17 | XMS_ITS | Encounter Summary ---
Author Organization [facility] Address [id number] [address] [place] [address] Care Team Providers Care Professional Skater Name Role Phone Chelo Stone ASSOCIATE MEDIA PLANNER-DIRECTOR OF RETAIL OPERATIONS Primary Care Provider [phone] Reason for Visit * Reason Comments Med Refill Encounter Details Date Type Department Care Team (Late st Contact Info) Description 09/04/2024 Refill [facility] [address] [facility] [address] [place] [phone] Yunior Benavides, ANTONIO [address] [id number] Med Refill Social History Tobacco Use Types [...] encounter Miscellaneous Notes * Telephone Encounter - Najma Beal LPN - 09/04/2024 8:00 AM EST Per 08/24/24 telephone encounter with pt, pt states that her PCP will be managing her medications and if needed, she will contact us. documented in this encounter Plan of Treatment Not on file documented as of this encounter Visit Diagnoses Diagnosis Essential hypertension Unspecified essential hypertension Ventricular premature beats Other premature beats Palpitations documented in this encounter Care Teams Professional Skater Relationship Specialty Start Date End Date Chelo Stone, ASSOCIATE MEDIA PLANNER-DIRECTOR OF RETAIL OPERATIONS PCP - General Nurse Practitioner 12/09/20 documented as of this encounter
--- OUTSIDE RECORDS SUMMARY | 2025-03-30 21:17 | XMS_ITS | Encounter Summary ---
Author Organization [facility] Address [facility] [id number] [address] [place] [address] Care Team Providers Care Bell Spinner Sousaphones Name Role Phone Chelo Stone LUMBER ESTIMATOR-IC DESIGNER STANDARD CELLS Primary Care Provider [phone] Reason for Visit * Reason Comments Med Refill Encounter Details Date Type Department Care Team (Late st Contact Info) Description 02/04/2025 Refill [facility] [address] [facility] [address] [place] [phone] Carol Ortiz APRN-IC DESIGNER STANDARD CELLS [address] [id number] Med Refill Social History Tobacco Use Types [...] encounter Miscellaneous Notes * Telephone Encounter - Johanna Escamilla RN - 02/04/2025 11:07 AM EDT Pt has not scheduled f/u. Notes stated PCP was managing refills documented in this encounter Plan of Treatment Not on file documented as of this encounter Visit Diagnoses Diagnosis Essential hypertension Unspecified essential hypertension Ventricular premature beats Other premature beats Palpitations documented in this encounter Care Teams Bell Spinner Sousaphones Relationship Specialty Start Date End Date Chelo Stone, LUMBER ESTIMATOR-IC DESIGNER STANDARD CELLS PCP - General Nurse Practitioner 12/09/20 documented as of this encounter
--- OUTSIDE RECORDS SUMMARY | 2025-03-30 21:17 | XMS_ITS | Encounter Summary ---
Author Organization [facility] Address [address] [place] [address] Care Team Providers Care Blast Hole Driller Name Role Phone Shaikh ANIBAL Burks Unavailable [phone] Jerome Brody MD Primary Care Provider [phone] Karen Conner CHIEF ENGINEER RESEARCH Unavailable [phone] Destiny Mccartney CHIEF ENGINEER RESEARCH Unavailable [phone] Maurisio Crow DO Unavailable [phone] Encounter Details Date Type Department Care Team (Late Contact Info) Description 03/26/2025 Orders Only [facility] [address] [place] [phone] Social History Tobacco Use Types Packs/Day Years [...] 1:00 PM EDT Office Visit [facility] [address] [place] [phone] Destiny Mccartney FAVIOLA [address] [place] [phone] 05/10/2025 8:40 AM EDT [facility] [address] [place] [address] Destiny Mccartney, FAVIOLA [address] [place] [phone] 08/07/2025 1:45 PM EST Office Visit [facility] [address] [place] [address] Maurisio Crow, DO [address] [place] [address] 10/01/2025 10:00 AM EST [facility] [address] [place] [address] Destiny Mccartney, FAVIOLA [address] [place] [phone] documented as of this encounter Procedures Procedure Name Priority Date/Time Associated Diagnosis Comments CT LUMBAR SPINE WO IV CONTRAST Routine 03/26/2025 1:[address] THORACIC SPINE WO IV CONTRAST Routine 03/26/2025 1:[address] CHEST WO IV CONTRAST Routine 03/26/2025 1:[address] SPINE CERVICAL W/O CONTRAST Routine 03/26/2025 12:[address] HEAD/BRAIN W & WO CONTRAST Routine 03/26/2025 12:05 PM EDT documented in this encounter Results * CT lumbar spine wo IV contrast (03/26/2025 1:31 PM EDT) Anatomical Region Laterality Modality Spine, L-spine Computed Tomogra phy [facility] CT PROCEDURES Final Result * CT thoracic spine wo IV contrast (03/26/2025 1:30 PM EDT) Anatomical Region Laterality Modality Spine, T-spine Computed Tomogra phy [facility] PROCEDURES Final Result * CT chest wo IV contrast (03/26/2025 1:28 PM EDT) Anatomical Region Laterality Modality Body, Chest Computed Tomogra phy [facility] IMG CT PROCEDURES Final Result * CT SPINE CERVICAL W/O CONTRAST (03/26/2025 12:07 PM EDT) Anatomical Region Laterality Modality Radiographic Liz ging [facility] XR PROCEDURES Final Result * CT HEAD/BRAIN W & WO CONTRAST (03/26/2025 12:05 PM EDT) Anatomical Region Laterality Modality Radiographic Liz ging [facility] IMG XR PROCEDURES Final Result documented in this encounter Visit Diagnoses Not on filedocumented in this encounter Additional Health Concerns Assessment Noted Time PHQ-9 Depression Total Score: 0 09/28/19 25 10:00 AM EST documented as of this encounter Care Teams Blast Hole Driller Relationship Specialty Start Date End Date Shaikh Burks MD [address] [place] [phone] PCP - [employer] 10/08/23 Jerome Brody MD [address] [place] [phone] PCP - General Family Medicine 03/28/24 Karen Conner NP [address] [place] [phone] Nurse Practitioner Family Medicine 03/28/24 Destiny Mccartney NP [address] [place] [address] Nurse Practitioner Family Medicine 01/18/25 Maurisio Crow DO [address] [place] [address] Otolaryngology 01/18/25 documented as of this encounter
--- OUTSIDE RECORDS SUMMARY | 2025-03-30 21:17 | XMS_ITS | Clinical Summary ---
Author Organization [facility] Healthcare Address [address] [place] [address] Care Team Providers Care Conche Operator Name Role Phone Shaikh ANIBAL Burks Unavailable [phone] Jerome Brody MD Primary Care Provider [phone] Karen Conner [employer] Unavailable [phone] Destiny Mccartney [employer] Unavailable [phone] Maurisio Crow DO Unavailable Allergies Active Allergy Reactions Criticality Noted Date Comments Celecoxib Anaphylaxis High 07/28/2023 Lisinopril Cough 01/28/2017 Sulfa Antibiotics Anaphylaxis High 07/28/2023 Medications metFORMIN (Glucophage) 500 MG tabletIndications: Type 2 diabetes mellitus with diabetic polyneuropathy, without long-term current use of insulin (HCC) Take 1 tablet (500 mg) by mouth in the morning and 1 tablet (500 mg) in the evening. Take with meals. 180 tablet 1 08/14/19 25 Active fluticasone (Flonase) 50 MCG/ACT nasal sprayIndications:U pper respiratory tract infection, unspecified type Administer 1-2 sprays into each nostril Daily Shake gently. Before first use, prime pump. After use, clean tip and replace cap. 16 g 2 08/14/19 25 026 Active aspirin 81 MG EC tablet Take 81 mg by mouth Daily Active omeprazole (PriLOSEC) [address] capsuleIndications :Gastroesophageal reflux disease without esophagitis Take 1 capsule (40 mg) by mouth in the morning. Take before meals. 90 capsule 1 12/15/19 25 Active verapamil ER (Verelan) 360 MG 24 hr capsuleIndications :Essential hypertension Take 1 capsule (360 mg) by mouth Daily 90 capsule 12/15/19 25 Active chlorthalidone (Hygroton) 25 MG tabletIndications: Essential hypertension Take 0.5 tablets (12.5 mg) by mouth Daily 45 tablet 02/08/20 025 Active doxycycline (Vibra-Tabs) 100 MG tabletIndications: Tick bite of left ear, initial encounter 200mg one time dose. Take with a full glass of water and do not lie down for at least 30 minutes after. 2 tablet 02/08/20 25 Active rosuvastatin (Crestor) 10 MG tabletIndications: Mixed hyperlipidemia Take 1 tablet (10 mg) by mouth at bedtime 90 tablet 02/08/20 025 Active gabapentin (Neurontin) 300 MG capsuleIndications :Chronic left-sided low back pain with left-sided sciatica Take 1 capsule (300 mg) by mouth in the morning and 1 capsule (300 mg) in the evening and 1 capsule (300 mg) before bedtime. 270 capsule 03/28/20 025 Active tiZANidine (Zanaflex) 4 MG tabletIndications: Chronic low back pain with left-sided sciatica, unspecified back pain laterality Take 1 tablet (4 mg) by mouth every 8 (eight) hours if needed for muscle spasms 270 tablet 03/28/20 025 Active tiZANidine (Zanaflex) 4 MG tabletIndications: Chronic low back pain with left-sided sciatica, unspecified back pain laterality Take 1 tablet (4 mg) by mouth every 8 (eight) hours if needed for muscle spasms 270 tablet 1 09/28/19 025 Discontin ued(Reord er) gabapentin (Neurontin) 300 MG capsuleIndications :Chronic left-sided low back pain with left-sided sciatica Take 1 capsule (300 mg) by mouth in the morning and 1 capsule (300 mg) in the evening and 1 capsule (300 mg) before bedtime. 270 capsule 1 11/10/19 025 Discontin ued(Reord er) Active Problems Problem Noted Date Diagnosed Date Tick bite 02/07/2025 Bug bites 02/07/2025 Osteopenia 12/01/2024 Overview (12/01/2024): 11/15/24 -1.6 FA Multiple thyroid nodules 11/15/2024 Type 2 diabetes mellitus, wi thout long-term current use of insulin 11/09/2024 Assessment & Plan (02/07/2025 11:45 AM EDT): Check blood sugars daily, notify if <70 [...] statin A1c: 5.9% 02/07/2025 , 5.8% 09/26/24 Assessment & Plan (11/09/2024 6:24 AM EDT): Check blood sugars daily, notify if <70 [...] Current meds: metformin, statin A1c: 5.8% 09/26/24 Encounter for screening mamm ogram for malignant neoplasm of breast 11/09/2024 Menopause 11/09/2024 Assessment & Plan (11/09/2024 6:25 AM EDT): Recommend bone density scan Peripheral neuropathy 11/09/2024 Assessment & Plan (11/09/2024 9:44 AM EDT): Lumbar related Takes gabapentin OARRS reviewed Bruit of right carotid artery 11/09/2024 Age-related macular degeneration 09/28/2024 Diverticulitis 03/28/2024 Assessment & Plan (03/28/2024 1:18 PM EDT): Had flare up this past week, was [...] and ATB regimen will be called in. History of spinal surgery 11/30/2023 Other intervertebral disc degeneration, lumbar r egion 11/30/2023 Lumbago with sciatica, left side 07/28/2023 Encounter for Medicare annual wellness exam 07/10 Assessment & Plan (07/28/2023 11:43 AM EST): Doing well overall. Reviewed medical, surgical and social hx. Reviewed medication list. Labs ordered for her chronic conditions. Mammogram ordered. Colonoscopy about 7 years ago Recommended to get Influenza and Pneumonia vaccine. Screened for fall risk, cognitive impairment and depression. Recommended to have DM EYE exam Chronic diastolic (congestive) heart failure 10/2020 Assessment & Plan (11/09/2024 6:21 AM EDT): Meds: chlorthalidone Assessment & Plan (11/30/2023 9:51 AM EDT): Stable. No recent ECHO. Euvolemic. On Verapamil and chlorthalidone. No ED or hospital visit for CHF exacerbation. Assessment & Plan (07/28/2023 11:38 AM EST): Chronic diastolic HF. Euvolemic. No Orthopnea, PND. Follows with Cardiology once a year. BP at goal. Mixed hyperlipidemia 03/11/2021 Assessment & Plan (02/07/2025 6:19 AM EDT): On statin therapy: rosuvastatin Check labs yearly and prn dose change Assessment & Plan (11/09/2024 9:52 AM EDT): On statin therapy: insurance concern about statin dose and interaction with verapamil, will consider change in med Check labs yearly and prn dose change Change to rosuvastatin Check labs in 8 weeks Assessment & Plan (06/28/2024 9:29 AM EST): Currently taking Simvastatin 40mg Daily Denies any myalgias. Continue current regimen. Recheck Lipid Panel today. Assessment & Plan (03/28/2024 10:27 AM EDT): Taking Simvastatin 40mg Daily Denies Myalgias. Last Lipid Panel WNL. Continue Simvastatin as directed. Assessment & Plan (07/28/2023 11:39 AM EST): On Simvastatin. Check Lipid panel. Essential hypertension 01/08/2017 Assessment & Plan (02/07/2025 6:18 AM EDT): Please check blood pressure daily and record DASH diet Limit caffeine Take medication as directed Contact office if chest pain, pressure, dizziness, shortness of breath, swelling legs Recommend slow position changes Current meds: verapamil,chlorthalidone Assessment & Plan (11/09/2024 6:20 AM EDT): Please check blood pressure daily and record DASH diet Limit caffeine Take medication as directed Contact office if chest pain, pressure, dizziness, shortness of breath, swelling legs Recommend slow position changes Current meds: verapamil,chlorthalidone Assessment & Plan (06/28/2024 9:15 AM EST): Currently taking Chlorthalidone 25mg Daily; Verapamil 360mg ER Checks BP at home; Averages are 130's/70. Had 1 episode of 90/60. Reports she was not feeling well that day. Denies orthostatic changes, dizziness, cough, shortness of breath, swelling in extremities. Continue current regimen. Given BP log, advised pt to record BP and bring log back with them to next visit. Assessment & Plan (03/28/2024 10:28 AM EDT): Taking Chlorthalidone 25mg Daily; Verapamil 360mg ER BP is well managed; Checks BP at home- States ranges are: 120/70- 140/86 Highest- states this is unusual. BP log given; Bring back to next OV. Denies: Chest pain Shortness of breath Edema in extremities Continue as Directed Assessment & Plan (11/30/2023 9:50 AM EDT): BP well controlled. On average less than 130/90. Tolerating Anti hypertensive w/o adverse effects. Denies lightheadedness, dizziness, syncope, presyncope. Patient encouraged to continue with home BP monitoring and call office if he experiences orthostatic symptoms or persistently elevated BP. C/w chlorthalidone, Verapamil. Assessment & Plan (07/28/2023 11:39 AM EST): BP well controlled. On average less than 130/90. Tolerating Anti hypertensive w/o adverse effects. Denies lightheadedness, dizziness, syncope, presyncope. Patient encouraged to continue with home BP monitoring and call office if he experiences orthostatic symptoms or persistently elevated BP. C/w hydrochlorothiazide, Verapamil. Chronic back pain 01/08/2017 Assessment & Plan (09/28/2024 10:56 AM EST): Requesting handicap marizol today. Will write RX for one year. Takes Gabapentin and Zanaflex Daily PRN; States pain is tolerable. Continue as directed. Assessment & Plan (03/28/2024 10:26 AM EDT): Takes Gabapentin and Zanaflex Daily PRN; States pain is tolerable. Continue as directed. Assessment & Plan (07/28/2023 11:39 AM EST): Chronic low back pain with intermittent radiculopathy. Symptoms reasonably controlled with gabapentin and tizanidine. Stable. Resolved Problems Problem Noted Date Diagnosed Date Resolved Date Upper respiratory tract infection 08/14/2024 11/09/2024 Assessment & Plan (08/14/2024 8:53 AM EST): Pt presents with Bilateral earache X7 days/Productive cough/Chest tenderness when coughing/headache. Bilateral otitis media observed on assessment. Will treat for URI and otitis media. Non-recurrent acute serous o titis media of both ears 08/14/2024 11/09/2024 Type 2 diabetes mellitus wit h diabetic polyneuropathy, without long-term current use of insulin 07/28/2023 11/09/2024 Assessment & Plan (11/09/2024 6:19 AM EDT): Recommend glucose control Proper fitting shoes, freq foot inspections Meds: gabapentin OARRS reviewed Assessment & Plan (06/28/2024 9:15 AM EST): Most recent labs: hemoglobin A1C 5.5% Needs [...] Eye Exam- 06/19/2024 [facility] [place] Is seeing Retina specialist in [place]. Assessment & Plan (03/28/2024 10:30 AM EDT): aking Metformin 500mg Daily; Last A1C ion [...] diet low in carbohydrates, and simple sugars. Assessment & Plan (11/30/2023 9:49 AM EDT): A1C 2/24 --> 5.5 Average FSBS range from BGs range between 150 and 200 No episode of hypoglycemia No medication adverse effects reported by the patient. Patient educated on lifestyle modifications, dietary restrictions, signs and symptoms of hypoglycemia/hyperglycemia and importance of eating regular consistent meals. Stressed upon importance of checking blood glucose at home and bring blood glucose log to appointments. Assessment & Plan (07/28/2023 11:37 AM EST): Patient forgot to get her labs done. Average FSBS range from BGs range between 150 and 200 No episode of hypoglycemia No medication adverse [...] persistent hypoglycemia/hyperglycemia on home glucose monitoring noted. On Metformin. Reiterated to get labs done. Order CBC, CMP, A1C, urine protein/creatinine Encounters Date Type Department Care Team Description 03/28/2025 Refill [facility] [address] [place] [address] Destiny Mccartney NP Chronic left-sided low back pain with left-sided sciatica; Chronic low back pain with left-sided sciatica, unspecified back pain laterality 03/28/2025 Abstract [facility] [address] [place] [address] Destiny Mccartney NP 03/26/2025 Telephone [facility] [address] [place] [address] Destiny Mccartney NP 03/26/2025 Orders Only [facility] [address] [place] [address] 02/07/2025 11:00 AM EDT Office Visit [facility] [address] [place] [address] Destiny Mccartney NP Type 2 diabetes mellitus with other specified complication, without long-term current use of insulin (HCC) (Primary Dx); Essential hypertension ; Mixed hyperlipidemia ; Tick bite of left ear, initial encounter; Bug bite, initial encounter 02/07/2025 Bamboo flowsheet [facility] [address] [place] [address] Destiny Mccartney NP 02/01/2025 2:00 PM EDT Office Visit [facility] [address] [place] [address] Maurisio Crow, Thyroid nodule (Primary Dx); History of goiter 02/01/2025 Bamboo flowsheet [facility] [address] [place] [address] Maurisio Crow DO 02/01/2025 Travel 01/18/2025 1:00 PM EDT Office Visit [facility] [address] [place] [address] Maurisio Crow, History of goiter (Primary Dx); Thyroid nodule 01/18/2025 Bamboo flowsheet [facility] [address] [place] [phone] Maurisio Crow DO 01/18/2025 Travel 01/15/2025 External Result Encounter [facility] External Department Unsolicited Maurisio Crow DO 01/04/2025 3:30 PM EDT Office Visit [facility] [address] [place] [address] Maurisio Crow DO Fatigue, unspecified type (Primary Dx); Multiple thyroid nodules ; History of goiter 01/04/2025 Bamboo flowsheet [facility] [address] [place] [address] Maurisio Crow DO 01/04/2025 Travel from Last 3 Months Immunizations Immunization Administration Dates Next Due Influenza Whole 05/11/2013 Influenza, Seasonal, Quadrivalent, Adjuvanted Influenza, injectable, MDCK, preservative free, quadrivalent 06/24/2018 Influenza, injectable, quadrivalent 09/19/2020 Influenza, injectable, quadrivalent, preservativ e free 06/07/2019 Influenza, seasonal, injectable, preservative fr ee 06/28/2024,07/06/2016 Influenza, trivalent, adjuvanted 04/21/2019 Pneumococcal Conjugate PCV 13 06/24/2018 Pneumococcal Polysaccharide PPSV23 06/07/2019, Zoster, Recombinant 09/19/2020 Family History Medical History Relation Name Comments Cancer Father Colon cancer Father Cancer Mother Lung cancer Mother Relation Name Status Comments Father Mother Social History Tobacco Use Types Packs/Day Years Used Date Smoking Tobacco: Never Passive Smoke Exposure: Never Smokeless Tobacco: Never Tobacco Cessation:Counseling Given: [...] Sign Reading Time Taken Comments Blood Pressure 100/70 02/07/2025 11:09 AM EDT Pulse 61 02/07/2025 11:09 AM EDT Temperature 36.6 C (97.8 F) 02/07/2025 11:09 AM EDT Respiratory Rate 20 02/07/2025 11:0 9 AM EDT Oxygen Saturation 94% 02/07/2025 11: 09 AM EDT Inhaled Oxygen Concentration - - Weight 81.1 kg (178 lb 12.8 oz) 025 11:09 AM EDT Height 165.1 cm (5' 5 ) 02/01/2025 2:11 PM EDT Body Mass Index 29.75 02/01/2025 2:11 PM EDT Plan of Treatment Upcoming Encounters Date Type Department Care Team (Late st Contact Info) Description 04/10/2025 1:00 PM EDT Office Visit [facility] [address] [place] [address] Destiny Mccartney, FAVIOLA [address] [place] [address] 05/10/2025 8:40 AM EDT Office Visit [facility] [address] [place] [address] Destiny Mccartney, FAVIOLA [address] [place] [address] 08/07/2025 1:45 PM EST Office Visit [facility] [address] [place] [address] Maurisio Crow S, DO [address] [place] [address] 10/01/2025 10:00 AM EST Office Visit [facility] [address] [place] [phone] Destiny Mccartney, FAVIOLA [address] [place] [phone] Health Maintenance Due Date Last Done Comments CT Colonography 1950 FIT-DNA 1950 FIT 1950 FOBT 1950 Sigmoidoscopy 1950 Influenza Vaccine (#1) 2025 , 10/16/2021, 09/19/2020, Additional history exists Diabetes: Retinopathy Screening 07/03/2025 07/03/2024, 06/19/2024, 06/08/2024 Diabetes: Hemoglobin A1C 08/10/2025 025, 09/26/2024, 09/16/2023, Additional history exists Diabetes: Urine Protein Screening 09/26/2025 025, 09/16/2023 Mammogram 11/15/2025 11/15/2024, 08/09/2022 Colonoscopy 07/26/2034 07/26/2024, 08/09/2015 Colorectal Cancer Screening 07/26/2034 Pneumococcal Vaccine: 65+ Years Completed 06/07/2019, 04/21/2019, 06/24/2018 Procedures Procedure Name Priority Date/Time Associated Diagnosis Comments CT LUMBAR SPINE WO IV CONTRAST Routine 03/26/2025 1:[address] THORACIC SPINE WO IV CONTRAST Routine 03/26/2025 1:[address] CHEST WO IV CONTRAST Routine 03/26/2025 1:[address] SPINE CERVICAL W/O CONTRAST Routine 03/26/2025 12:[address] HEAD/BRAIN W & WO CONTRAST Routine 03/26/2025 12:05 PM EDT POCT GLYCOSYLATED HEMOGLOBIN (HGB A1C) Routine 02/07/2025 11:43 AM EDT Type 2 diabetes mellitus with other specified complication, without long-term current use of insulin (HCC) TSH Routine 01/15/2025 11:01 AM EDT T4 (THYROXINE), TOTAL Routine 01/15/2025 11:01 AM EDT T3, TOTAL Routine 01/15/2025 11:01 AM EDT PTH, INTACT AND CALCIUM Routine 01/15/2025 11:01 AM EDT LIPID PANEL Routine 01/15/2025 10:58 AM EDT Mixed hyperlipidemia AST Routine 01/15/2025 10:58 AM EDT Mixed hyperlipidemia ALT Routine 01/15/2025 10:58 AM EDT Mixed hyperlipidemia BI MAMMOGRAM SCREENING BILATERAL 11/15/2024 1:22 PM EDT COLONOSCOPY DIAGNOSTIC Routine 07/26/2024 2:22 PM EST DIABETIC RETINOPATHY SCREENING - OU - BOTH EYES Routine 07/03/2024 2:19 PM EST from Last 3 Months or Most Recently Relevant to Health Maintenance Results * CT lumbar spine wo IV contrast (03/26/2025 1:31 PM EDT) Anatomical Region Laterality Modality Spine, L-spine Computed Tomogra phy [facility] CT PROCEDURES Final Result * CT thoracic spine wo IV contrast (03/26/2025 1:30 PM EDT) Anatomical Region Laterality Modality Spine, T-spine Computed Tomogra phy [facility] CT PROCEDURES Final Result * CT chest wo IV contrast (03/26/2025 1:28 PM EDT) Anatomical Region Laterality Modality Body, Chest Computed Tomogra phy [facility] CT PROCEDURES Final Result * CT SPINE CERVICAL W/O CONTRAST (03/26/2025 12:07 PM EDT) Anatomical Region Laterality Modality Radiographic Liz ging [facility] IMG XR PROCEDURES Final Result * CT HEAD/BRAIN W & WO CONTRAST (03/26/2025 12:05 PM EDT) Anatomical Region Laterality Modality Radiographic Liz ging [facility] IMG XR PROCEDURES Final Result * (ABNORMAL) POCT glycosylated hemoglobin (Hb A1C) docked device (02/07/2025 11:43 AM EDT) Hemoglobin A1C 5.9 Blood Venous blood specimen / Unknown 02/07/2025 11:43 AM EDT Destiny Mccartney NP POINT OF CARE TEST ENTER/EDIT O RDERABLES Final Result * PTH, intact and calcium (01/15/2025 11:01 AM EDT) [facility] PARATHYROID HORMONE, INTACT 30 16 - 77 pg/mL [facility] Comment: Interpretive Guide Intact PTH Calcium ------- Normal Parathyroid Normal Normal Hypoparathyroidism Low or Low Normal Low Hyperparathyroidism Primary Normal or High High Secondary High Normal or Low Tertiary High High Non-Parathyroid Hypercalcemia Low or Low Normal High Calcium 9.9 8.6 - 10.4 mg/dL [facility] 01/15/2025 11:0 1 AM EDT 01/15/2025 11:02 AM EDT Narrative [facility] - 01/16/2025 10:31 AM EDT FASTING:YES FASTING: YES Resulting Agency Comment Performing Organization Information Site ID: QPT Name: [facility] Address: [address] [place] [address], [address] [place] [phone] Director: Salo Rachel MD Maurisio Crow DO LAB BLOOD ORDERABLES Final Result Performing Organization Address [facility] de Phone Number [facility] * T3 (01/15/2025 11:01 AM EDT) [facility] T3, TOTAL 103 76 - 181 ng/dL [facility] 01/15/2025 11:0 1 AM EDT 01/15/2025 11:02 AM EDT Narrative [facility] - 01/16/2025 10:31 AM EDT FASTING:YES FASTING: YES Resulting Agency Comment Performing Organization Information Site ID: QPT Name: [facility] Address: [address] [place] [address], [address] [place] [phone] Director: Salo Rachel MD Maurisio Crow DO LAB BLOOD ORDERABLES Final Result Performing Organization Address [facility] Co de Phone Number [facility] * TSH (01/15/2025 11:01 AM EDT) TSH 0.73 0.40 - 4.50 mIU/L [facility] 01/15/2025 11:0 1 AM EDT 01/15/2025 11:02 AM EDT Narrative [facility] - 01/16/2025 10:31 AM EDT FASTING:YES FASTING: YES Resulting Agency Comment Performing Organization Information Site ID: QPT Name: [facility] Address: [address] [place] [address], [address] [place] [address] Director: Salo Rachel MD Maurisio Crow DO LAB BLOOD ORDERABLES Final Result Performing Organization Address [facility] Co de Phone Number [facility] * T4 (01/15/2025 11:01 AM EDT) T4 (THYROXINE), TOTAL 8.4 5.1 - 11.9 mcg/dL [facility] 01/15/2025 11:0 1 AM EDT 01/15/2025 11:02 AM EDT Narrative [facility] - 01/16/2025 10:31 AM EDT FASTING:YES FASTING: YES Resulting Agency Comment Performing Organization Information Site ID: QPT Name: [facility] Address: [address] [place] [address], [address] [place] [address] Director: Salo Rachel MD Maurisio Crow DO LAB BLOOD ORDERABLES Final Result Performing Organization Address [facility] de Phone Number [facility] * ALT (01/15/2025 10:58 AM EDT) ALT 21 6 - 29 U/L [facility] Blood Venous blood specimen / Unknown 01/15/2025 10:58 AM EDT 01/15/2025 10:58 AM EDT Narrative [facility] - 01/16/2025 7:25 AM EDT FASTING:YES FASTING: YES Resulting Agency Comment Performing Organization Information Site ID: QPT Name: [facility] Address: [address] [place] [address], [address] [place], [place] [id number] Director: Salo Rachel MD us Destiny Mccartney [employer] LAB BLOOD ORDERABLES Final Resu lt [facility] * AST (01/15/2025 10:58 AM EDT) AST 20 10 - 35 U/L [facility] Blood Venous blood specimen / Unknown 01/15/2025 10:58 AM EDT 01/15/2025 10:58 AM EDT Narrative [facility] - 01/16/2025 7:25 AM EDT FASTING:YES FASTING: YES Resulting Agency Comment Performing Organization Information Site ID: QPT Name: [facility] Address: [address] [place] [address], [address] [place] [phone] Director: Salo Rachel MD us Destiny Mccartney [employer] LAB BLOOD ORDERABLES Final Resu lt Performing Organization Address [facility] Co de Phone Number [facility] * Lipid panel (01/15/2025 10:58 AM EDT) CHOLESTEROL, TOTAL 152 <200 mg/dL [facility] HDL CHOLESTEROL 51 > OR = 50 mg/dL [facility] TRIGLYCERIDES 116 <150 mg/dL [facility] LDL CHOLESTEROL 80 mg/dL (calc) [facility] Comment: Reference range: <100 Desirable range <100 mg/dL for primary prevention; <70 mg/dL for patients with CHD or diabetic patients with > or = 2 CHD risk factors. LDL-C is now calculated using the Igor-Sohan calculation, which is a validated novel method providing better accuracy than the Friedewald equation in the estimation of LDL-C. Igor NUNN et al. NIKO. 2013;310(19): 7319-2136 (http://education.[employer].Healthcare IT/faq/UDG768) CHOL/HDLC RATIO 3.0 <5.0 (calc) [facility] NON HDL CHOLESTEROL 101 <130 mg/dL (calc) [facility] Comment: For patients with diabetes plus 1 major ASCVD risk factor, treating to a non-HDL-C goal of <100 mg/dL (LDL-C of <70 mg/dL) is considered a therapeutic option. Blood Venous blood specimen / Unknown 01/15/2025 10:58 AM EDT 01/15/2025 10:58 AM EDT Narrative [facility] - 01/16/2025 7:25 AM EDT FASTING:YES FASTING: YES Resulting Agency Comment Performing Organization Information Site ID: QPT Name: [facility] Address: [address] [place] [address], [address] [place] [address] Director: Salo Rachel MD Destiny Mccartney NP LAB BLOOD ORDERABLES Final Resu lt [facility] * Bilateral screening mammogram (11/15/2024 1:22 PM EDT) Anatomical Region Laterality Modality Breast Bilateral Mammography 11/15/2024 1:22 PM EDT Narrative 11/15/2024 1:23 [place] [address] Mammography Report Signed Patient: SASKIA MORENO MR#: [id number] : 1950 Acct:[id number] Age/Sex: 73 / F ADM Date: 11/15/24 Loc: RAD Attending Dr: Destiny Mccartney NP Ordering Physician: Destiny Mccartney NP Results: Date of Service: 11/15/24 Follow Up: Procedure(s): MM screening mammo BI Accession Number(s): [id number] cc: Destiny Mccartney NP Patient Name: SASKIA MORENO MR#: [id number] : 1950 Exam Date: 11/15/2024 Ordering Doctor: [...] colon cancer at age 71. LOCATION: [facility] BREAST COMPOSITION: There are scattered areas of [...] By: Seferino Gibbons M.D. Signed By: 11/15/24 132 DD/ 132 TD/TT: Director Of Business Systems: Procedure Note Radiology, Radiologist, MD - 11/15/2024 [place] [address] Mammography Report Signed Patient: SASKIA MORENO JMR#: [id number] : 1950cct:[id number] Age/Sex: 73 / FADM Date: 11/15/24 Loc: RAD Attending Dr: Destiny Mccartney NP Ordering Physician: Destiny Mccartney NPResults: Date of Service: 11/15/24Follow Up: Procedure(s): MM screening mammo BI Accession Number(s): [id number] cc: Destiny Mccarntey NP Patient Name: SASKIA MORENO MR#: [id number] : 1950 Exam Date: 11/15/2024 Ordering Doctor: RICHIE Mccartney CNP RADIOLOGY REPORT PROCEDURE: MM SCREENING MAMMO BI COMPARISON: MG MAMM SCREEN 3D SAMI CAD, 08/26/2022. MG MAMM SCREEN 3DBIL CAD, 07/31/2021. MG MAMM SCREEN SAMI W CAD, 06/05/2019. MG MAMM SCREENBIL W CAD, 09/10/2011. INDICATIONS: Screening for malignant neoplasm Calculator Name NCI Breast Cancer Risk Assessment Tool 5 Year Breast Cancer Risk 2.40% Lifetime Breast Cancer Risk 6.30% Personal Breast Cancer No Personal Ovarian Cancer No Treatments None Family Cancers Mother with lung cancer at age 61; Father with coloncancer at age 70. LOCATION: [facility] BREAST COMPOSITION: There are scattered areas of fibroglandulardensity. FINDINGS: DIAGNOSTIC CATEGORY 1--NEGATIVE. RIGHT BREAST: No significant suspicious finding. LEFT BREAST: No significant suspicious finding. RECOMMENDATIONS: ROUTINE MAMMOGRAM AND CLINICAL EVALUATION IN 12 MONTHS. PLEASE NOTE: A NORMAL MAMMOGRAM DOES NOT EXCLUDE THE POSSIBILITY OFBREAST CANCER. A CLINICALLY SUSPICIOUS PALPABLE LUMP SHOULD BE BIOPSIED. Dictated by: Seferino Gibbons DO on 11/15/2024 at 12:59 Approved by: Seferino Gibbons DO on 11/15/2024 at 13:21 Dictated By: Seferino Gbibons M.D. Signed By:11/15/24 1323 DD/ 1322 TD/TT: Director Of Business Systems: Destiny Mccartney [employer] PRODUCT CONSULTANT IMG BI PROCEDURES Final Result * COLONOSCOPY DIAGNOSTIC (07/26/2024 2:22 PM EST) Anatomical Region Laterality Modality Radiographic Liz ging us Negrita Van DO IMG XR PROCEDURES Final Result * Diabetic Retinopathy Screening - OU - Both Eyes (07/03/2024 2:19 PM EST) Anatomical Region Laterality Modality Head Other us Jing Larry OD OPHTH PHOTOGRAPHY Final Result from Last 3 Months or Most Recently Relevant to Health Maintenance Insurance [employer] MED[employer]AGE Care Teams Conche Operator Relationship Specialty Start Date End Date Shaikh Burks MD [address] [place] [id number] PCP - [employer] 10/08/23 Jerome rBody MD [address] [place] [phone] PCP - General Family Medicine 03/28/24 Karen Conner NP [address] [place] [phone] Nurse Practitioner Family Medicine 03/28/24 Destiny Mccartney NP [address] [place] [phone] Nurse Practitioner Family Medicine 01/18/25 Maurisio Crow DO [address] [place] [address] Otolaryngology 01/18/25
--- OUTSIDE RECORDS SUMMARY | 2025-03-30 21:18 | XMS_ITS | CCD ---
Author Organization [facility] Care Team Providers Care Motor Overhauler Name Role Phone Yuri Washington Unavailable MISC, DR RODRIGUEZ Primary Care Unavailable [facility] DR JOSEF Nelson Consulting Unavailable FAWWAD, HANNAH H Admitting Unavailable FAWWAD, HANNAH H Attending Unavailable FAWWAD, HANNAH H Consulting Unavailable FAWWAD, HANNAH H Admitting Unavailable FAWWAD, HANNAH H Attending Unavailable SYLACAUGA, DR ARCADIO Garcia Consulting Unavailable FAWWAD, HANNAH [...] CHELO ORO R Referring Unavailable CHELO ORO R Primary Care Unavailable Shaikh Burks MD Unavailable Jerome Coles MD Primary Care Provider Jayshree Conner NP Unavailable [phone] Shaikh Burks MD Primary Care Provider [phone] Jayshree Conner Primary Care Unavaila ble LyNegrita L Attending Unavailable Carlota Negrita L Admitting Unavailable Chase CASE FINISHING MACHINE ADJUSTER-GUM PULLER, Chelo R Primary Care Provider Chase CASE FINISHING MACHINE ADJUSTER-GUM PULLER, Chelo R Primary Care Provider [phone] Estuardo BARNETT, Arcadio Unavailable Unavailable Ubaldo MULTIFOCAL LENS ASSEMBLER, Jayshree Unavailable Estuardo BARNETT, Arcadio Unavailable Unavailable Yuliyahholcarmen MULTIFOCAL LENS ASSEMBLER, Destiny Unavailable Randy DO, Maurisio S Unavailable JEROME COLES Primary Care Physician Randy, Maurisio S Attending Unavailable Normedenyovanny, Maurisio S Admitting Unavailable CONNER, JAYSHREE Attending Unavailabl e AICHHOLZ, DESTINY Attending Unavailable BIEDENBACH, MAURISIO S Attending Unavailable AICHHOLZ, DESTINY Referring Unavailable BIEDENBACH, MAURISIO S Attending Unavailable AICHHOLZ, DESTINY Referring Unavailable BIEDENBACH, MAURISIO S Attending Unavailable AICHHOLZ, DESTINY Attending Unavailable CONNER, JAYSHREE Attending Unavailabl e CONNER, JAYSHREE Attending Unavailabl e UBALDO, JAYSHREE Attending UnavailArcadio Santizo MD Unavailable Unavailable Arcadio Marte Attending Unavailable Jing Juarez Referring Unavailable Arcadio Marte Attending Unavailable Arcadio Marte Attending Unavailable Arcadio Marte Referring Unavailable Arcadio Marte Attending Unavailable No Referring Doc, No Ref Doc Referring Libra vailaArcadio Anders Attending Unavailable Arcadio Marte Attending Unavailable Arcadio Marte Attending Unavailable No Referring Doc, No Ref Doc Referring Libra vailable Arcadio Marte Attending Unavailable No Referring Doc, No Ref Doc Referring Libra Arcadio Alfaro Attending Unavailable No Referring Doc, No Ref Doc Referring Libra Arcadio Alfaro MD Unavailable Unavailable Allergies Allergy Classification Reported Allergen(s) Allergy Type Date of Onset Reaction(s) Facility (9 sources) celecoxib; Translations: [CELECOXIB] Drug Allergy 7 Anaphylaxis [facility] (9 sources) Morphine; Translations: [MORPHINE] Drug Allergy 7 Stops her digestion, shuts down bowel, Stops her digestion [facility] (2 sources) Sulfacetamide Drug Allergy 4 Anaphylaxis [facility] (1 source) celecoxib Drug Allergy [address] [facility] Repository (1 source) Codeine Drug Allergy [address] [facility] Rep[facility] (1 source) Morphine Drug Allergy [address] [facility] (1 source) Sulfonamides (Antibiotic) Drug allergy (disorder) [address] [facility] Repository (20 sources) Lisinopril; Translations: [LISINOPRIL] Drug Allergy 7 Cough [facility] (10 sources) Sulfonamides (Antibiotic); Translations: [SULFA (SULFONAMIDE ANTIBIOTICS)] Propensity to adverse reactions to drug (disorder) 7 Anaphylaxis [facility] (20 sources) celecoxib Drug Allergy 3 Anaphylaxis [facility] (20 sources) Sulfonamides (Antibiotic) Propensity to adverse reactions 3 Anaphylaxis [facility] (1 source) celecoxib Drug Allergy 4 [facility] Medications Current Medications Medication Drug [...] Active 4 ml bevacizumab 25 mg/ml injection (2 sources) Vascular Endothelial Growth Factor Inhibitor Start: 02-22-2025 [...] Active doxycycline hyclate 100 mg oral tablet (3 sources) Tetracycline-c lass Drug Start: 02-07-2025 doxycycline [...] (20 sources) Anti-epileptic Agent Start: 12-22-2016 End: 06-26-2025 take 1 capsule by mouth in the [...] (300 mg) before bedtime. 270 capsule 1 03/28/2025 06/26/2025 Active take 1 capsule by [facility] every twelve hours gabapentin 300 mg capsule [...] Take with meals. 180 tablet 1 08/14/2024 Active Start: 12-30-2021 take 1 tablet by [...] (6 sources) take 1 capsule by mo ut every other day in the morning multivitamin capsule Take 1 capsule by mouth in the morning. EVERY OTHER DAY . Active take 1 capsule by mo ut every other day in the morning multivitamin capsule Take 1 capsule by out in the morning. EVERY OTHER DAY . [...] Take before meals. 90 capsule 1 12/14/2024 Active Start: 04-19-2024 take 1 capsule by [...] capsule 2 06/21/2024 Active polyethylene glycol 3350 511844 mg / potassium chloride 2970 mg / sodium bicarbonate 6740 mg / sodium chloride 5860 mg / sodium sulfate 07257 mg powder for oral solution (1 source) [...] bedtime 90 tablet 1 02/07/2025 05/08/2025 Active take 1 tablet by mouth once melissa y rosuvastatin 20 mg tablet take 1 tablet by oral route every day 20 MG - Active SENNOSIDES (SENNA LAX ORAL) (6 sources) [...] Felix Welch ( ) Start: 11-22-2023 End: 06-26-2025 take 1 tablet by mouth every eight hours for muscle spasms tiZANidine (Zanaflex) 4 MG tablet Indications: Chronic low back pain with left-sided sciatica, unspecified back pain laterality Take 1 tablet (4 mg) by mouth every 8 (eight) hours if needed for muscle spasms 270 tablet 1 03/28/2025 06/26/2025 Active Start: 11-02-2018 End: 11-18-2018 take 1 tablet by mouth three times daily as needed Tizanidine 4 mg Tablet Discontinued 4 MG PO Three times daily as needed for Muscle Spasticity November 01, 2018 11:00pm November 18, 2018 6:49am take 1 capsule by [facility] three times daily tiZANidine (ZANAFLEX) 4 mg capsule Take 1 capsule (4 mg total) by mouth 3 (three) times a day. Active take 1 capsule by mo [facility] once as needed tiZANidine (ZANAFLEX) 4 mg capsule Take 4 mg by mouth once as needed. 0 Active take [facility] hours tiZANidine HCl 4 MG [...] by mouth Daily 90 capsule 1 12/14/2024 Active Start: 07-09-2023 End: 09-24-2023 take 1 [...] June 26, 2024 2:02pm polyethylene glycol 3350 42648 mg powder for oral solution (2 sources) [...] Translations: [Palpitations] Onset: 6 11-05-2017 Episodic Cataract (9 sources) Presence of intraocular lens; Translations: [Pseudophakia] Onset: 5 Chronic Complications of surgical procedures or medical care (1 source) Postoperative wound infection; Translations: [Infection following a procedure, other surgical site, initial encounter] 12-22-2018 Episodic Congestive heart failure; nonhypertensive (20 sources) Chronic diastolic (congestive) heart failure; Translations: [Chronic diastolic heart failure] Onset: 1 07-28-2023 Chronic Diabetes mellitus without complication (20 sources) Type 2 diabetes mellitus without complications; Translations: [Type 2 diabetes mellitus] Onset: 2 Chronic Disorders of lipid metabolism (20 sources) Hyperlipidemia, unspecified; Translations: [Mixed hyperlipidemia] Onset: 1 03-28-2024 Chronic Diverticulosis and diverticulitis (20 sources) Diverticulitis of gastrointestinal tract; Translations: [Diverticulitis] Onset: 4 06-26-2024 Chronic E Codes: Natural/environment (5 sources) Insect bite - wound; Translations: [Bitten [...] unspecified site] 12-09-2018 Episodic Other eye disorders (9 sources) Macula scars of posterior pole (postinflammatory) [...] endocrine, nutritional and metabolic disease] 01-04-2025 Episodic Residual codes; unclassified (1 source) Family [...] degeneration, lumbar region] Onset: 4 11-30-2023 Chronic Spondylosis; intervertebral disc disorders; other back problems (20 sources) Lumbago with sciatica; Translations: [Lumbago with sciatica, left side] Onset: 7 12-21-2018 Episodic Superficial injury; contusion (5 sources) Tick bite; Translations: [Insect bite (nonvenomous) of left ear, initial encounter] Onset: 5 02-07-2025 Episodic Thyroid disorders (20 sources) Multinodular goiter; Translations: [Nontoxic multinodular goiter] Onset: 0411-15-2024 Chronic Unclassified (3 sources) LOW BACK PAIN, UNSPECIFIED; Translations: [LOW BACK PAIN, UNSPECIFIED] Onset: 2 Past or Other Problems Problem Classification Problem Date Documented Da te Episodic/Chronic Complication of device; implant or graft (1 source) Breakdown (mechanical) of internal fixation device of vertebrae, initial encounter Onset: 10-28-2021 Resolved: 10-28-2021 Episodic Diabetes mellitus with complications (20 sources) Polyneuropathy due to type 2 diabetes mellitus; Translations: [Type 2 diabetes mellitus with diabetic polyneuropathy] Onset: 07-28-2023 Resolved: 11-09-2024 07-28-2023 Chronic Mood disorders (20 sources) Mood disorders Onset: 07-28-2023 Resolved: 09-28-2024 07-28-2023 Other bone disease and musculoskeletal deformities (17 sources) Osteopenia; Translations: [Other specified disorders of bone density and structure, unspecified site] Onset: 12-01-2024 12-01-2024 Episodic Other circulatory disease (20 sources) Carotid bruit; Translations: [Other specified symptoms and signs involving the circulatory and respiratory systems] Onset: 11-09-2024 11-09-2024 Episodic Other connective tissue disease (1 source) Trochanteric bursitis; Translations: [Trochanteric bursitis, right hip] Episodic Other non-traumatic joint disorders (1 source) Pain in right hip joint; Translations: [Pain in right hip] Episodic Other non-traumatic joint disorders (1 source) Pain in right hip Onset: 10-28-2021 Resolved: 10-28-2021 Episodic Other screening for suspected conditions (not mental disorders or infectious disease) (20 sources) Encounter for screening mammogram for malignant neoplasm of breast; Translations: [Patient encounter status] Onset: 08-31-2022 11-09-2024 Episodic Other upper respiratory infections (20 sources) [...] specified postprocedural states] Onset: 11-30-2023 12-21-2018 Episodic Residual codes; unclassified (20 sources) Menopause present; Translations: [Asymptomatic menopausal state] Onset: 11-09-2024 11-09-2024 Episodic Unclassified (1 source) LOW BACK PAIN, UNSPECIFIED; Translations: [LOW BACK PAIN, UNSPECIFIED] Onset: 10-24-2021 Unclassified (4 sources) injection (chief complaint) Onset: 08-18-2024 Unclassified (4 sources) macular lesions (chief complaint) Onset: 07-14-2024 Results Test Name Value Interpretation Reference Range Facility HbA1c (Bld) [Mass fraction]o n 02-07-2025 Interpretation and review of laboratory results Abnormal [facility] - Hematology and Cell countson 02-07-2025 HbA1c (Bld) [Mass fraction] 5.9 % [facility] Non-Java Software Cytology Reporton Non-[place] [address]- Non-Java Software Cytology Report Collected Date/Time: 01/18/2025 13:15 EDT Pathologist: Armando BARNETT PhD, Anna Yang Received Date/Time: 01/18/2025 18:00 EDT Randy DO, Maurisio Padilla DO, Maurisio S 07 Non-Java Software Cytology Report - 01/25/2025 11:27 EDT - [...] Nodule Gross Description Received 10 slides from office coordinator. 5 unstained slides sent for Papanicolaou stain, 5 slides Diff-Quik stained in-house. Also received needle wash in 30 mL of ThinPrep CytoLyt solution. Sent for processing and cell block preparation. MMF:MMF Microscopic Description Microscopic examination performed. This report was transcribed using voice recognition technology and might contain unintended computerized locomotive driver errors. Normal [facility] Comment on above: Performed By: #### 4 [id number] #### [facility] [address] [place] [address] No Panel Informationon 01-16 FASTING:YES FASTING: YES [facility] Performing Organizat ion Information Site ID: QPT Name: [facility] Address: [address] [place] [address], [address] [place] [address] Director: Salo Rachel MD [facility] PTH, INTACT AND CALCIUMon Calcium [Mass/Vol] 9.9 mg/dL Normal 8.6-10.4 [facility] Comment on above: Order Comment: FASTI NG:YES FASTING: YES Performed By: #### 8 245, 217, 867 #### [facility] [address], [address] [place] [address] Goodwill Representative: Salo Rachel MD PARATHYROID HORMONE, INTACT 30 pg/mL Normal 16-77 [facility] Comment on above: Order Comment: FASTI NG:YES FASTING: YES Result Comment: Interpretive Guide Intact PTH Calcium ------- Normal Parathyroid Normal Normal Hypoparathyroidism Low or Low Normal Low Hyperparathyroidism Primary Normal or High High Secondary High Normal or Low Tertiary High High Non-Parathyroid Hypercalcemia Low or Low Normal High Performed By: #### 8 375, 382, 867 #### [facility] [address], [address] [place] [address] Goodwill Representative: Salo Rachel MD Parathyrin.intact and Calciu m panelon 01-16-2025 Calcium [Mass/Vol] 9.9 mg/dL 8.6 - 10. 4 mg/dL [facility] Parathyrin.intact [Mass/Vol] 30 pg/mL 16 - 77 pg/mL [facility] Comment on above: Interpretive Guide Intact PTH Calcium ------- Normal Parathyroid Normal Normal Hypoparathyroidism Low or Low Normal Low Hyperparathyroidism Primary Normal or High High Secondary High Normal or Low Tertiary High High Non-Parathyroid Hypercalcemia Low or Low Normal High T3on 01-16-2025 T3 [Mass/Vol] 103 ng/dL 76 - 181 ng/dL [facility] T3, TOTALon 01-16-2025 T3, TOTAL 103 ng/dL Normal 76-181 [facility] Comment on above: Performed By: #### 8 837, 859, 867 #### [facility] [place] [address] Goodwill Representative: Salo Rachel MD T4 (THYROXINE), TOTALon 01-07 T4 [Mass/Vol] 8.4 ug/dL Normal 5.1-11.9 [facility] Comment on above: Performed By: #### 8 83Dheeraj, 859, 867 #### [facility] [place] [address] Goodwill Representative: Salo Rachel MD TSHon 01-16-2025 TSH Qn 0.73 m[IU]/L Normal 0.40-4.50 [facility] Comment on above: Performed By: #### 8 837, 859, 867 #### [facility] [place] [address] Goodwill Representative: Salo Rachel MD TSH Qn 0.73 m[IU]/L [facility] TSH Qnon 01-16-2025 T4 [Mass/Vol] 8.4 ug/dL [facility] US Thyroid [address] [place] [address] Ultrasound Report Signed Patient: SASKIA NEFF MR#: [id number] : 1950 Acct:[id number] Age/Sex: 73 / F ADM Date: 11/28/24 Loc: US Attending Dr: Destiny Mccartney NP Ordering Physician: Destiny Mccartney NP Date of Service: 11/28/24 Procedure(s): US thyroid Accession Number(s): [id number] cc: Destiny Mccartney NP [address] [place] [id number] Patient Name: SASKIA NEFF MRN: [facility]:[id number] date: 1950 Sex: F Assigned Patient Location: US Current Patient Location: US Accession/Order Number: [id number] Exam Date: 11/28/2024 13:20 Report Date: 11/28/2024 [...] Seun Kitchen M.D.11/28/2024 1:27 PM Dictation Location: [place] [address] Electronically authenticated by: [id number] Y Date: 11/28/2024 13:27 Dictated By: Seun Kitchen D.O. Signed By: 11/28/24 1330 DD/ 1327 TD/TT: Fun House Operator: [facility] Radiology Radiologbuddy duvall MD - 11/28/2024 [place] [address] Ultrasound Report Signed Patient: SASKIA NEFF MR#: [id number] : 1950 Acct:[id number] Age/Sex: 73 / F ADM Date: 11/28/24 Loc: US Attending Dr: Destiny Mccartney NP Ordering Physician: Destiny Mccartney NP Date of Service: 11/28/24 Procedure(s): US thyroid Accession Number(s): [id number] cc: Destiny Mccartney NP [address] [address] Patient Name: SASKIA NEFF MRN: [facility]:[id number] date: 1950 Sex: F Assigned Patient Location: US Current Patient Location: US Accession/Order Number: [id number] Exam Date: 11/28/2024 13:20 Report Date: 11/28/2024 [...] Seun Kitchen M.D.11/28/2024 1:27 PM Dictation Location: [place] [address] Electronically authenticated by: [id number] Y Date: 11/28/2024 13:27 Dictated By: Seun Kitchen D.O. Signed By: 11/28/24 1339 DD/ 1327 TD/TT: Fun House Operator: [facility] Radiology Study observation (narrative) [facility] US Thyroid glandOrdered By: Radiologist Radiology on 11-28-2024 [facility] Work Phone: MG Breast - bilateral Screen ingon 11-15-2024 [place] [address] Mammography Report Signed Patient: SASKIA NEFF MR#: [id number] : 1950 Acct:[id number] Age/Sex: 73 / F ADM Date: 11/15/24 Loc: RAD Attending Dr: Destiny Mccartney NP Ordering Physician: Destiny Mccartney NP Results: Date of Service: 11/15/24 Follow Up: Procedure(s): MM screening mammo BI Accession Number(s): [id number] cc: Destiny Mccartney NP Patient Name: SASKIA NEFF MR#: [id number] : 1950 Exam Date: 11/15/2024 Ordering Doctor: [...] colon cancer at age 71. LOCATION: [facility] BREAST COMPOSITION: There are scattered areas of [...] Signed By: 11/15/24 1323 DD/ 1322 TD/TT: Fun House Operator: [facility] Radiology, Radiologi st, MD - 11/15/2024 [place] [address] Mammography Report Signed Patient: SASKIA NEFF MR#: [id number] : 1950 Acct:[id number] Age/Sex: 73 / F ADM Date: 11/15/24 Loc: RAD Attending Dr: Destiny Mccartney NP Ordering Physician: Destiny Mccartney NP Results: Date of Service: 11/15/24 Follow Up: Procedure(s): MM screening mammo BI Accession Number(s): [id number] cc: Destiny Mccartney NP Patient Name: SASKIA NEFF MR#: [id number] : 1950 Exam Date: 11/15/2024 Ordering Doctor: RICHIE Mccartney GUM PULLER RADIOLOGY REPORT PROCEDURE: MM SCREENING MAMMO BI [...] colon cancer at age 71. LOCATION: [facility] BREAST COMPOSITION: There are scattered areas of [...] Signed By: 11/15/24 1323 DD/ 1322 TD/TT: Fun House Operator: [facility] Radiology Study observation (narrative) [facility] MG Breast - bilateral Screen ingOrdered By: Radiologist Radiology on 11-15-2024 [facility] Work Phone: ALL CBC WITH AUTO DIFFon BASOPHILS ABSOLUTE AUTO 0 [facility] Basophils/100 WBC (Bld) 0.5 % 0.2 - 2.0 % [facility] Eosinophils/100 WBC (Bld) 5.7 % 0.9 - 7.0 % [facility] Erythrocyte distribution width (RBC) [Ratio] 13.1 % 11.0 - 15.0 % [facility] Hematocrit (Bld) [Volume fraction] 41.1 % 36.0 - 48.0 % [facility] Hemoglobin (Bld) [Mass/Vol] 14.5 g/dL 12.0 - 16.0 g/dL [facility] IMMATURE GRANULOCYTES ABS AUTO 0.01 [facility] Immature granulocytes/100 WBC (Bld) 0.2 % 0.0 - 0.5 % [facility] Interpretation and review of laboratory results Abnormal [facility] LYMPHOCYTES ABSOLUTE AUTO 1.3 [facility] Lymphocytes/100 WBC (Bld) 22.3 % 20.5 - 60.0 % [facility] MCH (RBC) [Entitic mass] 31.6 pg 26.7 - 34.0 pg [facility] MCHC (RBC) [Mass/Vol] 35.3 g/dL High 29.9 - 35.2 g/dL [facility] MCV (RBC) [Entitic vol] 89.5 fL 81.0 - 99.0 fL [facility] MONOCYTES ABSOLUTE AUTO 0.7 [facility] Monocytes/100 WBC (Bld) 12.2 % High 1.7 - 12.0 % [facility] NEUTROPHILS ABSOLUTE AUTO 3.3 [facility] Neutrophils/100 WBC (Bld) 59.1 % 43.0 - 75.0 % [facility] Platelet mean volume (Bld) [Entitic vol] 9.8 fL 9.5 - 13.5 fL [facility] TBH EO # 0.3 [facility] TB PLT 271 [facility] TB RBC 4.59 [facility] TB WBC 5.7 [facility] Glucose Poct Glucometerson 1 09-26-2023 Glucose [Mass/Vol] 102 mg/dL Normal [facility] Comment on above: Result Comment: [facility] Glucose Reference Range is dependent on time and content of last meal. Glucose of more than 200 mg/dL in a nonstressed, ambulatory subject supports the diagnosis of Diabetes Mellitus. PERFORMED BY: [place] [id number] PATHOLOGIST TANK SETTER LATRICE WAKEFIELD M.D. Performed By: #### G LULS #### Point of Care testing , Pathology Request for Lab Co rpon 07-26-2024 Pathology Request for Lab Heather Normal [facility] Comment on above: Order Comment: PATHO LOGY GI SPECIMEN Result Comment: See report. Scanned copy available in EMR. PERFORMED BY: [place] [address] PATHOLOGIST TANK SETTER LATRICE WAKEFIELD M.D. Performed By: #### P ATH TO [facility] #### [address] POCT EKGon 09-24-2023 [facility] CULTURE URINEon 08-26-2022 CULTURE URINE Culture Observations : NO GROWTH. Normal [facility] Comment on above: Performed By: #### U RCX #### [facility] [address] [place] [address] Dr. Anna Roberts GLYCOHEMOGLOBIN A1Con 2022 ADA RECOMMENDATION SEE BELOW Normal [facility] Comment on above: Result Comment: ADA RECOMMENDED LIMIT 4.0 - 6.0 ADA THERAPEUTIC TARGET < 7.0 ACTION SUGGESTED > 7.0 Performed By: #### U AMIC #### [facility] [address] [place] [address] [address] Anna Roberts Glucose [Mass/Vol] 126 mg/dL Normal [facility] Comment on above: Performed By: #### U AMIC #### [facility] [address] [place] [address] [address] Anna Roberts HbA1c (Bld) [Mass fraction] 6.0 % Normal 4.5-6.[address] [facility] Comment on above: Performed By: #### U AMIC #### [facility] [address] [place] [address] [address] Anna Roberts LIPID PROFILEon 08-26-2022 CHOL-HDL RATIO NORM SEE BELOW Normal [facility] Comment on above: Result Comment: 3.3 - 4.4 LOW RISK 4.4 - 7.1 AVERAGE RISK 7.1 - 11.0 MODERATE RISK >11.0 HIGH RISK Performed By: #### L IPID #### [facility] [address] [place] [address] [address] Anna Roberts Cholesterol [Mass/Vol] 116 mg/dL Normal <=[address] [facility] Comment on above: Performed By: #### L IPID #### [facility] [address] [place] [address] [address] Anna Roberts Cholesterol in HDL [Mass/Vol] 44 mg/dL Normal 40-[address] [facility] Comment on above: Performed By: #### L IPID #### [facility] [address] [place] [address] [address] Anna Roberts Cholesterol in LDL [Mass/Vol] 53.0 mg/dL Normal [facility] Comment on above: Performed By: #### L IPID #### [facility] [address] [place] [address] [address] Anna Roberts Cholesterol.total/Ch olesterol in HDL [Mass ratio] 2.6 {ratio} Normal [facility] Comment on above: Performed By: #### L IPID #### [facility] [address] [place] [address] [address] Anna Roberts HDL NORMAL > or = 60 mg/dl - LO W CARDIOVASCULAR RISK <40 mg/dl - HIGH CARDIOVASCULAR RISK Normal [facility] Comment on above: Performed By: #### L IPID #### [facility] [address] [place] [address] [address] Anna Roberts LDL CALC NORMAL SEE BELOW Normal [facility] Comment on above: Result Comment: <100 mg/dl OPTIMAL 100 - 129 mg/dl NEAR OR ABOVE OPTIMAL 130 - 159 mg/dl BORDERLINE HIGH 160 - 189 mg/dl HIGH >190 mg/dl VERY HIGH Performed By: #### L IPID #### [facility] [address] [place], [place] [address] Dr. Anna Roberts Triglyceride [Mass/Vol] 96 mg/dL Normal <=[address] [facility] Comment on above: Performed By: #### L IPID #### [facility] [address] [place], [place] [address] Dr. Anna Roberts VLDL CALC 19.2 mg/dL Normal [facility] Comment on above: Performed By: #### L IPID #### [facility] [address] [place], [place] [address] Dr. Anna Roberts MG MAMM SCREEN 3D SAMI CADon 08-26-2022 MG MAMM SCREEN 3D SAMI CAD Patient: SASKIA NEFF Exam Date: 08/26/2022 : 1950 Gender:F Ordering : SHAIKH Alma BURKS . Admission #: [id number] Family : Order #: [id number] CLICK HERE TO VIEW EXAM RADIOLOGY REPORT [...] colon cancer at age 71. LOCATION: [facility] BREAST COMPOSITION: Scattered areas fibroglandular density. FINDINGS: [...] MD on 08/26/2022 at 10:[address] [facility] UA RANDOM W/MICROSCOPICon BACTERIA TRACE Abnormal NONE SEEN [facility] Comment on above: Performed By: #### U AMIC #### [facility] [address] [address] [address] Anna Roberts Bilirubin Ql (U) Negative Normal NEGATIVE [facility] Comment on above: Performed By: #### U AMIC #### [facility] [address] [place] [address] Dr. Anna Roberts CAST NONE SEEN Normal NONE SEEN [facility] Comment on above: Performed By: #### U AMIC #### [facility] [address] [address] [address] Anna Roberts Clarity (U) CLEAR Normal CLEAR [facility] Comment on above: Performed By: #### U AMIC #### [facility] [address] [place] [address] Dr. Anna Roberts Color (U) LT. YELLOW Normal YELLOW [facility] Comment on above: Performed By: #### U AMIC #### [facility] [address] [place] [address] Dr. Anna Roberts Crystals LM Nom (Urine sed) NONE SEEN Normal NONE SEEN [facility] Comment on above: Performed By: #### U AMIC #### [facility] [address] [place] [address] Dr. Anna Roberts Epithelial cells LM Ql (Urine sed) FEW Abnormal NONE SEEN /RARE [facility] Comment on above: Performed By: #### U AMIC #### [facility] [address] [place] [address] Dr. Anna Roberts Glucose Ql (U) Negative Normal NEGATIVE [facility] Comment on above: Performed By: #### U AMIC #### [facility] [address] [address] [address] Anna Roberts Hemoglobin Ql (U) Negative Normal NEGATIVE [facility] Comment on above: Performed By: #### U AMIC #### [facility] [address] [place] [address] Dr. Anna Roberts Ketones Ql (U) Negative Normal NEGATIVE [facility] Comment on above: Performed By: #### U AMIC #### [facility] [address] [address] [address] Anna Roberts LEUKOCYTES Negative Normal NEGATIVE [facility] Comment on above: Performed By: #### U AMIC #### [facility] [address] [place] [address] Dr. Anna Roberts MUCOUS NONE SEEN Normal NONE SEEN [facility] Comment on above: Performed By: #### U AMIC #### [facility] [address] [address] [address] Anna Roberts Nitrite Ql (U) Negative Normal NEGATIVE [facility] Comment on above: Performed By: #### U AMIC #### [facility] [address] [place] [address] Dr. Anna Roberts pH (U) 6.0 [pH] Normal 5-[address] [facility] Comment on above: Performed By: #### U AMIC #### [facility] [address] [place] [address] Dr. Anna Roberts RBC NONE SEEN Abnormal 0-[address] [facility] Comment on above: Performed By: #### U AMIC #### [facility] [address] [place] [address] Dr. Anna Roberts SPEC GRAVITY >=1.030 Abnormal 1.005-<=1.[address] [facility] Comment on above: Performed By: #### U AMIC #### [facility] [address] [place] [address] Dr. Anna Roberts UA PROTEIN Negative Normal NEGATIVE/ TRACE [facility] Comment on above: Performed By: #### U AMIC #### [facility] [address] [place] [address] Dr. Anna Roberts Urobilinogen Qn (U) 0.2 {Mulu'U}/dL Normal 0.2 - 1. [address] [facility] Comment on above: Performed By: #### U AMIC #### [facility] [address] [place] [address] Dr. Anna Roberts WBC NONE SEEN Normal NONE SEEN [facility] Comment on above: Performed By: #### U AMIC #### [facility] [address] [address] [address] Anna Roberts CBC AUTO DIFFon 03-09-2022 BASO # 0.0 103/ul Normal 0.0-0.[address] [facility] Comment on above: Performed By: #### C BC #### [facility] [address] [place] [address] Dr. Anna Roberts Basophils/100 WBC (Bld) 0.6 % Normal 0.2-2.[address] [facility] Comment on above: Performed By: #### C BC #### [facility] [address] [place] [address] Dr. Anna Roberts EO # 0.3 103/ul Normal 0.0-0.[address] [facility] Comment on above: Performed By: #### C BC #### [facility] [address] [place] [address] Dr. Anna Roberts Eosinophils/100 WBC (Bld) 4.1 % Normal 0.9-7.[address] [facility] Comment on above: Performed By: #### C BC #### [facility] [address] [place] [address] Dr. Anna Roberts Erythrocyte distribution width (RBC) [Ratio] 13.1 % Normal 11.0-15.[address] [facility] Comment on above: Performed By: #### C BC #### [facility] [address] [place] [address] Dr. Anna Roberts Hematocrit (Bld) [Volume fraction] 44.2 % Normal 36.0-48.[address] [facility] Comment on above: Performed By: #### C BC #### [facility] [address] [place] [address] Dr. Anna Roberts Hemoglobin (Bld) [Mass/Vol] 15.6 g/dL Normal 12.0-16.[address] [facility] Comment on above: Performed By: #### C BC #### [facility] [address] [place] [address] Dr. Anna Roberts IG # 0.02 10e3/ul Normal 0.00-0.[address] [facility] Comment on above: Performed By: #### C BC #### [facility] [address] [place] [address] Dr. Anna Roberts IG % 0.3 % Normal 0.0-0.[address] [facility] Comment on above: Performed By: #### C BC #### [facility] [address] [place] [address] Dr. Anna Roberts LYMPH # 1.6 103/ul Normal 1.2-3.[address] [facility] Comment on above: Performed By: #### C BC #### [facility] [address] [place] [address] Dr. Anna Roberts Lymphocytes/100 WBC (Bld) 24.1 % Normal 20.5-60.[address] [facility] Comment on above: Performed By: #### C BC #### [facility] [address] [place] [address] Dr. Anna Roberts MANUAL DIFF REQ NO Normal [facility] Comment on above: Performed By: #### C BC #### [facility] [address] [place] [address] Dr. Anna Roberts MCH (RBC) [Entitic mass] 31.6 pg Normal 26.7-34.[address] [facility] Comment on above: Performed By: #### C BC #### [facility] [address] [place] [address] Dr. Anna Roberts MCHC (RBC) [Mass/Vol] 35.3 g/dL Critically high 29.9-35.[address] [facility] Comment on above: Performed By: #### C BC #### [facility] [address] [place] [address] Dr. Anna Roberts MCV (RBC) [Entitic vol] 89.7 fL Normal 81.0-99.[address] [facility] Comment on above: Performed By: #### C BC #### [facility] [address] [place] [address] Dr. Anna Roberts MONO # 0.8 103/ul Normal 0.3-0.[address] [facility] Comment on above: Performed By: #### C BC #### [facility] [address] [address] [address] Anna Roberts Monocytes/100 WBC (Bld) 11.4 % Normal 1.7-12.[address] [facility] Comment on above: Performed By: #### C BC #### [facility] [address] [place] [address] Dr. Anna Roberts NEUT # 3.9 103/ul Normal 1.4-6.[address] [facility] Comment on above: Performed By: #### C BC #### [facility] [address] [place] [address] Dr. Anna Roberts Neutrophils/100 WBC (Bld) 59.5 % Normal 43.0-75.[address] [facility] Comment on above: Performed By: #### C BC #### [facility] [address] [place] [address] Dr. Anna Roberts Platelet mean volume (Bld) [Entitic vol] 9.3 fL Critically low 9.5-13.[address] [facility] Comment on above: Performed By: #### C BC #### [facility] [address] [place] [address] Dr. Anna Roberts PLT 301 103/ul Normal 150-[address] [facility] Comment on above: Performed By: #### C BC #### [facility] [address] [place] [address] Dr. Anna Roberts RBC 4.93 106/ul Normal 4.20-5.[address] [facility] Comment on above: Performed By: #### C BC #### [facility] [address] [place] [address] Dr. Anna Roberts WBC 6.6 103/ul Normal 4.0-11.[address] [facility] Comment on above: Performed By: #### C BC #### [facility] [address] [place] [address] Dr. Anna Roberts LIPID PROFILEon 03-09-2022 CHOL-HDL RATIO NORM SEE BELOW Normal [facility] Comment on above: Result Comment: 3.3 - 4.4 LOW RISK 4.4 - 7.1 AVERAGE RISK 7.1 - 11.0 MODERATE RISK >11.0 HIGH RISK Performed By: #### C MP, LIPID #### [facility] [address] [address] [address] Anna Roberts Cholesterol [Mass/Vol] 185 mg/dL Normal <=[address] [facility] Comment on above: Performed By: #### C MP, LIPID #### [facility] [address] [address] [address] Anna Roberts Cholesterol in HDL [Mass/Vol] 43 mg/dL Normal 40-[address] [facility] Comment on above: Performed By: #### C MP, LIPID #### [facility] [address] [address] [address] Anna Roberts Cholesterol in LDL [Mass/Vol] 125.0 mg/dL Normal [facility] Comment on above: Performed By: #### C MP, LIPID #### [facility] [address] [place] [address] Dr. Anna Roberts Cholesterol.total/Ch olesterol in HDL [Mass ratio] 4.3 {ratio} Normal [facility] Comment on above: Performed By: #### C MP, LIPID #### [facility] [address] [address] [address] Anna Roberts HDL NORMAL > or = 60 mg/dl - LO W CARDIOVASCULAR RISK <40 mg/dl - HIGH CARDIOVASCULAR RISK Normal [facility] Comment on above: Performed By: #### C MP, LIPID #### [facility] [address] [address] [address] Anna Roberts LDL CALC NORMAL SEE BELOW Normal [facility] Comment on above: Result Comment: <100 mg/dl OPTIMAL 100 - 129 mg/dl NEAR OR ABOVE OPTIMAL 130 - 159 mg/dl BORDERLINE HIGH 160 - 189 mg/dl HIGH >190 mg/dl VERY HIGH Performed By: #### C MP, LIPID #### [facility] [address] [address] [address] Anna Roberts Triglyceride [Mass/Vol] 85 mg/dL Normal <=[address] [facility] Comment on above: Performed By: #### C MP, LIPID #### [facility] [address] [address] [address] Anna Roberts VLDL CALC 17.0 mg/dL Normal [facility] Comment on above: Performed By: #### C MP, LIPID #### [facility] [address] [place] [address] Dr. Anna Roberts MAGNESIUMon 03-09-2022 Magnesium [Mass/Vol] 1.7 mg/dL Critically low 1.8-2.[address] [facility] Comment on above: Performed By: #### M G #### [facility] [address] [place] [address] Dr. Anna Roberts PROF 14(COMP METB)on 022 Albumin [Mass/Vol] 3.9 g/dL Normal 3.4-5.0 [facility] Comment on above: Performed By: #### C MP, LIPID #### [facility] [address] [place] [address] Dr. Anna Roberts Albumin/Globulin [Mass ratio] 1.1 {ratio} Normal [facility] Comment on above: Performed By: #### C MP, LIPID #### [facility] [address] [place] [address] Dr. Anna Roberts ALP [Catalytic activity/Vol] 58 U/L Normal 46-[address] [facility] Comment on above: Performed By: #### C MP, LIPID #### [facility] [address] [place] [address] Dr. Anna Roberts ALT [Catalytic activity/Vol] 27 U/L Normal 14-[address] [facility] Comment on above: Performed By: #### C MP, LIPID #### [facility] [address] [place] [address] Dr. Anna Roberts Anion gap [Moles/Vol] 14.0 mmol/L Normal [facility] Comment on above: Performed By: #### C MP, LIPID #### [facility] [address] [place] [address] Dr. Anna Roberts AST [Catalytic activity/Vol] 18 U/L Normal 15-[address] [facility] Comment on above: Performed By: #### C MP, LIPID #### [facility] [address] [place] [address] Dr. Anna Roberts Bilirubin [Mass/Vol] 0.6 mg/dL Normal 0.2-1.[address] [facility] Comment on above: Performed By: #### C MP, LIPID #### [facility] [address] [place] [address] Dr. Anna Roberts Calcium [Mass/Vol] 10.0 mg/dL Normal 8.5-10.1 [facility] Comment on above: Performed By: #### C MP, LIPID #### [facility] [address] [place] [address] Dr. Anna Roberts Chloride [Moles/Vol] 101 mmol/L Normal 98-[address] [facility] Comment on above: Performed By: #### C MP, LIPID #### [facility] [address] [place] [address] Dr. Anna Roberts CO2 [Moles/Vol] 29.6 mmol/L Normal 21.0-32.0 [facility] Comment on above: Performed By: #### C MP, LIPID #### [facility] [address] [place] [address] Dr. Anna Roberts Creatinine [Mass/Vol] 0.79 mg/dL Normal 0.55-1.[address] [facility] Comment on above: Performed By: #### C MP, LIPID #### [facility] [address] [place] [address] Dr. Anna Roberts EGFR-AF HONDURAN >60 Normal >=60 [facility] Comment on above: Performed By: #### C MP, LIPID #### [facility] [address] [place] [address] Dr. Anna Roberts EGFR-NON AF HONDURAN >60 Normal >=[address] [facility] Comment on above: Performed By: #### C MP, LIPID #### [facility] [address] [place] [address] Dr. Anna Roberts Globulin (S) [Mass/Vol] 3.7 g/dL Normal [facility] Comment on above: Performed By: #### C MP, LIPID #### [facility] [address] [place] [address] Dr. Anna Roberts Glucose [Mass/Vol] 118 mg/dL Critically high 74-106 [facility] Comment on above: Performed By: #### C MP, LIPID #### [facility] [address] [place] [address] Dr. Anna Roberts Potassium [Moles/Vol] 3.6 mmol/L Normal 3.5-5.[address] [facility] Comment on above: Performed By: #### C MP, LIPID #### [facility] [address] [place] [address] Dr. Anna Roberts Protein [Mass/Vol] 7.6 g/dL Normal 6.4-8.2 [facility] Comment on above: Performed By: #### C MP, LIPID #### [facility] [address] [place] [address] Dr. Anna Roberts Sodium [Moles/Vol] 141 mmol/L Normal 136-145 [facility] Comment on above: Performed By: #### C MP, LIPID #### [facility] [address] [place] [address] Dr. Anna Roberts Urea nitrogen [Mass/Vol] 20.0 mg/dL Critically high 7.0-18.[address] [facility] Comment on above: Performed By: #### C MP, LIPID #### [facility] [address] [place] [address] Dr. Anna Roberts Urea nitrogen/Creatinine [Mass ratio] 25.3 mg/mg Normal [facility] Comment on above: Performed By: #### C MP, LIPID #### [facility] [address] [place] [address] Dr. Anna Roberts GLYCOHEMOGLOBIN A1Con 2021 ADA RECOMMENDATION SEE BELOW Normal [facility] Comment on above: Result Comment: ADA RECOMMENDED LIMIT 4.0 - 6.0 ADA THERAPEUTIC TARGET < 7.0 ACTION SUGGESTED > 7.0 Performed By: #### U AMIC #### [facility] [address] [place] [address] Dr. Anna Roberts Glucose [Mass/Vol] 117 mg/dL Normal [facility] Comment on above: Performed By: #### U AMIC #### [facility] [address] [address] [address] Anna Roberts HbA1c (Bld) [Mass fraction] 5.7 % Normal 4.5-6.[address] [facility] Comment on above: Performed By: #### U AMIC #### [facility] [address] [place], [place] [address] Dr. Anna Roberts XR LSPINE MIN 4 [...] by: JOSEF GUARDADO Date: 2021-10-24 09:[address] [facility] Vital Signs Date Time Vital Sign Value Performing Clinician Facility 03-09-2025 13:040 Diastolic blood pressure 63 mm[Hg] Arcadio Marte MD [facility] 03-09-2025 13:09040 Systolic blood pressure 120 mm[Hg] Arcadio Marte MD [facility] 02-07-2025 11:09-0400 Body mass index (BMI) [Ratio] 29.75 kg/m2 Destiny Mccartney NP Work Phone: [facility] 02-07-2025 11:09040 Body temperature 97.81 [degF] Destiny Mccartney NP Work Phone: [facility] 02-07-2025 11:09040 Body weight 81.1 kg Destiny Mccartney [employer] Work Phone: [facility] 02-07-2025 11:09-0400 Diastolic blood pressure 70 mm[Hg] Destiny Mccartney [employer] Work Phone: [facility] 02-07-2025 11:09-0400 Heart rate 61 /min Destiny Mccartney [employer] Work Phone: [facility] 02-07-2025 11:09-0400 Respiratory rate 20 /min Destiny Mccartney [employer] Work Phone: [facility] 02-07-2025 11:09-0400 SaO2% (BldA) [Mass fraction] 94 % Destiny Mccartney [employer] Work Phone: [facility] 02-07-2025 11:09-0400 Systolic blood pressure 100 mm[Hg] Destiny Mccartney [employer] Work Phone: [facility] 02-01-2025 14:11-0400 Body height 165.1 cm Maurisio Biedenbach DO Work Phone: [facility] 02-01-2025 14:11-0400 Body mass index (BMI) [Ratio] 29.95 kg/m2 Maurisio Biedenbach DO Work Phone: [facility] 02-01-2025 14:11-0400 Body weight 81.65 kg Maurisio Biedenbach DO Work Phone: [facility] 01-18-2025 12:51-0400 Body height 165.1 cm Maurisio Biedenbach DO Work Phone: [facility] 01-18-2025 12:51-0400 Body mass index (BMI) [Ratio] 29.95 kg/m2 Maurisio Biedenbach DO Work Phone: [facility] 01-18-2025 12:51-0400 Body weight 81.65 kg Maurisio Biedenbach DO Work Phone: [facility] 01-04-2025 15:29-0400 Body height 165.1 cm Maurisio Padilla DO Work Phone: [facility] 01-04-2025 15:29-0400 Body mass index (BMI) [Ratio] 29.95 kg/m2 Maurisio Padilla DO Work Phone: [facility] 01-04-2025 15:29-0400 Body weight 81.65 kg Maurisio Padilla DO Work Phone: [facility] 11-09-2024 09:25-0400 Body mass index (BMI) [Ratio] 30.19 kg/m2 Destiny Sherrill [employer] Work Phone: [facility] 11-09-2024 09:25-0400 Body temperature 98.49 [degF] Destiny Erisz [employer] Work Phone: [facility] 11-09-2024 09:25-0400 Body weight 82.28 kg Destiny Erisz [employer] Work Phone: [facility] 11-09-2024 09:25-0400 Diastolic blood pressure 76 mm[Hg] Destiny Erisz [employer] Work Phone: [facility] 11-09-2024 09:25-0400 Heart rate 68 /min Destiny Erisz [employer] Work Phone: [facility] 11-09-2024 09:25-0400 Respiratory rate 18 /min Destiny Erisz [employer] Work Phone: [facility] 11-09-2024 09:25-0400 SaO2% (BldA) [Mass fraction] 96 % Destiny Ersiz [employer] Work Phone: [facility] 11-09-2024 09:25-0400 Systolic blood pressure 132 mm[Hg] Destiny Sherrill [employer] Work Phone: [facility] 11-01-2024 12:32-0400 Diastolic blood pressure 62 mm[Hg] Arcadio Marte MD [facility] 11-01-2024 12:32-0400 Systolic blood pressure 115 mm[Hg] Arcadio Marte MD [facility] 09-28-2024 10:34-0500 Body height 165.1 cm Jayshree Conner [employer] Work Phone: [facility] 09-28-2024 10:34-0500 Body mass index (BMI) [Ratio] 30.45 kg/m2 Jayshree Conner [employer] Work Phone: [facility] 09-28-2024 10:34-0500 Body temperature 96.8 [degF] Jayshree Conner [employer] Work Phone: [facility] 09-28-2024 10:34-0500 Body weight 83.01 kg Jayshree Conner [employer] Work Phone: [facility] 09-28-2024 10:34-0500 Diastolic blood pressure 66 mm[Hg] Jayshree Conner [employer] Work Phone: [facility] 09-28-2024 10:34-0500 Heart rate 73 /min Jayshree Conner [employer] Work Phone: [facility] 09-28-2024 10:34-0500 Respiratory rate 16 /min Jayshree Conner [employer] Work Phone: [facility] 09-28-2024 10:34-0500 SaO2% (BldA) [Mass fraction] 98 % Jayshree Conner [employer] Work Phone: [facility] 09-28-2024 10:34-0500 Systolic blood pressure 110 mm[Hg] Jayshree Conner [employer] Work Phone: [facility] 09-22-2024 13:27-0500 Diastolic blood pressure 74 mm[Hg] Arcadio Marte MD [facility] 09-22-2024 13:27-0500 Systolic blood pressure 147 mm[Hg] Arcadio Marte MD [facility] 08-14-2024 08:31-0500 Body height 165.1 cm Jayshree Conner [employer] Work Phone: [facility] 08-14-2024 08:31-0500 Body mass index (BMI) [Ratio] 29.82 kg/m2 Jayshree Conner [employer] Work Phone: [facility] 08-14-2024 08:31-0500 Body temperature 97.2 [degF] Jayshree Conner [employer] Work Phone: [facility] 08-14-2024 08:31-0500 Body weight 81.28 kg Jayshree Conner [employer] Work Phone: [facility] 08-14-2024 08:31-0500 Diastolic blood pressure 72 mm[Hg] Jayshree Conner [employer] Work Phone: [facility] 08-14-2024 08:31-0500 Heart rate 84 /min Jayshree Conner [employer] Work Phone: [facility] 08-14-2024 08:31-0500 Respiratory rate 16 /min Jayshree Conner [employer] Work Phone: [facility] 08-14-2024 08:31-0500 SaO2% (BldA) [Mass fraction] 98 % Jayshree Conner [employer] Work Phone: [facility] 08-14-2024 08:31-0500 Systolic blood pressure 117 mm[Hg] Jayshree Conner [employer] Work Phone: [facility] 06-28-2024 08:54-0500 Body height 165.1 cm Jayshree Conner [employer] Work Phone: [facility] 06-28-2024 08:54-0500 Body mass index (BMI) [Ratio] 29.49 kg/m2 Jayshree Conner [employer] Work Phone: [facility] 06-28-2024 08:54-0500 Body temperature 97.7 [degF] Jayshree Conner [employer] Work Phone: [facility] 06-28-2024 08:54-0500 Body weight 80.38 kg Jayshree Conner [employer] Work Phone: [facility] 06-28-2024 08:54-0500 Diastolic blood pressure 68 mm[Hg] Jayshree Conner [employer] Work Phone: [facility] 06-28-2024 08:54-0500 Heart rate 71 /min Jayshree Conner [employer] Work Phone: [facility] 06-28-2024 08:54-0500 Respiratory rate 16 /min Jayshree Conner [employer] Work Phone: [facility] 06-28-2024 08:54-0500 SaO2% (BldA) [Mass fraction] 97 % Jayshree Conner [employer] Work Phone: [facility] 06-28-2024 08:54-0500 Systolic blood pressure 110 mm[Hg] Jayshree Conner [employer] Work Phone: [facility] 06-26-2024 14:01-0500 Body height 162.56 cm [facility] 06-26-2024 14:01-0500 Body mass index (BMI) [Ratio] 30.9 kg/m2 [facility] 06-26-2024 14:01-0500 Body weight 81.64 kg [facility] 03-28-2024 09:32-0400 Body height 165.1 cm Jayshree Conner [employer] Work Phone: [facility] 03-28-2024 09:32-0400 Body mass index (BMI) [Ratio] 28.79 kg/m2 Jayshree Conner [employer] Work Phone: [facility] 03-28-2024 09:32-0400 Body temperature 97.3 [degF] Jayshree Conner [employer] Work Phone: [facility] 03-28-2024 09:32-0400 Body weight 78.47 kg Jayshree Conner M[employer]AL L[employer] ASSEMBLER Work Phone: [facility] 03-28-2024 09:32-0400 Diastolic blood pressure 70 mm[Hg] Jayshree Conner MULTIFOCAL LENS ASSEMBLER Work Phone: [facility] 03-28-2024 09:32-0400 Heart rate 80 /min Jayshree Conner M[employer]IFOCAL LENS ASSEMBLER Work Phone: [facility] Comment on above: 97% O2 03-28-2024 09:32-0400 Systolic blood pressure 120 mm[Hg] Jayshree Conner MULTIFOCAL LENS ASSEMBLER Work Phone: [facility] 09-24-2023 11:36-0500 Body height 162.6 cm Cherry Duque MD Work Phone: [facility] 09-24-2023 11:36-0500 Body mass index (BMI) [Ratio] 29.87 kg/m2 Cherry Duque MD Work Phone: [facility] 09-24-2023 11:36-0500 Body weight 78.93 kg Cherry Duque MD Work Phone: [facility] 09-24-2023 11:36-0500 Diastolic blood pressure 80 mm[Hg] Cherry Duque MD Work Phone: [facility] 09-24-2023 11:36-0500 Heart rate 80 /min Cherry Duque MD Work Phone: [facility] 09-24-2023 11:36-0500 SaO2% (BldA) [Mass fraction] 96 % Cherry Duque MD Work Phone: [facility] [employer] 09-24-2023 11:36-0500 Systolic blood pressure 136 mm[Hg] Cherry Duque MD Work Phone: [facility] [employer] [facility] 10-28-2021 10:40-0400 Body height Yuri [place] Other [employer] Other 10-28-2021 10:40-0400 Body mass index (BMI) [Ratio] 32.61 kg/m2 Yuri [place] Other [employer] Other 10-28-2021 10:40-0400 Body weight 88.91 kg Yuri Washington Other [employer] Other Encounters Encounter Date Encounter Type Care Provider Facility Start: 03-28-2025 End: 03-28-2025 Refill Destiny Mccartney M[employer]OCAL L[employer] ASSEMBLER Work Phone: [facility] Comment on above: 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; Chronic low back pain with left-sided sciatica, unspecified back pain laterality Start: 03-09-2025 End: 03-09-2025 Office outpatient visit 25 minutes Arcadio Marte Work Phone: [place] Start: 03-09-2025 ambulatory Arcadio Marte [facility] Start: 02-22-2025 End: 02-22-2025 Encounter identifier Arcadio Marte Work Phone: [place] Start: 02-22-2025 ambulatory Arcadio Marte [facility] Start: 02-07-2025 End: 02-07-2025 Bamboo flowsheet Destiny Mccartney MULTIFOCAL LENS ASSEMBLER Work Phone: [facility] Start: 02-07-2025 End: 02-07-2025 Bamboo flowsheet Destiny Mccartney MULTIFOCAL LENS ASSEMBLER Work Phone: [facility] Start: 02-07-2025 End: 02-07-2025 Office outpatient visit 25 minutes Destiny Mccartney M[employer]IFOCAL L[employer] ASSEMBLER Work Phone: [facility] Comment on above: Type 2 diabetes reymundo itus with other specified complication, without long-term current use of insulin (HCC) (Primary Dx); Essential hypertension ; Mixed hyperlipidemia ; Tick bite of left ear, initial encounter; Bug bite, initial encounter Start: 02-07-2025 End: 02-07-2025 ambulatory DESTINY MCCARTNEY Not Available Start: 02-01-2025 End: 02-01-2025 ambulatory MAURISIO PADILLA Not Available Start: 02-01-2025 End: 02-01-2025 Bamboo flowsheet Maurisio Ley Biedenbach DO Work Phone: [facility] Start: 02-01-2025 End: 02-01-2025 Bamboo flowsheet Maurisio Ley Bitlenbach DO Work Phone: [facility] RM[facility]DA Start: 02-01-2025 End: 02-01-2025 Office outpatient visit 15 minutes Maurisio Ley Normgardenia DO Work Phone: [facility] Comment on above: Thyroid nodule (Prim capo Dx); History of goiter Start: 01-18-2025 End: 01-18-2025 Lab Drop off Maurisio Padilla [facility] Start: 01-18-2025 End: 01-18-2025 Bamboo flowsheet Maurisio Padilla DO Work Phone: [facility] RMAM[facility]DA Start: 01-18-2025 End: 01-18-2025 Bamboo flowsheet Maurisio Padilla DO Work Phone: [facility] BRANDY REEVES Start: 01-18-2025 End: 01-18-2025 Office outpatient visit 25 minutes Maurisio Ley Normgardenia DO Work Phone: [facility] Comment on above: History of goiter (P rimary Dx); Thyroid nodule Start: 01-18-2025 End: 01-18-2025 ambulatory Maurisio Padilla Facility:[facility] Start: 01-15-2025 End: 01-16-2025 External Result Encounter Maurisio Padilla DO Work Phone: [facility] External Department Unsolicited Start: 01-15-2025 End: 01-16-2025 External Result Encounter Maurisio Ley Normgardenia DO Work Phone: [facility] External Department Unsolicited Start: 01-05-2025 End: 01-05-2025 Encounter identifier Arcadio France Estuardo Work Phone: [facility] Start: 01-05-2025 ambulatory Arcadio Marte [facility] [place] Start: 01-04-2025 End: 01-04-2025 Office outpatient new 45 minutes Maurisio Padilla DO Work Phone: [facility] Comment on above: Fatigue, unspecified type (Primary Dx); Multiple thyroid nodules (CMS/HCC); History of goiter Start: 01-04-2025 End: 01-04-2025 ambulatory MAURISIO Av RANDY Not Available Start: 01-04-2025 End: 01-04-2025 Bamboo flowsheet Maurisio Padilla DO Work Phone: [facility] Start: 01-04-2025 End: 01-04-2025 Bamboo flowsheet Maurisio Ley Normtlyajaira DO Work Phone: [facility] Start: 12-26-2024 End: 12-26-2024 Orders Only Destiny Mccartney M[employer]IFOCAL L[employer] ASSEMBLER Work Phone: [facility] Comment on above: Mixed hyperlipidemia (CMS/HCC) (Primary Dx) Start: 12-14-2024 End: 12-14-2024 Refill Jerome Coles MD Work Phone: [facility] Comment on above: Gastroesophageal ref lux disease without esophagitis; Essential hypertension (CMS/HCC) Start: 12-04-2024 End: 12-04-2024 Orders Only Destinyangeli Mccartney MULTIFOCAL LENS ASSEMBLER Work Phone: [facility] Comment on above: Multiple thyroid nod ules (CMS/HCC) (Primary Dx) Start: 11-28-2024 End: 11-28-2024 Clinisync Result Encounter Destiny Mccartney MULTIFOCAL LENS ASSEMBLER Work Phone: [facility] Department Unsolicited Start: 11-28-2024 End: 11-28-2024 Clinisync Result Encounter Destinyangeli Scottholz MULTIFOCAL LENS ASSEMBLER Work Phone: [facility] External Department Unsolicited Start: 11-15-2024 End: 11-15-2024 Clinisync Result Encounter Destiny Soniaholz MULTIFOCAL LENS ASSEMBLER Work Phone: [facility] External Department Unsolicited Start: 11-15-2024 End: 11-15-2024 Clinisync Result Encounter Destiny Soniaholz MULTIFOCAL LENS ASSEMBLER Work Phone: [facility] External Department Unsolicited Start: 11-15-2024 End: 11-15-2024 Orders Only Destiny Yuliyahholz MULTIFOCAL LENS ASSEMBLER Work Phone: [facility] Comment on above: Multiple thyroid nod ules (CMS/HCC) (Primary Dx) Start: 11-09-2024 End: 11-09-2024 Office outpatient visit 25 minutes Destiny Soniaholz MULTIFOCAL LENS ASSEMBLER Work Phone: [facility] Comment on [...] artery Start: 11-09-2024 End: 11-09-2024 ambulatory DESTINY AICHHOLZ Not Available Start: 11-02-2024 End: 11-02-2024 Refill Jerome Coles MD Work Phone: [facility] Comment on above: 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 Start: 11-01-2024 End: 11-01-2024 Office outpatient visit 25 minutes Arcadio Marte Work Phone: [facility] Start: 11-01-2024 ambulatory Arcadio Marte [facility] Start: 09-28-2024 End: 09-28-2024 Bamboo flowsheet Jayshree Conner MULTIFOCAL LENS ASSEMBLER Work Phone: [facility] Start: 09-28-2024 End: 09-28-2024 Bamboo flowsheet Jayshree Conner MULTIFOCAL LENS ASSEMBLER Work Phone: [facility] Start: 09-28-2024 End: 09-28-2024 ambulatory JAYSHREE CONNER Not Available Start: 09-28-2024 End: 09-28-2024 Patient encounter procedure Jayshree Conner M[employer]IFOCAL LENS ASSEMBLER Work Phone: [facility] Comment on [...] 09-26-2024 End: 09-26-2024 Clinisync Result Encounter Jayshree Conner MULTIFOCAL LENS ASSEMBLER Work Phone: [facility] External [facility] Unsolicited Start: 09-26-2024 End: 09-26-2024 Clinisync Result Encounter Jayshree Conner MULTIFOCAL LENS ASSEMBLER Work Phone: [facility] External Department Unsolicited Start: 09-22-2024 End: 09-22-2024 Encounter identifier Arcadio Marte Work Phone: [facility] Start: 09-22-2024 End: 09-22-2024 Arcadio Marte Work Phone: [facility] Start: 09-22-2024 ambulatory Arcadio Marte [facility] [place] Start: 09-21-2024 End: 09-21-2024 Refill Jayshree Conner MULTIFOCAL LENS ASSEMBLER Work Phone: [facility] Comment on above: Mixed hyperlipidemia (CMS/HCC) Start: 09-18-2024 End: 10-02-2024 Refill Yunior Benavides PA-C Work Phone: [facility] Comment on above: Med Refill Start: 09-09-2024 End: 09-11-2024 Refill Jayshree Villatrick MULTIFOCAL LENS ASSEMBLER Work Phone: [facility] Comment on above: Gastroesophageal ref lux disease without esophagitis Start: 08-24-2024 End: 08-24-2024 Telephone encounter Alba Skinner [facility] Start: 08-18-2024 End: 08-18-2024 Encounter identifier Arcadio Marte Work Phone: [place] Start: 08-18-2024 End: 08-18-2024 Arcadio Marte Work Phone: [place] Start: 08-18-2024 ambulatory Arcadio Marte [facility] [place] Start: 08-15-2024 ambulatory Arcadio Marte [facility] [place] Start: 08-14-2024 End: 08-14-2024 Bamboo flowsheet Jayshree Conner MULTIFOCAL LENS ASSEMBLER Work Phone: [facility] Start: 08-14-2024 End: 08-14-2024 Bamboo flowsheet Jayshree Conner MULTIFOCAL LENS ASSEMBLER Work Phone: [facility] Start: 08-14-2024 End: 08-14-2024 Office outpatient visit 10 minutes Jayshree Conner MULTIFOCAL LENS ASSEMBLER Work Phone: [facility] Comment on above: Upper respiratory tr act infection, unspecified type (Primary Dx); Type 2 diabetes mellitus with diabetic polyneuropathy, without long-term current use of insulin ([facility]); Chronic left-sided low back pain with left-sided sciatica; Non-recurrent acute serous otitis media of both ears Start: 08-14-2024 End: 08-14-2024 ambulatory JAYSHREE CONNER Not Available Start: 08-10-2024 End: 08-14-2024 Refill Chandrika Cruz MA [facility] Comment on above: Type 2 diabetes reymundo itus with diabetic polyneuropathy, without long-term current use of insulin (CMS/HCC) Start: 08-07-2024 End: 08-09-2024 Refill Chandrika Cruz MA [facility] Comment on above: Type 2 diabetes reymundo itus with diabetic polyneuropathy, without long-term current use of insulin (CMS/HCC) Start: 07-26-2024 End: 07-26-2024 ambulatory Jayshree N Conner Facility:[facility] Start: 07-14-2024 End: 07-14-2024 Office outpatient new 45 minutes Arcadio Marte Work Phone: [facility] [place] Start: 07-14-2024 ambulatory Arcadio Marte [facility] Start: 07-11-2024 End: 07-11-2024 Refill Chandrika Cruz MA [facility] Comment on above: Essential hypertensi on (CMS/HCC) Start: 06-28-2024 End: 06-28-2024 Bamboo flowsheet Jayshree Conner MULTIFOCAL LENS ASSEMBLER Work Phone: [facility] Start: 06-28-2024 End: 06-28-2024 Bamboo flowsheet Jayshree Conner MULTIFOCAL LENS ASSEMBLER Work Phone: [facility] Start: 06-28-2024 End: 06-28-2024 Office outpatient visit 15 minutes Jayshree Conner MULTIFOCAL LENS ASSEMBLER Work Phone: [facility] Comment on above: Type 2 diabetes reymundo itus with diabetic polyneuropathy, without long-term current use of insulin (CMS/HCC) (Primary Dx); Essential hypertension (CMS/HCC); Chronic diastolic heart failure (CMS/HCC); Mixed hyperlipidemia (CMS/HCC); Need for immunization against influenza Start: 06-28-2024 End: 06-28-2024 ambulatory JAYSHREE CONNER Not Available Start: 06-26-2024 End: 06-26-2024 ambulatory [facility] Work Phone: Start: 06-26-2024 End: 06-26-2024 Patient encounter procedure [facility] Gastro[facility]ology Work Phone: Start: 06-20-2024 End: 06-21-2024 Refill Jayshree Villatrick MULTIFOCAL LENS ASSEMBLER Work Phone: [facility] Comment on above: Gastroesophageal ref lux disease without esophagitis Start: 06-15-2024 End: 06-16-2024 [facility] Comment on above: Med Refill Start: 04-18-2024 End: 04-19-2024 Refill Pritesh Blanton MA [facility] Comment on above: 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 Gastroesophageal ref lux disease without esophagitis (Primary Dx) Start: 03-28-2024 End: 03-28-2024 Bamboo flowsheet Jayshree Conner MULTIFOCAL LENS ASSEMBLER Work Phone: [facility] Start: 03-28-2024 End: 03-28-2024 Bamboo flowsheet Jayshree Conner MULTIFOCAL LENS ASSEMBLER Work Phone: [facility] Start: 03-28-2024 End: 03-28-2024 Office outpatient visit 25 minutes Jayshree Villatrick MULTIFOCAL LENS ASSEMBLER Work Phone: [facility] Comment on above: Type 2 diabetes reymundo itus with diabetic polyneuropathy, without long-term current use of insulin (CMS/HCC) (Primary Dx); Mixed hyperlipidemia (CMS/HCC); Essential hypertension (CMS/HCC); Chronic left-sided low back pain with left-sided sciatica; Diverticulitis Start: 03-28-2024 End: 03-28-2024 ambulatory JAYSHREE VILLATRICK Not Available Start: 09-24-2023 End: 09-24-2023 ambulatory CHERRY DUQUE [facility] Start: 09-24-2023 End: 09-24-2023 Office outpatient visit 15 minutes Cherry Duque MD Work Phone: [facility] Comment on above: Palpitations (Primar y Dx); Ventricular premature beats Start: 09-23-2023 Telephone encounter Alba parra CMA [facility] Start: 09-09-2023 Refill Ramona Souza RN [facility] Comment on above: Med Refill Start: 07-28-2023 Patient encounter procedure Jayshree Naranjozpatrick MULTIFOCAL LENS ASSEMBLER Work Phone: [facility] Start: 08-26-2022 End: 08-27-2022 ambulatory HANNAH H FAWWAD Facility:[facility] Start: 03-09-2022 End: 03-10-2022 ambulatory HANNAH H FAWWAD Facility:[facility] Start: 12-01-2021 End: 12-02-2021 ambulatory HANNAH H FAWWAD Facility:[facility] Start: 10-28-2021 End: 10-28-2021 ambulatory Yuri [place] [facility] [employer] Other Start: 10-28-2021 Office outpatient vi sit 15 minutes Yuri [place] [facility] Start: 10-24-2021 End: 10-25-[address] [facility] Facility:[facility] Procedures Date Procedure Procedure Detail Performing Clinician Start: 03-09-2025 End: 03-09-2025 Bevacizumab injection Arcadio Marte Start: 03-09-2025 End: 03-09-2025 Computerized ophthalmic imaging retina Arcadio Marte Start: 03-09-2025 End: 03-09-2025 Intravitreal njx pharmacologic agt spx Arcadio Marte Start: 02-07-2025 Hemoglobin glycosyla mely a1c Destiny Sherrill MULTIFOCAL LENS ASSEMBLER Work Phone: Start: 01-15-2025 Assay of thyroxine total Maurisio Padilla DO Work Phone: Start: 01-05-2025 End: 01-05-2025 Bevacizumab injection Arcadio Marte MD Start: 01-05-2025 End: 01-05-2025 Computerized ophthalmic imaging retina Arcadio Marte MD Start: 01-05-2025 End: 01-05-2025 Intravitreal njx pharmacologic agt spx Arcadio Marte MD Start: 11-28-2024 Us soft tissue head & neck real time imge docm Destiny Mccartney M[employer]IFOCAL LENS ASSEMBLER Work Phone: Start: 11-15-2024 End: 11-15-2024 Screening mammography bi 2-view breast inc cad Destiny Mccartney MULTIFOCAL LENS ASSEMBLER Work Phone: Start: 11-01-2024 End: 11-01-2024 Bevacizumab injection Arcadio Marte MD Start: 11-01-2024 End: 11-01-2024 Computerized ophthalmic imaging retina Arcadio Marte MD Start: 11-01-2024 End: 11-01-2024 Intravitreal njx pharmacologic agt spx Arcadio Marte MD Start: 09-26-2024 ALL CBC WITH AUTO DIFF Jayshree Conner MULTIFOCAL LENS ASSEMBLER Work Phone: Start: 09-22-2024 End: 09-22-2024 Bevacizumab [...] agt spx Arcadio Marte MD Start: 07-26-2024 Darci vargas MA Start: 07-14-2024 End: 07-14-2024 Bevacizumab injection Arcadio Marte MD Start: 07-14-2024 End: 07-14-2024 Fluorescein angrph w/multiframe i&r uni/bi Arcadio Marte MD Start: 07-14-2024 End: 07-14-2024 Intravitreal njx pharmacologic agt spx Arcadio Marte MD Start: 09-24-2023 Ecg routine ecg w/le ast 12 lds w/i&r Cherry Duque MD Work Phone: Start: 09-24-2023 Follow-up visit Follow-up CHERRY Holcomb AGUILAR Start: 08-09-2022 Mammography Jayshree Sisi kanu SALMERON Work Phone: Start: 08-09-2015 Colonoscopy Jayshree Sisi kanu M[employer]OCAL LENS ASSEMBLER Work Phone: Plan of Treatment Date Care Activity Detail Author Start: 07-26-2034 Screening for malign ant neoplasm of colon [facility] Start: 07-03-2026 Glaucoma screening Diabetes: R etinopathy Screening [facility] Start: 06-19-2026 Glaucoma screening Diabetes: R etinopathy Screening [facility] Start: 11-15-2025 Screening for malign ant neoplasm of breast Mammogram [facility] Start: 10-01-2025 End: 10-01-2025 Patient encounter procedure 10/01/2025 10:00 AM EST Office Visit [facility] [address] [place] [phone] Destiny Mccartney NP [address] [place] [phone] [facility] Start: 09-28-2025 Medicare Annual Well ness (AWV) Medicare Annual Wellness (AWV) [facility] Start: 09-26-2025 Urine screening for protein Diabetes: Urine Protein Screening [facility] Start: 08-10-2025 Hemoglobin A1c measurement Merna betes: Hemoglobin A1C [facility] Start: 08-09-2025 Screening for malign ant neoplasm of colon [facility] Start: 08-07-2025 End: 08-07-2025 Patient encounter procedure [facility] Start: 07-03-2025 Glaucoma screening Diabetes: R etinopathy Screening [facility] Start: 05-11-2025 Saskia Neff Jo/9-10(9) WK IO OCT AVN [facility] Work Phone: Start: 05-10-2025 End: 05-10-2025 Patient encounter procedure 05/10/2025 8:40 AM EDT Office Visit [facility] [address] [place] [address] Destiny Mccartney, M[employer]OCAL LENS ASSEMBLER [address] [place] [phone] [facility] Start: 04-10-2025 End: 04-10-2025 Patient encounter procedure 04/10/2025 1:00 PM EDT Office Visit [facility] [address] [place] [phone] Destiny Mccartney, M[employer]IFOCAL LENS ASSEMBLER [address] [place] [address] [facility] Start: 04-09-2025 Influenza vaccination Influenza Vacc ine (#1) [facility] Start: 03-26-2025 Hemoglobin A1c measurement Merna betes: Hemoglobin A1C [facility] Start: 03-09-2025 LoydSaskia michael Jo - 9-10 Wks (9) FU May Avn OD [facility] Work Phone: Start: 02-08-2025 End: 02-08-2025 Patient encounter procedure 02/08/2025 8:40 AM EDT Office Visit [facility] [address] [place] [phone] Destiny Mccartney, M[employer]IFOCAL LENS ASSEMBLER [address] [place] [phone] [facility] Start: 02-07-2025 End: 02-07-2025 Patient encounter procedure [facility] Comment on above: Essential hypertensi on (Primary Dx); Type 2 diabetes mellitus with other specified complication, without long-term current use of insulin (HCC); Mixed hyperlipidemia Start: 02-01-2025 End: 02-01-2025 Patient encounter procedure 02/01/2025 2:00 PM EDT Office Visit [facility] [address] [place] [address] Maurisio Padilla, DO [address] [place] [address] [facility] Start: 01-18-2025 End: 01-18-2025 [facility] Comment on above: Arrived Start: 01-09-2025 End: 11-09-2025 Lipid 1996 panel - Serum or Plasma Lipid panel Lab Routine Mixed hyperlipidemia (CMS/HCC) Expected: 01/09/2025 (Approximate), Expires: 11/09/2025 [facility] Comment on above: Expected: 01/09/2025 (Approximate), Expires: 11/09/2025 Start: 01-05-2025 Saskia Neff 7-8 Weeks (8) OCT/ IO AVN OD [facility] Work Phone: Start: 01-04-2025 End: 01-04-2025 [facility] Comment on above: Multiple thyroid nod ules (CMS/HCC) Start: 01-04-2025 End: 01-04-2026 Calcium [Mass/volume] in Serum or Plasma Calcium Lab Routine Multiple thyroid nodules (CMS/HCC) Expected: 01/04/2025 (Approximate), Expires: 01/04/2026 [facility] Comment on above: Expected: 01/04/2025 (Approximate), Expires: 01/04/2026 Start: 01-04-2025 End: 01-04-2026 Parathyrin.intact [Mass/volume] in Serum or Plasma PTH, intact Lab Routine Multiple thyroid nodules (CMS/HCC) Expected: 01/04/2025 (Approximate), Expires: 01/04/2026 [facility] Comment on above: Expected: 01/04/2025 (Approximate), Expires: 01/04/2026 Start: 01-04-2025 End: 01-04-2026 Thyrotropin [Units/volume] in Serum or Plasma [facility] Work Phone: Comment on above: Expected: 01/04/2025 (Approximate), Expires: 01/04/2026 Start: 01-04-2025 End: 01-04-2026 Triiodothyronine (T3) [Mass/volume] in Serum or Plasma T3 Lab Routine Multiple thyroid nodules (CMS/HCC) Expected: 01/04/2025 (Approximate), Expires: 01/04/2026 [facility] Comment on above: Expected: 01/04/2025 (Approximate), Expires: 01/04/2026 Start: 12-26-2024 End: 12-26-2025 Alanine aminotransferase [Enzymatic activity/volume] in Serum or Plasma ALT Lab Routine Mixed hyperlipidemia (CMS/HCC) Expected: 12/26/2024 (Approximate), Expires: 12/26/2025 [facility] Work Phone: Comment on above: Expected: 12/26/2024 (Approximate), Expires: 12/26/2025 Start: 12-26-2024 End: 12-26-2025 Aspartate aminotransferase [Enzymatic activity/volume] in Serum or Plasma AST Lab Routine Mixed hyperlipidemia (CMS/HCC) Expected: 12/26/2024 (Approximate), Expires: 12/26/2025 [facility] Comment on above: Expected: 12/26/2024 (Approximate), Expires: 12/26/2025 Start: 12-26-2024 End: 12-26-2025 Lipid 1996 panel - Serum or Plasma Lipid panel Lab Routine Mixed hyperlipidemia (CMS/HCC) Expected: 12/26/2024 (Approximate), Expires: 12/26/2025 [facility] Comment on above: Expected: 12/26/2024 (Approximate), Expires: 12/26/2025 Start: 11-15-2024 End: 11-15-2025 US Thyroid gland US thyroid Imaging Routine Multiple thyroid nodules (CMS/HCC) Expected: 11/15/2024 (Approximate), Expires: 11/15/2025 [facility] Work Phone: Comment on above: Expected: 11/15/2024 (Approximate), Expires: 11/15/2025 Start: 11-09-2024 End: 11-09-2025 Alanine aminotransferase [Enzymatic activity/volume] in Serum or Plasma ALT Lab Routine Mixed hyperlipidemia (CMS/HCC) Expected: 11/09/2024 (Approximate), Expires: 11/09/2025 [facility] Comment on above: Expected: 11/09/2024 (Approximate), Expires: 11/09/2025 Start: 11-09-2024 End: 11-09-2025 DXA Skeletal system Views for bone density DEXA bone density Imaging Routine Menopause Expected: 11/09/2024 (Approximate), Expires: 11/09/2025 [facility] Comment on above: Expected: 11/09/2024 (Approximate), Expires: 11/09/2025 Start: 11-09-2024 End: 01-09-2026 MG Breast - bilateral Screening Bilateral screening mammogram Imaging Routine Encounter for screening mammogram for malignant neoplasm of breast Expected: 11/09/2024 (Approximate), Expires: 01/09/2026 [facility] Work Phone: Comment on above: Expected: 11/09/2024 (Approximate), Expires: 01/09/2026 Start: 11-09-2024 End: 11-09-2025 US.doppler Carotid arteries - bilateral Vascular US carotid artery duplex bilateral Imaging Routine Essential hypertension (CMS/HCC) Mixed hyperlipidemia (CMS/HCC) Type 2 diabetes mellitus with other specified complication, without long-term current use of insulin Bruit of right carotid artery Expected: 11/09/2024, Expires: 11/09/2025 [facility] Comment on above: Expected: 11/09/2024 , Expires: 11/09/2025 Start: 11-09-2024 End: 11-09-2024 Patient encounter procedure 11/09/2024 9:20 AM EDT Office Visit [facility] [address] [place] [phone] Destiny Mccartney M[employer]AL L[employer] ASSEMBLER [address] [place] [phone] [facility] Start: 11-01-2024 Saskia Neff/6winna Poss AVN OD FU OCT [facility] Work Phone: Start: 09-28-2024 End: 09-28-2024 Patient encounter procedure 09/28/2024 10:30 AM EST Office Visit [facility] [address] [place] [address] Jayshree Conner, FAVIOLA [address] [place] [address] [facility] Start: 09-24-2024 Adult BMI Screening Adult BMI Screen ing [facility] Start: 09-24-2024 Tobacco Screening Tobacco Screening [facility] Start: 09-17-2024 Urine screening for protein Diabetes: Urine Protein Screening [facility] Start: 08-14-2024 End: 08-14-2024 Patient encounter procedure [facility] Comment on above: Arrived Start: 07-28-2024 Medicare Annual Well ness (AWV) Medicare Annual Wellness (AWV) [facility] Start: 06-28-2024 End: 06-28-2025 CBC W Auto Differential panel - Blood CBC and differential Lab Routine Type 2 diabetes mellitus with diabetic polyneuropathy, without long-term current use of insulin (CMS/HCC) Essential hypertension (CMS/HCC) Expected: 06/28/2024 (Approximate), Expires: 06/28/2025 [facility] Comment on above: Expected: 06/28/2024 (Approximate), Expires: 06/28/2025 Start: 06-28-2024 End: 06-28-2025 Comprehensive metabolic 2000 panel - Serum or Plasma Comprehensive metabolic panel Lab Routine Type 2 diabetes mellitus with diabetic polyneuropathy, without long-term current use of insulin (CMS/HCC) Essential hypertension (CMS/HCC) Expected: 06/28/2024 (Approximate), Expires: 06/28/2025 [facility] Comment on above: Expected: 06/28/2024 (Approximate), Expires: 06/28/2025 Start: 06-28-2024 End: 06-28-2025 Hemoglobin A1c/Hemoglobin.total in Blood Hemoglobin A1c Lab Routine Type 2 diabetes mellitus with diabetic polyneuropathy, without long-term current use of insulin (CMS/HCC) Expected: 06/28/2024 (Approximate), Expires: 06/28/2025 [facility] Comment on above: Expected: 06/28/2024 (Approximate), Expires: 06/28/2025 Start: 06-28-2024 End: 06-28-2025 Magnesium [Mass/volume] in Serum or Plasma Magnesium Lab Routine Chronic diastolic heart failure (CMS/HCC) Expected: 06/28/2024 (Approximate), Expires: 06/28/2025 [facility] Comment on above: Expected: 06/28/2024 (Approximate), Expires: 06/28/2025 Start: 06-28-2024 End: 06-28-2024 Patient encounter procedure [facility] Comment on above: Arrived Start: 04-09-2024 COVID-19 Vaccine () COVID-19 Vaccine () [facility] Start: 04-09-2024 Influenza vaccination [facility] Start: 03-28-2024 End: 03-28-2024 Patient encounter procedure 03/28/2024 9:30 AM EDT Office Visit [facility] [address] [place] [id number] Jayshree Conner NP [address] [facility] [place] [id number] Arrived [facility] Comment on above: Arrived Start: 03-16-2024 Hemoglobin A1c measurement Merna betes: Hemoglobin A1C [facility] Start: 09-24-2023 End: 09-24-2023 Patient encounter procedure 09/24/2023 12:00 PM EST Office Visit [facility] [address] [place] [address] Cherry Duque MD [address] [place] [facility] [place] [address] [facility] Start: 08-09-2023 Screening for malign ant neoplasm of breast Mammogram [facility] Start: 04-09-2023 COVID-19 Vaccine () COVID-19 Vaccine () [facility] Start: 04-09-2023 Influenza vaccination Influenza Vacc ine [facility] [employer] [facility] Start: 03-12-2023 Adult BMI Screening Adult BMI Screen ing [facility] [employer] [facility] Start: 03-12-2023 Tobacco Screening Tobacco Screening [facility] [employer] Start: 11-14-2020 Administration of varicella zoster vaccine Zoster (Shingles) Vaccine (2 of 2) [facility] Start: 12-22-2016 Fall Risk Screening Fall Risk Screen ing [facility] [employer] [facility] Start: 12-22-1970 DTaP,Tdap and Td Vac cines (1 - Tdap) DTaP,Tdap and Td Vaccines (1 - Tdap) [facility] [employer] Start: 12-22-1969 Adult BMI Follow Up Plan Adult BMI Follow Up Plan [facility] [employer] [facility] Start: 1963 Depression Screening Depression Scre ening [facility] Start: 12-22-1961 Glaucoma screening Diabetes: R etinopathy Screening [facility] Start: 1950 Medicare Annual Well ness Visit Medicare Annual Wellness Visit [facility] [employer] [facility] Start: 1950 Screening for malign ant neoplasm of colon [facility] End: 10-02-2025 Basic metabolic 2000 panel - Serum or Plasma Basic Metabolic Panel Lab Routine Essential hypertension 1 Occurrences starting 10/02/2024 until 10/02/2025 [employer] Work Phone: Comment on above: 1 Occurrences starti ng 10/02/2024 until 10/02/2025 End: 09-08-2024 Comprehensive metabolic 2000 panel - Serum or Plasma Comprehensive metabolic panel Lab Routine Essential hypertension Ventricular premature beats 1 Occurrences starting 09/09/2023 until 09/08/[facility] on above: 1 Occurrences starti ng 09/09/2023 until 09/08/2024 End: 09-08-2024 Lipid 1996 panel - Serum or Plasma Lipid profile Lab Routine Essential hypertension Ventricular premature beats 1 Occurrences starting 09/09/2023 until 09/08/2024 [employer] Comment on above: 1 Occurrences starti ng 09/09/2023 until 09/08/2024 End: 10-02-2025 Lipid panel Lipid panel Lab Routine Essential hypertension Mixed hyperlipidemia 1 Occurrences starting 10/02/2024 until 10/02/2025 [facility] Comment on above: 1 Occurrences starti ng 10/02/2024 until 10/02/2025 End: 09-08-2024 Magnesium [Mass/volume] in Serum or Plasma Magnesium Lab Routine Essential hypertension Ventricular premature beats 1 Occurrences starting 09/09/2023 until 09/08/2024 [facility] Work Phone: Comment on above: 1 Occurrences starti ng 09/09/2023 until 09/08/2024 End: 10-02-2025 Magnesium [Mass/volume] in Serum or Plasma Magnesium Lab Routine Essential hypertension 1 Occurrences starting 10/02/2024 until 10/02/2025 [facility] Comment on above: 1 Occurrences starti ng 10/02/2024 until 10/02/2025 Microalbumin/Creatin ine panel in random Urine Microalbumin / creatinine urine ratio Lab Routine Type 2 diabetes mellitus with diabetic polyneuropathy, without long-term current use of insulin ([facility]) Essential hypertension ([facility]) Ordered: 06/28/2024 [facility] Work Phone: Comment on above: Ordered: 06/28/2024 Immunizations Immunization Date Immunization Notes Care Provider [facility] 06-28-2024 influenza, seasonal, injectable, preservative free Jayshree Conner [employer] Work Phone: [facility] 06-28-2024 influenza virus vaccine, unspecified formulation Destiny Mccartney [employer] Work Phone: [facility] 10-16-2021 Influenza, Seasonal, Quadrivalent, Adjuvanted Jayshree Conner [employer] Work Phone: [facility] 10-16-2021 influenza virus vaccine, unspecified formulation Ramona Souza RN [facility] 09-19-2020 influenza, injectabl e, quadrivalent, contains preservative Jayshree Conner [employer] Work Phone: [facility] 09-19-2020 zoster vaccine recombinant Jayshree Conner [employer] Work Phone: [facility] 09-19-2020 zoster vaccine, unspecified formulation Ramona Souza RN [facility] 06-07-2019 influenza, injectabl e, quadrivalent, preservative free Jayshree Conner [employer] Work Phone: [facility] 06-07-2019 pneumococcal polysaccharide vaccine, 23 valent Yuri [place] Other [facility] 04-21-2019 pneumococcal polysaccharide vaccine, 23 valent Jayshree Conner [employer] Work Phone: [facility] 04-21-2019 Seasonal trivalent influenza vaccine, adjuvanted, preservative free Jayshree Conner [employer] Work Phone: [facility] 06-24-2018 Influenza, injectabl e, Madin Marce Canine Kidney, preservative free, quadrivalent Jayshree Conner [employer] Work Phone: [facility] 06-24-2018 pneumococcal conjuga te vaccine, 13 valent Jayshree Conner [employer] Work Phone: [facility] 07-06-2016 influenza, seasonal, injectable, preservative free Jayshree Conner [employer] Work Phone: [facility] 05-11-2013 influenza virus vaccine, whole virus Jayshree Conner [employer] Work Phone: [facility] Payers Date Payer Category Payer Self-pay 2024 Medicare [id number] 2022 Medicaid [employer] MEDICARE A DVANTAGE [id number] 2021 Medicare [id number]. [id number] 2021 Medicare HMO [employer] MEDICARE [id number] 1959 Medicare [id number] 2.16.840.1.988582.19 1950 Unknown [id number] 2.16.840.1.249970.3.579.2.593 1951 Unknown [id number] 2.16.840.1.718325.3.579.2.593 1951 Unknown [id number] 2.16.840.1.666404.3.579.2.593 1951 Unknown [id number] 2.16.840.1.543557.3.579.2.593 1951 Unknown [id number] 2.16.840.1.865704.3.579.2.593 1951 Unknown [id number] 2.16.840.1.816834.3.579.2.1286 1951 Unknown [id number] 2.16.840.1.581505.3.579.2.727 1951 Unknown [id number] 2.16.840.1.490470.3.579.2.1259 1951 Unknown [id number] 2.16.840.1.310816.3.579.2.1258 1951 Unknown [id number] 2.16.840.1.358465.3.579.2.1258 1951 Unknown [id number] 2.16.840.1.973365.3.579.2.1258 1951 Unknown [id number] 2.16.840.1.928270.3.579.2.1258 1951 Unknown [id number] 2.16.840.1.706969.3.579.2.1258 1951 Unknown [id number] 2.16.840.1.206451.3.579.2.1258 1951 Unknown [id number] 2.16.840.1.250623.3.579.2.1258 1951 Unknown [id number] 2.16.840.1.745294.3.579.2.1258 1951 Unknown [id number] 2.16.840.1.585660.3.579.2.1346 1951 Unknown [id number] 2.16.840.1.132478.3.579.2.1346 1951 Unknown [id number] 2.16.840.1.799787.3.579.2.1346 1951 Unknown [id number] 2.16.840.1.550108.3.579.2.1346 1951 Unknown [id number] 2.16.840.1.676373.3.579.2.1346 1951 Unknown [id number] 2.16.840.1.388562.3.579.2.1346 1951 Unknown [id number] 2.16.840.1.943864.3.579.2.1346 1951 Unknown [id number] 2.16.840.1.761866.3.579.2.1346 1951 Unknown [id number] 2.16.840.1.259013.3.579.2.1347 Medicare Medicare [id number] Unknown [id number] 2.16.840.1.187469.3.579.2.531 Social History Date Type Detail Facility Start: 03-28-2024 End: 09-28-2024 Sex Assigned At [employer] [facility] Start: 12-22-2018 End: 11-30-2023 Tobacco smoking status NHIS Never smoked tobacco (finding) [facility] Start: 07-23-2011 End: 06-26-2024 Sex Female (finding) [facility] Start: 1950 Sex Assigned At Female F [facility] Start: 09-24-2023 End: 11-30-2023 Tobacco use and exposure Smokeless tobacco non-user [facility] Start: 03-28-2024 End: 02-07-2025 Alcoholic beverage intake Current drinker of alcohol (finding) [facility] Start: 03-28-2024 End: 09-28-2024 History of Social function [facility] Start: 07-28-2023 Alcohol Comment [facility]ALLY [facility] Start: 1950 Sex assigned at Not on file P [facility] Childcare Unknown [facility] Start: 05-19-2018 [facility] Start: 09-22-2024 Alcohol intake Alcohol Use Details [facility] [employer] [facility] Start: 09-22-2024 Tobacco use and exposure Non-Smoking Tobacco Use Details [facility] Tobacco smoking status [facility] Tobacco smoking status NHIS Unknown if ever smoked [facility] Work Phone: Sexual Orientation Straight or heterosexual [facility] Work Phone: Sexual Orientation Lesbian, dobbs or homosexual [facility] Work Phone: NEGATED: Highlighted rowStart: NINF History of tobacco use Passive smoker [facility] NEGATED: Highlighted rowStart: 09-22-2024 End: 03-09-2025 Tobacco smoking status NHIS Unknown if ever smoked [facility] NEGATED: Highlighted rowStart: 09-22-2024 History of tobacco use Current non-smoker [facility] NEGATED: Highlighted row Alcohol intake Alcohol Use Details [facility] Medical Equipment Procedure Code Equipment [...] II MED/LG FDA Start: 11-16-2018 DURAGEN 1X1 [id number] FDA Start: 11-16-2018 OSTEOAMP GRANULE S 10CC FDA Start: 11-16-2018 LISA 100MM CVD CA PLOX II FDA Start: 11-16-2018 LISA 100MM CVD CA PLOX II FDA Start: 11-16-2018 SCREW 5.5 X 50MM CAPLOX II FDA Start: 11-16-2018 1 each by Other route in the morning. Whatever brand is covered under her insurance.. 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 new. serious assessment Puckering of macula, left eye Au impression Puckering of macula, left eye: H35.372. 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 chronic. 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 established, serious assessment Pseudophakia impression Pseudophakia: Z96.1. bilateral. established [facility] Work Phone: 1(618) 926-905408-01-2025 History of Present illness Narrative* Encounter Date Complaint History Of Prese nt Illness macular degeneration The 74 year old female presents for evaluation of macular degeneration in the right and left eyes. She states she has fluctuating vision. There is some days she sees great then there are days she sees terrible. She only gets floaters from the shots. Denies any flashes of light. Patient does not have any eye pain macular degeneration macular degeneration The 73 year [...] first eye exam noted the lesions . 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, bi Impression/Plan Related to Pseud ophakia Impression/Plan Related to Pseud ophakia Impression/Plan Related to 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, bi Impression/Plan Related to 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 Impression/Plan Related to Pucke ring of macula, left eye Impression/Plan Related to Exuda tive age-rel mclr degn, left eye, with inactive scar Impression/Plan Related to Exdtv e age-rel mclr degn, right eye, with actv chrdl neovas Impression/Plan Related to Exuda tive age-rel mclr degn, left eye, with inactive scar Impression/Plan Related to Exdtv e age-rel mclr degn, right eye, with actv chrdl neovas Impression/Plan Related to 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 Her disease coursehas been stable. There are no hypoglycemic associated symptoms. Pertinent negatives for hypoglycemia include no dizziness, headaches, nervousness/anxiousness, seizures or tremors. Pertinent negativesfor diabetes include no chest pain, no foot paresthesias, no polydipsia, no polyphagia, no polyuriaand no visual change. There are no hypoglycemic complications. Symptoms are stable. Risk factors for coronary artery disease include hypertension and diabetes mellitus. Current diabetic treatment includes oral agent (monotherapy). She is compliant with treatment most of the time. An BIRDIE inhibitor/angiotensin II receptor mimi is not being taken. She does not see a recep.Eye exam is not current. Hypertension This is a chronic problem. The current episode started more than 1 year ago. The problem is unchanged. The problem is controlled. Associated symptoms include neck pain and peripheral edema (occ). Pertinent negatives include no chest pain, headaches, palpitations or shortness of breath. There are noassociated agents to hypertension. Risk factors for coronary [...] and neck pain. Negative for joint swelling andmyalgias. Skin: Positive for rash. Negative for wound. [...] cancer inher mother. OBJECTIVE: Visit Vitals BP 100/70 (BP [...] Relevant Medications triamcinolone (Kenalog) 0.1 % cream * Destiny Mccartney NP - 02/07/2025 6:19 AM EDTAssociated Problem(s): Mixed hyperlipidemia On statin therapy: rosuvastatin Check labs yearly and prn dose change * Destiny Mccartney NP - 02/07/2025 6:18 AM EDTAssociated Problem(s): Type 2 diabetes mellitus, [...] statin A1c: 5.9% 02/07/2025 , 5.8% 09/26/24 * Destiny Mccartney NP - 02/07/2025 6:18 AM EDTAssociated Problem(s): Essential hypertension Please check blood pressure daily and record DASH diet Limit caffeine Take medication as directed Contact office if chest pain, pressure, dizziness, shortness of breath, swelling legs Recommend slow position changes Current meds: verapamil,chlorthalidone documented in this encounterNOFreeman Cancer I[id number] Instructions* Patient Instructions* Destiny Mccartney NP - 02/07/2025 11:00 AM EDT Tic bite: monitor for bullys eye rash, one time dose of doxycycline 200mg Bug bites: triamcinolone cream three times daily for 2 weeks documented in this encounterNorthwest Medical CenterBuwnuflxhs09-55-3327 History of Present illness Narrative* Maurisio Padilla DO - 02/01/2025 2:00 PM EDT Subjective Patient ID: Saskia Neff [...] months History of goiter documented in this encounterNorthwest Medical CenterMpprfqtfmq43-17-8218 History of Present illness Narrative* Maurisio Padilla DO - 01/18/2025 1:00 PM EDT Subjective Patient ID: Saskia Neff [...] Nodule(s) to be biopsied have been identified utilizingultrasound. The patient is asked not to talk or swallow during the procedure. A fine-needle biopsy needle is inserted into the mass under ultrasound guidance. Aspiration of the nodule is performed and material is placed on slides and cell block. Multiple aspirations are completed without difficulty. Disposition: The biopsy material was sent for pathology. Genetic testing also submitted Pressure isapplied to the area biopsy. The patient tolerated [...] results of her biopsy documented in this encounterNorthwest Medical [id number] History of Present illness Narrative* Encounter Date Complaint History Of Prese nt Illness macular degeneration macular degeneration The 73 year [...] first eye exam noted the lesions . [facility] Work Phone: [phone] History of Present illness Narrative* Maurisio Padilla DO - 01/04/2025 3:30 PM EDT Subjective [...] Insecurity: No Food Insecurity (09/24/2023) Received from [facility] Hunger Screening Within the past 12 months [...] Future History of goiter documented in this encounterNorthwest Medical CenterNgklaydhel63-36-3815 History of Present illness Narrative* Destiny Mccartney [...] heart failure. There is no history of CAD/MD or PVD. SUBJECTIVE: MEDICATIONS: Current Outpatient Medications [...] mellitus, without long-term current use of insulin ([facility]) Check blood sugars daily, notify if <70 [...] 11/09/2024 6:21 AM EDTAssociated Problem(s): Mixed hyperlipidemia (CMS/HCC) On statin therapy: insurance concern about statin dose and interaction with verapamil, will consider change in med Check labs yearly and prn dose change Change to rosuvastatin Check labs in 8 weeks * Destiny Mccartney NP - 11/09/2024 6:20 AM EDTAssociated Problem(s): Essential hypertension (CMS/HCC) Please check blood pressure [...] Meds: gabapentin OARRS reviewed documented in this encounterNorthwest Medical CenterZruybhrhcl45-59-1487 Instructions* Patient Instructions* Destiny Mccartney NP - 11/09/2024 9:20 AM EDT Start baby aspirin Stop simvastatin, start rosuvastatin, we will check labs in 8 weeks, sooner if severe muscle aches Order US of carotid arteries, mammogram and bone density at [facility] [phone] documented in this encounterNorthwest Medical CenterPhmfcexgic50-41-0248 Evaluation note* Type Assessment Date assessment Exdtve [...] Z96.1. bilateral. established [facility] Work Phone: 1(430) 608-387603-26-2025 History of Present illness Narrative* Encounter Date [...] the lesions . [facility] Work Phone: 1([phone]) 198-476403-26-2025 Instructions* Date Instruction Additional Infor mation Impression/Plan [...] of post poles [facility] Work Phone: 1([phone]) 885-753602-20-2025 History of Present illness Narrative* Jayshree Conner NP - 09/28/2024 10:55 AM ESTAssociated Problem(s): Chronic back pain Requesting handicap marizol today. Will write RX [...] at all Patient Health Questionnaire-9 Score: 0 Sol Fall Risk History of Falling, Immediate or [...] Do you have a medical power of compliance attorney?: Yes Who is your medical power of compliance attorney?: shadia neff Objective : BP 110/66 [...] on September 28, 2024 documented in this encounterNorthwest Medical CenterLxwnbrpltb05-30-4378 History of Present illness Narrative* Encounter Date [...] first eye exam noted the lesions . [facility] Work Phone: [phone]) 488-994002-10-2025 Miscellaneous Notes* Telephone Encounter - Jayshree Davenport RN - 09/18/2024 10:26 AM EST Images from the original note were not included. OV 09/24/23 - needs OV CMP, Mag 09/20/23 - ordered labs Refill letter sent to pt in the mail. [facility]Ge[facility] Telephone encounter Note* Telephone Encounter - Jayshree Davenport RN - 09/18/2024 10:26 AM EST Images from the original note were not included. OV 09/24/23 - needs OV CMP, Mag 09/20/23 - ordered labs Refill letter sent to pt in the mail. [facility]01-16-2025 Miscellaneous Notes* Telephone Encounter - Alba Skinner [...] ANYTHING SHE WILL CALL. documented in this encounterGeorgetown Behavioral Hospital01-16-2025 Telephone encounter Note* Telephone Encounter - Alba [...] FEEL SHE NEEDS ANYTHING SHE WILL CALL. [facility]01-06-2025 History of Present illness Narrative* Jayshree Conner [...] polyneuropathy, without long-term current use of insulin ([facility]) Relevant Medications metFORMIN (Glucophage) 500 MG tablet [...] (Augmentin) 875-125 MG tablet documented in this [facility]01-06-2025 Instructions* Patient Instructions* Jayshree Conner NP - [...] THE NEAREST EMERGENCY DEPARTMENT. [facility] this [facility] System01-02-2025 Telephone encounter Note* Telephone Encounter - Chandrika Cruz MA - 08/10/2024 10:31 AM EST Pt is out of medication completely. [place]:06/28/2024 NOV:09/28/2024 [facility] [id number] Miscellaneous Notes* Telephone Encounter - Chandrika Cruz MA - 08/10/2024 10:31 AM EST Pt is out of medication completely. [place]:06/28/2024 NOV:09/28/2024 documented in this [facility]12-30-2024 Telephone encounter Note* Telephone Encounter - Chandrika Cruz MA - 08/07/2024 8:36 AM EST [place]:06/28/2024 NOV:09/28/2024 [facility] [id number] Miscellaneous Notes* Telephone Encounter - Chandrika Cruz MA - 08/07/2024 8:36 AM EST [place]:06/28/2024 NOV:09/28/2024 documented in this encounterNOFreeman Cancer InstituteNqmjobyipt30-52-6718 Instructions* Date Instruction Additional Infor mation Impression/Plan [...] of post poles [facility] Work Phone: [phone] Telephone encounter Note* Telephone Encounter - Chandrika Cruz MA - 07/11/2024 2:57 PM EST [place]:06/28/2024 NOV:09/28/2023 [facility] [id number] Miscellaneous Notes* Telephone Encounter - Chandrika Cruz MA - 07/11/2024 2:57 PM EST [place]:06/28/2024 NOV:09/28/2023 documented in this encounterNorthwest Medical CenterShpakvgomo47-20-0833 History of Present illness Narrative* Jayshree Conner, MULTIFOCAL LENS ASSEMBLER - 06/28/2024 9:15 AM ESTAssociated Problem(s): Type [...] Eye Exam- 06/19/2024 [facility] [place] Is seeing Retina specialist in [place]. * Jayshree Conner NP - 06/28/2024 9:15 [...] R ALBUMIN GLOBULIN RATIO 0.9 Resulting Agency [facility] DMII: Most recent labs: hemoglobin A1C 5.5% [...] Eye Exam- 06/19/2024 [facility] [place] seeing Retina specialist in [place]. Education: Check blood sugars daily, notify if [...] Eye Exam- 06/19/2024 [facility] [place] seeing Retina specialist in [place]. Relevant Orders Microalbumin / creatinine urine ratio Hemoglobin A1c Comprehensive metabolic panel CBC and differential Other Visit Diagnoses Need for immunization against influenza Relevant Orders Flu vaccine greater than or equal to 3 years old, preservative free IM (Completed) documented in this [facility]11-20-2024 Instructions* Patient Instructions* Jayshree Conner NP - 06/28/2024 9:00 AM EST FASTING labs ordered. Nothing to eat or drink for 12 hours prior to blood draw. Water and black coffee ok. documented in this [facility]11-07-2024 Miscellaneous Notes* Telephone Encounter - Dipak Jones RN - 06/15/2024 2:03 PM EST OV 09/24/23 09/17/23 CMP 03/09/22 Mag Pt is aware of updated mag needed and that the orders are in the [employer] system. documented in this [facility]11-07-2024 Telephone encounter Note* Telephone Encounter - Dipak Jones RN - 06/15/2024 2:03 PM EST OV 09/24/23 09/17/23 CMP 03/09/22 Mag Pt is aware of updated mag needed and that the orders are in the [employer] system. 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 Consider tracking your food intake on MyWhat's TrendingPal or LoseIt Water: Increase water intake; GOAL [...] carbohydrates, and simple sugars. documented in this encounterNorthwest Medical CenterUlpcqnzdrx66-13-0710 History of Present illness Narrative* Cherry Duque MD - 09/24/2023 12:00 PM EST Saskia Neff Date of visit: 09/24/2023 Date of : 1950 Age: 72 y.o. Patient Active Problem List Diagnosis Essential hypertension Chronic back pain Ventricular premature beats Palpitations Chronic diastolic heart failure (CMS-HCC) Mixed hyperlipidemia Obesity (BMI 30.0-34.9) Allergies Allergen [...] Arthritis Asthma COPD (chronic obstructive pulmonary disease) ([facility]) [place] [place] right leg Diverticulitis of colon High cholesterol Hypertension Palpitations PVC's (premature ventricular contractions) Sarcoidosis No data recorded No data recorded No data recorded Past Surgical History: Procedure Laterality Date ANTERIOR CRUCIATE LIGAMENT REPAIR APPENDECTOMY BACK SURGERY N/A 2018 had back surgery in November BOWEL RESECTION CARPAL TUNNEL RELEASE X3 CHOLECYSTECTOMY COLONOSCOPY COLONOSCOPY AND POLYPECTOMY 01/28/2017 Performed by Morgan Foster DO at [facility] ESOPHAGOGASTRODUODENOSCOPY HYSTERECTOMY RESECTION BONE TUMOR KNEE [...] Farmer Referring Physician: RU Farmer [address] [place] [address] documented in this encounterNorth Country HospitalRent the Runway02-15-2024 Miscellaneous Notes* Telephone Encounter - Alba Skinner CMA - 09/23/2023 3:06 PM EST Called patient to remind them to bring their most current copy of their medication list with them to their appt. Patient verbalizes understanding. documented in this encounterNorth Country HospitalRent the Runway02-15-2024 Telephone encounter Note* Telephone Encounter - Alba LEONEL Skinner - 09/23/2023 3:06 PM EST Called patient to remind them to bring their most current copy of their medication list with them to their appt. Patient verbalizes understanding. [email or web address] [employer] [id number] Evaluation note* Encounter Date Diagnosis Assessment Notes [...] next visit. The patient understands and agrees [employer] Other [id number] NotePROCEDURE: XR HIPS SAMI 5V W PELVIS [...] Electronically authenticated by: JOSEF GUARDADO Date: 2021-10-24 09:26The [facility] HospitalConsult note* Clinical Note Date No Information [facility] Work Phone: Discharge summary* Clinical Note Date No Information [facility] Work Phone: Evaluation + Plan note No data available for this section [facility] Evaluation note* Diagnosis Onset Date Resolution Status Admit Date Change in bowel function acute June 26, 2024 1:55pm Diverticulitis acute June 092023 1:55pm [facility] Work Phone: Evaluation note* Diagnosis Type 2 [...] inoculation against influenza documented in this encounter [facility] HealthcareEvaluation note* Diagnosis Type 2 diabetes mellitus [...] polyneuropathy, without long-term current use of insulin ([facility]/HCC)- Primary Chronic diastolic heart failure (CMS/HCC) Chronic diastolic heart failure Essential hypertension (CMS/HCC) Unspecified essential hypertension Chronic left-sided low back pain with left-sided sciatica Mixed hyperlipidemia (CMS/HCC) Mixed hyperlipidemia Screening mammogram, encounter for Encounter for Medicare annual wellness exam Type 2 diabetes mellitus with diabetic polyneuropathy, without long-term current use of insulin ([facility]/HCC)- Primary Chronic diastolic (congestive) heart failure (I50.32) [...] of insulin (CMS/HCC) documented in this encounter [facility] HealthcareEvaluation note* Diagnosis Type 2 diabetes mellitus [...] of insulin (CMS/HCC) documented in this encounter [facility] HealthcareEvaluation note* Diagnosis Type 2 diabetes mellitus [...] of both ears documented in this encounter [facility] HealthcareEvaluation note* Diagnosis Type 2 diabetes mellitus [...] esophagitis Esophageal reflux documented in this encounter [facility] HealthcareEvaluation note* Diagnosis Type 2 diabetes mellitus [...] (CMS/HCC) Mixed hyperlipidemia documented in this encounter [facility] HealthcareEvaluation note* Diagnosis Essential hypertension- Primary Unspecified essential hypertension Ventricular premature beats Other premature beats Palpitations [facility] Diagnosis Palpitations- Primary Ventricular premature beats Other premature beats [facility]* Diagnosis Essential hypertension Unspecified essential hypertension Ventricular premature beats Other premature beats Palpitations documented in this encounter [facility]* Diagnosis Type 2 diabetes mellitus [...] Unspecified essential hypertension documented in this encounter [facility] HealthcareEvaluation note* Diagnosis Mixed hyperlipidemia- Primary Essential hypertension Unspecified essential hypertension Ventricular premature beats Other premature beats Palpitations documented in this encounter [facility] SystemEvaluation note* Type Assessment Date No Information [...] right carotid artery documented in this encounter [facility]* [...] Nontoxic multinodular goiter documented in this encounter [facility] HealthcareEvaluation note* Diagnosis Type 2 diabetes mellitus [...] Nontoxic multinodular goiter documented in this encounter [facility] HealthcareEvaluation note* Diagnosis Type 2 diabetes mellitus [...] Unspecified essential hypertension documented in this encounter [facility]Evaluation note* Diagnosis Type 2 diabetes mellitus [...] Primary Mixed hyperlipidemia documented in this encounter [facility] HealthcareEvaluation note* Diagnosis Type 2 diabetes mellitus [...] Nontoxic uninodular goiter documented in this encounter [facility] HealthcareEvaluation note* Diagnosis Type 2 diabetes mellitus [...] History of goiter documented in this encounter [facility] HealthcareEvaluation note* Diagnosis Type 2 diabetes mellitus [...] bite, initial encounter documented in this encounter [facility] HealthcareEvaluation note* Diagnosis Type 2 diabetes mellitus [...] ear, initial encounter Bug bite, initial encounter Chronic low back pain with left-sided sciatica, unspecified back pain laterality documented in this encounter [facility] HealthcareHistory and physical note* Clinical Note Date [...] [place] 11/2018 Hospitalization History See Sx Hx [employer] Other Hospital Discharge instructions No data available for this section [facility] InstructionsNot on filedocumented in this encounter [facility]Not [facility] filedocumented in this encounter [facility] SystemInstructionsNot on filedocumented in this encounter [facility] SystemInstructionsNot on filedocumented in this encounter [facility] SystemInstructionsNot on filedocumented in this encounter [facility] SystemInstructionsNot on filedocumented in this encounter [facility] note* Clinical Note Date No Information [facility] Work Phone: Progress note No data available for this section [facility] Reason for referral (narrative)* Consultation (Routine) - Authorized Specialty Diagnoses / Procedures Referred By Don rodney Referred To Contact Gastroenterology Diagnoses Diverticulitis Procedures [place] OFFICE/OUTPATIENT [facility] MDM 60 MINUTES Jayshree Conner NP [address] [place] [address] Michael Pierce MD [address] [address] Referral ID Status Reason Start Date Expiration Date Visits Requested Visits Authorized [id number] Authorized Specialty Services Required 03/28/2024 09/24/2024 1 1 Scheduling Instructions Please include OV note [facility] HealthcareReason for referral (narrative)* Reason For Referral No Information [facility] Work Phone: Summary Purpose Family History Relationship Condition Age at Onset Recorded Date/T ronald father Irregular heart rhythm Unknown father Unknown mother Unknown Family Member Type Diagnosis Age At Onset Mother Problem Cancer, lung Sister Problem Diabetes mellitus Sister Problem AFIB Father Problem Cancer, colon Advance Directives Advance Directive Response Recorded Date/ Time Advance [...] 06/15/2024 Reason Comments Medicare Annual Wellness Visit Vanessa rodney Reason Onset Date Comments Med Refill 11/02/2024 Reason Comments Diabetes Reason Onset Date Comments Med Refill 12/14/2024 Reason Comments Thyroid Nodule New Patient : right thyroid nodule Specialty Diagnoses / Procedures Referred By Contac t Referred To Contact Otolaryngology Diagnoses Multiple thyroid nodules (CMS/HCC) Procedures GA OFFICE/OUTPATIENT NEW HIGH MDM 60 MINUTES Destiny Mccartney NP [address] [place] [address] Phone: tel: fax: Maurisio Padilla, [address] [place] [address] Phone: tel: fax: Referral ID Status Reason Start Date Expiration Date V isits Requested Visits Authorized [id number] Closed Specialty Services Required 12/04/2024 06/02/2025 1 1 Reason Comments Thyroid Nodule FNA Reason Comments Thyroid Nodule FNA results Reason Comments Diabetes INFORMATION SOURCE (unrecogn ized section and content) DATE CREATED AUTHOR 09/02/2022 [facility] DATE CREATED AUTHOR AUTHOR'S ORGANIZ ATION 09/26/2023 [facility] DATE CREATED AUTHOR AUTHOR'S ORGANIZ ATION 08/11/2024 [facility] DATE CREATED AUTHOR AUTHOR'S ORGANIZ ATION 01/18/2025 [facility] DATE CREATED AUTHOR AUTHOR'S ORGANIZ ATION 01/21/2025 [facility] DATE CREATED AUTHOR AUTHOR'S ORGANIZ ATION 01/28/2025 [facility] DATE CREATED AUTHOR AUTHOR'S ORGANIZ ATION 02/09/2025 [facility] Special[facility] DATE CREATED AUTHOR AUTHOR'S ORGANIZ ATION 03/16/2025 [facility] Care Teams (unrecognized sec tion and content) Team Status: Active Member Role Status Dates Chelo Oro APRN MULTIFOCAL LENS ASSEMBLER-C Primary Care Provider Active Team Status: Inactive Member Role Status Dates Chelo Oro APRN MULTIFOCAL LENS ASSEMBLER-C Primary Care Provider Active Start: June 26, 2024 End: June 26, 2024 Negrita Van DO Attending Provider Active St art: June 26, 2024 End: June 26, 2024 Motor Overhauler Relationship Specialty Start Date End Date Shaikh Burks MD [address] [place] [address] PCP - [employer] 10/08/23 Jerome Coles MD [address] [place] [address] PCP - General Family Medicine 03/28/24 Jayshree Conner NP [address] [place] [address] Nurse Practitioner Family Medicine 03/28/24 Motor Overhauler Relationship Specialty Start Date End Date Shaikh Burks MD [address] [place] [address] PCP - [employer] 10/08/23 Jerome Coles MD [address] [place] [address] PCP - General Family Medicine 03/28/24 Jayshree Conner NP [address] [place] [address] Nurse Practitioner Family Medicine 03/28/24 Motor Overhauler Relationship Specialty Start Date End Date Shaikh Burks MD [address] [place] [address] PCP - [employer] 10/08/23 Jerome Coles MD [address] [place] [address] PCP - General Family Medicine 03/28/24 Jayshree Conner NP [address] [place] [address] Nurse Practitioner Family Medicine 03/28/24 Motor Overhauler Relationship Specialty Start Date End Date Shaikh Burks MD [address] [place] [address] PCP - [employer] 10/08/23 Jerome Coles MD [address] [place] [address] PCP - General Family Medicine 03/28/24 Jayshree Conner NP [address] [place] [address] Nurse Practitioner Family Medicine 03/28/24 Motor Overhauler Relationship Specialty Start Date End Date Shaikh Burks MD [address] [place] [address] PCP - General Internal Medicine 11/30/23 Shaikh Burks MD [address] [place] [address] PCP - [employer] 10/08/23 Motor Overhauler Relationship Specialty Start Date End Date Shaikh Burks MD [address] [place] [address] PCP - [employer] 10/08/23 Jerome Coles MD [address] [place] [address] PCP - General Family Medicine 03/28/24 Jayshree Conner NP [address] [place] [address] Nurse Practitioner Family Medicine 03/28/24 Motor Overhauler Relationship Specialty Start Date End Date Shaikh Burks MD [address] [place] [address] PCP - [employer] 10/08/23 Jerome Coles MD [address] [place] [address] PCP - General Family Medicine 03/28/24 Jayshree Conner NP [address] [place] [address] Nurse Practitioner Family Medicine 03/28/24 Motor Overhauler Relationship Specialty Start Date End Date Shaikh Burks MD [address] [place] [address] PCP - Aetlonnie 10/08/23 Jerome Coles MD [address] [place] [address] PCP - General Family Medicine 03/28/24 Jayshree Conner NP [address] [place] [address] Nurse Practitioner Family Medicine 03/28/24 Motor Overhauler Relationship Specialty Start Date End Date Shaikh Burks MD [address] [place] [address] PCP - [employer] 10/08/23 Jerome Coles MD [address] [place] [address] PCP - General Family Medicine 03/28/24 Jayshree Conner MULTIFOCAL LENS ASSEMBLER [address] [place] [address] Nurse Practitioner Family Medicine 03/28/24 Motor Overhauler Relationship Specialty Start Date End Date Shaikh Burks MD [address] [place] [address] PCP - [employer] 10/08/23 Jerome Coles MD [address] [place] [address] PCP - General Family Medicine 03/28/24 Jayshree Conner, MULTIFOCAL LENS ASSEMBLER [address] [place] [address] Nurse Practitioner Family Medicine 03/28/24 Motor Overhauler Relationship Specialty Start Date End Date Shaikh Burks MD [address] [place] [address] PCP - [employer] 10/08/23 Jerome Coles MD [address] [place] [address] PCP - General Family Medicine 03/28/24 Jayshree Conner NP [address] [place] [address] Nurse Practitioner Family Medicine 03/28/24 Motor Overhauler Relationship Specialty Start Date End Date Chelo Oro APRN-GUM PULLER PCP - General Nurse Practitioner 12/09/20 Motor Overhauler Relationship Specialty Start Date End Date Shaikh Burks MD [address] [place] [address] PCP - [employer] 10/08/23 Jerome Coles MD [address] [place] [address] PCP - General Family Medicine 03/28/24 Jayshree Conner NP [address] [place] [address] Nurse Practitioner Family Medicine 03/28/24 Motor Overhauler Relationship Specialty Start Date End Date Chelo Oro, JIM-GUM PULLER [address] [place] [address] PCP - General Nurse Practitioner 12/09/20 Motor Overhauler Relationship Specialty Start Date End Date Chelo Oro APRN-GUM PULLER [address] [place] [address] PCP - General Nurse Practitioner 12/09/20 Motor Overhauler Relationship Specialty Start Date End Date Chelo Oro, CASE FINISHING MACHINE ADJUSTER-GUM PULLER [address] [place] [address] PCP - General Nurse Practitioner 12/09/20 Motor Overhauler Relationship Specialty Start Date End Date Chelo Oro CASE FINISHING MACHINE ADJUSTER-GUM PULLER PCP - General Nurse Practitioner 12/09/20 Motor Overhauler Relationship Specialty Start Date End Date Shaikh Burks MD [address] [place] [address] PCP - [employer] 10/08/23 Jerome Coles MD [address] [place] [address] PCP - General Family Medicine 03/28/24 Jayshree Conner NP [address] [place] [address] Nurse Practitioner Family Medicine 03/28/24 Motor Overhauler Relationship Specialty Start Date End Date Shaikh Burks MD [address] [place] [address] PCP - [employer] 10/08/23 Jerome Coles MD [address] [place] [address] PCP - General Family Medicine 03/28/24 Jayshree Conner NP [address] [place] [address] Nurse Practitioner Family Medicine 03/28/24 Motor Overhauler Relationship Specialty Start Date End Date Shaikh Burks MD [address] [place] [address] PCP - [employer] 10/08/23 Jerome Coles MD [address] [place] [address] PCP - General Family Medicine 03/28/24 Jayshree Conner NP [address] [place] [address] Nurse Practitioner Family Medicine 03/28/24 Motor Overhauler Relationship Specialty Start Date End Date Chelo Oro, CASE FINISHING MACHINE ADJUSTER-GUM PULLER PCP - General Nurse Practitioner 12/09/20 Name Effective Dates (start - stop) Status Members No Information Motor Overhauler Relationship Specialty Start Date End Date Shaikh Burks MD [address] [place] [address] PCP - [employer] 10/08/23 Jerome Coles MD [address] [place] [address] PCP - General Family Medicine 03/28/24 Jayshree Conner NP [address] [place] [address] Nurse Practitioner Family Medicine 03/28/24 Motor Overhauler Relationship Specialty Start Date End Date Shaikh Burks MD [address] [place] [address] PCP - [employer] 10/08/23 Jerome Coles MD [address] [place] [address] PCP - General Family Medicine 03/28/24 Jayshree Conner NP [address] [place] [address] Nurse Practitioner Family Medicine 03/28/24 Motor Overhauler Relationship Specialty Start Date End Date Shaikh Burks MD [address] [place] [address] PCP - [employer] 10/08/23 Jerome Coles MD [address] [place] [address] PCP - General Family Medicine 03/28/24 Jayshree Conner NP [address] [place] [address] Nurse Practitioner Family Medicine 03/28/24 Motor Overhauler Relationship Specialty Start Date End Date Shaikh Burks MD [address] [place] [address] PCP - [employer] 10/08/23 Jerome Coles MD [address] [place] [address] PCP - General Family Medicine 03/28/24 Jayshree Conner NP [address] [place] [address] Nurse Practitioner Family Medicine 03/28/24 Motor Overhauler Relationship Specialty Start Date End Date Shaikh Burks MD [address] [place] [address] PCP - [employer] 10/08/23 Jerome Coles MD [address] [place] [address] PCP - General Family Medicine 03/28/24 Jayshree Conner NP [address] [place] [address] Nurse Practitioner Family Medicine 03/28/24 Motor Overhauler Relationship Specialty Start Date End Date Shaikh Burks MD [address] [place] [address] PCP - [employer] 10/08/23 Jerome Coles MD [address] [place] [address] PCP - General Family Medicine 03/28/24 Jayshree Conner NP [address] [place] [address] Nurse Practitioner Family Medicine 03/28/24 Motor Overhauler Relationship Specialty Start Date End Date Shaikh Burks MD [address] [place] [address] PCP - [employer] 10/08/23 Jerome Coles MD [address] [place] [address] PCP - General Family Medicine 03/28/24 Jayshree Conner NP [address] [place] [address] Nurse Practitioner Family Medicine 03/28/24 Motor Overhauler Relationship Specialty Start Date End Date Shaikh Burks MD [address] [place] [address] PCP - [employer] 10/08/23 Jerome Coles MD [address] [place] [address] PCP - General Family Medicine 03/28/24 Jayshree Conner NP [address] [place] [address] Nurse Practitioner Family Medicine 03/28/24 Motor Overhauler Relationship Specialty Start Date End Date Shaikh Burks MD [address] [place] [address] PCP - [employer] 10/08/23 Jerome Coles MD [address] [place] [address] PCP - General Family Medicine 03/28/24 Jayshree Conner NP [address] [place] [address] Nurse Practitioner Family Medicine 03/28/24 Motor Overhauler Relationship Specialty Start Date End Date Shaikh Burks MD [address] [place] [address] PCP - [employer] 10/08/23 Jerome Coles MD [address] [place] [address] PCP - General Family Medicine 03/28/24 Jayshree Conner, FAVIOLA [address] [place] [address] Nurse Practitioner Family Medicine 03/28/24 Motor Overhauler Relationship Specialty Start Date End Date Shaikh Burks MD [address] [place] [address] PCP - [employer] 10/08/23 Jerome Coles MD [address] [place] [address] PCP - General Family Medicine 03/28/24 Jayshree Conner, FAVIOLA [address] [place] [address] Nurse Practitioner Family Medicine 03/28/24 Motor Overhauler Relationship Specialty Start Date End Date Shaikh Burks MD [address] [place] [address] PCP - [employer] 10/08/23 Jerome Coles MD [address] [place] [address] PCP - General Family Medicine 03/28/24 Jayshree Conner NP [address] [place] [id number] Nurse Practitioner Family Medicine 03/28/24 Destiny Mccartney NP [address] [place] [address] Nurse Practitioner Family Medicine 01/18/25 Maurisio Padilla DO [address] [place] [address] Otolaryngology 01/18/25 Motor Overhauler Relationship Specialty Start Date End Date Shaikh Burks MD [address] [place] [phone] PCP - [employer] 10/08/23 Jerome Coles MD [address] [place] [phone] PCP - General Family Medicine 03/28/24 Jayshree Conner NP [address] [place] [phone] Nurse Practitioner Family Medicine 03/28/24 Destiny Mccartney NP [address] [place] [address] Nurse Practitioner Family Medicine 01/18/25 Maurisio Padilla DO [address] [place] [address] Otolaryngology 01/18/25 Motor Overhauler Relationship Specialty Start Date End Date Shaikh Burks MD [address] [place] [phone] PCP - [employer] 10/08/23 Jerome Coles MD [address] [place] [phone] PCP - General Family Medicine 03/28/24 Jayshree Conner NP [address] [place] [phone] Nurse Practitioner Family Medicine 03/28/24 Destiny Mccartney NP [address] [place] [phone] Nurse Practitioner Family Medicine 01/18/25 Maurisio Padilla DO [address] [facility] [place] [address] Otolaryngology 01/18/25 Motor Overhauler Relationship Specialty Start Date End Date Shaikh Burks MD [address] [place] [phone] PCP - [employer] 10/08/23 Jerome Coles MD [address] [place] [phone] PCP - General Family Medicine 03/28/24 Jayshree Conner NP [address] [place] [phone] Nurse Practitioner Family Medicine 03/28/24 Destiny Mccartney NP [address] [place] [phone] Nurse Practitioner Family Medicine 01/18/25 Maurisio Padilla DO [address] [place] [address] Otolaryngology 01/18/25 Motor Overhauler Relationship Specialty Start Date End Date Shaikh Burks MD [address] [place] [phone] PCP - [employer] 10/08/23 Jerome Coles MD [address] [place] [phone] PCP - General Family Medicine 03/28/24 Jayshree Conner NP [address] [place] [phone] Nurse Practitioner Family Medicine 03/28/24 Destiny Mccartney, FAVIOLA [address] [place] [phone] Nurse Practitioner Family Medicine 01/18/25 Maurisio Padilla DO [address] [place] [address] Otolaryngology 01/18/25 Motor Overhauler Relationship Specialty Start Date End Date Shaikh Burks MD [address] [place] [phone] PCP - [employer] 10/08/23 Jerome Coles MD [address] [place] [phone] PCP - General Family Medicine 03/28/24 Jayshree Conner NP [address] [place] [phone] Nurse Practitioner Family Medicine 03/28/24 Destiny Mccartney NP [address] [place] [address] Nurse Practitioner Family Medicine 01/18/25 Maurisio Padilla DO [address] [place] [address] Otolaryngology 01/18/25 Goals (unrecognized section and content) [...] BE BASED ON THE PRIMARY CLINICAL RECORDS. [employer] provides no warranty or guarantee of the accuracy or completeness of information in this document.
[2025-03-30 21:50] VITALS: BP 141/59; PULSE 70; TEMP 36.9; O2SAT 97; BMI 27.5
[2025-03-30 22:54] VITALS: BP 140/73; PULSE 74; O2SAT 97
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
[2025-03-31 00:14] LABS: Hematocrit 39.8 % (36.0-48.0); Hemoglobin 14.0 g/dL (12.0-16.0); Immature Granulocytes Abs Auto 0.01 10^3/uL (0.00-0.03); Immature Granulocytes Pct Auto 0.1 % (0.0-0.5); Lymphocytes Absolute Auto 1.8 10^3/uL (1.2-3.8); Mean Corpuscular HGB Conc 35.2 g/dL (29.9-35.2); Mean Corpuscular Hemoglobin 31.6 pg (26.7-34.0); Mean Corpuscular Volume 89.8 fL (81.0-99.0); Platelet Count 359 10^3/uL (150-450); Red Blood Count 4.43 10^6/uL (4.20-5.40); White Blood Count 7.2 10^3/uL (4.0-11.0)
[2025-03-31 00:33] LABS: Anion Gap 8.2; Blood Urea Nitrogen 20.0 mg/dL (7.0-18.0); Calcium 9.8 mg/dL (8.5-10.1); Carbon Dioxide 32.3 mmol/L (21.0-32.0); Chloride 103 mmol/L (98-107); Estimated GFR (African America >60 (>=60 mL/min/1.73m^2); Estimated GFR (Non-African Ame >60 (>=60 mL/min/1.73m^2); Glucose 112 mg/dL (74-106); Potassium 3.5 mmol/L (3.5-5.1); Sodium 140 mmol/L (136-145)
[2025-03-31 01:57] VITALS: BP 101/76; PULSE 70; O2SAT 97
[2025-03-31] MEDS: AMOXICILLIN/POT CLAV 875-125 MG TABLET 1 TAB PO (04:35)
== END 2025-03-31 04:41 | disposition home or self-care (01) ==
PROVIDERS: Emergency Provider Internal Medicine; PCP Nurse Practitioner
DX: K11.20 Sialoadenitis, unspecified (principal)
CPT/HCPCS: 36415; 70491; 80048; 85025; 99284; Q9967

== ENCOUNTER 2025-04-19 14:40 | Outpatient (OUT) | payer OTHER, SELFPAY ==
--- NOTE | 2025-04-19 | XR_ITS ---
The [place] [id number] Patient Name: KYARA NEFF MRN: [id number] date: 1950 Sex: F Assigned Patient Location: [facility] Current Patient Location: [facility] Accession/Order Number: [id number] Exam Date: 04/19/2025 14:52 Report Date: 04/19/2025 15:06 At the request of: MARY LOU LIU NP Procedure: XR chest 2V Chest 2 views CLINICAL HISTORY: contusion of chest wall COMPARISON: CT chest 03/22/2025 FINDINGS: Heart normal size. Evidence old granulomatous disease. Mild interstitial changes. No consolidation pneumothorax pleural effusion or free air. XR/XR chest 2V IMPRESSION: NO ACUTE CARDIOPULMONARY ABNORMALITY. Impression dictated by: Seferino Gibbons Jr. DRenaORena 04/19/2025 3:06 PM Dictation Location: [place] [address] Electronically authenticated by: [id number] Y Date: 04/19/2025 15:06
--- NOTE | 2025-04-19 | XR_ITS ---
The [address] [address] Patient Name: KYARA NEFF MRN: [id number] date: 1950 Sex: F Assigned Patient Location: [facility] Current Patient Location: [facility] Accession/Order Number: [id number] Exam Date: 04/19/2025 14:52 Report Date: 04/19/2025 15:05 At the request of: MARY LOU LIU NP Procedure: XR knee RT 3V RIGHT KNEE - 3 views CLINICAL HISTORY: acute knee pain COMPARISON: None. FINDINGS: Moderate degenerative change involving the right knee without acute bony process. Small joint effusion. XR/XR knee RT 3V IMPRESSION: MODERATE DEGENERATIVE CHANGES OF THE RIGHT KNEE WITHOUT ACUTE BONY PROCESS. Impression dictated by: Seferino Gibbons Jr., D.O. 04/19/2025 3:05 PM Dictation Location: [place] [address] Electronically authenticated by: [id number] Y Date: 04/19/2025 15:05
--- OUTSIDE RECORDS SUMMARY | 2025-04-19 16:10 | XMS_ITS | CCD ---
Author Organization [facility] Care Team Providers Care Grocery Shopper Name Role Phone Yuri Washington Unavailable MISC, DR RODRIGUEZ Primary Care Unavailable GEO, DR JOSEF Nelson Consulting Unavailable FAWWAD, HANNAH H Admitting Unavailable FAWWAD, HANNAH H Attending Unavailable FAWWAD, HANNAH H Consulting Unavailable FAWWAD, HANNAH H Admitting Unavailable FAWWAD, HANNAH H Attending Unavailable LAURIER, DR ARCADIO Garcia Consulting Unavailable FAWWAD, HANANH H Primary Care Unavailable FAWWAD, HANNAH H [...] Primary Care Provider Jayshree Conner NP Unavailable Shaikh Burks MD Primary Care Provider Jayshree Conner Primary Care Unavaila ble Negrita Van Attending Unavailable Carlota Negrita L Admitting Unavailable Chase DIRECTOR OF KIDS-LICENSE CLERK, Chelo R Primary Care Provider Chase DIRECTOR OF KIDS-LICENSE CLERK, Chelo R Primary Care Provider [phone] Estuardo BARNETT, Arcadio Unavailable Unavailable Ubaldo BANQUET SERVER ON CALL, Jayshree Unavailable Arcadio Marte MD Unavailable Unavailable Sherrill BANQUET SERVER ON CALL, Destiny Unavailable Mignon FINLEY, Maurisio Ley Unavailable JEROME COLES Primary Care Physician Mauirsio Padilla Attending Unavailable Mignon, Maurisio Ley Admitting Unavailable CONNER, JAYSHREE Attending Unavailabl e STACEYHREBECCA, DESTINY Attending Unavailable BIEDENYOVANNY, MAURISIO Ley Attending Unavailable AICHHOLZ, DESTINY Referring Unavailable BIEDLINDA, MAURISIO Ley Attending Unavailable STACEYHHOLCorey, DESTINY Referring Unavailable BISCOTT, MAURISIO Ley Attending Unavailable STACEYHREBECCA, DESTINY Attending Unavailable CONNER, JAYSHREE Attending Unavailabl [...] Doc Referring Libra vailaArcadio Anders Attending Unavailable No Referring Doc, No Ref Doc Referring Libra Arcadio Alfaro MD Unavailable Unavailable Sherrill BANQUET SERVER ON CALL, Destiny Unavailable Destiny Mccartney Primary Care Provider Destiny Mccartney Attending Provider [phone] Allergies Allergy Classification Reported Allergen(s) Allergy Type Date of Onset Reaction(s) Facility (10 sources) celecoxib; Translations: [CELECOXIB] Drug Allergy 7 Anaphylaxis [facility] (9 sources) Morphine; Translations: [MORPHINE] Drug Allergy 7 Stops her digestion, shuts down bowel, Stops her digestion [facility] (2 sources) Sulfacetamide Drug Allergy 4 Anaphylaxis [facility] (1 source) celecoxib Drug Allergy 4 [facility] Repository (1 source) Codeine Drug Allergy 4 [facility] (1 source) Morphine Drug Allergy 4 [facility] Rep[facility] (1 source) Sulfonamides (Antibiotic) Drug allergy (disorder) 4 [facility] Repository (20 sources) Lisinopril; Translations: [LISINOPRIL] Drug Allergy 7 Cough [facility] (11 sources) Sulfonamides (Antibiotic); Translations: [SULFA (SULFONAMIDE ANTIBIOTICS)] Propensity to adverse reactions to drug (disorder) 7 Anaphylaxis [facility] (20 sources) celecoxib Drug Allergy 3 Anaphylaxis [facility] (20 sources) Sulfonamides (Antibiotic) Propensity to adverse reactions 3 Anaphylaxis [facility] (1 source) celecoxib Drug Allergy 4 [facility] Repository Medications Current Medications Medication Drug Class(es) Dates Sig (Normalized) Sig (Original) acetaminophen 325 mg oral tablet (1 source) take 1 tablet by mouth every four hours Tylenol 325 MG 1 tablet as needed Orally every 4 hrs Active acetaminophen 325 mg / oxyCODONE hydrochloride 5 mg oral tablet (1 source) Opioid Agonist Start: 04-10-2025 take 1 tablet by mouth every eight hours as needed Oxycodone-Acetamino phen 5-325 mg tablet Active 1 TAB PO Every 8 hours as needed April 10, 2025 12:00am Complies with drug therapy amoxicillin 875 mg / clavulanate 125 mg [...] oral tablet (20 sources) Thiazide-like Diuretic Start: 04-10-2025 Chlorthalidone 25 mg tablet Active 12.5 MG PO Daily April 10, 2025 12:00am Complies with drug therapy Start: 02-07-2025 End: 05-08-2025 take 0.5 tablet [...] Active doxycycline hyclate 100 mg oral tablet (4 sources) Tetracycline-class Drug Start: 02-08-20 doxycycline (Vibra-Tabs) 100 MG tablet Indications: Tick bite of left ear, initial encounter 200mg one time dose. Take with a full glass of water and do not lie down for at least 30 minutes after. 2 tablet 02/07/2025 Active fluticasone propionate 0.05 mg/actuat metered dose nasal spray (20 sources) Corticosteroid Start: 08-14-19 End: 08-14-19 take 1-2 spray(s) nasal route once daily fluticasone (Flonase) 50 MCG/ACT nasal spray Indications: Upper respiratory tract infection, unspecified type Administer 1-2 sprays into each nostril Daily Shake gently. Before first use, prime pump. After use, clean tip and replace cap. 16 g 2 08/14/2024 08/14/2025 Active glimepiride 4 mg oral tablet (1 source) Sulfonylurea take 1 tablet by mouth every twenty-four hours Glimepiride 4 MG 1 tablet with breakfast or the first main meal of the day Orally Once a day Active 12 hr guaiFENesin 600 mg extended release oral tablet (2 sources) Start: 08-14-19 End: 08-28-19 take 2 tablets by mouth in the [...] mg oral tablet (20 sources) Biguanide Start: 06-26-2024 take 1 tablet by mouth twice daily Metformin 500 mg tablet Active 500 MG PO Twice daily June 26, 2024 1:00am FreeTextSi tablet with a meal Orally Once a day; Note: Source Status: Taking; Provider: Felix Welch ( ) Complies with drug therapy Start: 12-30-2021 End: 02-10-2025 take 1 tablet [...] (6 sources) take 1 capsule by mo uth every other day in the morning multivitamin capsule Take 1 capsule by mouth in the morning. EVERY OTHER DAY . Active take 1 capsule by mo ut every other day in the morning multivitamin capsule Take 1 capsule by [facility] in the morning. EVERY OTHER DAY [...] take 1 capsule by mouth once daily at bedtime Omeprazole 40 mg Capsule,Delayed Release(Dr/Ec) Active 40 MG PO Daily at bedtime November 02, 2018 12:00am Complies with drug therapy Psyllium (1 source) Metamucil 48.57 % as directed Orally Active rosuvastatin calcium 10 mg oral tablet (20 sources) HMG-CoA Reductase Inhibitor Start: 5 End: 5 take 1 tablet by mouth once daily Rosuvastatin 10 mg tablet Active 10 MG PO Daily April 10, 2025 12:00am Complies with drug therapy take 1 tablet by mouth once melissa y rosuvastatin 20 mg tablet take 1 tablet by oral route every day 20 MG - Active SENNOSIDES (SENNA LAX ORAL) (6 sources) SENNOSIDES (JUAN M A LAX ORAL) as needed. Active SENNOSIDES (JUAN M A LAX ORAL) as needed. 0 Active tiZANidine 4 mg oral tablet (20 sources) Central alpha-2 Adrenergic Agonist Start: 06-26-2024 take 1 tablet by mouth twice daily as needed Tizanidine 4 mg tablet Active 1 MG PO Twice daily June 26, 2024 1:00am FreeTextSi tablet as needed Orally Twice a day; Note: Source Status: Taking; Provider: Felix Welch ( ) Complies with drug therapy Start: 11-22-2023 End: 06-26-2025 take 1 tablet [...] daily as needed for Muscle Spasticity November 02, 2018 12:00am November 18, 2018 7:49am take 1 capsule by mo uth three times daily tiZANidine (ZANAFLEX) 4 mg capsule Take 1 capsule (4 mg total) by mouth 3 (three) times a day. Active take 1 capsule by mo uth once as needed tiZANidine (ZANAFLEX) 4 mg capsule Take 4 mg by mouth once as needed. 0 Active take 1 tablet by red th every twelve hours tiZANidine HCl 4 MG 1 tablet as needed Orally Twice a day Active triamcinolone acetonide 1 mg/ml topical cream (3 sources) Corticosteroid Start: 04-10-2025 Triamcinolone Acetonide 0.1 % cream Active APPLIC TOPICAL April 10, 2025 12:00am Complies with drug therapy Start: 02-07-2025 End: 02-22-2025 triamcinolone (Kenalog) 0.1 % cream Indications: Bug bite, initial encounter Apply topically in the morning and in the evening and before bedtime. Do all this for 15 days. 30 g 02/07/2025 02/22/2025 Active 24 hr verapamil hydrochloride 360 mg extended release oral capsule (20 sources) Calcium Channel Mimi Start: 04-10-2025 take 1 capsule by mouth once daily Verapamil 360 mg capsule,ext rel. pellets 24 hr Active 360 MG PO Daily April 10, 2025 12:00am Complies with drug therapy Start: 11-30-2023 End: 03-14-2025 take 1 capsule [...] 07/09/2023 09/24/2023 Discontinued (Dose adjustment) Start: 11-02-2018 End: 04-10-2025 take 1 tablet by mouth once daily Verapamil 240 mg Tablet Extended Release Discontinued 240 MG PO Daily November 02, 2018 12:00am April 10, 2025 1:42pm Vitamin D 1000 UNIT (1 source) take 1 tablet by red th once daily Vitamin D 1000 UNIT 1 tablet Orally Once a day for 30 day(s) *please review for potential _update for e-prescription and drug interaction check* Active Completed/Discontinued Medications Medication Drug Class(es) Dates Sig (Normalized) Sig (Original) [id number] 200 actuat albuterol 0.09 mg/actuat metered dose inhaler (1 source) beta2-Adrenergic Agonist Start: 11-02-2018 End: 06-26-2024 take 1 puff(s) by inhalation every four to six hours as needed for wheezing Albuterol Sulfate 90 mcg/actuation Hfa Aerosol Inhaler Discontinued 2 PUFF INHALATION EVERY 4-6 HOURS as needed for Shortness Of Breath Or Wheezing November 02, 2018 12:00am June 26, 2024 3:01pm Albuterol Sulfate 90 mcg/actuation Hfa Aerosol Inhaler (1 source) Start: 11-02-2018 End: 06-26-2024 take 1 puff(s) by inhalation every four to six hours as needed for wheezing Albuterol Sulfate 90 mcg/actuation Hfa Aerosol Inhaler Discontinued 2 PUFF INHALATION EVERY 4-6 HOURS as needed for Shortness Of Breath Or Wheezing November 01, 2018 11:00pm June 26, 2024 2:01pm cephalexin 500 mg oral capsule (2 sources) Cephalosporin Antibacterial Start: 11-18-2018 End: 12-09-2018 take 1 capsule by mouth every eight hours Cephalexin (Keflex) 500 mg capsule Discontinued 500 MG PO Q8H November 18, 2018 12:00am December 09, 2018 9:35am cholecalciferol 0.025 mg oral capsule (3 sources) Vitamin D End: 09-24-2023 cholecalciferol, vitamin D3, 1,000 unit capsule Take 1 capsule (1,000 Units total) by mouth as needed. 0 09/24/2023 Discontinued (Therapy completed) ciprofloxacin 500 mg oral tablet (3 sources) Quinolone Antimicrobial Start: 11-21-2016 End: 09-24-2023 ciprofloxacin HCl (CIPRO) 500 mg tablet Take 1 tablet (500 mg total) by mouth as needed. 0 11/21/2016 09/24/2023 Discontinued (Therapy completed) cyclobenzaprine hydrochloride 10 mg oral tablet (4 sources) Muscle Relaxant Start: 11-18-2018 End: 06-26-2024 take 1 tablet by mouth three times daily as needed for muscle spasms Cyclobenzaprine 10 mg tablet Discontinued 10 MG PO Three times daily as needed for back spasms 50 December 27, 2018 12:00am June 26, 2024 3:02pm Fluticasone Propion-Salmeterol (2 sources) Corticosteroid, beta2-Adrenergic Agonist Start: 11-02-2018 End: 06-26-2024 Fluticasone Propion-Salmeterol (Advair Diskus) 250-50 mcg/dose Blister With Device Discontinued 1 INH INHALATION Twice daily as needed for Shortness Of Breath Or Wheezing November 02, 2018 12:00am June 26, 2024 3:02pm Start: 11-02-2018 End: 06-26-2024 Fluticasone Propion-Salmeter ol (Advair Diskus) 250-50 mcg/dose Blister With Device Discontinued 1 INH INHALATION Twice daily as needed for Shortness Of Breath Or Wheezing November 01, 2018 11:00pm June 26, 2024 2:02pm gabapentin 300 mg oral capsule (20 sources) Anti-epileptic Agent Start: 06-26-2024 End: 04-10-2025 take 1 capsule by mouth twice daily Gabapentin 300 mg capsule Discontinued 300 MG PO Twice daily June 26, 2024 1:00am April 10, 2025 1:58pm Start: 12-22-2016 End: 06-26-2025 take 1 capsule by mouth three times daily Gabapentin 300 mg capsule Discontinued 300 MG PO Three times daily April 10, 2025 1:58pm April 10, 2025 1:59pm methylPREDNISolone (1 source) Corticosteroid Start: 04-21-2018 Depo-Medrol 40 mg Apr, 1 mL 12 hr orphenadrine citrate 100 mg extended release oral tablet (3 sources) Muscle Relaxant End: 09-24-2023 take 1 tablet by mouth in the morning, then take 1 tablet by mouth every twelve hours at bedtime orphenadrine (NORFLEX) 100 mg 12 hr tablet Take 1 tablet (100 mg total) by mouth in the morning and 1 tablet (100 mg total) before bedtime. 0 09/24/2023 Discontinued (Therapy completed) oxyCODONE hydrochloride 5 mg oral capsule (4 sources) Opioid Agonist Start: 11-18-2018 End: 06-26-2024 take 5-10 mg by mouth every six hours as needed for pain Oxycodone 5 mg capsule Discontinued 5 - 10 MG PO Q6H as needed for pain 60 8 December 27, 2018 June 26, 2024 3:02pm polyethylene glycol 3350 77652 mg powder for oral solution (3 sources) Osmotic Laxative Start: 11-02-2018 End: 06-26-2024 Polyethylene Glycol 3350 (Miralax) 17 gram Powder In Packet Discontinued 17 GM PO Daily November 02, 2018 12:00am June 26, 2024 3:02pm MiraLax - as dir ected Orally *please review for potential _update for e-prescription and drug interaction check* Active polyethylene glycol 3350 212631 mg / potassium chloride 2970 mg / sodium bicarbonate 6740 mg / sodium chloride 5860 mg / sodium sulfate 33252 mg powder for oral solution (2 sources) Osmotic Laxative Start: 06-26-2024 End: 07-26-2024 Peg 3350-Electrolytes (Golytely) 236-22.74-6.74 -5.86 gram recon soln Discontinued 480 ML PO Q10M 8000 2 June 26, 2024 1:00am July 26, 2024 12:28pm follow instructions given at office please give two kits for a 2 day bowel clean out predniSONE 10 mg oral tablet (2 sources) Start: 11-18-2018 End: 12-09-2018 Prednisone 10 mg tablets,dose pack Discontinued 1 dose pk PO per package directions November 18, 2018 12:00am December 09, 2018 9:36am take 4 tabs for 3 days then take 3 tabs for 3 days then take 2 tabs for 3 days then take 1 tab for 3 days simvastatin 10 mg oral tablet (20 sources) HMG-CoA Reductase Inhibitor Start: 06-26-2024 End: 04-10-2025 take 2 tablets by mouth once daily at bedtime Simvastatin 10 mg tablet Discontinued 20 MG PO Daily at bedtime June 26, 2024 3:03pm April 10, 2025 1:42pm Start: 02-17-2024 End: 03-27-2025 take 1 tablet by mouth at bedtime simvastatin (Zocor) 40 MG tablet Indications: Mixed hyperlipidemia (CMS/HCC) Take 1 tablet (40 mg) by mouth at bedtime 90 tablet 09/28/2024 11/09/2024 Discontinued (Therapy completed) Start: 11-02-2018 End: 06-26-2024 take 1 tablet by mouth once daily at bedtime Simvastatin 10 mg Tablet Discontinued 10 MG PO Daily at bedtime November 02, 2018 12:00am June 26, 2024 3:05pm Problems Active Problems Problem Classification Problem Date Documented Da te Episodic/Chronic Abdominal pain (2 sources) Unspecified abdominal pain; Translations: [Abdominal pain] Onset: 4 06-26-2024 Episodic Cardiac dysrhythmias (11 sources) Ventricular premature depolarization; Translations: [Multiple premature ventricular complexes] Onset: 6 11-05-2017 Chronic Cardiac dysrhythmias (11 sources) Palpitations; Translations: [Palpitations] Onset: 6 11-05-2017 Episodic Cataract (9 sources) Presence of intraocular lens; Translations: [Pseudophakia] Onset: 5 Chronic Complications of surgical procedures or medical care (2 sources) Postoperative wound infection; Translations: [Infection following a [...] Onset: 4 06-26-2024 Chronic E Codes: Natural/environment (6 sources) Insect bite - wound; Translations: [Bitten or stung by nonvenomous insect and other nonvenomous arthropods, initial encounter] Onset: 5 02-07-2025 Episodic Esophageal disorders (5 sources) Gastroesophageal reflux disease without esophagitis; Translations: [Gastro-esophageal reflux disease without esophagitis] 06-20-2024 Chronic Essential hypertension (20 sources) Essential hypertension; Translations: [Essential (primary) hypertension] Onset: 7 07-28-2023 Chronic Fever of unknown origin (2 sources) Fever; Translations: [Fever, unspecified] 12-09-2018 Episodic Genitourinary [...] [Other fatigue] 01-04-2025 Episodic Other acquired deformities (3 sources) Lumbar spondylolisthesis; Translations: [Spondylolisthesis, lumbar region] 11-17-2018 Episodic Other aftercare (2 sources) Surgical follow-up; Translations: [Encounter for follow-up examination after completed treatment for conditions other than malignant neoplasm] 12-09-2018 Episodic Other connective tissue disease (2 sources) Muscle pain; Translations: [Myalgia, unspecified site] 12-09-2018 Episodic Other eye disorders (9 sources) 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), bilateral; Translations: [Bilateral macula scars of post poles] Onset: 5 Chronic Other gastrointestinal disorders (2 sources) Altered bowel function; Translations: [Other specified symptoms and signs involving the digestive system and abdomen] 06-26-2024 Episodic Other gastrointestinal disorders (1 source) Other specified symptoms and signs involving the digestive system and abdomen; Translations: [Other symptoms involving digestive system] 06-26-2024 Episodic Other gastrointestinal disorders (1 source) Chronic constipation; Translations: [Other constipation] 06-26-2024 Episodic Other nervous system disorders (1 source) Chronic pain; Translations: [Other chronic pain] Chronic Other nervous system disorders (2 sources) Polyneuropathy associated with another disorder; Translations: [Polyneuropathy in diseases classified elsewhere] 11-09-2024 Chronic Other nervous system disorders (20 sources) Peripheral nerve disease ; Translations: [Polyneuropathy, unspecified] Onset: 5 11-09-2024 Chronic Other non-traumatic joint disorders (2 sources) Pain in unspecified knee; Translations: [Acute knee pain] 04-10-2025 Episodic Other nutritional; endocrine; and metabolic disorders (6 [...] 3 Episodic Residual codes; unclassified (20 sources) H/O Spinal surgery; Translations: [Other specified postprocedural states] Onset: 4 12-21-2018 Episodic Retinal detachments; defects; vascular occlusion; and [...] Onset: 7 12-21-2018 Episodic Superficial injury; contusion (8 sources) Tick bite; Translations: [Insect bite (nonvenomous) of left ear, initial encounter] Onset: 5 02-07-2025 Episodic Thyroid disorders (20 sources) Multinodular goiter; Translations: [Nontoxic multinodular goiter] Onset: 5 11-15-2024 Chronic Unclassified (3 sources) LOW BACK PAIN, UNSPECIFIED; Translations: [LOW BACK PAIN, UNSPECIFIED] Onset: Past or Other Problems Problem Classification Problem [...] 07-28-2023 Other bone disease and musculoskeletal deformities (18 sources) Osteopenia; Translations: [Other specified disorders of [...] 08-14-2024 Episodic Residual codes; unclassified (20 sources) Menopause [...] Interpretation and review of laboratory results Abnormal Counts include 234 beds at the [facility] - Hematology and Cell countson 02-07-2025 HbA1c (Bld) [Mass fraction] 5.9 % [facility] Non-Security Tech Cytology Reporton Non-Security Tech Cytology Report [address] [place] [address]- Non-Security Tech Cytology Report Collected Date/Time: 01/18/2025 13:15 EDT Pathologist: Armando BRANETT PhD, Anna Yang Received Date/Time: 01/18/2025 18:00 EDT Mignon FINLEY, Maurisio Padilla DO, Maurisio Mosley Non-Security Tech Cytology Report - 01/25/2025 11:27 EDT - [...] Nodule Gross Description Received 10 slides from environmental field office manager. 5 unstained slides sent for Papanicolaou stain, 5 slides Diff-Quik stained in-house. Also received needle wash in 30 mL of ThinPrep CytoLyt solution. Sent for processing and cell block preparation. MMF:MMF Microscopic Description Microscopic examination performed. This report was transcribed using voice recognition technology and might contain unintended computerized electric car operator errors. Normal [facility] Comment on above: Performed By: #### [id number] #### [facility] [address] [place] [id number] No Panel Informationon 01-16 FASTING:YES FASTING: YES [facility] Performing Organizat ion Information Site ID: QPT Name: [facility] Address: [address] [place] [address] Director: Salo Rachel MD [facility] Soft Tissue Regeneration PTH, INTACT AND CALCIUMon Calcium [Mass/Vol] 9.9 mg/dL Normal 8.6-10.4 [facility] Comment on above: Order Comment: FASTI NG:YES FASTING: YES Performed By: #### 8 [id number], [id number], 867 #### [facility] [place] [address] Apparel Manufacture Instructor: Salo Rachel MD PARATHYROID HORMONE, INTACT 30 pg/mL Normal 16-77 [facility] Comment on above: Order Comment: FASTI NG:YES FASTING: YES Result Comment: Interpretive Guide Intact PTH Calcium ------- Normal Parathyroid Normal Normal Hypoparathyroidism Low or Low Normal Low Hyperparathyroidism Primary Normal or High High Secondary High Normal or Low Tertiary High High Non-Parathyroid Hypercalcemia Low or Low Normal High Performed By: #### 8 616, 989, 867 #### [facility] [place] [address] [employer]arel Manufacture Instructor: Salo Rachel MD Parathyrin.intact and Calciu m panelon 01-16-2025 Calcium [Mass/Vol] 9.9 mg/dL 8.6 - 10. 4 mg/dL [facility] Parathyrin.intact [Mass/Vol] 30 pg/mL 16 - 77 pg/mL [facility] Comment on above: Interpretive Guide Intact PTH Calcium ------- Normal Parathyroid Normal Normal Hypoparathyroidism Low or Low Normal Low Hyperparathyroidism Primary Normal or High High Secondary High Normal or Low Tertiary High High Non-Parathyroid Hypercalcemia Low or Low Normal High T3on 01-16-2025 T3 [Mass/Vol] 103 ng/dL 76 - 181 ng/dL [facility] T3, TOTALon 01-16-2025 T3, TOTAL 103 ng/dL Normal 76-181 [facility] Comment on above: Performed By: #### 8 [id number], [id number], 867 #### [facility] [address], [address] [place] [address] Apparel Manufacture Instructor: Salo Rachel MD T4 (THYROXINE), TOTALon 01-07 T4 [Mass/Vol] 8.4 ug/dL Normal 5.1-11.9 [facility] Comment on above: Performed By: #### 8 [id number], 859, 867 #### [facility] [address], [address] [place] [address] Apparel Manufacture Instructor: Salo Rachel MD TSHon 01-16-2025 TSH Qn 0.73 m[IU]/L Normal 0.40-4.50 [facility] Comment on above: Performed By: #### 8 [id number], 859, 867 #### [facility] [address], [address] [place] [address] Apparel Manufacture Instructor: Salo Rachel MD TSH Qn 0.73 m[IU]/L [facility] TSH Qnon 01-16-2025 T4 [Mass/Vol] 8.4 ug/dL [facility] US Thyroid glandon [place] [id number] Ultrasound Report Signed Patient: SASKIA NEFF MR#: [id number] : 1950 Acct:[id number] Age/Sex: 73 / F ADM Date: 11/28/24 Loc: US Attending Dr: Destiny Mccartney NP Ordering Physician: Destiny Mccartney NP Date of Service: 11/28/24 Procedure(s): US thyroid Accession Number(s): [id number] cc: Destiny Mccartney NP [place] [id number] Patient Name: SASKIA NEFF MRN: [id number] date: 1950 Sex: F Assigned Patient Location: US Current Patient Location: US Accession/Order Number: [id number] Exam Date: 11/28/2024 13:20 Report Date: 11/28/2024 [...] Seun Kitchen M.D.11/28/2024 1:27 PM Dictation Location: [place] [address] Electronically authenticated by: [id number] Y Date: 11/28/2024 13:27 Dictated By: Seun Kitchen D.O. Signed By: 11/28/24 1330 DD/ 1327 TD/TT: Pulp Mill Operator: [facility] Radiology, Radiologi MD jadiel - 11/28/2024 [place] [address] Ultrasound Report Signed Patient: SASKIA NEFF MR#: [id number] : 1950 Acct:[id number] Age/Sex: 73 / F ADM Date: 11/28/24 Loc: US Attending Dr: Destiny Mccartney NP Ordering Physician: Destiny Mccartney NP Date of Service: 11/28/24 Procedure(s): US thyroid Accession Number(s): [id number] cc: Destiny Mccartney NP The [place] [address] Patient Name: SASKIA NEFF MRN: [id number] date: 1950 Sex: F Assigned Patient Location: US Current Patient Location: US Accession/Order Number: [id number] Exam Date: 11/28/2024 13:20 Report Date: 11/28/2024 [...] Seun Kitchen M.D.11/28/2024 1:27 PM Dictation Location: [place] [address] Electronically authenticated by: [id number] Y Date: 11/28/2024 13:27 Dictated By: Seun Kitchen D.O. Signed By: 11/28/24 1330 DD/ 1327 TD/TT: Pulp Mill Operator: [facility] Radiology Study observation (narrative) [facility] US Thyroid glandOrdered By: Radiologist Radiology on 11-28-2024 [facility] Work Phone: MG Breast - bilateral Screen ingon 11-15-2024 [place] [address] Mammography Report Signed Patient: SASKIA NEFF MR#: [id number] : 1950 Acct:[id number] Age/Sex: 73 / F ADM Date: 11/15/24 Loc: RAD Attending Dr: Destiny Mccartney NP Ordering Physician: Dsetiny Mccartney NP Results: Date of Service: 11/15/24 Follow Up: Procedure(s): MM screening mammo BI Accession Number(s): [id number] cc: Destiny Mccartney NP Patient Name: SASKIA NEFF MR#: [id number] : 1950 Exam Date: 11/15/2024 Ordering Doctor: [...] colon cancer at age 71. LOCATION: [facility] BREAST COMPOSITION: There are scattered areas of [...] Signed By: 11/15/24 1323 DD/ 1322 TD/TT: Pulp Mill Operator: [facility] RadiologyKale MD - 11/15/2024 [place] [address] Mammography Report Signed Patient: SASKIA NEFF MR#: [id number] : 1950 Acct:[id number] Age/Sex: 73 / F ADM Date: 11/15/24 Loc: RAD Attending Dr: Destiny Mccartney NP Ordering Physician: Destiny Mccartney NP Results: Date of Service: 11/15/24 Follow Up: Procedure(s): MM screening mammo BI Accession Number(s): [id number] cc: Destiny Mccartney NP Patient Name: SASKIA NEFF MR#: [id number] : 1950 Exam Date: 11/15/2024 Ordering Doctor: [...] colon cancer at age 71. LOCATION: [facility] BREAST COMPOSITION: There are scattered areas of [...] Signed By: 11/15/24 1323 DD/ 1322 TD/TT: Pulp Mill Operator: [facility] Radiology Study observation (narrative) [facility] MG Breast - bilateral Screen ingOrdered By: Radiologist Radiology on 11-15-2024 [facility] Work Phone: ALL CBC WITH AUTO DIFFon BASOPHILS ABSOLUTE AUTO 0 [facility] Basophils/100 WBC (Bld) 0.5 % 0.2 - 2.0 % [facility] Eosinophils/100 WBC (Bld) 5.7 % 0.9 - 7.0 % [facility] Erythrocyte distribution width (RBC) [Ratio] 13.1 % 11.0 - 15.0 % [facility] Hematocrit (Bld) [Volume fraction] 41.1 % 36.0 - 48.0 % [facility] Hemoglobin (Bld) [Mass/Vol] 14.5 g/dL 12.0 - 16.0 g/dL [facility] IMMATURE GRANULOCYTES ABS AUTO 0.01 [facility] Immature granulocytes/100 WBC (Bld) 0.2 % 0.0 - 0.5 % [facility] Interpretation and review of laboratory results Abnormal [facility] LYMPHOCYTES ABSOLUTE AUTO 1.3 [facility] Lymphocytes/100 WBC (Bld) 22.3 % 20.5 - 60.0 % [facility] MCH (RBC) [Entitic mass] 31.6 pg 26.7 - 34.0 pg [facility] MCHC (RBC) [Mass/Vol] 35.3 g/dL High 29.9 - 35.2 g/dL [facility] MCV (RBC) [Entitic vol] 89.5 fL 81.0 - 99.0 fL [facility] MONOCYTES ABSOLUTE AUTO 0.7 [facility] Monocytes/100 WBC (Bld) 12.2 % High 1.7 - 12.0 % [facility] NEUTROPHILS ABSOLUTE AUTO 3.3 [facility] Neutrophils/100 WBC (Bld) 59.1 % 43.0 - 75.0 % [facility] Platelet mean volume (Bld) [Entitic vol] 9.8 fL 9.5 - 13.5 fL [facility] EO # 0.[address] [facility] PLT [address] [facility] RBC 4.[address] [facility] WBC 5.7 [facility] Glucose Poct Glucometerson 09-26-2023 Glucose [Mass/Vol] 102 mg/dL Normal [facility] Comment on above: Result Comment: [facility] Glucose Reference Range is dependent on time and content of last meal. Glucose of more than 200 mg/dL in a nonstressed, ambulatory subject supports the diagnosis of Diabetes Mellitus. PERFORMED BY: [facility] [address] [id number] PATHOLOGIST DEMOLITION CRANE OPERATOR LATRICE WAKEFIELD M.D. Performed By: #### G LULS #### Point of Care testing , Pathology Request for Lab Co rpon 07-26-2024 Pathology Request for Lab Heather Normal [facility] Comment on above: Order Comment: PATHO LOGY GI SPECIMEN Result Comment: See report. Scanned copy available in EMR. PERFORMED BY: [facility] [address] [place] [address] PATHOLOGIST DEMOLITION CRANE OPERATOR LATRICE WAKEFIELD M.D. Performed By: #### P ATH TO [facility] #### [address] POCT EKGon 09-24-2023 [facility] CULTURE URINEon 08-26-2022 CULTURE URINE Culture Observations : NO GROWTH. Normal [facility] Comment on above: Performed By: #### U RCX #### [facility] [address] [address] [address] Anna Roberts GLYCOHEMOGLOBIN A1Con 2022 ADA RECOMMENDATION SEE BELOW Normal [facility] Comment on above: Result Comment: ADA RECOMMENDED LIMIT 4.0 - 6.0 ADA THERAPEUTIC TARGET < 7.0 ACTION SUGGESTED > 7.0 Performed By: #### U AMIC #### [facility] [address] [address] [address] Anna Roberts Glucose [Mass/Vol] 126 mg/dL Normal [facility] Comment on above: Performed By: #### U AMIC #### [facility] [address] [address] [address] Anna Roberts HbA1c (Bld) [Mass fraction] 6.0 % Normal 4.5-6.2 [facility] Comment on above: Performed By: #### U AMIC #### [facility] [address] [address] [address] Anna Roberts LIPID PROFILEon 08-26-2022 CHOL-HDL RATIO NORM SEE BELOW Normal [facility] Comment on above: Result Comment: 3.3 - 4.4 LOW RISK 4.4 - 7.1 AVERAGE RISK 7.1 - 11.0 MODERATE RISK >11.0 HIGH RISK Performed By: #### L IPID #### [facility] [address] [address] [address] Anna Roberts Cholesterol [Mass/Vol] 116 mg/dL Normal <=200 [facility] Comment on above: Performed By: #### L IPID #### [facility] [address] [place] [address] Dr. Anna Roberts Cholesterol in HDL [Mass/Vol] 44 mg/dL Normal 40-60 [facility] Comment on above: Performed By: #### L IPID #### [facility] [address] [place] [address] Dr. Anna Roberts Cholesterol in LDL [Mass/Vol] 53.0 mg/dL Normal [facility] Comment on above: Performed By: #### L IPID #### [facility] [address] [place] [address] Dr. Anna Roberts Cholesterol.total/Ch olesterol in HDL [Mass ratio] 2.6 {ratio} Normal [facility] Comment on above: Performed By: #### L IPID #### [facility] [address] [place] [address] Dr. Anna Roberts HDL NORMAL > or = 60 mg/dl - LO W CARDIOVASCULAR RISK <40 mg/dl - HIGH CARDIOVASCULAR RISK Normal [facility] Comment on above: Performed By: #### L IPID #### [facility] [address] [place] [address] Dr. Anna Roberts LDL CALC NORMAL SEE BELOW Normal [facility] Comment on above: Result Comment: <100 mg/dl OPTIMAL 100 - 129 mg/dl NEAR OR ABOVE OPTIMAL 130 - 159 mg/dl BORDERLINE HIGH 160 - 189 mg/dl HIGH >190 mg/dl VERY HIGH Performed By: #### L IPID #### [facility] [address] [place] [address] Dr. Anna Roberts Triglyceride [Mass/Vol] 96 mg/dL Normal <=150 [facility] Comment on above: Performed By: #### L IPID #### [facility] [address] [address] [address] Anna Roberts VLDL CALC 19.2 mg/dL Normal [facility] Comment on above: Performed By: #### L IPID #### [facility] [address] [address] [address] Anna Roberts MG MAMM SCREEN 3D SAMI CADon 08-26-2022 MG MAMM SCREEN 3D SAMI CAD Patient: SASKIA NEFF Exam Date: 08/26/2022 : 1950 Gender:F Ordering : SHAIKH Alma BURKS . Admission #: [id number] Family : Order #: [id number] CLICK HERE TO VIEW EXAM RADIOLOGY REPORT [...] colon cancer at age 71. LOCATION: [facility] BREAST COMPOSITION: Scattered areas fibroglandular density. FINDINGS: [...] MD on 08/26/2022 at 10:29 Normal [facility] UA RANDOM W/MICROSCOPICon BACTERIA TRACE Abnormal NONE SEEN [facility] Comment on above: Performed By: #### U AMIC #### [facility] [address] [address] [address] Anna Roberts Bilirubin Ql (U) Negative Normal NEGATIVE [facility] Comment on above: Performed By: #### U AMIC #### [facility] [address] [address] [address] Anna Roberts CAST NONE SEEN Normal NONE SEEN [facility] Comment on above: Performed By: #### U AMIC #### [facility] [address] [address] [address] Anna Roberts Clarity (U) CLEAR Normal CLEAR [facility] Comment on above: Performed By: #### U AMIC #### [facility] [address] [address] [address] Anna Roberts Color (U) LT. YELLOW Normal YELLOW [facility] Comment on above: Performed By: #### U AMIC #### [facility] [address] [address] [address] Anna Roberts Crystals LM Nom (Urine sed) NONE SEEN Normal NONE SEEN [facility] Comment on above: Performed By: #### U AMIC #### [facility] [address] [place] [address] Dr. Anna Roberts Epithelial cells LM Ql (Urine sed) FEW Abnormal NONE SEEN /RARE [facility] Comment on above: Performed By: #### U AMIC #### [facility] [address] [place] [address] Dr. Anna Roberts Glucose Ql (U) Negative Normal NEGATIVE [facility] Comment on above: Performed By: #### U AMIC #### [facility] [address] [place] [address] Dr. Anna Roberts Hemoglobin Ql (U) Negative Normal NEGATIVE [facility] Comment on above: Performed By: #### U AMIC #### [facility] [address] [address] [address] Anna Roberts Ketones Ql (U) Negative Normal NEGATIVE [facility] Comment on above: Performed By: #### U AMIC #### [facility] [address] [place] [address] Dr. Anna Roberts LEUKOCYTES Negative Normal NEGATIVE [facility] Comment on above: Performed By: #### U AMIC #### [facility] [address] [place] [address] Dr. Anna Roberts MUCOUS NONE SEEN Normal NONE SEEN [facility] Comment on above: Performed By: #### U AMIC #### [facility] [address] [address] [address] Anna Roberts Nitrite Ql (U) Negative Normal NEGATIVE [facility] Comment on above: Performed By: #### U AMIC #### [facility] [address] [place] [address] Dr. Anna Roberts pH (U) 6.0 [pH] Normal 5-9 [facility] Comment on above: Performed By: #### U AMIC #### [facility] [address] [address] [address] Anna Roberts RBC NONE SEEN Abnormal 0-2 [facility] Comment on above: Performed By: #### U AMIC #### [facility] [address] [place] [address] Dr. Anna Roberts SPEC GRAVITY >=1.030 Abnormal 1.005-<=1.02 5 [facility] Comment on above: Performed By: #### U AMIC #### [facility] [address] [place] [address] Dr. Anna Roberts UA PROTEIN Negative Normal NEGATIVE/ TRACE [facility] Comment on above: Performed By: #### U AMIC #### [facility] [address] [place] [address] Dr. Anna Roberts Urobilinogen Qn (U) 0.2 {Mulu'U}/dL Normal 0.2 - 1. 0 [facility] Comment on above: Performed By: #### U AMIC #### [facility] [address] [place] [address] Dr. Anna Roberts WBC NONE SEEN Normal NONE SEEN [facility] Comment on above: Performed By: #### U AMIC #### [facility] [address] [place] [address] Dr. Anna Roberts CBC AUTO DIFFon 03-09-2022 BASO # 0.0 103/ul Normal 0.0-0.1 [facility] Comment on above: Performed By: #### C BC #### [facility] [address] [place] [address] Dr. Anna Roberts Basophils/100 WBC (Bld) 0.6 % Normal 0.2-2.0 [facility] Comment on above: Performed By: #### C BC #### [facility] [address] [place] [address] Dr. Anna Roberts EO # 0.3 103/ul Normal 0.0-0.7 [facility] Comment on above: Performed By: #### C BC #### [facility] [address] [place] [address] Dr. Anna Roberts Eosinophils/100 WBC (Bld) 4.1 % Normal 0.9-7.0 [facility] Comment on above: Performed By: #### C BC #### [facility] [address] [place] [address] Dr. Anna Roberts Erythrocyte distribution width (RBC) [Ratio] 13.1 % Normal 11.0-15.0 [facility] Comment on above: Performed By: #### C BC #### [facility] [address] [place] [address] Dr. Anna Roberts Hematocrit (Bld) [Volume fraction] 44.2 % Normal 36.0-48.0 [facility] Comment on above: Performed By: #### C BC #### [facility] [address] [place] [address] Dr. Anna Roberts Hemoglobin (Bld) [Mass/Vol] 15.6 g/dL Normal 12.0-16.0 [facility] Comment on above: Performed By: #### C BC #### [facility] [address] [place] [address] Dr. Anna Roberts IG # 0.02 10e3/ul Normal 0.00-0.03 [facility] Comment on above: Performed By: #### C BC #### [facility] [address] [place] [address] Dr. Anna Roberts IG % 0.3 % Normal 0.0-0.5 [facility] Comment on above: Performed By: #### C BC #### [facility] [address] [place] [address] Dr. Anna Roberts LYMPH # 1.6 103/ul Normal 1.2-3.8 [facility] Comment on above: Performed By: #### C BC #### [facility] [address] [place] [address] Dr. Anna Roberts Lymphocytes/100 WBC (Bld) 24.1 % Normal 20.5-60.0 [facility] Comment on above: Performed By: #### C BC #### [facility] [address] [place] [address] Dr. Anna Roberts MANUAL DIFF REQ NO Normal [facility] Comment on above: Performed By: #### C BC #### [facility] [address] [place] [address] Dr. Anna Roberts MCH (RBC) [Entitic mass] 31.6 pg Normal 26.7-34.0 [facility] Comment on above: Performed By: #### C BC #### [facility] [address] [place] [address] Dr. Anna Roberts MCHC (RBC) [Mass/Vol] 35.3 g/dL Critically high 29.9-35.2 [facility] Comment on above: Performed By: #### C BC #### [facility] [address] [place] [address] Dr. Anna Roberts MCV (RBC) [Entitic vol] 89.7 fL Normal 81.0-99.0 [facility] Comment on above: Performed By: #### C BC #### [facility] [address] [place] [address] Dr. Anna Roberts MONO # 0.8 103/ul Normal 0.3-0.8 [facility] Comment on above: Performed By: #### C BC #### [facility] [address] [place] [address] Dr. Anna Roberts Monocytes/100 WBC (Bld) 11.4 % Normal 1.7-12.0 [facility] Comment on above: Performed By: #### C BC #### [facility] [address] [place] [address] Dr. Anna Roberts NEUT # 3.9 103/ul Normal 1.4-6.5 [facility] Comment on above: Performed By: #### C BC #### [facility] [address] [place] [address] Dr. Anna Roberts Neutrophils/100 WBC (Bld) 59.5 % Normal 43.0-75.0 [facility] Comment on above: Performed By: #### C BC #### [facility] [address] [place] [address] Dr. Anna Roberts Platelet mean volume (Bld) [Entitic vol] 9.3 fL Critically low 9.5-13.5 [facility] Comment on above: Performed By: #### C BC #### [facility] [address] [place] [address] Dr. Anna Roberts PLT 301 103/ul Normal 150-450 [facility] Comment on above: Performed By: #### C BC #### [facility] [address] [place] [address] Dr. Anna Roberts RBC 4.93 106/ul Normal 4.20-5.40 [facility] Comment on above: Performed By: #### C BC #### [facility] [address] [place] [address] Dr. Anna Roberts WBC 6.6 103/ul Normal 4.0-11.0 [facility] Comment on above: Performed By: #### C BC #### [facility] [address] [place] [address] Dr. Anna Roberts LIPID PROFILEon 03-09-2022 CHOL-HDL RATIO NORM SEE BELOW Normal [facility] Comment on above: Result Comment: 3.3 - 4.4 LOW RISK 4.4 - 7.1 AVERAGE RISK 7.1 - 11.0 MODERATE RISK >11.0 HIGH RISK Performed By: #### C MP, LIPID #### [facility] [address] [place] [address] Dr. Anna Roberts Cholesterol [Mass/Vol] 185 mg/dL Normal <=200 [facility] Comment on above: Performed By: #### C MP, LIPID #### [facility] [address] [address] [address] Anna Roberts Cholesterol in HDL [Mass/Vol] 43 mg/dL Normal 40-60 [facility] Comment on above: Performed By: #### C MP, LIPID #### [facility] [address] [address] [address] Anna Roberts Cholesterol in LDL [Mass/Vol] 125.0 mg/dL Normal [facility] Comment on above: Performed By: #### C MP, LIPID #### [facility] [address] [address] [address] Anna Roberts Cholesterol.total/Ch olesterol in HDL [Mass ratio] 4.3 {ratio} Normal [facility] Comment on above: Performed By: #### C MP, LIPID #### [facility] [address] [address] [address] Anna Roberts HDL NORMAL > or = 60 mg/dl - LO W CARDIOVASCULAR RISK <40 mg/dl - HIGH CARDIOVASCULAR RISK Normal [facility] Comment on above: Performed By: #### C MP, LIPID #### [facility] [address] [address] [address] Anna Roberts LDL CALC NORMAL SEE BELOW Normal [facility] Comment on above: Result Comment: <100 mg/dl OPTIMAL 100 - 129 mg/dl NEAR OR ABOVE OPTIMAL 130 - 159 mg/dl BORDERLINE HIGH 160 - 189 mg/dl HIGH >190 mg/dl VERY HIGH Performed By: #### C MP, LIPID #### [facility] [address] [address] [address] Anna Roberts Triglyceride [Mass/Vol] 85 mg/dL Normal <=150 [facility] Comment on above: Performed By: #### C MP, LIPID #### [facility] [address] [address] [address] Anna Roberts VLDL CALC 17.0 mg/dL Normal [facility] Comment on above: Performed By: #### C MP, LIPID #### [facility] [address] [address] [address] Anna Roberts MAGNESIUMon 03-09-2022 Magnesium [Mass/Vol] 1.7 mg/dL Critically low 1.8-2.4 [facility] Comment on above: Performed By: #### M G #### [facility] [address] [place] [address] Dr. Anna Roberts PROF 14(COMP METB)on 022 Albumin [Mass/Vol] 3.9 g/dL Normal 3.4-5.0 [facility] Comment on above: Performed By: #### C MP, LIPID #### [facility] [address] [place] [address] Dr. Anna Roberts Albumin/Globulin [Mass ratio] 1.1 {ratio} Normal [facility] Comment on above: Performed By: #### C MP, LIPID #### [facility] [address] [place] [address] Dr. Anna Roberts ALP [Catalytic activity/Vol] 58 U/L Normal 46-116 [facility] Comment on above: Performed By: #### C MP, LIPID #### [facility] [address] [place] [address] Dr. Anna Roberts ALT [Catalytic activity/Vol] 27 U/L Normal 14-59 [facility] Comment on above: Performed By: #### C MP, LIPID #### [facility] [address] [place] [address] Dr. Anna Roberts Anion gap [Moles/Vol] 14.0 mmol/L Normal [facility] Comment on above: Performed By: #### C MP, LIPID #### [facility] [address] [place] [address] Dr. Anna Roberts AST [Catalytic activity/Vol] 18 U/L Normal 15-37 [facility] Comment on above: Performed By: #### C MP, LIPID #### [facility] [address] [place] [address] Dr. Anna Roberts Bilirubin [Mass/Vol] 0.6 mg/dL Normal 0.2-1.0 [facility] Comment on above: Performed By: #### C MP, LIPID #### [facility] [address] [place] [address] Dr. Anna Roberts Calcium [Mass/Vol] 10.0 mg/dL Normal 8.5-10.1 [facility] Comment on above: Performed By: #### C MP, LIPID #### [facility] [address] [place] [address] Dr. Anna Roberts Chloride [Moles/Vol] 101 mmol/L Normal 98-107 [facility] Comment on above: Performed By: #### C MP, LIPID #### [facility] [address] [place] [address] Dr. Anna Roberts CO2 [Moles/Vol] 29.6 mmol/L Normal 21.0-32.0 [facility] Comment on above: Performed By: #### C MP, LIPID #### [facility] [address] [place] [address] Dr. Anna Roberts Creatinine [Mass/Vol] 0.79 mg/dL Normal 0.55-1.02 [facility] Comment on above: Performed By: #### C MP, LIPID #### [facility] [address] [place] [address] Dr. Anna Roberts EGFR-AF AFGHAN >60 Normal >=60 [facility] Comment on above: Performed By: #### C MP, LIPID #### [facility] [address] [place] [address] Dr. Anna Roberts EGFR-NON AF AFGHAN >60 Normal >=60 [facility] Comment on above: Performed By: #### C MP, LIPID #### [facility] [address] [place] [address] Dr. Anna Roberts Globulin (S) [Mass/Vol] 3.7 g/dL Normal [facility] Comment on above: Performed By: #### C MP, LIPID #### [facility] [address] [place] [address] Dr. Anna Roberts Glucose [Mass/Vol] 118 mg/dL Critically high 74-106 [facility] Comment on above: Performed By: #### C MP, LIPID #### [facility] [address] [place] [address] Dr. Anna Roberts Potassium [Moles/Vol] 3.6 mmol/L Normal 3.5-5.1 [facility] Comment on above: Performed By: #### C MP, LIPID #### [facility] [address] [place] [address] Dr. Anna Roberts Protein [Mass/Vol] 7.6 g/dL Normal 6.4-8.2 [facility] Comment on above: Performed By: #### C MP, LIPID #### [facility] [address] [place] [address] Dr. Anna Roberts Sodium [Moles/Vol] 141 mmol/L Normal 136-145 [facility] Comment on above: Performed By: #### C MP, LIPID #### [facility] [address] [place] [address] Dr. Anna Roberts Urea nitrogen [Mass/Vol] 20.0 mg/dL Critically high 7.0-18.0 [facility] Comment on above: Performed By: #### C MP, LIPID #### [facility] [address] [place] [address] Dr. Anna Roberts Urea nitrogen/Creatinine [Mass ratio] 25.3 mg/mg Normal [facility] Comment on above: Performed By: #### C MP, LIPID #### [facility] [address] [place] [address] Dr. Anna Roberts GLYCOHEMOGLOBIN A1Con 2021 ADA RECOMMENDATION SEE BELOW Normal [facility] Comment on above: Result Comment: ADA RECOMMENDED LIMIT 4.0 - 6.0 ADA THERAPEUTIC TARGET < 7.0 ACTION SUGGESTED > 7.0 Performed By: #### U AMIC #### [facility] [address] [place] [address] Dr. Anna Roberts Glucose [Mass/Vol] 117 mg/dL Normal [facility] Comment on above: Performed By: #### U AMIC #### [facility] [address] [place] [address] Dr. Anna Roberts HbA1c (Bld) [Mass fraction] 5.7 % Normal 4.5-6.2 [facility] Comment on above: Performed By: #### U AMIC #### [facility] [address] [address] [address] Anna Roberts XR LSPINE MIN 4 [...] by: JOSEF GUARDADO Date: 2021-10-24 09:22 Normal [facility] Vital Signs Date Time Vital Sign Value Performing Clinician Facility 04-10-2025 13:21-0400 Body weight 79.83 kg Destiny Mccartney Work Phone: [facility] 04-10-2025 13:21-0400 Diastolic blood pressure 62 mm[Hg] Destiny Mccartney Work Phone: [facility] 04-10-2025 13:21-0400 Heart rate 78 /min Destiny Mccartney Work Phone: [facility] 04-10-2025 13:21-0400 Respiratory rate 18 /min Destiny Mccartney Work Phone: [facility] 04-10-2025 13:21-0400 SaO2% (BldA) [Mass fraction] 98 % Destiny Mccartney Work Phone: [facility] 04-10-2025 13:21-0400 Systolic blood pressure 102 mm[Hg] Destiny Mccartney Work Phone: [facility] 03-09-2025 13:09-0400 Diastolic blood pressure 63 mm[Hg] Arcadio Marte MD [facility] 03-09-2025 13:09-0400 Systolic blood pressure 120 mm[Hg] Arcadio Marte MD [facility] 02-07-2025 11:09-0400 Body mass index (BMI) [Ratio] 29.75 kg/m2 Destinyangeli Dwyeralexy [employer] Work Phone: [facility] 02-07-2025 11:09-0400 Body temperature 97.81 [degF] Destinyangeli Scottflakitoz [employer] Work Phone: [facility] 02-07-2025 11:090400 Body weight 81.1 kg Destinyangeli Scottflakitoz [employer] Work Phone: [facility] 02-07-2025 11:09-0400 Diastolic blood pressure 70 mm[Hg] Destinyangeli Scottflakitoz [employer] Work Phone: [facility] 02-07-2025 11:09-0400 Heart rate 61 /min Destiny Soniaholz [employer] Work Phone: [facility] 02-07-2025 11:09-0400 Respiratory rate 20 /min Destiny Soniaholz [employer] Work Phone: [facility] 02-07-2025 11:09-0400 SaO2% (BldA) [Mass fraction] 94 % Destiny Soniaflakitoz [employer] Work Phone: [facility] 02-07-2025 11:09-0400 Systolic blood pressure 100 mm[Hg] Destinyangeli Dwyerbetzyholz [employer] Work Phone: [facility] 02-01-2025 14:11-0400 Body height 165.1 cm Maurisio Padilla DO Work Phone: [facility] 02-01-2025 14:11-0400 Body mass index (BMI) [Ratio] 29.95 kg/m2 Maurisio Padilla DO Work Phone: [facility] 02-01-2025 14:11-0400 Body weight 81.65 kg Maurisio Padilla DO Work Phone: [facility] 01-18-2025 12:51-0400 Body height 165.1 cm Maurisio Zhengedenyovanny DO Work Phone: [facility] 01-18-2025 12:51-0400 Body mass index (BMI) [Ratio] 29.95 kg/m2 Maurisio Zhengedenyovanny DO Work Phone: [facility] 01-18-2025 12:51-0400 Body weight 81.65 kg Maurisio Zhengedlinda DO Work Phone: [facility] 01-04-2025 15:29-0400 Body height 165.1 cm Maurisio Zhengedenyovanny DO Work Phone: [facility] 01-04-2025 15:29-0400 Body mass index (BMI) [Ratio] 29.95 kg/m2 Maurisio Padilla DO Work Phone: [facility] 01-04-2025 15:29-0400 Body weight 81.65 kg Maurisio Padilla DO Work Phone: [facility] 11-09-2024 09:25-0400 Body mass index (BMI) [Ratio] 30.19 kg/m2 Destiny Mccartney [employer] Work Phone: [facility] 11-09-2024 09:25-0400 Body temperature 98.49 [degF] Destiny Mccartney [employer] Work Phone: [facility] 11-09-2024 09:25-0400 Body weight 82.28 kg Destiny Mccartney [employer] Work Phone: [facility] 11-09-2024 09:25-0400 Diastolic blood pressure 76 mm[Hg] Destiny Mccartney [employer] Work Phone: [facility] 11-09-2024 09:25-0400 Heart rate 68 /min Destiny Mccartney [employer] Work Phone: [facility] 11-09-2024 09:25-0400 Respiratory rate 18 /min Destiny Mccartney [employer] Work Phone: [facility] 11-09-2024 09:25-0400 SaO2% (BldA) [Mass fraction] 96 % Destiny Mccartney [employer] Work Phone: [facility] 11-09-2024 09:25-0400 Systolic blood pressure 132 mm[Hg] Destiny Mccartney [employer] Work Phone: [facility] 11-01-2024 12:32-0400 Diastolic blood pressure 62 mm[Hg] Arcadio Marte MD [facility] 11-01-2024 12:32-0400 Systolic blood pressure 115 mm[Hg] Arcadio Marte MD [facility] 09-28-2024 10:34-0500 Body height 165.1 cm Jayshree Conner [employer] Work Phone: [facility] 09-28-2024 10:34-0500 Body mass index (BMI) [Ratio] 30.45 kg/m2 Jayshree Conner [employer] Work Phone: [facility] 09-28-2024 10:34-0500 Body temperature 96.8 [degF] Jayshree Conner [employer] Work Phone: [facility] 09-28-2024 10:34-0500 Body weight 83.01 kg Jayshree Conner [employer] Work Phone: [facility] 09-28-2024 10:34-0500 Diastolic blood pressure 66 mm[Hg] Jayshree Conner [employer] Work Phone: [facility] 09-28-2024 10:34-0500 Heart rate 73 /min Jasyhree Conner [employer] Work Phone: [facility] 09-28-2024 10:34-0500 Respiratory rate 16 /min Jayshree Conner [employer] Work Phone: [facility] 09-28-2024 10:34-0500 SaO2% (BldA) [Mass fraction] 98 % Jayshree Conner [employer] Work Phone: [facility] 09-28-2024 10:34-0500 Systolic blood pressure 110 mm[Hg] Jayshree Conner [employer] Work Phone: [facility] 09-22-2024 13:27-0500 Diastolic blood pressure 74 mm[Hg] Arcadio Marte MD [facility] 09-22-2024 13:27-0500 Systolic blood pressure 147 mm[Hg] Arcadio Marte MD [facility] 08-14-2024 08:31-0500 Body height 165.1 cm Jayshree Conner [employer] Work Phone: [facility] 08-14-2024 08:31-0500 Body mass index (BMI) [Ratio] 29.82 kg/m2 Jayshree Conner [employer] Work Phone: [facility] 08-14-2024 08:31-0500 Body temperature 97.2 [degF] Jayshree Conner [employer] Work Phone: [facility] 08-14-2024 08:31-0500 Body weight 81.28 kg Jayshree Conner [employer] Work Phone: [facility] 08-14-2024 08:31-0500 Diastolic blood pressure 72 mm[Hg] Jayshree Conner [employer] Work Phone: [facility] 08-14-2024 08:31-0500 Heart rate 84 /min Jayshree Conner [employer] Work Phone: [facility] 08-14-2024 08:31-0500 Respiratory rate 16 /min Jayshree Conner [employer] Work Phone: [facility] 08-14-2024 08:31-0500 SaO2% (BldA) [Mass fraction] 98 % Jayshree Conner [employer] Work Phone: [facility] 08-14-2024 08:31-0500 Systolic blood pressure 117 mm[Hg] Jayshree Conner [employer] Work Phone: [facility] 06-28-2024 08:54-0500 Body height 165.1 cm Jayshree Conner [employer] Work Phone: [facility] 06-28-2024 08:54-0500 Body mass index (BMI) [Ratio] 29.49 kg/m2 Jayshree Conner [employer] Work Phone: [facility] 06-28-2024 08:54-0500 Body temperature 97.7 [degF] Jayshree Conner [employer] Work Phone: [facility] 06-28-2024 08:54-0500 Body weight 80.38 kg Jayshree Conner [employer] Work Phone: [facility] 06-28-2024 08:54-0500 Diastolic blood pressure 68 mm[Hg] Jayshree Conner [employer] Work Phone: [facility] 06-28-2024 08:54-0500 Heart rate 71 /min Jayshree Conner [employer] Work Phone: [facility] 06-28-2024 08:54-0500 Respiratory rate 16 /min Jayshree Conner [employer] Work Phone: [facility] 06-28-2024 08:54-0500 SaO2% (BldA) [Mass fraction] 97 % Jayshree Conner [employer] Work Phone: [facility] 06-28-2024 08:54-0500 Systolic blood pressure 110 mm[Hg] Jayshree Conner [employer] Work Phone: [facility] 06-26-2024 14:01-0500 Body height 162.56 cm [facility] 06-26-2024 14:01-0500 Body mass index (BMI) [Ratio] 30.9 kg/m2 [facility] 06-26-2024 14:01-0500 Body weight 81.64 kg [facility] 03-28-2024 09:32-0400 Body height 165.1 cm Jayshree Conner [employer] Work Phone: [facility] 03-28-2024 09:32-0400 Body mass index (BMI) [Ratio] 28.79 kg/m2 Jayshree Conner [employer] Work Phone: [facility] 03-28-2024 09:32-0400 Body temperature 97.3 [degF] Jayshree Conner [employer] Work Phone: [facility] 03-28-2024 09:32-0400 Body weight 78.47 kg Jayshree Conner [employer] Work Phone: [facility] 03-28-2024 09:32-0400 Diastolic blood pressure 70 mm[Hg] Jayshree Conner [employer] Work Phone: [facility] 03-28-2024 09:32-0400 Heart rate 80 /min Jayshree Conner [employer] Work Phone: [facility] Comment on above: 97% O2 03-28-2024 09:32-0400 Systolic blood pressure 120 mm[Hg] Jayshree Conner [employer] Work Phone: [facility] 09-24-2023 11:36-0500 Body height 162.6 cm Cherry Duque MD Work Phone: [facility] 09-24-2023 11:36-0500 Body mass index (BMI) [Ratio] 29.87 kg/m2 Cherry Duque MD Work Phone: [facility] 09-24-2023 11:36-0500 Body weight 78.93 kg Cherry Duque MD Work Phone: [facility] 09-24-2023 11:36-0500 Diastolic blood pressure 80 mm[Hg] Cherry Duque MD Work Phone: [facility] 09-24-2023 11:36-0500 Heart rate 80 /min Cherry Duque MD Work Phone: [employer] 09-24-2023 11:36-0500 SaO2% (BldA) [Mass fraction] 96 % Cherry Duque MD Work Phone: [employer] 09-24-2023 11:36-0500 Systolic blood pressure 136 mm[Hg] Cherry Duque MD Work Phone: [employer] 10-28-2021 10:40-0400 Body height Yuri Washington Other [employer] Other 10-28-2021 10:40-0400 Body mass index (BMI) [Ratio] 32.61 kg/m2 Yuri Felix Other [employer] Other 10-28-2021 10:40-0400 Body weight 88.91 kg Yuri Felix Other [employer] Other Encounters Encounter Date Encounter Type Care Provider Facility Start: 04-10-2025 End: 04-10-2025 ambulatory Destiny Mccartney [facility] Phone[facility] Work Phone: Start: 04-10-2025 End: 04-10-2025 Patient encounter procedure Destiny Mccartney [employer] [facility] Work Phone: Start: 03-28-2025 End: 03-28-2025 Refill Destiny Mccartney NP Work Phone: [facility] Comment on above: 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; Chronic low back pain with left-sided sciatica, unspecified back pain laterality Start: 03-26-2025 End: 04-10-2025 Telephone encounter Destiny Mccartney NP Work Phone: [facility] Start: 03-09-2025 End: 03-09-2025 Office outpatient visit 25 minutes Arcadio France Estuardo Work Phone: [facility] Start: 03-09-2025 ambulatory Arcadio France Estuardo [facility] Start: 02-22-2025 End: 02-22-2025 Encounter identifier Arcadio France Estuardo Work Phone: [facility] Start: 02-22-2025 ambulatory Arcadio Edilma Marte [facility] Start: 02-07-2025 End: 02-07-2025 Bamboo flowsheet Destiny Aichholz [employer] Work Phone: [facility] Start: 02-07-2025 End: 02-07-2025 Bamboo flowsheet Destiny Aichholz [employer] Work Phone: [facility] Start: 02-07-2025 End: 02-07-2025 Office outpatient visit 25 minutes Destiny Aichholz [employer] Work Phone: [facility] Comment on above: Type 2 diabetes reymundo itus with other specified complication, without long-term current use of insulin (HCC) (Primary Dx); Essential hypertension ; Mixed hyperlipidemia ; Tick bite of left ear, initial encounter; Bug bite, initial encounter Start: 02-07-2025 End: 02-07-2025 ambulatory DESTINY AICHHOLZ Not Available Start: 02-01-2025 End: 02-01-2025 ambulatory MAURISIO S BIEDENBACH Not Available Start: 02-01-2025 End: 02-01-2025 Bamboo flowsheet Maurisio S Biedenbach DO Work Phone: [facility] Start: 02-01-2025 End: 02-01-2025 Bamboo flowsheet Maurisio S Biedenbach DO Work Phone: [facility] Start: 02-01-2025 End: 02-01-2025 Office outpatient visit 15 minutes Maurisio S Biedenyovanny DO Work Phone: [facility] Comment on above: Thyroid nodule (Prim capo Dx); History of goiter Start: 01-18-2025 End: 01-18-2025 Lab Drop off Maurisio Padilla [facility] Start: 01-18-2025 End: 01-18-2025 Bamboo flowsheet Maurisio Padilla DO Work Phone: [facility] Start: 01-18-2025 End: 01-18-2025 Bamboo flowsheet Maurisio Av Mignon DO Work Phone: [facility] Start: 01-18-2025 End: 01-18-2025 Office outpatient visit 25 minutes Maurisio Padilla DO Work Phone: [facility] Comment on above: History of goiter (P rimary Dx); Thyroid nodule Start: 01-18-2025 End: 01-18-2025 ambulatory Maurisio Padilla Facility:[facility] Start: 01-15-2025 End: 01-16-2025 External Result Encounter Maurisio Padilla DO Work Phone: [facility] Unsolicited Start: 01-15-2025 End: 01-16-2025 External Result Encounter Maurisio Padilla DO Work Phone: [facility] Unsolicited Start: 01-05-2025 End: 01-05-2025 Encounter identifier Arcadio Marte Work Phone: [facility] Start: 01-05-2025 ambulatory Arcadio Marte [facility] Start: 01-04-2025 End: 01-04-2025 Office outpatient new 45 minutes Maurisio Padilla DO Work Phone: [facility] Comment on above: Fatigue, unspecified type (Primary Dx); Multiple thyroid nodules (CMS/HCC); History of goiter Start: 01-04-2025 End: 01-04-2025 ambulatory MAURISIO PADILLA Not Available Start: 01-04-2025 End: 01-04-2025 Bamboo flowsheet Maurisio Sandersoseiyovanny DO Work Phone: [facility] Start: 01-04-2025 End: 01-04-2025 Bamboo flowsheet Maurisio Zhengscott DO Work Phone: [facility] Start: 12-26-2024 End: 12-26-2024 Orders Only Destniy Aichholz [employer] Work Phone: [facility] Comment on above: Mixed hyperlipidemia (CMS/HCC) (Primary Dx) Start: 12-14-2024 End: 12-14-2024 Refill Jerome Coles MD Work Phone: [facility] Comment on above: Gastroesophageal ref lux disease without esophagitis; Essential hypertension (CMS/HCC) Start: 12-04-2024 End: 12-04-2024 Orders Only Destiny Aicmargaretz [employer] Work Phone: [facility] Comment on above: Multiple thyroid nod ules (CMS/HCC) (Primary Dx) Start: 11-28-2024 End: 11-28-2024 Clinisync Result Encounter Destiny Aichholz [employer] Work Phone: [facility] Unsolicited Start: 11-28-2024 End: 11-28-2024 Clinisync Result Encounter Destiny Aichholz [employer] Work Phone: [facility] Unsolicited Start: 11-15-2024 End: 11-15-2024 Clinisync Result Encounter Destiny Aichholz [employer] Work Phone: [facility] Unsolicited Start: 11-15-2024 End: 11-15-2024 Clinisync Result Encounter Destiny Aichholz [employer] Work Phone: [facility] Unsolicited Start: 11-15-2024 End: 11-15-2024 Orders Only Destiny Aichholz [employer] Work Phone: [facility] Comment on above: Multiple thyroid nod ules (CMS/HCC) (Primary Dx) Start: 11-09-2024 End: 11-09-2024 Office outpatient visit 25 minutes Destiny Mccartney [employer] Work Phone: [facility] Comment on [...] [facility] Start: 11-01-2024 ambulatory Arcadio Marte [facility] Start: 09-28-2024 End: 09-28-2024 Bamboo flowsheet Jayshree Conner [employer] Work Phone: [facility] Start: 09-28-2024 End: 09-28-2024 Bamboo flowsheet Jayshree Conner [employer] Work Phone: [facility] Start: 09-28-2024 End: 09-28-2024 ambulatory JAYSHREE CONNER Not Available Start: 09-28-2024 End: 09-28-2024 Patient encounter procedure Jayshree Conner [employer] Work Phone: [facility] Comment on [...] End: 09-26-2024 Clinisync Result Encounter Jayshree Naranjozpatrick [employer] Work Phone: [facility] External Department Unsolicited Start: 09-26-2024 End: 09-26-2024 Clinisync Result Encounter Jayshree Naranjozpatrick [employer] Work Phone: [facility] External Department Unsolicited Start: 09-22-2024 End: 09-22-2024 Encounter identifier Arcadio Marte Work Phone: [facility] Start: 09-22-2024 End: 09-22-2024 Arcadio Marte Work Phone: [facility] Start: 09-22-2024 ambulatory Arcadio Marte [facility] Start: 09-21-2024 End: 09-21-2024 Refill Jayshree Naranjozpatrick [employer] Work Phone: [facility] Comment on above: Mixed hyperlipidemia (CMS/HCC) Start: 09-18-2024 End: 10-02-2024 Refill Yunior Benavides PA-C Work Phone: [facility] Comment on above: Med Refill Start: 09-09-2024 End: 09-11-2024 Refill Jayshree Naranjozpatrick [employer] Work Phone: [facility] Comment on above: Gastroesophageal ref lux disease without esophagitis Start: 08-24-2024 End: 08-24-2024 Telephone encounter Alba Skinner [facility] Start: 08-18-2024 End: 08-18-2024 Encounter identifier Arcadio Marte Work Phone: [facility] Start: 08-18-2024 End: 08-18-2024 Arcadio Marte Work Phone: [facility] Start: 08-18-2024 ambulatory Arcadio Marte [facility] Start: 08-15-2024 ambulatory Arcadio Marte [facility] Start: 08-14-2024 End: 08-14-2024 Bamboo flowsheet Jayshree Conner [employer] Work Phone: [facility] Start: 08-14-2024 End: 08-14-2024 Bamboo flowsheet Jayshree Conner [employer] Work Phone: [facility] Start: 08-14-2024 End: 08-14-2024 Office outpatient visit 10 minutes Jayshree Naranjozpatrick [employer] Work Phone: [facility] Comment on above: Upper respiratory tr act infection, unspecified type (Primary Dx); Type 2 diabetes mellitus with diabetic polyneuropathy, without long-term current use of insulin ([facility]); Chronic left-sided low back pain with left-sided sciatica; Non-recurrent acute serous otitis media of both ears Start: 08-14-2024 End: 08-14-2024 ambulatory JAYSHREE CONNER Not Available Start: 08-10-2024 End: 08-14-2024 Refill Chandrika Cruz MA [facility] Comment on above: Type 2 diabetes reymundo itus with diabetic polyneuropathy, without long-term current use of insulin (CMS/[facility]) Start: 08-07-2024 End: 08-09-2024 Refill Chandrika Cruz MA [facility] Comment on above: Type 2 diabetes reymundo itus with diabetic polyneuropathy, without long-term current use of insulin ([facility]/HCC) Start: 07-26-2024 End: 07-26-2024 ambulatory Jayshree Radha Conner Facility:[facility] Start: 07-14-2024 End: 07-14-2024 Office outpatient new 45 minutes Arcadio Marte Work Phone: [facility] Start: 07-14-2024 ambulatory Arcadio Marte [facility] Start: 07-11-2024 End: 07-11-2024 Refill Chandrika Cruz MA [facility] Comment on above: Essential hypertensi on (CMS/HCC) Start: 06-28-2024 End: 06-28-2024 Bamboo flowsheet Jayshree Conner [employer] Work Phone: [facility] Start: 06-28-2024 End: 06-28-2024 Bamboo flowsheet Jayshree Conner [employer] Work Phone: [facility] Start: 06-28-2024 End: 06-28-2024 Office outpatient visit 15 minutes Jayshree Sungk [employer] Work Phone: [facility] Comment on above: Type 2 diabetes reymundo itus with diabetic polyneuropathy, without long-term current use of insulin (CMS/HCC) (Primary Dx); Essential hypertension (CMS/HCC); Chronic diastolic heart failure (CMS/HCC); Mixed hyperlipidemia (CMS/HCC); Need for immunization against influenza Start: 06-28-2024 End: 06-28-2024 ambulatory JAYSHREE CONNER Not Available Start: 06-26-2024 End: 06-26-2024 ambulatory [facility] Work Phone: Start: 06-26-2024 End: 06-26-2024 Patient encounter procedure [facility] Work Phone: Start: 06-20-2024 End: 06-21-2024 Refill Jayshree Naranjozpatrick [employer] Work Phone: [facility] Comment on [...] 03-28-2024 End: 03-28-2024 Bamboo flowsheet Jayshree Ubaldo [employer] Work Phone: [facility] Start: 03-28-2024 End: 03-28-2024 Bamboo flowsheet Jayshree Sungk [employer] Work Phone: [facility] Start: 03-28-2024 End: 03-28-2024 Office outpatient visit 25 minutes Jayshree Ubaldo [employer] Work Phone: [facility] Comment on above: Type 2 diabetes reymundo itus with diabetic polyneuropathy, without long-term current use of insulin (CMS/HCC) (Primary Dx); Mixed hyperlipidemia (CMS/HCC); Essential hypertension (CMS/HCC); Chronic left-sided low back pain with left-sided sciatica; Diverticulitis Start: 03-28-2024 End: 03-28-2024 ambulatory JAYSHREE CONNER Not Available Start: 09-24-2023 End: 09-24-2023 ambulatory CHERRY DUQUE [facility] Start: 09-24-2023 End: 09-24-2023 Office outpatient visit 15 minutes Cherry Duque MD Work Phone: [facility] Comment on above: Palpitations (Primar y Dx); Ventricular premature beats Start: 09-23-2023 Telephone encounter Alba parra CMA [facility] Start: 09-09-2023 Refill Ramona Souza RN [facility] Comment on above: Med Refill Start: 07-28-2023 Patient encounter procedure Jayshree Ubaldo [employer] Work Phone: [facility] Start: 08-26-2022 End: 08-27-2022 ambulatory HANNAH H FAWWAD Facility:[facility] Start: 03-09-2022 End: 03-10-2022 ambulatory HANNAH H FAWWAD Facility:[facility] Start: 12-01-2021 End: 12-02-2021 ambulatory HANNAH H FAWWAD Facility:[facility] Start: 10-28-2021 End: 10-28-2021 ambulatory Yuri Washington Other [facility] [employer] Other Start: 10-28-2021 Office outpatient vi sit 15 minutes Yuri Felix [facility] Start: 10-24-2021 End: 10-25-[address] DOCTOR CORTEZ Facility:[facility] Procedures Date Procedure Procedure Detail Performing Clinician Start: 03-09-2025 End: 03-09-2025 Bevacizumab injection Arcadio Marte Start: 03-09-2025 End: 03-09-2025 Computerized ophthalmic imaging retina Arcadio Marte Start: 03-09-2025 End: 03-09-2025 Intravitreal njx pharmacologic agt spx Arcadio Marte Start: 02-07-2025 Hemoglobin glycosyla mely a1c Destiny Mccartney [employer] Work Phone: Start: 01-15-2025 Assay of thyroxine total Maurisio S Mignon DO Work Phone: Start: 01-05-2025 End: 01-05-2025 Bevacizumab injection Arcadio Marte MD Start: 01-05-2025 End: 01-05-2025 Computerized ophthalmic imaging retina Arcadio Marte MD Start: 01-05-2025 End: 01-05-2025 Intravitreal njx pharmacologic agt spx Arcadio Marte MD Start: 11-28-2024 Us soft tissue head & neck real time imge docm Destiny Mccartney [employer] Work Phone: Start: 11-15-2024 End: 11-15-2024 Screening mammography bi 2-view breast inc cad Destiny Mccartney [employer] Work Phone: Start: 11-01-2024 End: 11-01-2024 Bevacizumab injection Arcadio Marte MD Start: 11-01-2024 End: 11-01-2024 Computerized ophthalmic imaging retina Arcadio Marte MD Start: 11-01-2024 End: 11-01-2024 Intravitreal njx pharmacologic agt spx Arcadio Marte MD Start: 09-26-2024 ALL CBC WITH AUTO DIFF Jayshree Conner [employer] Work Phone: Start: 09-22-2024 End: 09-22-2024 Bevacizumab [...] Arcadio Marte MD Start: 07-26-2024 Colonoscopy Chandrika vargas MA Start: 07-14-2024 End: 07-14-2024 Bevacizumab injection Arcadio Marte MD Start: 07-14-2024 End: 07-14-2024 Fluorescein angrph w/multiframe i&r uni/bi Arcadio Marte MD Start: 07-14-2024 End: 07-14-2024 Intravitreal njx pharmacologic agt spx Arcadio Marte MD Start: 09-24-2023 Ecg routine ecg w/le ast 12 lds w/i&r Cherry Duque MD Work Phone: Start: 09-24-2023 Follow-up visit Follow-up CHERRY DUQUE Start: 08-09-2022 Mammography Jayshree bobby [employer] Work Phone: Start: 08-09-2015 Colonoscopy Jayshree bobby [employer] Work Phone: Plan of Treatment Date Care Activity Detail Author Start: 07-26-2034 Screening for malign ant neoplasm of colon [facility] Start: 07-03-2026 Glaucoma screening Diabetes: R etinopathy Screening [facility] Start: 06-19-2026 Glaucoma screening Diabetes: R etinopathy Screening [facility] Start: 11-15-2025 Screening for malign ant neoplasm of breast Mammogram [facility] Start: 10-01-2025 End: 10-01-2025 Patient encounter procedure [facility] Start: 09-28-2025 Medicare Annual Well ness (AWV) Medicare Annual Wellness (AWV) [facility] Start: 09-26-2025 Urine screening for protein Diabetes: Urine Protein Screening [facility] Start: 08-10-2025 Hemoglobin A1c measurement Merna betes: Hemoglobin A1C [facility] Start: 08-09-2025 Screening for malign ant neoplasm of colon [facility] Start: 08-07-2025 End: 08-07-2025 Patient encounter procedure [facility] [place] Start: 07-03-2025 Glaucoma screening Diabetes: R etinopathy Screening [facility] Start: 05-11-2025 AngelmayuriSaskia michael Jo/9-10(9) WK IO OCT AVN OD [facility] Work Phone: Start: 05-10-2025 End: 05-10-2025 Patient encounter procedure [facility] Start: 04-10-2025 End: 04-10-2025 Patient encounter procedure [facility] Start: 04-09-2025 Influenza vaccination Influenza Vacc ine (#1) [facility] Start: 03-26-2025 Hemoglobin A1c measurement Merna betes: Hemoglobin A1C [facility] Start: 03-09-2025 Saskia Neff Jo - 9-10 Wks (9) FU OCT Poss Avn OD [facility] Work Phone: Start: 02-08-2025 End: 02-08-2025 Patient encounter procedure 02/08/2025 8:40 AM EDT Office Visit [facility] [address] [place] [id number] Destiny Mccartney NP [address] [place] [phone] [facility] Start: 02-07-2025 End: 02-07-2025 Patient encounter procedure [facility] Comment on above: Essential hypertensi on (Primary Dx); Type 2 diabetes mellitus with other specified complication, without long-term current use of insulin (HCC); Mixed hyperlipidemia Start: 02-01-2025 End: 02-01-2025 Patient encounter procedure 02/01/2025 2:00 PM EDT Office Visit [facility] [address] [place] [address] Maurisio Padilla S, DO [address] [place] [address] [facility] Start: 01-18-2025 End: 01-18-2025 Patient encounter procedure [facility] Comment on above: Arrived Start: 01-09-2025 End: 11-09-2025 Lipid 1996 panel - Serum or Plasma Lipid panel Lab Routine Mixed hyperlipidemia (CMS/HCC) Expected: 01/09/2025 (Approximate), Expires: 11/09/2025 [facility] Comment on above: Expected: 01/09/2025 (Approximate), Expires: 11/09/2025 Start: 01-05-2025 Saskia Neff 7-8 Weeks (8) OCT/ AVN OD [facility] Work Phone: Start: 01-04-2025 End: 01-04-2025 Patient encounter procedure [facility] Comment on above: Multiple thyroid nod ules (CMS/HCC) Start: 01-04-2025 End: 01-04-2026 Calcium [Mass/volume] in Serum or Plasma Calcium Lab Routine Multiple thyroid nodules (CMS/HCC) Expected: 01/04/2025 (Approximate), Expires: 01/04/2026 [facility] Comment on above: Expected: 01/04/2025 (Approximate), Expires: 01/04/2026 Start: 01-04-2025 End: 01-04-2026 Parathyrin.intact [Mass/volume] in Serum or Plasma PTH, intact Lab Routine Multiple thyroid nodules (CMS/HCC) Expected: 01/04/2025 (Approximate), Expires: 01/04/2026 [facility] Comment on above: Expected: 01/04/2025 (Approximate), Expires: 01/04/2026 Start: 01-04-2025 End: 01-04-2026 Thyrotropin [Units/volume] in Serum or Plasma [facility] Work Phone: Comment on above: Expected: 01/04/2025 (Approximate), Expires: 01/04/2026 Start: 01-04-2025 End: 01-04-2026 Triiodothyronine (T3) [Mass/volume] in Serum or Plasma T3 Lab Routine Multiple thyroid nodules (CMS/HCC) Expected: 01/04/2025 (Approximate), Expires: 01/04/2026 [facility] Comment on above: Expected: 01/04/2025 (Approximate), Expires: 01/04/2026 Start: 12-26-2024 End: 12-26-2025 Alanine aminotransferase [Enzymatic activity/volume] in Serum or Plasma ALT Lab Routine Mixed hyperlipidemia (CMS/HCC) Expected: 12/26/2024 (Approximate), Expires: 12/26/2025 [facility] Work Phone: Comment on above: Expected: 12/26/2024 (Approximate), Expires: 12/26/2025 Start: 12-26-2024 End: 12-26-2025 Aspartate aminotransferase [Enzymatic activity/volume] in Serum or Plasma AST Lab Routine Mixed hyperlipidemia (CMS/HCC) Expected: 12/26/2024 (Approximate), Expires: 12/26/2025 [facility] Comment on above: Expected: 12/26/2024 (Approximate), Expires: 12/26/2025 Start: 12-26-2024 End: 12-26-2025 Lipid 1996 panel - Serum or Plasma Lipid panel Lab Routine Mixed hyperlipidemia (CMS/HCC) Expected: 12/26/2024 (Approximate), Expires: 12/26/2025 [facility] Comment on above: Expected: 12/26/2024 (Approximate), Expires: 12/26/2025 Start: 11-15-2024 End: 11-15-2025 US Thyroid gland US thyroid Imaging Routine Multiple thyroid nodules (CMS/HCC) Expected: 11/15/2024 (Approximate), Expires: 11/15/2025 [facility] Work Phone: Comment on above: Expected: 11/15/2024 (Approximate), Expires: 11/15/2025 Start: 11-09-2024 End: 11-09-2025 Alanine aminotransferase [Enzymatic activity/volume] in Serum or Plasma ALT Lab Routine Mixed hyperlipidemia (CMS/HCC) Expected: 11/09/2024 (Approximate), Expires: 11/09/2025 [facility] Comment on above: Expected: 11/09/2024 (Approximate), Expires: 11/09/2025 Start: 11-09-2024 End: 11-09-2025 DXA Skeletal system Views for bone density DEXA bone density Imaging Routine Menopause Expected: 11/09/2024 (Approximate), Expires: 11/09/2025 [facility] Comment on above: Expected: 11/09/2024 (Approximate), Expires: 11/09/2025 Start: 11-09-2024 End: 01-09-2026 MG Breast - bilateral Screening Bilateral screening mammogram Imaging Routine Encounter for screening mammogram for malignant neoplasm of breast Expected: 11/09/2024 (Approximate), Expires: 01/09/2026 [facility] Work Phone: Comment on above: Expected: 11/09/2024 (Approximate), Expires: 01/09/2026 Start: 11-09-2024 End: 11-09-2025 US.doppler Carotid arteries - bilateral Vascular US carotid artery duplex bilateral Imaging Routine Essential hypertension (CMS/HCC) Mixed hyperlipidemia (CMS/HCC) Type 2 diabetes mellitus with other specified complication, without long-term current use of insulin Bruit of right carotid artery Expected: 11/09/2024, Expires: 11/09/2025 [facility] Comment on above: Expected: 11/09/2024 , Expires: 11/09/2025 Start: 11-09-2024 End: 11-09-2024 Patient encounter procedure 11/09/2024 9:20 AM EDT Office Visit [facility] [address] [place] [phone] Destiny Mccartney NP [address] [place] [address] [facility] Start: 11-01-2024 Saskia Neff/6wks Poss AVN OD FU OCT [facility] Work Phone: Start: 09-28-2024 End: 09-28-2024 Patient encounter procedure 09/28/2024 10:30 AM EST Office Visit [facility] [address] [place] [address] Jayshree Conner NP [address] [place] [address] [facility] Start: 09-24-2024 Adult BMI Screening Adult BMI Screen ing [facility] Start: 09-24-2024 Tobacco Screening Tobacco Screening [facility] Start: 09-17-2024 Urine screening for protein Diabetes: Urine Protein Screening [facility] Start: 08-14-2024 End: 08-14-[address] [facility] Comment on above: Arrived Start: 07-28-2024 Medicare Annual Well ness (AWV) Medicare Annual Wellness (AWV) [facility] Start: 06-28-2024 End: 06-28-2025 CBC W Auto Differential panel - Blood CBC and differential Lab Routine Type 2 diabetes mellitus with diabetic polyneuropathy, without long-term current use of insulin (CMS/HCC) Essential hypertension (CMS/HCC) Expected: 06/28/2024 (Approximate), Expires: 06/28/2025 [facility] Comment on above: Expected: 06/28/2024 (Approximate), Expires: 06/28/2025 Start: 06-28-2024 End: 06-28-2025 Comprehensive metabolic 2000 panel - Serum or Plasma Comprehensive metabolic panel Lab Routine Type 2 diabetes mellitus with diabetic polyneuropathy, without long-term current use of insulin (CMS/HCC) Essential hypertension (CMS/HCC) Expected: 06/28/2024 (Approximate), Expires: 06/28/2025 [facility] Comment on above: Expected: 06/28/2024 (Approximate), Expires: 06/28/2025 Start: 06-28-2024 End: 06-28-2025 Hemoglobin A1c/Hemoglobin.total in Blood Hemoglobin A1c Lab Routine Type 2 diabetes mellitus with diabetic polyneuropathy, without long-term current use of insulin ([facility]) Expected: 06/28/2024 (Approximate), Expires: 06/28/2025 [facility] Comment on above: Expected: 06/28/2024 (Approximate), Expires: 06/28/2025 Start: 06-28-2024 End: 06-28-2025 Magnesium [Mass/volume] in Serum or Plasma Magnesium Lab Routine Chronic diastolic heart failure ([facility]) Expected: 06/28/2024 (Approximate), Expires: 06/28/2025 [facility] Comment on above: Expected: 06/28/2024 (Approximate), Expires: 06/28/2025 Start: 06-28-2024 End: 06-28-2024 Patient encounter procedure [facility] Comment on above: Arrived Start: 04-09-2024 COVID-19 Vaccine () COVID-19 Vaccine () [facility]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 Expiration Date Visits Requested Visits Authorized [id number] Authorized Specialty Services Required 03/28/2024 09/24/2024 1 1 Scheduling Instructions Please include OV note [facility] HealthcareReason for referral (narrative)* Reason For Referral No Information [facility] Work Phone: Reason for referral (narrative)No reason for referral information availableMemorial Hospital Work Phone: Summary Purpose Family History Relationship Condition Age at Onset Recorded Date/T ronald father Irregular heart rhythm Unknown father Unknown mother Unknown Family Member Type Diagnosis Age At Onset Mother Problem Cancer, lung Sister Problem Diabetes mellitus Sister Problem AFIB Father Problem Cancer, colon Relationship Condition Age at Onset Recorded Date/T ronald father Irregular heart rhythm Unknown Unknown Malignant neoplasm of colon Unknown mother Unknown Advance Directives Advance Directive Response Recorded Date/ Time Advance Directives No September 14, 2018 1:23pm Directive Yes / No Effective Date File Name No Information Advance Directive Response Recorded Date/ Time Advance Directives No September 14, 2018 2:23pm Chief Complaint and Reason for Visit Chief Complaint Admit Date Refer: diverticulitis June 26 1:55pm Reason for Visit Admit Date Change in bowel function June 26, 2024 1:55pm Diverticulitis June 26, 2024 1:55pm Chief Complaint Admit Date ESTABLISHED PATIENT April 10, 2025 1:08pm Reason for Visit Admit Date Cervical pain (neck) April 10, 2025 1:08pm Contusion, chest wall April 10 1:08pm Knee pain, acute April 10, 2025 1:08pm Additional Source Comments REASON FOR VISIT (unrecogniz [...] Otolaryngology Diagnoses Multiple thyroid nodules (CMS/HCC) Procedures AR OFFICE/OUTPATIENT NEW HIGH MDM 60 MINUTES Destiny Mccartney NP [address] [place] [address] Phone: tel: fax: Maurisio Padilla DO [address] [place] [address] Phone: tel: fax: Referral ID Status Reason Start Date Expiration Date V isits Requested Visits Authorized [id number] Closed Specialty Services Required 12/04/2024 06/02/2025 1 1 Reason Comments Thyroid Nodule FNA Reason Comments Thyroid Nodule FNA results Reason Comments Diabetes INFORMATION SOURCE (unrecogn ized section and content) DATE CREATED AUTHOR 09/02/2022 [facility] DATE CREATED AUTHOR AUTHOR'S ORGANIZ ATION 09/26/2023 [facility] DATE CREATED AUTHOR AUTHOR'S ORGANIZ ATION 08/11/2024 [facility] DATE CREATED AUTHOR AUTHOR'S ORGANIZ ATION 01/18/2025 [facility] DATE CREATED AUTHOR AUTHOR'S ORGANIZ ATION 01/21/2025 [facility] DATE CREATED AUTHOR AUTHOR'S ORGANIZ ATION 01/28/2025 [facility] DATE CREATED AUTHOR AUTHOR'S ORGANIZ ATION 02/09/2025 [facility] Special[facility] DATE CREATED AUTHOR AUTHOR'S ORGANIZ ATION 03/16/2025 [facility] Care Teams (unrecognized sec tion and content) Team Status: Active Member Role Status Dates Chelo Oro APRN BAN[employer]ET SERVER ON CALL-C Primary Care Provider Active Team Status: Inactive Member Role Status Dates Chelo Oro APRN BANQUET SERVER ON CALL-C Primary Care Provider Active Start: June 26, 2024 End: June 26, 2024 Negrita Van DO Attending Provider Active St art: June 26, 2024 End: June 26, 2024 Grocery Shopper Relationship Specialty Start Date End Date Shaikh Burks MD [address] [place] [address] PCP - [employer] 10/08/23 Jerome Coles MD [address] [place] [address] PCP - General Family Medicine 03/28/24 Jayshree Conner NP [address] [place] [address] Nurse Practitioner Family Medicine 03/28/24 Grocery Shopper Relationship Specialty Start Date End Date Shaikh Burks MD [address] [place] [address] PCP - [employer] 10/08/23 Jerome Coles MD [address] [place] [address] PCP - General Family Medicine 03/28/24 Jayshree Conner NP [address] [place] [address] Nurse Practitioner Family Medicine 03/28/24 Grocery Shopper Relationship Specialty Start Date End Date Shaikh Burks MD [address] [place] [address] PCP - Aetlonnie 10/08/23 Jerome Coles MD [address] [place] [address] PCP - General Family Medicine 03/28/24 Jayshree Conner NP [address] [place] [address] Nurse Practitioner Family Medicine 03/28/24 Grocery Shopper Relationship Specialty Start Date End Date Shaikh Burks MD [address] [place] [address] PCP - [employer] 10/08/23 Jerome Coles MD [address] [place] [address] PCP - General Family Medicine 03/28/24 Jayshree Conner NP [address] [place] [address] Nurse Practitioner Family Medicine 03/28/24 Grocery Shopper Relationship Specialty Start Date End Date Shaikh Burks MD [address] [place] [address] PCP - General Internal Medicine 11/30/23 Shaikh Burks MD [address] [place] [address] PCP - [employer] 10/08/23 Grocery Shopper Relationship Specialty Start Date End Date Shaikh Burks MD [address] [place] [address] PCP - [employer] 10/08/23 Jerome Coles MD [address] [place] [address] PCP - General Family Medicine 03/28/24 Jayshree Conner NP [address] [place] [address] Nurse Practitioner Family Medicine 03/28/24 Grocery Shopper Relationship Specialty Start Date End Date Shaikh Burks MD [address] [place] [address] PCP - [employer] 10/08/23 Jerome Coles MD [address] [place] [address] PCP - General Family Medicine 03/28/24 Jayshree Conner NP [address] [place] [address] Nurse Practitioner Family Medicine 03/28/24 Grocery Shopper Relationship Specialty Start Date End Date Shaikh Burks MD [address] [place] [address] PCP - [employer] 10/08/23 Jerome Coles MD [address] [place] [address] PCP - General Family Medicine 03/28/24 Jayshree Conner NP [address] [place] [address] Nurse Practitioner Family Medicine 03/28/24 Grocery Shopper Relationship Specialty Start Date End Date Shaikh Burks MD [address] [place] [address] PCP - [employer] 10/08/23 Jerome Coles MD [address] [place] [address] PCP - General Family Medicine 03/28/24 Jayshree Conner NP [address] [place] [address] Nurse Practitioner Family Medicine 03/28/24 Grocery Shopper Relationship Specialty Start Date End Date Shaikh Burks MD [address] [place] [address] PCP - [employer] 10/08/23 Jerome Coles MD [address] [place] [address] PCP - General Family Medicine 03/28/24 Jayshree Conner NP [address] [place] [address] Nurse Practitioner Family Medicine 03/28/24 Grocery Shopper Relationship Specialty Start Date End Date Shaikh Burks MD [address] [place] [address] PCP - [employer] 10/08/23 Jerome Coles MD [address] [place] [address] PCP - General Family Medicine 03/28/24 Jayshree Conner NP [address] [place] [address] Nurse Practitioner Family Medicine 03/28/24 Grocery Shopper Relationship Specialty Start Date End Date [facility] PCP - General Nurse Practitioner 12/09/20 Grocery Shopper Relationship Specialty Start Date End Date Shaikh Burks MD [address] [place] [address] PCP - [employer] 10/08/23 eJrome Coles MD [address] [place] [address] PCP - General Family Medicine 03/28/24 Jayshree Conner NP [address] [place] [address] Nurse Practitioner Family Medicine 03/28/24 Grocery Shopper Relationship Specialty Start Date End Date Chelo Oro [facility] [address] [place] [address] PCP - General Nurse Practitioner 12/09/20 Grocery Shopper Relationship Specialty Start Date End Date Chelo Oro APRN-[facility] [address] [place] [address] PCP - General Nurse Practitioner 12/09/20 Grocery Shopper Relationship Specialty Start Date End Date Chelo Oro APRN-[facility] [address] [place] [address] PCP - General Nurse Practitioner 12/09/20 Grocery Shopper Relationship Specialty Start Date End Date Chelo Oro, DIRECTOR OF KIDS-LICENSE CLERK PCP - General Nurse Practitioner 12/09/20 Grocery Shopper Relationship Specialty Start Date End Date Shaikh Burks MD [address] [place] [address] PCP - [employer] 10/08/23 Jerome Coles MD [address] [place] [address] PCP - General Family Medicine 03/28/24 Jayshree Conner NP [address] [place] [address] Nurse Practitioner Family Medicine 03/28/24 Grocery Shopper Relationship Specialty Start Date End Date Shaikh Burks MD [address] [place] [address] PCP - [employer] 10/08/23 Jerome Coles MD [address] [place] [address] PCP - General Family Medicine 03/28/24 Jayshree Conner NP [address] [place] [address] Nurse Practitioner Family Medicine 03/28/24 Grocery Shopper Relationship Specialty Start Date End Date Shaikh Burks MD [address] [place] [address] PCP - [employer] 10/08/23 Jerome Coles MD [address] [place] [address] PCP - General Family Medicine 03/28/24 Jayshree Conner, FAVIOLA [address] [place] [address] Nurse Practitioner Family Medicine 03/28/24 Grocery Shopper Relationship Specialty Start Date End Date Chelo Oro, DIRECTOR OF KIDS-LICENSE CLERK PCP - General Nurse Practitioner 12/09/20 Name Effective Dates (start - stop) Status Members No Information Grocery Shopper Relationship Specialty Start Date End Date Shaikh Burks MD [address] [place] [address] PCP - [employer] 10/08/23 Jerome Coles MD [address] [place] [address] PCP - General Family Medicine 03/28/24 Jayshree Conner, BANQUET SERVER ON CALL [address] [place] [address] Nurse Practitioner Family Medicine 03/28/24 Grocery Shopper Relationship Specialty Start Date End Date Shaikh Burks MD [address] [place] [address] PCP - [employer] 10/08/23 Jerome Coles MD [address] [place] [address] PCP - General Family Medicine 03/28/24 Jayshree Conner NP [address] [place] [address] Nurse Practitioner Family Medicine 03/28/24 Grocery Shopper Relationship Specialty Start Date End Date Shaikh Burks MD [address] [place] [address] PCP - [employer] 10/08/23 Jerome Coles MD [address] [place] [address] PCP - General Family Medicine 03/28/24 Jayshree Connre NP [address] [place] [address] Nurse Practitioner Family Medicine 03/28/24 Grocery Shopper Relationship Specialty Start Date End Date Shaikh Burks MD [address] [place] [address] PCP - [employer] 10/08/23 Jerome Coles MD [address] [place] [address] PCP - General Family Medicine 03/28/24 Jayshree Conner NP [address] [place] [address] Nurse Practitioner Family Medicine 03/28/24 Grocery Shopper Relationship Specialty Start Date End Date Shaikh Burks MD [address] [place] [address] PCP - [employer] 10/08/23 Jerome Coles MD [address] [place] [address] PCP - General Family Medicine 03/28/24 Jayshree Conner NP [address] [place] [address] Nurse Practitioner Family Medicine 03/28/24 Grocery Shopper Relationship Specialty Start Date End Date Shaikh Burks MD [address] [place] [address] PCP - [employer] 10/08/23 Jerome Coles MD [address] [place] [address] PCP - General Family Medicine 03/28/24 Jayshree Conner NP [address] [place] [address] Nurse Practitioner Family Medicine 03/28/24 Grocery Shopper Relationship Specialty Start Date End Date Shaikh Burks MD [address] [place] [address] PCP - [employer] 10/08/23 Jerome Coles MD [address] [place] [address] PCP - General Family Medicine 03/28/24 Jayshree Conner NP [address] [place] [address] Nurse Practitioner Family Medicine 03/28/24 Grocery Shopper Relationship Specialty Start Date End Date Shaikh Burks MD [address] [place] [address] PCP - [employer] 10/08/23 Jerome Coles MD [address] [place] [address] PCP - General Family Medicine 03/28/24 Jayshree Conner NP [address] [place] [address] Nurse Practitioner Family Medicine 03/28/24 Grocery Shopper Relationship Specialty Start Date End Date Shaikh Burks MD [address] [place] [address] PCP - [employer] 10/08/23 Jerome Coles MD [address] [place] [address] PCP - General Family Medicine 03/28/24 Jayshree Conner NP [address] [place] [address] Nurse Practitioner Family Medicine 03/28/24 Grocery Shopper Relationship Specialty Start Date End Date Shaikh Burks MD [address] [place] [address] PCP - [employer] 10/08/23 Jerome Coles MD [address] [place] [address] PCP - General Family Medicine 03/28/24 Jayshree Conner NP [address] [place] [address] Nurse Practitioner Family Medicine 03/28/24 Grocery Shopper Relationship Specialty Start Date End Date Shaikh Burks MD [address] [place] [address] PCP - [employer] 10/08/23 Jerome Coles MD [address] [place] [address] PCP - General Family Medicine 03/28/24 Jayshree Conner NP [address] [place] [address]36[address] Nurse Practitioner Family Medicine 03/28/24 Grocery Shopper Relationship Specialty Start Date End Date Shaikh Burks MD [address] [place] [address] PCP - [employer] 10/08/23 Jerome Coles MD [address] [place] [address] PCP - General Family Medicine 03/28/24 Jayshree Conner NP [address] [place] [address] Nurse Practitioner Family Medicine 03/28/24 Destiny Mccartney NP [address] [place] [address] Nurse Practitioner Family Medicine 01/18/25 Maurisio Padilla DO [address] [place] [address] Otolaryngology 01/18/25 Grocery Shopper Relationship Specialty Start Date End Date Shaikh Burks MD [address] [place] [address] PCP - [employer] 10/08/23 Jerome Coles MD [address] [place] [address] PCP - General Family Medicine 03/28/24 Jayshree Conner, FAVIOLA [address] [place] [address] Nurse Practitioner Family Medicine 03/28/24 Destiny Mccartney, FAVIOLA [address] [place] [address] Nurse Practitioner Family Medicine 01/18/25 Maurisio Padilla DO [address] [place] [address] Otolaryngology 01/18/25 Grocery Shopper Relationship Specialty Start Date End Date Shaikh Burks MD [address] [place] [address] PCP - [employer] 10/08/23 Jerome Coles MD [address] [place] [address] PCP - General Family Medicine 03/28/24 Jayshree Conner NP [address] [place] [address] Nurse Practitioner Family Medicine 03/28/24 Destiny Mccartney NP [address] [place] [address] Nurse Practitioner Family Medicine 01/18/25 Maurisio Padilla DO [address] [facility] [place] [address] Otolaryngology 01/18/25 Grocery Shopper Relationship Specialty Start Date End Date Shaikh Burks MD [address] [place] [address] PCP - [employer] 10/08/23 Jerome Coles MD [address] [place] [address]1002 PCP - General Family Medicine 03/28/24 Jayshree Conner NP [address] [place] [address] Nurse Practitioner Family Medicine 03/28/24 Destiny Mccartney NP [address] [place] [address] Nurse Practitioner Family Medicine 01/18/25 Maurisio Padilla DO [address] [place] [address] Otolaryngology 01/18/25 Grocery Shopper Relationship Specialty Start Date End Date Shaikh Burks MD [address] [place] [address] PCP - [employer] 10/08/23 Jerome Coles MD [address] [place] [address] PCP - General Family Medicine 03/28/24 Jayshree Conner NP [address] [place] [address] Nurse Practitioner Family Medicine 03/28/24 Destiny Mccartney NP [address] [place] [address] Nurse Practitioner Family Medicine 01/18/25 Maurisio Padilla DO [address] [place] [address] Otolaryngology 01/18/25 Grocery Shopper Relationship Specialty Start Date End Date Shaikh Burks MD [address] [place] [address] PCP - [employer] 10/08/23 Jerome Coles MD [address] [place] [address] PCP - General Family Medicine 03/28/24 Jayshree Conner NP [address] [place] [address] Nurse Practitioner Family Medicine 03/28/24 Destiny Mccartney NP [address] [place] [address] Nurse Practitioner Family Medicine 01/18/25 Maurisio Padilla DO [address] [place] [address] Otolaryngology 01/18/25 Grocery Shopper Relationship Specialty Start Date End Date Shaikh Burks MD [address] [place] [address] PCP - [employer] 10/08/23 Jerome Coles MD [address] [place] [address] PCP - General Family Medicine 03/28/24 Jayshree Conner NP [address] [place] [address] Nurse Practitioner Family Medicine 03/28/24 Destiny Mccartney NP [address] [place] [address] Nurse Practitioner Family Medicine 01/18/25 Maurisio Padilla DO [address] [place] [address] Otolaryngology 01/18/25 Team Status: Active Member Role Status Dates Destiny Mccartney Primary Care Provider Active Team Status: Inactive Member Role Status Dates Destiny Vijay Sherrill Primary Care Provider Active Sta rt: April 10, 2025 End: April 10, 2025 Destiny Mccartney Attending Provider Active Start: April 10, 2025 End: April 10, 2025 Goals (unrecognized section and content) Goals may [...] BE BASED ON THE PRIMARY CLINICAL RECORDS. [facility]. provides no warranty or guarantee of the accuracy or completeness of information in this document.
== END 2025-04-19 14:41 | disposition home or self-care (01) ==
LOC: RAD 14:42
PROVIDERS: PCP Nurse Practitioner; Visit Provider Nurse Practitioner
DX: M25.561 Pain in right knee (principal); S20.219A Contusion of unspecified front wall of thorax, initial encounter; M17.11 Unilateral primary osteoarthritis, right knee
CPT/HCPCS: 71046; 73562

== ENCOUNTER 2025-05-17 08:47 | Outpatient (RCR) | payer OTHER, SELFPAY | END 2025-06-27 10:41 | disposition home or self-care (01) | LOC: PT 08:47 | PROVIDERS: PCP Nurse Practitioner; Visit Provider Nurse Practitioner | DX: M54.2 Cervicalgia (principal); M25.569 Pain in unspecified knee | CPT/HCPCS: 97035; 97110; 97112; 97140; 97161 ==

== ENCOUNTER 2025-07-27 23:10 | Emergency (ER) | payer MEDICARE, SELFPAY ==
[2025-07-27 23:14] VITALS: BP 142/94; PULSE 99; TEMP 36.7; O2SAT 96; BMI 31.0
--- NOTE | 2025-07-27 23:19 | ED.ALLEREA1 ---
HPI - Allergic Reaction General Chief complaint: Allergic Reaction Stated complaint: allergic reaction Time Seen by Provider: 07/27/25 23:17 History of Present Illness HPI narrative: patient states she ate food and developed epigastric discomfort followed by swelling of her tongue. This all occurred within the past 1/2 hour. No shortness of breath, fever, nausea or light headiness Related Data Home Medications ?Medication ?Instructions ?Recorded ?Confirmed chlorthalidone 25 mg tablet 0.5 mg PO DAILY 03/22/25 03/22/25 metformin 500 mg tablet 500 mg PO BID 03/22/25 03/22/25 omeprazole 40 mg capsule,delayed 40 mg PO .daily before meals 03/22/25 03/22/25 release rosuvastatin 10 mg tablet 10 mg PO .at bedtime 03/22/25 03/22/25 tizanidine 4 mg tablet 1 mg PO Q8H PRN muscle spasticity 03/22/25 03/22/25 verapamil 360 mg 24 hr 360 mg PO DAILY 03/22/25 03/22/25 capsule,extended release Previous Rx's ?Medication ?Instructions ?Recorded oxycodone-acetaminophen 5 mg-325 1 tab PO Q8H PRN pain 4 days #12 03/22/25 mg tablet (Percocet) tabs Allergies Allergy/AdvReac Type Severity Reaction Status Date / Time celecoxib (From Celebrex) Allergy Severe Anaphylaxis Verified 03/30/25 21:50 Sulfa (Sulfonamide Allergy Severe Anaphylaxis Verified 03/30/25 21:50 Antibiotics) Review of Systems ROS Status of ROS 10 or more systems reviewed and unremarkable except as noted in history and below PFSH PFSH Social History Little interest or pleasure in doing things: not at all Feeling down, depressed, or hopeless: not at all Exam Constitutional Common normals: average body habitus, oriented x3, no limitations, healthy appearing, alert and well nourished [facility] Common normals: normocephalic and head/scalp atraumatic Other: mild edema of her uvula . It is midline. mod enlargement of her tongue. No stridor. Eye Common normals: EOMs intact bilaterally and conjunctivae normal Respiratory Common normals: normal respiratory effort, no retractions, no use of accessory muscles and clear to auscultation bilaterally Cardio Common normals: regular rate, regular rhythm, S1 normal heart sound and S2 normal heart sound GI Common normals: Normal to inspection, nondistended, normoactive bowel sounds present, soft to palpation and non-tender Extremity Common normals: normal to inspection and full ROM Neuro Common normals: oriented x3, CN's II-XII intact bilaterally, moves all extremities and no focal motor deficits Psych Appearance: grossly normal MDM - Allergic Reaction MDM Narrative Medical decision making narrative: patient ate tamazight food and experienced acute allergic reaction manifested by epigastric pain and tongue swelling. Patient treated with cocktail of benadry, solumedrol, epi 0.3 IM. Patient observed and her tongue size has decreased and she no longer has epigastric pain. She has benadryl at home. Discharged with prescription for Epi pen and prednisone Discharge Plan Discharge Chief Complaint: Allergic Reaction Clinical Impression: Allergy to food Patient Disposition: Home, Self-Care Prescriptions / Home Meds: No Action chlorthalidone 25 mg tablet 0.5 mg PO DAILY metformin 500 mg tablet 500 mg PO BID verapamil 360 mg capsule,ext rel. pellets 24 hr 360 mg PO DAILY tizanidine 4 mg tablet 1 mg PO Q8H PRN (Reason: muscle spasticity) omeprazole 40 mg capsule,delayed release(DR/EC) 40 mg PO .daily before meals rosuvastatin 10 mg tablet 10 mg PO .at bedtime oxycodone-acetaminophen [Percocet] 5-325 mg tablet 1 tab PO Q8H PRN (Reason: pain) 4 Days Qty: 12 0RF Print Language: Vietnamese Instructions: Food Allergy (ED) Additional Instructions: take benadryl 25 mg 3 times a day for 3 days. Follow up with your doctor early next week for recheck Referrals: Destiny Mccartney NP [Primary Care Provider, Family Practice] - 1 week
[2025-07-27] MEDS: DIPHENHYDRAMINE HCL 50 MG/ML VIAL 25 MG IVP (23:38)
[2025-07-27] MEDS: EPINEPHRINE HCL PF 1 MG/ML AMPULE 0.3 MG SUBQ (23:38)
[2025-07-27 23:40] VITALS: BP 156/74; PULSE 86; O2SAT 98
[2025-07-27] MEDS: FAMOTIDINE/PF 20 MG/2 ML VIAL IV (23:42)
[2025-07-27] MEDS: METHYLPREDNISOLONE SOD SUCC PF 125 MG/2 ML VIAL IVP (23:44)
[2025-07-27 23:50] VITALS: PULSE 75; O2SAT 97
[2025-07-28] VITALS: BP 144/82; PULSE 80; O2SAT 96
[2025-07-28 00:10] VITALS: PULSE 81; O2SAT 95
--- OUTSIDE RECORDS SUMMARY | 2025-07-28 00:17 | XMS_ITS | Clinical Summary ---
Author Organization [employer] tem Address [id number] [address] [place] [address] Care Team Providers Care Non Profit Job Titles Name Role Phone Chelo Stone RETAIL PLANNER-TIME STAMP ASSEMBLER Primary Care Provider Allergies Active AllergyReactionsCriticalityNoted DateCommentsCelecoxibAnaphylaxisHigh 01/08/20172228MtdopzkuszSocql07/22/3532Tlldacjp08/02/2017 Other reaction(s): Intolerance-unknown Sulfa (Sulfonamide Antibiotics)01/08/2017 Other reaction(s): Intolerance-unknown Medications MedicationSigDispense QuantityRefillsLast FilledStart DateEnd DateStatus gabapentin (NEURONTIN) 300 mg capsule Take 1 capsule (300 mg total) by mouth 3 (three) times a day.Active naproxen (NAPROSYN) 250 mg tablet Take 1 tablet (250 mg total) by mouth in the morning and 1 tablet (250 mg total) in the evening. Take with meals.Active omeprazole (PriLOSEC) 40 mg capsule Take 1 capsule (40 mg total) by mouth every morning before breakfast.Active SENNOSIDES (SENNA LAX ORAL) as needed. Active tiZANidine (ZANAFLEX) 4 mg capsule Take 1 capsule (4 mg total) by mouth 3 (three) times a day.Active multivitamin capsule Take 1 capsule by mouth in the morning. EVERY OTHER DAY .Active metFORMIN (GLUCOPHAGE) 500 mg tablet Take 1 tablet (500 mg total) by mouth every 12 (twelve) hours.05/24/2022Active verapamiL (VERELAN) 360 MG 24 hr capsule Take 1 capsule (360 mg total) by mouth nightly.Active simvastatin (ZOCOR) 40 mg tablet Take 1 tablet (40 mg total) by mouth nightly.Active magnesium 200 mg tablet Take by mouth.Active chlorthalidone (HYGROTON) 25 mg tablet Indications:Essential hypertension,Ventricular premature beats,PalpitationsTAKE 1/2 (ONE-HALF) OF A TABLET BY MOUTH DAILY 45 tablet 5Active Active Problems ProblemNoted DateDiagnosed DateObesity (BMI 30.0-34.9)2Chronic diastolic heart nrfylpk1103/11/2021Mixed ngyjusanvdbcbq34/03/2021Essential stzpgtlgqzas56/02/2017Chronic back pain01/08/2017Ventricular premature beats 04/10/20168240Tntfmrzgdyib57/02/2016 Family History Medical HistoryRelationNameCommentsArthritisFatherColon cancerFatherArthritis MotherCancerMotherRelationNameStatusCommentsFatherMother Social History Tobacco UseTypesPacks/DayYears UsedDateSmoking Tobacco: NeverSmokeless Tobacco: Never Tobacco Cessation:Counseling Given: Not Answered Alcohol UseStandard Drinks/WeekCommentsYes0 (1 standard drink = 0.6 oz pure alcohol)sociallyChildcareAnswerDate NkllwuefEqpjztkdvMapclfs71/12/2019Employment AnswerDate PxnolnubSnrjjbztubKetfzao43/12/2019Hunger ScreeningAnswerDate RecordedWithin the past 12 months we worried whether our food would run out before we got money to buy more.Never True09/24/2023Within the past 12 months the food we bought just didn't last and we didn't have money to get more.Never True4Purpose - LifeAnswerDate RecordedPurpose and direction in life Jbnkump21/11/2021CommentsNoSex and Gender InformationValueDate Recorded Sex Assigned at BirthNot on fileLegal CduSqucco78/06/2015 11:28 AM EDTGender IdentityNot on fileSexual OrientationNot on file Last Filed Vital Signs Vital SignReadingTime TakenCommentsBlood Uitmwxwx725/80009/24/2023 11:36 AM EST Kmpzl5124/16/2024 11:36 AM TIHYktgxpftwdr92.7 ??C (98 ??F)08/05/2018 8:51 AM EST Respiratory Hzsk616010/06/2017 10:40 AM ESTOxygen Mtvhbkelqn94%09/24/2023 11:36 AM ESTInhaled Oxygen Concentration--Vrkndn04.9 kg (174 lb)09/24/2023 11:36 AM EST Fuclna841.6 cm (5' 4 )09/24/2023 11:36 AM ESTBody Mass Index29.8709/24/2023 11:36 AM EST Plan of Treatment Health MaintenanceDue DateLast DoneCommentsDepression Rbvktkuzq53/16/1964 DTaP,Tdap and Td Vaccines (1 - Tdap)12/22/1970RSV ( or age 60+ yrs) (1 - Risk 50-74 years 1-dose series)12/22/2001Fall Risk Yvfppjljr64/16/2017Zoster (Shingles) Vaccine (2 of 2)/dult BMI Kxjxtmgkp07/16/2025 09/24/2023Tobacco Vykzjeljh64/16/00168609/24/2023OVID-19 Vaccine ( season)5010/16/2021, 11/05/2020, 10/15/2020Influenza Wukepzb5504/09/2025 06/28/2024, 10/16/2021, 09/19/2020, Additional history exists Medical Devices Not on file Insurance Care Teams Team MemberRelationshipSpecialtyStart DateEnd Date Chelo Stone, RETAIL PLANNER-TIME STAMP ASSEMBLER PCP - GeneralNember Practitioner12/09/20
--- OUTSIDE RECORDS SUMMARY | 2025-07-28 00:17 | XMS_ITS | Clinical Summary ---
Author Organization [facility] Healthcare Address [address] [place] [address] Care Team Providers Care Cotton Ginner Helper Name Role Phone Shaikh ANIBAL Burks Unavailable [phone] Jerome Brody MD Primary Care Provider Karen Conner CAREER SERVICES MANAGER Unavailable [phone] Destiny Mccartney CAREER SERVICES MANAGER Unavailable [phone] Maurisio Crow DO Unavailable Allergies Active AllergyReactionsCriticalityNoted DateCommentsCelecoxibAnaphylaxisHigh 07/28/20238599FjxufjanoyPbzlk18/22/2017Sulfa GiqizrxbqrpApbvcifxnpqRmkt82/20/2023 Medications MedicationSigDispense QuantityRefillsLast FilledStart DateEnd DateStatus metFORMIN (Glucophage) 500 MG tablet Indications:Type 2 diabetes mellitus with diabetic polyneuropathy, without long- term current use of insulin (HCC)Take 1 tablet (500 mg) by mouth in the morning and 1 tablet (500 mg) in the evening. Take with meals. 180 tablet 5Active fluticasone (Flonase) 50 MCG/ACT nasal spray Indications:Upper respiratory tract infection, unspecified typeAdminister 1-2 sprays into each nostril Daily Shake gently. Before first use, prime pump. After use, clean tip and replace cap. 16 g 506Active aspirin 81 MG EC tablet Take 81 mg by mouth DailyActive omeprazole (PriLOSEC) [address] capsule Indications:Gastroesophageal reflux disease without esophagitisTake 1 capsule (40 mg) by mouth in the morning. Take before meals. 90 capsule 5Active verapamil ER (Verelan) 360 MG 24 hr capsule Indications:Essential hypertensionTake 1 capsule (360 mg) by mouth Daily 90 capsule 5Active chlorthalidone (Hygroton) 25 MG tablet Indications:Essential hypertensionTake 0.5 tablets (12.5 mg) by mouth Daily 45 tablet 5Active doxycycline (Vibra-Tabs) 100 MG tablet Indications:Tick bite of left ear, initial gebjvmnfi986tz one time dose. Take with a full glass of water and do not lie down for at least 30 minutes after. 2 tablet 5Active rosuvastatin (Crestor) 10 MG tablet Indications:Mixed hyperlipidemiaTake 1 tablet (10 mg) by mouth at bedtime 90 tablet 5Active gabapentin (Neurontin) 300 MG capsule Indications:Chronic left-sided low back pain with left-sided sciaticaTake 1 capsule (300 mg) by mouth in the morning and 1 capsule (300 mg) in the evening and 1 capsule(300 mg) before bedtime. 270 capsule 5Active tiZANidine (Zanaflex) 4 MG tablet Indications:Chronic low back pain with left-sided sciatica, unspecified back pain lateralityTake 1 tablet (4 mg) by mouth every 8 (eight) hours if needed for muscle spasms 270 tablet 5Active Active Problems ProblemNoted DateDiagnosed DateTick bite02/07/2025ug bites02/07/2025Osteopenia 12/01/2024 Overview (12/01/2024): 11/15/24 -1.6 FA Multiple thyroid izmwxvw2511/15/2024Type 2 diabetes mellitus, without long-term current use of vrmiwml4911/09/2024 Assessment & Plan (02/07/2025 11:45 AM EDT): [...] statin A1c: 5.8% 09/26/24 Encounter for screening mammogram for malignant neoplasm of uxvcjg3011/09/2024 Udegrmjuy89/03/2025 Assessment & Plan (11/09/2024 6:25 AM EDT): Recommend bone density scan Peripheral qvaujyaqbq60/03/2025 Assessment & Plan (11/09/2024 9:44 AM EDT): Lumbar related Takes gabapentin OARRS reviewed Bruit of right carotid umybhu2611/09/2024ge-related macular degeneration 09/28/20249577Agrlrfwuixxhzz62/20/2024 Assessment & Plan (03/28/2024 1:18 PM EDT): [...] will be called in. History of spinal ompqqmu6311/30/2023Other intervertebral disc degeneration, lumbar qnatyz3711/30/2023Lumbago with sciatica, left side07/28/2023Encounter for Medicare annual wellness exam07/28/2023 Assessment & Plan (07/28/2023 11:43 AM EST): Doing well overall. Reviewed medical, surgical and social hx. Reviewed medication list. Labs ordered for her chronic conditions. Mammogram ordered. Colonoscopy about 7 years ago Recommended to get Influenza and Pneumonia vaccine. Screened for fall risk, cognitive impairment and depression. Recommended to have DM EYE exam Chronic diastolic (congestive) heart fhtcwjz7803/11/2021 Assessment & Plan (11/09/2024 6:21 AM EDT): Meds: chlorthalidone Assessment & Plan (11/30/2023 9:51 AM EDT): Stable. No recent ECHO. Euvolemic. On Verapamil and chlorthalidone. No ED or hospital visit for CHFexacerbation. Assessment & Plan (07/28/2023 11:38 AM EST): Chronic diastolic HF. Euvolemic. No Orthopnea, PND. Follows with Cardiology once a year. BP at goal. Mixed kekwrfiujhwflu37/03/2021 Assessment & Plan (02/07/2025 6:19 AM EDT): [...] EST): On Simvastatin. Check Lipid panel. Essential swbnuaiwktej70/02/2017 Assessment & Plan (02/07/2025 6:18 AM EDT): [...] elevated BP. C/w hydrochlorothiazide, Verapamil. Chronic back pain01/08/2017 Assessment & Plan (09/28/2024 10:56 AM EST): Requesting handicap placard today. Will write RX [...] with gabapentin and tizanidine. Stable. Resolved Problems ProblemNoted DateDiagnosed DateResolved DateUpper respiratory tract infection /10/2024 Assessment & Plan (08/14/2024 8:53 AM EST): Pt presents with Bilateral earache X7 days/Productive cough/Chest tenderness when coughing/headache. Bilateral otitis media observed on assessment. Will treat for URI and otitis media. Non-recurrent acute serous otitis media of both ears/10/2024Type 2 diabetes mellitus with diabetic polyneuropathy, without long-term current use of onxbmmt15/10/2024 Assessment & Plan (11/09/2024 6:19 AM EDT): [...] Eye Exam- 06/19/2024 [facility] in [place] Is seeing Retina specialist in [place]. Assessment & Plan (03/28/2024 10:30 AM EDT): [...] done. Order CBC, CMP, A1C, urine protein/creatinine Immunizations ImmunizationAdministration DatesNext DueInfluenza Whole05/11/2013Influenza, Seasonal, Quadrivalent, Eltuxyexxq53/10/2022Influenza, injectable, MDCK, preservative free, azhupnzwpfkt76/16/2018Influenza, injectable, quadrivalent 09/19/2020Influenza, injectable, quadrivalent, preservative free06/07/2019 Influenza, seasonal, injectable, preservative free06/28/2024,07/06/2016 Influenza, trivalent, yjgenmhzgr89/13/2019Pneumococcal Conjugate PCV 13 06/24/2018Pneumococcal Polysaccharide BINM7299,04/21/2019Zoster, Baqammdkbhk51/11/2021 Family History Medical HistoryRelationNameCommentsCancerFatherColon cancerFatherCancerMother Lung cancerMotherRelationNameStatusCommentsFatherDeceasedMotherDeceased Social History Tobacco UseTypesPacks/DayYears UsedDateSmoking Tobacco: NeverPassive Smoke Exposure: NeverSmokeless Tobacco: Never Tobacco Cessation:Counseling Given: Not Answered Alcohol UseStandard Drinks/WeekCommentsYes0 (1 standard drink = 0.6 oz pure alcohol)OCCASSIONALLYPHQ-2AnswerDate RecordedPatient Health Questionnaire-2 Voawi439CommentsNoSex and Gender InformationValueDate Recorded Sex Assigned at BirthNot on fileLegal SsxYnyvoj01/15/2023 8:13 PM EDTGender IdentityNot on fileSexual OrientationNot on file Last Filed Vital Signs Vital SignReadingTime TakenCommentsBlood Troswxke100/7007 11:09 AM EDT Zclvp9593 11:09 AM CPVMaerqyiqqus86.6 ??C (97.8 ??F)02/07/2025 11:09 AM EDTRespiratory Oqdg7229 11:09 AM EDTOxygen Jwzigcvfyw81%02/07/2025 11:09 AM EDTInhaled Oxygen Concentration--Mexrhb05.1 kg (178 lb 12.8 oz)02/07/2025 11:09 AM TBHWgxixx285.1 cm (5' 5 )02/01/2025 2:11 PM EDTBody Mass Index29.75 02/01/2025 2:11 PM EDT Plan of Treatment DateTypeDepartmentCare Team (Latest Contact Info)Zxxyhdctiap02/30/2025 1:45 PM ESTOffice Visit [facility] [address] [place] [address] Maurisio Crow S, DO [address] [facility] [place] [address] Health MaintenanceDue DateLast DoneCommentsCT Bclulmhjtqvu12/16/1952FIT-DNA 1950FIT1950FOBT1950 5515Gtysuqcjhwuzs14/16/1952COVID-19 Vaccine ( season), 11/05/2020, 10/15/2020Influenza Vaccine (#1), 10/16/2021, 09/19/2020, Additional history exists Diabetes: Retinopathy Ostlvbnvw59, 06/19/2024, 06/08/2024 Diabetes: Hemoglobin A1C/09/2024, 09/26/2024, 09/16/2023, Additional history existsDiabetes: Urine Protein Omgqtvjig57/, 09/16/2023 Adxadowlb67/04/2025, 08/09/20228805Cmeesebkzng49/18/203412/, 07/26/2024, 08/09/2015Colorectal Cancer Tkgokwvde38/18/2034Pneumococcal Vaccine: 65+ GayrvPwgpyyymd22/30/2019, 04/21/2019, 06/24/2018 Procedures Procedure NamePriorityDate/TimeAssociated DiagnosisCommentsPOCT GLYCOSYLATED HEMOGLOBIN (HGB A1C)Xzzijal9202/07/2025 11:43 AM EDT Type 2 diabetes mellitus with other specified complication, without long-term current use of insulin (HCC) BI MAMMOGRAM SCREENING REJJKIJCJ60/09/2025 1:22 PM EDT COLONOSCOPY DJCDNWJHAODoxhhzv21/18/2024 2:22 PM ESTDIABETIC RETINOPATHY SCREENING - OU - BOTH YNPWRovlvsb49/25/2024 2:19 PM ESTfrom Last 3 Months or Most Recently Relevant to Health Maintenance Results * (ABNORMAL) POCT glycosylated hemoglobin (Hb A1C) docked device (02/07/2025 11:43 AM EDT)ComponentValueRef RangeTest MethodAnalysis TimePerformed At Pathologist SignatureHemoglobin A1C5.9Specimen (Source)Anatomical Location / LateralityCollection Method / VolumeCollection TimeReceived TimeBloodVenous blood specimen / Buxcajk2502/07/2025 11:43 AM EDT Narrative Authorizing ProviderResult TypeResult StatusLisa Mccartney NPPOINT OF CARE TEST ENTER/EDIT ORDERABLESFinal Result * Bilateral screening mammogram (11/15/2024 1:22 PM EDT)Anatomical Region LateralityModalityBreastBilateralMammographySpecimen (Source)Anatomical Location / LateralityCollection Method / VolumeCollection TimeReceived Time 11/15/2024 1:22 PM EDT Narrative 11/15/2024 1:23 PM EDT [facility] ?[address] ? [place] [address] ? Mammography Report ? Signed ? Patient: SASKIA MORENO ?MR#: [id number] ?? : 1950 ?Acct:[id number] ?? Age/Sex: 73 / F ?ADM Date: 04/09/25 ?? Loc: RAD ? Attending Dr: Destiny Mccartney CAREER SERVICES MANAGER ? Ordering Physician: Destiny Mccartney CAREER SERVICES MANAGER ?Results: ? Date of Service: 11/15/24 ?Follow Up: ? Procedure(s): MM screening mammo BI ?? Accession Number(s): [id number] ? cc: Destiny Mccartney CAREER SERVICES MANAGER ? Patient Name: ? SASKIA MORENO ? MR#: [id number] ? : 1950 ? Exam Date: 11/15/2024 ?? Ordering Doctor: RICHIE Mccartney CNP ? RADIOLOGY REPORT ? PROCEDURE: ? MM SCREENING MAMMO BI ? COMPARISON: ? MG MAMM SCREEN 3D SAMI CAD, 08/26/2022. ??MG MAMM SCREEN 3D SAMI ?? CAD, 07/31/2021. ??MG MAMM SCREEN SAMI W CAD, 06/05/2019. ??MG MAMM SCREEN SAMI W ?? CAD, 09/10/2011. ? INDICATIONS: ? Screening for malignant neoplasm ? Calculator Name ? NCI Breast Cancer Risk Assessment Tool ?? 5 Year Breast Cancer Risk ? 2.40% ?? Lifetime Breast Cancer Risk ? 6.30% ?? Personal Breast Cancer ?No ?? Personal Ovarian Cancer ? No ?? Treatments ? None ?? Family Cancers ? Mother with lung cancer at age 61; Father with colon cancer ?? at age ??70. ? LOCATION: ? [facility] ? BREAST COMPOSITION: ? There are scattered areas of fibroglandular density. ? FINDINGS: ? DIAGNOSTIC CATEGORY 1--NEGATIVE. ? RIGHT BREAST: ??No significant suspicious finding. ? LEFT BREAST: ??No significant suspicious finding. ? RECOMMENDATIONS: ? ROUTINE MAMMOGRAM AND CLINICAL EVALUATION IN 12 MONTHS. ? PLEASE NOTE: ??A NORMAL MAMMOGRAM DOES NOT EXCLUDE THE POSSIBILITY OF BREAST ?? CANCER. ??A CLINICALLY SUSPICIOUS PALPABLE LUMP SHOULD BE BIOPSIED. ? Dictated by: Seferino Gibbons DO on 11/15/2024 at 12:59 ? Approved by: Seferino Gibbons DO on 11/15/2024 at 13:21 ? Dictated By: ?Seferino Gibbons M.D. ? Signed By: ?11/15/243 ? DD/ 1322 ? TD/TT: ? Merchandising Lead: Procedure Note Radiology, Radiologist, MD - 11/15/2024 [place] [address] Mammography Report Signed Patient: SASKIA MORENO JMR#: [id number] : 1950cct:[id number] Age/Sex: 73 / FADM Date: 11/15/24 Loc: RAD Attending Dr: Destiny Mccartney NP Ordering Physician: Destiny Mccartneyesults: Date of Service: 11/15/24Follow Up: Procedure(s): MM screening mammo BI Accession Number(s): [id number] cc: Destiny Mccartney NP Patient Name: SASKIA MORENO MR#: [id number] : 1950 Exam Date: 11/15/2024 Ordering Doctor: [...] with coloncancer at age 71. LOCATION: [facility] BREAST COMPOSITION: There are scattered areas [...] 13:21 Dictated By: Seferino Gibbons M.D. Signed By:11/15/24 1323 DD/ 1322 TD/TT: Merchandising Lead: Authorizing ProviderResult TypeResult StatusLisa Aichholz NPIMG BI PROCEDURES Final Result * COLONOSCOPY DIAGNOSTIC (07/26/2024 2:22 PM EST)Anatomical RegionLaterality ModalityRadiographic Imaging Narrative Authorizing ProviderResult TypeResult StatusCatherine Ly DOIMG XR PROCEDURES Final Result * Diabetic Retinopathy Screening - OU - Both Eyes (07/03/2024 2:19 PM EST) Anatomical RegionLateralityModalityHeadOther Narrative Authorizing ProviderResult TypeResult StatusTaylor Larry ODOPHTH PHOTOGRAPHYFinal Result from Last 3 Months or Most Recently Relevant to Health Maintenance Insurance Care Teams Team MemberRelationshipSpecialtyStart DateEnd Date Shaikh Burks MD [address] [place] [phone] PCP - [employer]10/08/23 Jerome Brody MD [address] [place] [phone] PCP - GeneralFamily Medicine03/28/24 Karen Conner NP Nurse PractitionerFamily Medicine03/28/24 Destiny Mccartney NP [address] [place] [phone] Nurse PractitionerFamily Medicine01/18/25 Maurisio Crow DO [address] [place] [address] Otolaryngology01/18/25
--- OUTSIDE RECORDS SUMMARY | 2025-07-28 00:18 | XMS_ITS | Patient Health Record ---
Author Organization [facility] in [place] Address [address] [place] [address] Care Team Providers Care Cost Analyst Name Role Phone None, Unknown or Primary Care Provider Unavailab le Reason For Referral No Information Plan Of Treatment No Information
[2025-07-28 00:20] VITALS: O2SAT 95
[2025-07-28 00:29] LABS: Anion Gap 10.3; Blood Urea Nitrogen 17.0 mg/dL (7.0-18.0); Calcium 9.0 mg/dL (8.5-10.1); Carbon Dioxide 25.0 mmol/L (21.0-32.0); Chloride 106 mmol/L (98-107); Estimated GFR (African America >60 (>=60 mL/min/1.73m^2); Estimated GFR (Non-African Ame >60 (>=60 mL/min/1.73m^2); Glucose 219 mg/dL (74-106); Hematocrit 40.3 % (36.0-48.0); Hemoglobin 14.4 g/dL (12.0-16.0); Immature Granulocytes Abs Auto 0.01 10^3/uL (0.00-0.03); Immature Granulocytes Pct Auto 0.1 % (0.0-0.5); Lymphocytes Absolute Auto 2.8 10^3/uL (1.2-3.8); Mean Corpuscular HGB Conc 35.7 g/dL (29.9-35.2); Mean Corpuscular Hemoglobin 32.2 pg (26.7-34.0); Mean Corpuscular Volume 90.2 fL (81.0-99.0); Platelet Count 299 10^3/uL (150-450); Potassium 3.3 mmol/L (3.5-5.1); Red Blood Count 4.47 10^6/uL (4.20-5.40); Sodium 138 mmol/L (136-145); White Blood Count 8.1 10^3/uL (4.0-11.0)
[2025-07-28 00:30] VITALS: BP 123/49; PULSE 76; O2SAT 95
[2025-07-28 00:37] VITALS: O2SAT 96
[2025-07-28 01:21] VITALS: O2SAT 98
--- NOTE | 2025-07-28 01:22 | PC.NURSE ---
i gave this patient verbal and written discharge orders along with 2 Rx and this patient voices yes to understanding these. at time of discharge this patient voices no concerns needs and shows no signs of distress
[2025-07-28] MEDS: 0.9 % SODIUM CHLORIDE 1,000 ML 1000 ML IV (01:41)
== END 2025-07-28 01:17 | disposition home or self-care (01) ==
PROVIDERS: Emergency Provider Internal Medicine; PCP Nurse Practitioner
DX: T78.19XA Other adverse food reactions, not elsewhere classified, initial encounter (principal); R10.13 Epigastric pain; K14.8 Other diseases of tongue
CPT/HCPCS: 36415; 80048; 85025; 96372; 96374; 96375; 99284; J1200; J2919; J3490